=== PATIENT | male | born 1970 | race Caucasian/White ===

== ENCOUNTER 2020-08-22 17:44 | Inpatient (IN) | payer BC, SELFPAY ==
[2020-08-22 18:18] VITALS: BP 146/103; PULSE 107; RESP 20; TEMP 36.3; BMI 37.7
--- NOTE | 2020-08-22 18:31 | ECG_ITS ---
Test Reason : BEHAVIORAL CHANGE,DEPRESSION Blood Pressure : / mmHG Vent. Rate : 080 BPM Atrial Rate : 080 BPM P-R Int : 150 ms QRS Dur : 096 ms QT Int : 368 ms P-R-T Axes : 004 010 -06 degrees QTc Int : 424 ms Normal sinus rhythm RSR' or QR pattern in V1 suggests right ventricular conduction delay Inferior infarct (cited on or before 19-MAR-2017) Abnormal ECG When compared with ECG of 29-SEP-2018 22:23, Nonspecific T wave abnormality no longer evident in Lateral leads Referred By: Leslie Montez Electronically Signed By:MAGUE VARELA MD
--- NOTE | 2020-08-22 18:46 | ED_ITS ---
HPI - Psych General Chief Complaint: Psychiatric Symptoms Stated Complaint: Crisis Time Seen by Provider: 08/22/20 18:15 Source: patient Mode of arrival: ambulatory Limitations: no limitations History of Present Illness HPI Narrative: Patient comes to the emergency room complaining of worsening anxiety and depression. Patient states it started about 3 months for him, unclear what triggered this. Patient states that over the last few days, the anxiety and depression has worsened, patient has a loaded gun in his drawer at home, has had serious thoughts of using it. Patient went to see his primary care physician today, Dr. Ge is very concerned about the patient's presentation, this is the 1st time that patient has this severe episodes of anxiety depressions, and what seems to be manic episodes. Patient states he has been sleeping only 2 hours at the time, sometimes he gets up and has an urge to do things. Last few nights, patient has been up cleaning his basement. Related Data Home Medications Medication Instructions Recorded Confirmed amoxicillin 875 mg tablet 875 mg PO BID 08/22/20 citalopram 20 mg tablet 20 mg PO DAILY 08/22/20 gabapentin 300 mg capsule 300 mg PO TID 08/22/20 levothyroxine 75 mcg tablet 75 mcg PO DAILY 08/22/20 ropinirole 0.25 mg tablet 0.25 mg PO BEDTIME 08/22/20 vardenafil 20 mg tablet 20 mg PO 08/22/20 Allergies Allergy/AdvReac Type Severity Reaction Status Date / Time acetone [ACETONE] Allergy Unknown UNKNOWN Unverified 07/07/20 14:48 Sulfa (Sulfonamide Allergy Unknown UNKNOWN Unverified 07/07/20 14:48 Antibiotics) [SULFA (SULFONAMIDE ANTIBIOTICS)] sulfur Allergy Unknown Verified 11/19/16 00:00 aerosols, epoxy, glue Allergy Unknown Uncoded 04/05/20 00:00 Review of Systems Review of Systems: Constitutional : No Weight loss, No Fever, No Chills, No Night Sweats, No Fatigue, No Malaise ENT/Mouth : No Hearing loss, No Ear Pain, No Nasal Congestion, No Sinus Pain, No Hoarseness, No sore throat, No Rhinorrhea, No Swallowing Difficulty Eyes: No Eye Pain, No Swelling, No Redness, No Foreign Body, No Discharge, No Vision Changes Cardiovascular : No Chest Pain, No SOB, No Dyspnea on Exertion, No Orthopnea, No Edema, No Palpitations Respiratory : No Cough, No Sputum, No Wheezing, No Smoke Exposure, No Dyspnea Gastrointestinal : No Nausea, No Vomiting, No Diarrhea, No Constipation, No abdominal Pain, No Hematochezia, No Melena Genitourinary : no irregular bleeding, No Dysuria, No Urinary Frequency, No Hematuria, No Urinary Incontinence, No Urgency, No Flank Pain, No Urinary Flow Changes, No Hesitancy Musculoskeletal : No joint pain, No Myalgias, No Joint Swelling Skin : No Skin Lesions, No rash Neuro : No Weakness, No Numbness, No Paresthesias, No Loss of Consciousness, No Dizziness, No Headache Psych : Complaining of worsening anxiety, depression, has had serious suicidal thoughts Heme/Lymph: No Bruising, No Bleeding,No Lymphadenopathy Endocrine : No Polyuria, No Polydipsia, No Temperature Intolerance PMFSH Past Medical History Medical History Depression Social History Social History Smoking Status: Never smoker Use of substances other than those prescribed or required for medical reasons: No Advance Directives: No Advance Directives Information Provided: No Physical Exam Vital Signs: Vital Signs: Vital Signs Temp Pulse Resp BP Pulse Ox 08/22/20 21:39 97.9 F 88 20 118/83 98 08/22/20 18:18 97.4 F 107 H 20 146/103 H Body Mass Index 37.7 Appearance: Alert. Oriented X3. Teary, unable to keep arms still Eyes: Pupils equal, round and reactive to light. ENT: Pharynx normal. Neck: Normal inspection. Neck supple. No lymph nodes noted. No crepitus CVS: Normal heart rate and rhythm. Pulses normal. Normal S1 and S2 Respiratory: No respiratory distress. Breath sounds normal. No Wheezing. No rales Abdomen: Soft and nontender. No rigidity. No distention. good BS x4 Skin: Skin warm and dry. Normal skin color. Normal skin turgor. Extremities: No lower extremity edema. No lower extremity edema. No Laceration s. No Rash Neuro: Oriented X 3. No motor deficit. No sensory deficit. Moving all extermities. No slurred speech. Psych: Alert and oriented x3, calm, cooperative, normal thought process, does not seem manic, normal speech, a bit anxious Course Course Course Narrative: Patient states that he does have serious thoughts of using his loaded gun that is in his house. Patient is on a Section 12, patient will likely need inpatient treatment, Dr. Ge who is the patient's PCP is requesting inpatient admission. Dr. Ge requested to get a phone call if more information is needed by the psychiatry team or if there are any concerns . At this time, labs and CT scan will be obtained to rule out an organic reason for the patient's new onset of severe depression and possible manic episodes. Patient is medically cleared. I discussed the patient with the care team, patient will remain under Section 12 and bed search has started for inpatient treatment. Sign-out given to Dr. Griffin [facility] - Psych Restraints Face to Face Assessment: Face to Face Assessment: Current Situation: After assessment of the patient, a review of the pertinent medical record and a discussion with nursing staff, I feel the patient requires a restrain intervention. Reaction To: [] Medical Condition: [] Behavioral State: [] Continued Need: [] Lab Data Result diagrams: 08/22/20 19:02 08/22/20 19:02 Labs: Lab Results 08/22/20 08/22/20 08/22/20 Range/Units 19:02 19:02 19:02 WBC 9.2 (4.8-10.8) X10*3/uL RBC 4.86 (4.60-5.80) X10*6/uL Hgb 15.9 (14.0-18.0) g/dl Hct 45.9 (42-52) % MCV 94.4 (80-98) fL MCH 32.7 (27.0-33.0) pg MCHC 34.6 (31.0-36.0) g/dl RDW 11.9 (11.0-16.0) % Plt Count 261 (160-400) X10*3/uL MPV 9.3 L (9.4-12.4) fL Immature Gran % (Auto) 0.3 (0.0-0.4) % Neut % (Auto) 53.7 (45-73) % Lymph % (Auto) 36.7 (20-40) % [place] % (Auto) 8.2 (2-11) % Eos % (Auto) 0.7 (0-4) % Baso % (Auto) 0.4 (0-2) % Lymph # (Auto) 3.4 (1.2-4.9) X10*3/uL [place] # (Auto) 0.8 (0.1-1.2) X10*3/uL Eos # (Auto) 0.1 (0.0-0.4) X10*3/uL Baso # (Auto) 0.0 (0.0-0.2) X10*3/uL Abs Immat Gran (auto) 0.03 (0.00-0.03) X10*3/uL Absolute Neuts (auto) 4.9 (2.0-8.3) X10*3/uL Absolute Nucleated RBC 0.000 (0.0-0.012) X10*3/uL Nucleated RBC % (auto) 0.0 (0.0-0.2) /100WBC Sodium 142 (135-145) mmol/L Potassium 4.3 (3.3-5.1) mmol/l Chloride 106 (96-108) mmol/L Carbon Dioxide 26 (22-29) mmol/L Anion Gap 14 (12-20) BUN 15 (9-16) mg/dL Creatinine 1.00 (0.5-1.4) mg/dL Estim Creat Clear Calc 125.4 Estimated GFR > 60 Random Glucose 99 (60-115) mg/dL Calcium 8.4 (8.4-10.2) mg/dL Total Bilirubin 0.9 (0.0-1.0) mg/dL Direct Bilirubin 0.4 (0.0-0.5) mg/dL AST 20 (5-37) U/L ALT 23 (0-40) U/L Alkaline Phosphatase 68 (39-117) U/L Total Protein 7.5 (6.5-8.0) g/dL Albumin 4.4 (3.5-5.0) g/dL TSH 5.61 H (0.32-4.0) mIU/mL Free T4 0.98 (0.71-1.85) ng/dL Urine Color Urine Appearance Urine pH (5.0-8.0) Ur Specific [place] (1.005-1.025) Urine Protein (NEG-TRACE) MG/DL Urine Glucose (UA) (NEG) MG/DL Urine Ketones (NEG) MG/DL Urine Blood (NEG) Urine Nitrite (NEG) Ur Leukocyte Esterase (NEG) Urine Opiates Screen (Not Detect) Ur Barbiturates Screen (Not Detect) Ur Phencyclidine Scrn (Not Detect) Ur Amphetamines Screen (Not Detect) U Benzodiazepines Scrn (Not Detect) Urine Cocaine Screen (Not Detect) U Marijuana (THC) Screen (Not Detect) Ethyl Alcohol < 10 mg/dL 08/22/20 08/22/20 Range/Units 19:23 19:23 WBC (4.8-10.8) X10*3/uL RBC (4.60-5.80) X10*6/uL Hgb (14.0-18.0) g/dl Hct (42-52) % MCV (80-98) fL MCH (27.0-33.0) pg MCHC (31.0-36.0) g/dl RDW (11.0-16.0) % Plt Count (160-400) X10*3/uL MPV (9.4-12.4) fL Immature Gran % (Auto) (0.0-0.4) % Neut % (Auto) (45-73) % Lymph % (Auto) (20-40) % [place] % (Auto) (2-11) % Eos % (Auto) (0-4) % Baso % (Auto) (0-2) % Lymph # (Auto) (1.2-4.9) X10*3/uL [place] # (Auto) (0.1-1.2) X10*3/uL Eos # (Auto) (0.0-0.4) X10*3/uL Baso # (Auto) (0.0-0.2) X10*3/uL Abs Immat Gran (auto) (0.00-0.03) X10*3/uL Absolute Neuts (auto) (2.0-8.3) X10*3/uL Absolute Nucleated RBC (0.0-0.012) X10*3/uL Nucleated RBC % (auto) (0.0-0.2) /100WBC Sodium (135-145) mmol/L Potassium (3.3-5.1) mmol/l Chloride (96-108) mmol/L Carbon Dioxide (22-29) mmol/L Anion Gap (12-20) BUN (9-16) mg/dL Creatinine (0.5-1.4) mg/dL Estim Creat Clear Calc Estimated GFR Random Glucose (60-115) mg/dL Calcium (8.4-10.2) mg/dL Total Bilirubin (0.0-1.0) mg/dL Direct Bilirubin (0.0-0.5) mg/dL AST (5-37) U/L ALT (0-40) U/L Alkaline Phosphatase (39-117) U/L Total Protein (6.5-8.0) g/dL Albumin (3.5-5.0) g/dL TSH (0.32-4.0) mIU/mL Free T4 (0.71-1.85) ng/dL Urine Color YELLOW Urine Appearance CLEAR Urine pH 6.0 (5.0-8.0) Ur Specific [place] >= 1.030 H (1.005-1.025) Urine Protein NEG (NEG-TRACE) MG/DL Urine Glucose (UA) NEG (NEG) MG/DL Urine Ketones NEG (NEG) MG/DL Urine Blood NEG (NEG) Urine Nitrite NEG (NEG) Ur Leukocyte Esterase NEG (NEG) Urine Opiates Screen Not Detected (Not Detect) Ur Barbiturates Screen Not Detected (Not Detect) Ur Phencyclidine Scrn Not Detected (Not Detect) Ur Amphetamines Screen Not Detected (Not Detect) U Benzodiazepines Scrn Not Detected (Not Detect) Urine Cocaine Screen Not Detected (Not Detect) U Marijuana (THC) Screen Not Detected (Not Detect) Ethyl Alcohol mg/dL Imaging Data CT scan - head: Radiologist's impression: There are no pathologic extra-axial fluid c ollections. The lateral, third, fourth ventricles are nondilated and concordant with the appearance of the sulci. There is no evidence for acute intraparenchymal hemorrhage or infarct. There is neither mass nor mass effect. There is no shift of midline structures. The paranasal sinuses and mastoid air cells are clear. There are no osseous lesions. ECG Data Attestation: I personally reviewed and interpreted this ECG as follows: (Sinus r hythm, heart rate 80, no ST segment depressions or elevations, nonspecific T- wave inversions) Discharge Plan Discharge Clinical Impression: Suicidal ideation Depression Qualifiers: Depression Type: unspecified Qualified Code(s): F32.9 - Major depressive disorder, single episode, unspecified Prescriptions: No Action amoxicillin 875 mg tablet 875 mg PO BID RF: 0 vardenafil 20 mg tablet 20 mg PO RF: 0 gabapentin 300 mg capsule 300 mg PO TID RF: 0 citalopram 20 mg tablet 20 mg PO DAILY RF: 0 ropinirole 0.25 mg tablet 0.25 mg PO BEDTIME RF: 0 levothyroxine 75 mcg tablet 75 mcg PO DAILY RF: 0
--- NOTE | 2020-08-22 19:01 | PC.NURSE ---
Care team aware of pt. labs drawn.
[2020-08-22 19:08] LABS: MANUAL DIFF FLAG NO
[2020-08-22 19:13] LABS: White Blood Count 9.2 X10*3/uL (4.8-10.8)
[2020-08-22 19:14] LABS: Basophils Percent Auto 0.4 % (0-2); Eosinophils Absolute Auto 0.1 X10*3/uL (0.0-0.4); Eosinophils Percent Auto 0.7 % (0-4); Hematocrit 45.9 % (42-52); Hemoglobin 15.9 g/dl (14.0-18.0); Imm Gran Abs Auto 0.03 X10*3/uL (0.00-0.03); Imm Gran Pct Auto 0.3 % (0.0-0.4); Lymphocytes Absolute Auto 3.4 X10*3/uL (1.2-4.9); Lymphocytes Percent Auto 36.7 % (20-40); Mean Corpuscular HGB Conc 34.6 g/dl (31.0-36.0); Mean Corpuscular Hemoglobin 32.7 pg (27.0-33.0); Mean Corpuscular Volume 94.4 fL (80-98); Mean Platelet Volume 9.3 fL (9.4-12.4); Monocytes Absolute Auto 0.8 X10*3/uL (0.1-1.2); Monocytes Percent Auto 8.2 % (2-11); Neutrophils Absolute Auto 4.9 X10*3/uL (2.0-8.3); Neutrophils Percent Auto 53.7 % (45-73); Platelet Count 261 X10*3/uL (160-400); Red Blood Count 4.86 X10*6/uL (4.60-5.80); Red Cell Distribution Width 11.9 % (11.0-16.0)
[2020-08-22 19:29] LABS: Ethanol < 10 mg/dL
[2020-08-22 19:32] LABS: Alanine Aminotransferase 23 U/L (0-40); Albumin Level 4.4 g/dL (3.5-5.0); Alkaline Phosphatase 68 U/L (39-117); Anion Gap 14 (12-20); Aspartate Amino Transferase 20 U/L (5-37); Bilirubin Direct 0.4 mg/dL (0.0-0.5); Bilirubin Total 0.9 mg/dL (0.0-1.0); Blood Urea Nitrogen 15 mg/dL (9-16); Calcium 8.4 mg/dL (8.4-10.2); Carbon Dioxide 26 mmol/L (22-29); Chloride 106 mmol/L (96-108); Creatinine Clr Calc Pharmacy 125.4; Estimated Glomerular Filt Rate > 60; Glucose Random 99 mg/dL (60-115); Potassium 4.3 mmol/l (3.3-5.1); Sodium 142 mmol/L (135-145); Total Protein 7.5 g/dL (6.5-8.0)
[2020-08-22 19:39] LABS: Glucose Urine UA NEG (NEG); Leukocyte Esterase Urine NEG (NEG); Nitrite Urine NEG (NEG); Specific Gravity - Urine >= 1.030 (1.005-1.025); Urine Blood NEG (NEG); Urine Ketones NEG (NEG); Urine Protein NEG (NEG-TRACE)
[2020-08-22 19:43] LABS: Appearance Urine CLEAR; Color Urine YELLOW
[2020-08-22 19:52] LABS: TSH reflex Free T4 5.61 mIU/mL (0.32-4.0)
[2020-08-22 20:09] LABS: Amphetamine Screen Urine Not Detected (Not Detect); Barbiturates, Urine Not Detected (Not Detect); Benzodiazepines Screen Urine Not Detected (Not Detect); Cannabinoid Screen Urine Not Detected (Not Detect); Cocaine Screen Urine Not Detected (Not Detect); Opiate Screen Urine Not Detected (Not Detect); Phencyclidine Screen Urine Not Detected (Not Detect)
--- NOTE | 2020-08-22 20:27 | CT_ITS ---
EXAMINATION: CT HEAD WITHOUT CONTRAST CLINICAL INFORMATION: Minute episode. Psychiatric symptoms. COMPARISON: August 15, 2006. TECHNIQUE: Contiguous helical images of the brain were obtained without IV contrast. Multiplanar reconstructions were performed. DLP: 749 mGy-cm. FINDINGS: There are no pathologic extra-axial fluid collections. The lateral, third, fourth ventricles are nondilated and concordant with the appearance of the sulci. There is no evidence for acute intraparenchymal hemorrhage or infarct. There is neither mass nor mass effect. There is no shift of midline structures. The paranasal sinuses and mastoid air cells are clear. There are no osseous lesions. CT/CT head/brain wo con IMPRESSION: No evidence for acute intracranial injury. Automated exposure control (Care Dose) Adjustment of the mA and/or kv according to patient size (this includes techniques or standardized protocols for targeted exams where dose is matched to indication / reason for exam; i.e. extremities or head).
[2020-08-22 20:35] LABS: Free T4 (Free Thyroxine) 0.98 ng/dL (0.71-1.85)
[2020-08-22 21:39] VITALS: BP 118/83; PULSE 88; RESP 20; TEMP 36.6; O2SAT 98
[2020-08-23 00:33] LABS: SARS COV2 PCR INHOUSE NEGATIVE (Negative)
[2020-08-23 00:41] VITALS: BP 141/81; PULSE 84; RESP 17; TEMP 36.9; O2SAT 98
[2020-08-23] MEDS: LORazepam 1 MG TABLET 2 MG PO (01:28)
[2020-08-23] MEDS: rOPINIRole HCL 0.25 MG TABLET 0.75 MG PO ×2 (02:06→21:21)
--- NOTE | 2020-08-23 07:07 | PC.NURSE ---
Report received from ARAVIND Summers. Pt awake, alert, affect even. reports he had a small amount of sleep, stated he did not feel significant effects from Ativan.
[2020-08-23 07:33] VITALS: BP 143/87; PULSE 84; RESP 17; TEMP 36.9; O2SAT 98
[2020-08-23] MEDS: Escitalopram Oxalate 10 MG TABLET PO (09:39)
[2020-08-23] MEDS: Levothyroxine Sodium 75 MCG TABLET PO (09:39)
--- NOTE | 2020-08-23 15:28 | MHC.CARE ---
t/w presented pt w a CV and he willingly signed. Pt stated he was looking for the help. [facility] accepted pt. room/doc and time TBD.
[2020-08-23 16:25] VITALS: BP 163/85; PULSE 84; RESP 20; TEMP 36.3; O2SAT 97
--- NOTE | 2020-08-23 17:34 | PC.NURSE ---
report given to salas roberts
[2020-08-23] MEDS: traZODone HCL 50 MG TABLET PO (21:21)
--- NOTE | 2020-08-23 22:44 | PC.NURSE ---
Pt is a 50 year old male who came into [facility] with increased SI/Depression and disturbed sleep. CV signed. Placed on 15 minute checks. Pt told his Doctor that he had active thoughts of suicide with a plan and means via loaded handgun which pt has placed in as side table drawer. Stated that he has had guns for over 30 years and knows the in's and out's - but he was just being honest that he has been very overwhelmed with work- added stressors. It is to be determined if there will be a plan to remove access. Reports I have not slept well for over 2 weeks I maybe get 1 or 2 hours of sleep but my mind will not allow me to go to bed neither my body . Denies SI/HI/AH/VH. Seems to be relieved that he will not have his phone and that he can step back from his stressful job. Having a difficult time managing pain he reported that he was suppose to get 6-8 shots of steroids in his lower back right before COVID and becuase of it was unable to recieve. Pain radiates to his right lower leg and causes pain and discomfort. His restless leg syndrome has been exacerbated due to no sleep and racing thoughts. When I go to lay down it's like it just gets worse and that keeps me up as well . Explains that she has a type A personality and has to have things a certain way, shared that he once spent an hour leveling a picture frame and recently organized a collection of 2,000 baseball cards. Has no history of mental health or JUANJOSE treatment. Diagnosis at refferal: MDD single episode severe, EUGENIO, Rule out obsessive compulsive personality disorder.
--- NOTE | 2020-08-23 22:57 | PC.ADMIT ---
Pt is a 50 year old male who came into [facility] with increased SI/Depression and disturbed sleep. CV signed. Placed on 15 minute checks. Pt told his Doctor that he had active thoughts of suicide with a plan and means via loaded handgun which pt has placed in as side table drawer. Stated that he has had guns for over 30 years and knows the in's and out's - but he was just being honest that he has been very overwhelmed with work- added stressors. It is to be determined if there will be a plan to remove access. Reports I have not slept well for over 2 weeks I maybe get 1 or 2 hours of sleep but my mind will not allow me to go to bed neither my body . Denies SI/HI/AH/VH. Seems to be relieved that he will not have his phone and that he can step back from his stressful job. Having a difficult time managing pain he reported that he was suppose to get 6-8 shots of steroids in his lower back right before COVID and because of it was unable to receive. Pain radiates to his right lower leg and causes pain and discomfort. His restless leg syndrome has been exacerbated due to no sleep and racing thoughts. When I go to lay down it's like it just gets worse and that keeps me up as well . Explains that she has a type A personality and has to have things a certain way, shared that he once spent an hour leveling a picture frame and recently organized a collection of 2,000 baseball cards. Has no history of mental health or JUANJOSE treatment. Diagnosis at referral: MDD single episode severe, EUGENIO, Rule out obsessive compulsive personality disorder. Medications verified in the ED, pharmacy and with patient. Medications ordered by Dr. Haynes.
[2020-08-24 06:05] VITALS: BP 128/71; PULSE 72; RESP 18; TEMP 36.7
[2020-08-24 08:46] LABS: Estimated Average Glucose 100 mg/dL; Hemoglobin A1c % 5.1 %
[2020-08-24 08:55] LABS: Cholesterol 189 mg/dL; HDL Cholesterol 45 mg/dL; LDL Cholesterol Calculated 126 mg/dl; Triglycerides 94 mg/dL
[2020-08-24] MEDS: Escitalopram Oxalate 10 MG TABLET PO (10:13)
[2020-08-24] MEDS: Levothyroxine Sodium 75 MCG TABLET PO (10:14)
--- NOTE | 2020-08-24 10:16 | P.HPPS_ITS ---
HPI Chief Complaint: Major Depression, Severe Sources of Information: patient interviewed, chart reviewed and crisis/core team assessment reviewed HPI Narrative: Pt referred by PCP Dr Ge for significant SI. Pt reported SI of shooting himself. Has many guns at home. 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 Reports keeping one in drawer. States SI lingered for a day or two. Maybe I wouldnt do it....everyone would be better without me . Hx depression dating back to at least 2 years. Stressors: conflict w /estranged and guilty about lost relationship w both children/friend killed himself in Summer 2019. Marked anhedonia/helplessness/guilt/rumination/irritability/snapping at pe ople/agitation/mind racing/cannot sleep. No Hx psychosis or bipolarity. Marked EUGENIO but 2/2 MDD. Has [place] [employer]: exacting/demanding/neat but no OCD. No JUANJOSE. Social ETOH use. Past Psychiatric History: None formally. PCP started Celexa 2 yrs ago Medical Evaluation Reviewed: Yes [facility] Medical History Depression Narrative: States he some cardiac issue 2 years ago. Was seen [facility]. Unable to access records currently. Family History: None known for psychiatric. We dont talk about things Social History: x 2. Current x 10 years, some friction. Has 2 children in from first marriage, Could not/did not attend both weddings/or see grandD. 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 Exacting high standards. Christianity/ [employer] Substance History: Social use of ETOH Trauma History: None Diagnostics Vital Signs (24Hr): Vital Signs - 24 hr 08/23/20 16:25 08/24/20 06:05 Temperature 97.3 F 98.0 F Pulse Rate 84 72 Respiratory Rate 20 18 Blood Pressure 163/85 H 128/71 Pulse Oximetry 97 Body Mass Index 37.7 Labs Results: 08/22/20 19:02 08/22/20 19:02 Labs: Laboratory Results - last 48 hr 08/22/20 08/22/20 08/22/20 19:02 19:02 19:02 WBC 9.2 RBC 4.86 Hgb 15.9 Hct 45.9 MCV 94.4 MCH 32.7 MCHC 34.6 RDW 11.9 Plt Count 261 MPV 9.3 L Immature Gran % (Auto) 0.3 Neut % (Auto) 53.7 Lymph % (Auto) 36.7 [place] % (Auto) 8.2 Eos % (Auto) 0.7 Baso % (Auto) 0.4 Lymph # (Auto) 3.4 [place] # (Auto) 0.8 Eos # (Auto) 0.1 Baso # (Auto) 0.0 Abs Immat Gran (auto) 0.03 Absolute Neuts (auto) 4.9 Absolute Nucleated RBC 0.000 Nucleated RBC % (auto) 0.0 Sodium 142 Potassium 4.3 Chloride 106 Carbon Dioxide 26 Anion Gap 14 BUN 15 Creatinine 1.00 Estim Creat Clear Calc 125.4 Estimated GFR > 60 Random Glucose 99 Estimat Average Glucose Hemoglobin A1c % Calcium 8.4 Total Bilirubin 0.9 Direct Bilirubin 0.4 AST 20 ALT 23 Alkaline Phosphatase 68 Total Protein 7.5 Albumin 4.4 Triglycerides Cholesterol LDL Cholesterol, Calc HDL Cholesterol TSH 5.61 H Free T4 0.98 Urine Color Urine Appearance Urine pH Ur Specific [place] Urine Protein Urine Glucose (UA) Urine Ketones Urine Blood Urine Nitrite Ur Leukocyte Esterase Urine Opiates Screen Ur Barbiturates Screen Ur Phencyclidine Scrn Ur Amphetamines Screen U Benzodiazepines Scrn Urine Cocaine Screen U Marijuana (THC) Screen Ethyl Alcohol < 10 Coronavirus (PCR) 08/22/20 08/22/20 08/22/20 19:23 19:23 23:02 WBC RBC Hgb Hct MCV MCH MCHC RDW Plt Count MPV Immature Gran % (Auto) Neut % (Auto) Lymph % (Auto) [place] % (Auto) Eos % (Auto) Baso % (Auto) Lymph # (Auto) [place] # (Auto) Eos # (Auto) Baso # (Auto) Abs Immat Gran (auto) Absolute Neuts (auto) Absolute Nucleated RBC Nucleated RBC % (auto) Sodium Potassium Chloride Carbon Dioxide Anion Gap BUN Creatinine Estim Creat Clear Calc Estimated GFR Random Glucose Estimat Average Glucose Hemoglobin A1c % Calcium Total Bilirubin Direct Bilirubin AST ALT Alkaline Phosphatase Total Protein Albumin Triglycerides Cholesterol LDL Cholesterol, Calc HDL Cholesterol TSH Free T4 Urine Color YELLOW Urine Appearance CLEAR Urine pH 6.0 Ur Specific [place] >= 1.030 H Urine Protein NEG Urine Glucose (UA) NEG Urine Ketones NEG Urine Blood NEG Urine Nitrite NEG Ur Leukocyte Esterase NEG Urine Opiates Screen Not Detected Ur Barbiturates Screen Not Detected Ur Phencyclidine Scrn Not Detected Ur Amphetamines Screen Not Detected U Benzodiazepines Scrn Not Detected Urine Cocaine Screen Not Detected U Marijuana (THC) Screen Not Detected Ethyl Alcohol Coronavirus (PCR) NEGATIVE 08/24/20 08/24/20 08:12 08:12 WBC RBC Hgb Hct MCV MCH MCHC RDW Plt Count MPV Immature Gran % (Auto) Neut % (Auto) Lymph % (Auto) [place] % (Auto) Eos % (Auto) Baso % (Auto) Lymph # (Auto) [place] # (Auto) Eos # (Auto) Baso # (Auto) Abs Immat Gran (auto) Absolute Neuts (auto) Absolute Nucleated RBC Nucleated RBC % (auto) Sodium Potassium Chloride Carbon Dioxide Anion Gap BUN Creatinine Estim Creat Clear Calc Estimated GFR Random Glucose Estimat Average Glucose 100 Hemoglobin A1c % 5.1 Calcium Total Bilirubin Direct Bilirubin AST ALT Alkaline Phosphatase Total Protein Albumin Triglycerides 94 Cholesterol 189 LDL Cholesterol, Calc 126 HDL Cholesterol 45 TSH Free T4 Urine Color Urine Appearance Urine pH Ur Specific [place] Urine Protein Urine Glucose (UA) Urine Ketones Urine Blood Urine Nitrite Ur Leukocyte Esterase Urine Opiates Screen Ur Barbiturates Screen Ur Phencyclidine Scrn Ur Amphetamines Screen U Benzodiazepines Scrn Urine Cocaine Screen U Marijuana (THC) Screen Ethyl Alcohol Coronavirus (PCR) Imaging Radiology Impressions: ITS Impressions Head CT 08/22/20 20:27 IMPRESSION: No evidence for acute intracranial injury. Automated exposure control (Care Dose) Adjustment of the mA and/or kv according to patient size (this includes techniques or standardized protocols for targeted exams where dose is matched to indication / reason for exam; i.e. extremities or head). Meds/Allergies Meds Home Medications Medication Instructions Recorded Confirmed Type citalopram 20 mg tablet 20 mg PO DAILY 08/22/20 08/23/20 History levothyroxine 75 mcg tablet 75 mcg PO DAILY 08/22/20 08/23/20 History ropinirole 0.25 mg tablet 0.75 mg PO BEDTIME 08/22/20 08/23/20 History Allergies Allergies Allergy/AdvReac Type Severity Reaction Status Date / Time acetone [ACETONE] Allergy Unknown UNKNOWN Unverified 07/07/20 14:48 Sulfa (Sulfonamide Allergy Unknown UNKNOWN Unverified 07/07/20 14:48 Antibiotics) [SULFA (SULFONAMIDE ANTIBIOTICS)] sulfur Allergy Unknown Verified 11/19/16 00:00 aerosols, epoxy, glue Allergy Unknown Uncoded 04/05/20 00:00 Mental Status Exam Mental Status Exam Narrative: restless tearful easily Patient Appearance: Well Grooomed Patient Orientation: Person, Place, Time and Situation Level of Consciousness: Awake Patient Behavior: Cooperative, Anxious and Pacing Mood Description: Depressed and Anxious Affect Description: Depressed and Sad Patient Cognition Impaired: No Ability to Follow Directions: Excellent Speech Pattern: Clear and Perseverating Memory Description: Intact Hallucinations: None Delusions: Not Present Thought Process: Racing Thought Content: positive for Logical and positive for Suicidal Ideation Depressive Symptoms: Increased Anxiety, Insomnia, Diff. Making Decisions, Muscle Tension, Increased Irritability, Difficulty Sleeping, Changes in Appetite, Muscle Pain, Crying Spells, Significant Weight Loss, Feelings of Worthlessness, Significant Weight Gain, Hopelessness, Isolating-Friends/Family, Feelings of Guilt, Unhappiness, Thoughts of /Suicide, Low Self Esteem, Loss of Energy and Difficulty Concentrating Abnormal Motor Activity Signs and Symptoms: Agitation Judgement: Poor Assessment & Plan Assessment & Plan (1) Major depressive disorder, recurrent severe without psychotic features: Status: Acute Code(s): F33.2 - Major depressive disorder, recurrent severe without psychotic features (2) Suicidal ideation: Status: Acute Code(s): R45.851 - Suicidal ideations Assessment and Plan: q15 Collateral info Taper off Lexapro. Start Cymbalta/Lorazepam Groups Gun safety Patient educated on: diagnosis and therapeutic strategies Informed Consent: understands Reason for continued inpatient stay Substantial Risk for: harm to self and rapid decompensation
[2020-08-24] MEDS: LORazepam 1 MG TABLET PO ×2 (15:04→20:36)
[2020-08-24 18:00] VITALS: BP 103/66; PULSE 100; TEMP 36.6
[2020-08-24] MEDS: traZODone HCL 50 MG TABLET PO (20:35)
[2020-08-24] MEDS: rOPINIRole HCL 0.25 MG TABLET 0.75 MG PO (20:36)
[2020-08-25 05:10] VITALS: BP 126/78; PULSE 81; RESP 16; TEMP 36.3; O2SAT 97
[2020-08-25 07:00] VITALS: BMI 36.7
--- NOTE | 2020-08-25 07:29 | HO.PSYCHPN ---
Subjective Subjective Date of Service: 08/25/20 Reason For Visit: Major Depression, Severe Subjective Notes: Conditional Voluntary Interim History: Pleasant,remains depressed. Vented but i dont want to repeat things. Easily tearful. Med compliant. Poor sleep. Ct Lorazepam. Medication Compliance: Yes Side effects from medications: No Attending Groups: Yes Review of Systems Review of Systems Yes all other systems are reviewed and are negative Mental Status Exam Mental Status Exam Patient Appearance: Well Grooomed Patient Orientation: Person, Place, Time and Situation Level of Consciousness: Awake Patient Behavior: Appropriate Mood Description: Depressed and Anxious Affect Description: Depressed Patient Cognition Impaired: No Ability to Follow Directions: Excellent Speech Pattern: Clear Memory Description: Intact Hallucinations: None Delusions: Not Present Thought Process: Intact Depressive Symptoms: Increased Anxiety, Insomnia, Diff. Making Decisions, Increased Irritability, Unhappiness and Increased Fatigue Judgement: Poor Diagnostics Vital Signs (24Hr): Vital Signs - 24 hr 08/24/20 18:00 08/25/20 05:10 Temperature 97.8 F 97.3 F Pulse Rate 100 81 Respiratory Rate 16 Blood Pressure 103/66 126/78 Pulse Oximetry 97 Body Mass Index 37.7 Labs Results: 08/22/20 19:02 08/22/20 19:02 Labs: Laboratory Results - last 48 hr 08/24/20 08/24/20 08:12 08:12 Estimat Average Glucose 100 Hemoglobin A1c % 5.1 Triglycerides 94 Cholesterol 189 LDL Cholesterol, Calc 126 HDL Cholesterol 45 Imaging Radiology Impressions: ITS Impressions Head CT 08/22/20 20:27 IMPRESSION: No evidence for acute intracranial injury. Automated exposure control (Care Dose) Adjustment of the mA and/or kv according to patient size (this includes techniques or standardized protocols for targeted exams where dose is matched to indication / reason for exam; i.e. extremities or head). Medications Medications Current Medications Generic Name Dose Route Start Last Admin Trade Name Freq PRN Reason Stop Dose Admin Acetaminophen 650 mg 08/23/20 21:03 Acetaminophen 325 Mg Tablet PO Q6H PRN Headache/Pain Mild Scale (1-3) Al Hydroxide/Mg Hydroxide 30 ml 08/23/20 21:03 Magnesium Hydrox/Alum Hydrox 30 Ml Oral.Susp PO Q6H PRN Heartburn/Nausea Duloxetine HCl 20 mg 08/26/20 08:00 Duloxetine Hcl 20 Mg Capsule. PO DAILY YAMIL Escitalopram Oxalate 5 mg 08/25/20 09:00 Escitalopram Oxalate 10 Mg Tablet PO DAILY YAMIL Hydroxyzine HCl 25 mg 08/23/20 21:03 Hydroxyzine Hcl 25 Mg Tablet PO BEDTIME PRN Anxiety Levothyroxine Sodium 75 mcg 08/23/20 09:00 08/24/20 10:14 Levothyroxine Sodium 75 Mcg Tablet PO 75 mcg DAILY YAMIL Administration Lorazepam 1 mg 08/23/20 20:52 Lorazepam 1 Mg Tablet PO Q4H PRN Anxiety Lorazepam 1 mg 08/24/20 15:00 08/24/20 20:36 Lorazepam 1 Mg Tablet PO 1 mg TID YAMIL Administration Magnesium Hydroxide 30 ml 08/23/20 21:03 Milk Of Magnesia 30 Ml Oral.Susp PO DAILY PRN Constipation Ropinirole HCl 0.75 mg 08/23/20 21:00 08/24/20 20:36 Ropinirole Hcl 0.25 Mg Tablet PO 0.75 mg BEDTIME YAMIL Administration Trazodone HCl 50 mg 08/23/20 21:03 08/24/20 20:35 Trazodone Hcl 50 Mg Tablet PO 50 mg BEDTIME PRN Administration Insomnia Allergies Allergies Allergy/AdvReac Type Severity Reaction Status Date / Time acetone [ACETONE] Allergy Unknown UNKNOWN Unverified 07/07/20 14:48 Sulfa (Sulfonamide Allergy Unknown UNKNOWN Unverified 07/07/20 14:48 Antibiotics) [SULFA (SULFONAMIDE ANTIBIOTICS)] sulfur Allergy Unknown Verified 11/19/16 00:00 aerosols, epoxy, glue Allergy Unknown Uncoded 04/05/20 00:00 Assessment & Plan Greater than 50% of the session was spent on counseling and/or coordination of care
[2020-08-25] MEDS: Escitalopram Oxalate 10 MG TABLET 5 MG PO (08:54)
[2020-08-25] MEDS: Levothyroxine Sodium 75 MCG TABLET PO (08:54)
[2020-08-25] MEDS: LORazepam 1 MG TABLET PO ×3 (08:54→20:24)
[2020-08-25 18:00] VITALS: BP 132/71; PULSE 93; TEMP 36.8
[2020-08-25] MEDS: rOPINIRole HCL 0.25 MG TABLET 0.75 MG PO (20:24)
[2020-08-25] MEDS: traZODone HCL 50 MG TABLET PO ×2 (20:25→21:14)
[2020-08-26 06:00] VITALS: BP 122/71; PULSE 81; TEMP 37
[2020-08-26] MEDS: LORazepam 1 MG TABLET PO ×3 (08:38→20:54)
[2020-08-26] MEDS: Levothyroxine Sodium 75 MCG TABLET PO (08:38)
[2020-08-26] MEDS: DULoxetine HCl 20 MG CAPSULE.DR PO ×2 (08:38→08:51)
[2020-08-26] MEDS: Escitalopram Oxalate 10 MG TABLET 5 MG PO (08:39)
--- NOTE | 2020-08-26 08:48 | HO.PSYCHPN ---
Subjective Subjective Reason For Visit: Major Depression, Severe Interim History: Steady improvement in mood. Sleep is much improved. Finds milieu helpful. No SI. Much talk about an apology list...this long . Discussing PHP. Review of Systems Review of Systems Yes all other systems are reviewed and are negative Mental Status Exam Mental Status Exam Narrative: restless tearful easily Patient Appearance: Well Grooomed Patient Orientation: Person, Place, Time and Situation Level of Consciousness: Awake Patient Behavior: Appropriate Mood Description: Depressed and Anxious Affect Description: Depressed Patient Cognition Impaired: No Ability to Follow Directions: Excellent Speech Pattern: Clear Memory Description: Intact Thought Content: positive for Suicidal Ideation (denied) Depressive Symptoms: Increased Anxiety and Crying Spells Judgement: Fair Diagnostics Vital Signs (24Hr): Vital Signs - 24 hr 08/25/20 18:00 08/26/20 06:00 Temperature 98.3 F 98.6 F Pulse Rate 93 81 Blood Pressure 132/71 122/71 Body Mass Index 36.7 Labs Results: 08/22/20 19:02 08/22/20 19:02 Labs: Laboratory Results - last 48 hr 08/24/20 08:12 Triglycerides 94 Cholesterol 189 LDL Cholesterol, Calc 126 HDL Cholesterol 45 Imaging Radiology Impressions: ITS Impressions Head CT 08/22/20 20:27 IMPRESSION: No evidence for acute intracranial injury. Automated exposure control (Care Dose) Adjustment of the mA and/or kv according to patient size (this includes techniques or standardized protocols for targeted exams where dose is matched to indication / reason for exam; i.e. extremities or head). Medications Medications Current Medications Generic Name Dose Route Start Last Admin Trade Name Freq PRN Reason Stop Dose Admin Acetaminophen 650 mg 08/23/20 21:03 Acetaminophen 325 Mg Tablet PO Q6H PRN Headache/Pain Mild Scale (1-3) Al Hydroxide/Mg Hydroxide 30 ml 08/23/20 21:03 Magnesium Hydrox/Alum Hydrox 30 Ml Oral.Susp PO Q6H PRN Heartburn/Nausea Duloxetine HCl 20 mg 08/26/20 08:00 08/26/20 08:38 Duloxetine Hcl 20 Mg Capsule.Dr PO 20 mg DAILY YAMIL Administration Escitalopram Oxalate 5 mg 08/25/20 09:00 08/26/20 08:39 Escitalopram Oxalate 10 Mg Tablet PO 5 mg DAILY YAMIL Administration Hydroxyzine HCl 25 mg 08/23/20 21:03 Hydroxyzine Hcl 25 Mg Tablet PO BEDTIME PRN Anxiety Levothyroxine Sodium 75 mcg 08/23/20 09:00 08/26/20 08:38 Levothyroxine Sodium 75 Mcg Tablet PO 75 mcg DAILY YAMIL Administration Lorazepam 1 mg 08/23/20 20:52 Lorazepam 1 Mg Tablet PO Q4H PRN Anxiety Lorazepam 1 mg 08/24/20 15:00 08/26/20 08:38 Lorazepam 1 Mg Tablet PO 1 mg TID YAMIL Administration Magnesium Hydroxide 30 ml 08/23/20 21:03 Milk Of Magnesia 30 Ml Oral.Susp PO DAILY PRN Constipation Ropinirole HCl 0.75 mg 08/23/20 21:00 08/25/20 20:24 Ropinirole Hcl 0.25 Mg Tablet PO 0.75 mg BEDTIME YAMIL Administration Trazodone HCl 50 mg 08/25/20 21:00 08/25/20 21:14 Trazodone Hcl 50 Mg Tablet PO 50 mg BEDTIME MRX1 YAMIL Administration Allergies Allergies Allergy/AdvReac Type Severity Reaction Status Date / Time acetone [ACETONE] Allergy Unknown UNKNOWN Unverified 07/07/20 14:48 Sulfa (Sulfonamide Allergy Unknown UNKNOWN Unverified 07/07/20 14:48 Antibiotics) [SULFA (SULFONAMIDE ANTIBIOTICS)] sulfur Allergy Unknown Verified 11/19/16 00:00 aerosols, epoxy, glue Allergy Unknown Uncoded 04/05/20 00:00 Assessment & Plan Assessment & Plan (1) Major depressive disorder, recurrent severe without psychotic features: Status: Acute Code(s): F33.2 - Major depressive disorder, recurrent severe without psychotic features (2) Suicidal ideation: Status: Acute Code(s): R45.851 - Suicidal ideations Assessment and Plan: q15 Collateral info Taper off Lexapro. Start Cymbalta/Lorazepam Groups Gun safety discussed Refer to PHP Greater than 50% of the session was spent on counseling and/or coordination of care
[2020-08-26 18:00] VITALS: BP 123/75; PULSE 99; TEMP 36.8
[2020-08-26] MEDS: traZODone HCL 50 MG TABLET PO ×2 (20:55→21:45)
[2020-08-26] MEDS: rOPINIRole HCL 0.25 MG TABLET 0.75 MG PO (20:56)
[2020-08-27 06:00] VITALS: BP 135/66; PULSE 84; TEMP 36.7
[2020-08-27] MEDS: LORazepam 1 MG TABLET PO ×4 (09:11→20:04)
[2020-08-27] MEDS: Escitalopram Oxalate 10 MG TABLET 5 MG PO (09:11)
[2020-08-27] MEDS: DULoxetine HCl 20 MG CAPSULE.DR PO (09:11)
[2020-08-27] MEDS: Levothyroxine Sodium 75 MCG TABLET PO (09:13)
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
[2020-08-27 18:00] VITALS: BP 153/66; PULSE 101; TEMP 36.6
[2020-08-27] MEDS: rOPINIRole HCL 0.25 MG TABLET 0.75 MG PO (20:04)
[2020-08-27] MEDS: traZODone HCL 50 MG TABLET PO ×2 (20:05→21:42)
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
[2020-08-27] MEDS: Acetaminophen 325 MG TABLET 650 MG PO (21:41)
[2020-08-28 06:25] VITALS: BP 133/78; PULSE 85; RESP 16; TEMP 36.4; O2SAT 97
[2020-08-28] MEDS: LORazepam 1 MG TABLET PO ×4 (07:55→20:39)
[2020-08-28] MEDS: Escitalopram Oxalate 10 MG TABLET 5 MG PO (07:55)
[2020-08-28] MEDS: Levothyroxine Sodium 75 MCG TABLET PO (07:56)
[2020-08-28] MEDS: DULoxetine HCl 20 MG CAPSULE.DR PO (07:56)
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
--- NOTE | 2020-08-28 12:40 | HO.PSYCHPN ---
Subjective Subjective Date of Service: 08/28/20 Reason For Visit: Major Depression, Severe Subjective Notes: Conditional Voluntary Interim History: Steady improvement in mood. Sleep is much improved, but he is taking the second dose of trazodone. We agreed to consolidate the dose. Finds milieu helpful. No SI. He is interactive with his peers. Discussing PHP. Medication Compliance: Yes Side effects from medications: No Attending Groups: Yes Review of Systems Acute medical concerns: No Medical Review of Systems: unchanged Mental Status Exam Mental Status Exam Narrative: restless tearful easily Patient Appearance: Well Grooomed Patient Orientation: Person, Place, Time and Situation Level of Consciousness: Awake Patient Behavior: Appropriate Mood Description: Depressed and Anxious Affect Description: Depressed Patient Cognition Impaired: No Ability to Follow Directions: Excellent Speech Pattern: Clear Memory Description: Intact Hallucinations: None Delusions: Not Present Thought Process: Intact Thought Content: negative for Suicidal Ideation and negative for Homicidal Ideation Depressive Symptoms: Increased Anxiety Judgement: Fair Diagnostics Vital Signs (24Hr): Vital Signs - 24 hr 08/27/20 18:00 08/28/20 06:25 Temperature 98 F 97.5 F Pulse Rate 101 H 85 Respiratory Rate 16 Blood Pressure 153/66 H 133/78 Pulse Oximetry 97 Body Mass Index 36.7 Labs Results: 08/22/20 19:02 08/22/20 19:02 Imaging Radiology Impressions: ITS Impressions Head CT 08/22/20 20:27 IMPRESSION: No evidence for acute intracranial injury. Automated exposure control (Care Dose) Adjustment of the mA and/or kv according to patient size (this includes techniques or standardized protocols for targeted exams where dose is matched to indication / reason for exam; i.e. extremities or head). Medications Medications Current Medications Generic Name Dose Route Start Last Admin Trade Name Freq PRN Reason Stop Dose Admin Acetaminophen 650 mg 08/23/20 21:03 08/27/20 21:41 Acetaminophen 325 Mg Tablet PO 650 mg Q6H PRN Administration Headache/Pain Mild Scale (1-3) Al Hydroxide/Mg Hydroxide 30 ml 08/23/20 21:03 Magnesium Hydrox/Alum Hydrox 30 Ml Oral.Susp PO Q6H PRN Heartburn/Nausea Duloxetine HCl 30 mg 08/29/20 09:00 Duloxetine Hcl 30 Mg Capsule. PO DAILY YAMIL Hydroxyzine HCl 25 mg 08/23/20 21:03 Hydroxyzine Hcl 25 Mg Tablet PO BEDTIME PRN Anxiety Levothyroxine Sodium 75 mcg 08/23/20 09:00 08/28/20 07:56 Levothyroxine Sodium 75 Mcg Tablet PO 75 mcg DAILY YAMIL Administration Lorazepam 1 mg 08/23/20 20:52 08/27/20 12:08 Lorazepam 1 Mg Tablet PO 1 mg Q4H PRN Administration Anxiety Lorazepam 1 mg 08/24/20 15:00 08/28/20 07:55 Lorazepam 1 Mg Tablet PO 1 mg TID YAMIL Administration Magnesium Hydroxide 30 ml 08/23/20 21:03 Milk Of Magnesia 30 Ml Oral.Susp PO DAILY PRN Constipation Ropinirole HCl 0.75 mg 08/23/20 21:00 08/27/20 20:04 Ropinirole Hcl 0.25 Mg Tablet PO 0.75 mg BEDTIME YAMIL Administration Trazodone HCl 100 mg 08/28/20 21:00 Trazodone Hcl 50 Mg Tablet PO BEDTIME MRX1 YAMIL Allergies Allergies Allergy/AdvReac Type Severity Reaction Status Date / Time acetone [ACETONE] Allergy Unknown UNKNOWN Unverified 07/07/20 14:48 Sulfa (Sulfonamide Allergy Unknown UNKNOWN Unverified 07/07/20 14:48 Antibiotics) [SULFA (SULFONAMIDE ANTIBIOTICS)] sulfur Allergy Unknown Verified 11/19/16 00:00 aerosols, epoxy, glue Allergy Unknown Uncoded 04/05/20 00:00 Assessment & Plan Assessment & Plan (1) Major depressive disorder, recurrent severe without psychotic features: Status: Acute Code(s): F33.2 - Major depressive disorder, recurrent severe without psychotic features Assessment and Plan: CT current plan. Consolidate sleep meds Greater than 50% of the session was spent on counseling and/or coordination of care Patient educated on: diagnosis and medication risk/benefits Informed Consent: understands Reason for contiued inpatient stay Substantial Risk for: rapid decompensation
[2020-08-28 18:00] VITALS: BP 148/67; PULSE 100; TEMP 36.6
[2020-08-28] MEDS: rOPINIRole HCL 0.25 MG TABLET 0.75 MG PO (20:39)
[2020-08-28] MEDS: traZODone HCL 50 MG TABLET 100 MG PO ×2 (20:39→21:48)
[2020-08-29 06:00] VITALS: BP 124/87; PULSE 98; TEMP 37.1
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
[2020-08-29] MEDS: Levothyroxine Sodium 75 MCG TABLET PO (08:53)
[2020-08-29] MEDS: DULoxetine HCl 30 MG CAPSULE.DR PO (08:53)
[2020-08-29] MEDS: LORazepam 1 MG TABLET PO ×2 (08:54→22:23)
[2020-08-29] MEDS: Acetaminophen 325 MG TABLET 650 MG PO (10:57)
[2020-08-29 13:49] VITALS: BP 135/76; PULSE 81
--- NOTE | 2020-08-29 13:49 | PC.NURSE ---
pt requested to see a nurse. he felt as if his body was heavy and was not feeling right. may be anxiety related bp and p wnl. 135/76 pulse 81. duscussed realaxation techniques. 1:1. feeling better.
[2020-08-29 18:00] VITALS: BP 127/73; PULSE 88; TEMP 36.9
[2020-08-29] MEDS: rOPINIRole HCL 0.25 MG TABLET 0.75 MG PO (22:21)
[2020-08-29] MEDS: traZODone HCL 50 MG TABLET 100 MG PO (22:24)
[2020-08-30 05:25] VITALS: BP 134/83; PULSE 84; RESP 18; TEMP 36.2; O2SAT 98
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
[2020-08-30] MEDS: LORazepam 0.5 MG TABLET PO (08:36)
[2020-08-30] MEDS: DULoxetine HCl 30 MG CAPSULE.DR PO (08:36)
[2020-08-30] MEDS: Levothyroxine Sodium 75 MCG TABLET PO (08:36)
== END 2020-08-30 13:37 | disposition home or self-care (01) | DRG 751 ==
LOC: HO.ED 08-23 19:01 → HO.PM5 08-23 19:17
PROVIDERS: Admitting Provider Psychiatry & Neurology Psychiatry; Emergency Provider Emergency Medicine; PCP Internal Medicine; Visit Provider Psychiatry & Neurology Psychiatry
DX: F33.2 Major depressive disorder, recurrent severe without psychotic features (principal); R45.851 Suicidal ideations; E03.9 Hypothyroidism, unspecified; I25.2 Old myocardial infarction; Z20.828 Contact with and (suspected) exposure to other viral communicable diseases; Z79.890 Hormone replacement therapy; Z79.899 Other long term (current) drug therapy
CPT/HCPCS: 36415; 70450; 80048; 80061; 80076; 80307; 80320; 81003; 83036; 84439; 84443; 85025; 93005; 99223; 99232; 99239; 99285; U0003

== ENCOUNTER 2020-09-07 10:30 | Outpatient (RCR) | payer BC, SELFPAY ==
[2020-08-31 14:30] VITALS: BMI 37.8
--- NOTE | 2020-08-31 14:53 | PC.ADMIT ---
Patient is a 50 year old male who started the PHP program today. Pt was referred by [facility] where patient was hospitalized d/t increased symptoms of depression with SI and plan to shoot himself with a gun. Prior to this patient had an appointment with his PCP who referred him to crisis after he revealed his plan to shoot himself with a gun. Since then patients locked up the guns in the house and patient does not have access to the walker. Stressors include relationship issues with and adult children and losing a friend to suicide. Patient currently denied SI. I gave patient the crisis number and patient agrees to call if feeling unsafe. Patient also stated he would alert staff if he was feeling unsafe. In addition, he gave permission to email him a copy of his Safety plan as well. Patient is feeling better than he did prior to hospitalization. Stated he is looking forward to seeing his granddaughter. He does have significant sleep issues. Bree FLOYD increased his Trazodone to 200mg. Pt reports drinking ETOH on Fridays and Saturdays having a few beers on Saturday and 1 on Saturdays. Stated he had a shot yesterday in a glass of gingerale when he got home from the hospital. Education provided on mixing alcohol with medications and how alcohol can affect depression.
--- NOTE | 2020-09-01 13:22 | HO.PHPPROGNO ---
Subjective Subjective Date of Service: 09/01/20 Reason For Visit: depression Interim History: the patient seen in tele health appointment [facility] hospital. Patient trazodone was increased to 100 mg at bedtime has had racing thoughts agitation mood instability. He was recently hospitalized change from citalopram to Cymbalta 30 mg. has been on Ativan 1 mg trazodone 100 mg not sleeping up for days at times not feeling sedated. Difficulty with concentration and attention. His relates mood instability over the past year quite on current characteristic of him. He had intense suicidal thoughts over the past month which she is now denying. Questionable history of decreased need for sleep hyperactivity lasting for periods of time patient is somewhat disorganized historian. His has been thinking whether not he might be bipolar. Mental Status Exam Mental Status Exam Patient Orientation: Person, Place, Time and Situation Level of Consciousness: Appropriate Patient Behavior: Talkative, Cooperative, Restless, Anxious and Distractible Mood Description: Depressed, Labile and Apprehensive Affect Description: Depressed and Anxious Ability to Follow Directions: Excellent Speech Pattern: Clear and Perseverating Hallucinations: None Delusions: Not Present Thought Process: Rumination Thought Content: positive for Obsessional Thoughts, positive for Circumstantial and positive for Preoccupation Depressive Symptoms: Thoughts of /Suicide (denies plan intent) Judgement: Fair Judgement and Insight: patient with excessive guilt regarding behavior over the past year educated regarding diagnosis Diagnostics Vital Signs (24Hr): Body Mass Index 37.8 Assessment & Plan Assessment & Plan (1) Bipolar II disorder major depressive with atypical features: Status: Acute Code(s): F31.81 - Bipolar II disorder Assessment and Plan: stop trazadone duoloxitine start klonapin 1 hs hold ativan seroquel 25 hs given education regarding dx treatment consider lithium or other mood stabilizing agent Patient educated on: diagnosis and medication risk/benefits Reason for contiued partial hosp. stay Substantial Risk for: harm to self Certification I certify that partial hospital treatment is medically necessary due to the symptoms and problems resulting from the patient's mental illness and the failure to treat the patient at the partial hospital level of care would likely result in the patient requiring inpatient psychiatric care which could not be prevented at a less intensive level of care. Greater than 50% of the session was spent on counseling and/or coordination of care Discharge Plan Discharge Attending provider: Mehrdad Chin Medications: New quetiapine [Seroquel] 25 mg tablet 25 mg PO BEDTIME Qty: 30 RF: 0 clonazepam [Klonopin] 1 mg tablet 1 mg PO BEDTIME Qty: 30 RF: 0 lithium carbonate 450 mg tablet extended release 450 mg PO BEDTIME Qty: 7 RF: 0 Discontinued duloxetine 30 mg Capsule,Delayed Release(Dr/Ec) 30 mg PO DAILY 30 Days Qty: 30 RF: 0 lorazepam 1 mg tablet 1 mg PO BEDTIME RF: 0 lorazepam 0.5 mg Tablet 0.5 mg PO DAILY RF: 0 trazodone 100 mg tablet 200 mg PO BEDTIME RF: 0 No Action levothyroxine [Synthroid] 75 mcg tablet 75 mcg PO DAILY 30 Days Qty: 30 RF: 0 ropinirole 0.25 mg tablet 0.75 mg PO BEDTIME 30 Days Qty: 90 RF: 0
--- NOTE | 2020-09-01 20:46 | P.HPPSP_ITS ---
HPI Chief Complaint: depression HPI Narrative: Patient is 50 year old male who presents to [facility] following recent ad mission to [facility] psychiatric unit for suicidal ideation. Psychiatric admission and discharge notes reviewed.Medications started during admission. Please see notes for full history. Today, patient reporting he is in a better place in terms of depression, but is having significant difficulty sleeping, he reports sleeping anywhere from 2-4 hours per night--states this was the case while he was admitted as well. He reports that he has racing thoughts while he is awake in bed, so he gets up to do something Past Psychiatric History: Recent admission to [facility] Medical Evaluation Reviewed: Yes [facility] Medical History (Updated 09/01/20 @ 23:41 by Mehrdad Chin MD) Depression Diverticula of colon Herniated disc Hx of myocardial infarction Hypothyroidism Family History: None known for psychiatric. We dont talk about things Social History: x 2. Current x 10 years, some friction. Has 2 children in from first marriage, Could not/did not attend both weddings/or see grandD. 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 Exacting high standards. Druze/ [employer] Sabianism Trauma History: None Diagnostics Vital Signs (24Hr): Body Mass Index 37.8 Meds/Allergies Allergies Allergies Allergy/AdvReac Type Severity Reaction Status Date / Time acetone [ACETONE] Allergy Unknown UNKNOWN Unverified 07/07/20 14:48 Sulfa (Sulfonamide Allergy Unknown UNKNOWN Verified 09/02/20 12:52 Antibiotics) [SULFA (SULFONAMIDE ANTIBIOTICS)] sulfur Allergy Unknown unknown Verified 09/02/20 12:52 aerosols, epoxy, glue Allergy Unknown unknown Uncoded 09/02/20 12:52 Mental Status Exam Mental Status Exam Patient Appearance: Well Grooomed and Appropriate Patient Orientation: Person, Place, Time and Situation Level of Consciousness: Appropriate Patient Behavior: Cooperative and Anxious Mood Description: Calm Affect Description: Calm and Anxious Ability to Follow Directions: Excellent Speech Pattern: Clear Thought Process: Intact Thought Content: positive for Intact Depressive Symptoms: Insomnia and Feelings of Guilt Judgement: Good Assessment & Plan Assessment & Plan (1) Major depressive disorder, recurrent severe without psychotic features: Status: Acute Code(s): F33.2 - Major depressive disorder, recurrent severe without psychotic features Assessment and Plan: * Increase trazodone to 200mg QHS to address insomnia * Educated on not going to bed too early as this may impact ability to fall asleep Certification I certify that partial hospital treatment is medically necessary due to the symptoms and problems resulting from the patient's mental illness and the failure to treat the patient at the partial hospital level of care would likely result in the patient requiring inpatient psychiatric care which could not be prevented at a less intensive level of care.
--- NOTE | 2020-09-02 15:17 | P.PNPSP_ITS ---
Subjective Subjective Date of Service: 09/02/20 Reason For Visit: depression Interim History: Lul met with Dr. Chin via Telehealth on 09/01. They decided to make changes in regime. Cymbalta and Trazodone were stopped. Seroquel 25 mg HS, Klonopin 1 mg hs were added. Today, call to pt about beginning a mood stabilizer. 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 Discussed [place]. Medication Compliance: Yes Side effects from medications: No Attending Groups: Yes Review of Systems Musculoskeletal: Reports back pain Psychiatric: Reports abnormal sleep pattern, Reports mood swings and Reports other (hypomania) Mental Status Exam Mental Status Exam Patient Orientation: Person, Place, Time and Situation Level of Consciousness: Awake, Appropriate and Alert Patient Behavior: Appropriate, Talkative, Cooperative and Anxious Mood Description: Labile, Nervous, Apprehensive and Expansive Affect Description: Blunted Patient Cognition Impaired: No Ability to Follow Directions: Excellent Speech Pattern: Clear, Appropriate, Spontaneous Speech and Pressured (at times) Memory Description: Intact Hallucinations: None Delusions: Not Present Thought Process: Racing Thought Content: positive for Racing and positive for Goal Oriented Depressive Symptoms: Increased Anxiety Judgement: Fair Diagnostics Vital Signs (24Hr): Body Mass Index 37.8 Assessment & Plan Patient educated on: medication risk/benefits and therapeutic strategies Informed Consent: further education needed Reason for contiued partial hosp. stay Substantial Risk for: harm to self, inability to function and rapid decompensation Certification I certify that partial hospital treatment is medically necessary due to the symptoms and problems resulting from the patient's mental illness and the failure to treat the patient at the partial hospital level of care would likely result in the patient requiring inpatient psychiatric care which could not be prevented at a less intensive level of care. Greater than 50% of the session was spent on counseling and/or coordination of care Discharge Plan Discharge Attending provider: Mehrdad Chin Additional Instructions: 09/02/20: [place] ER 450 HS 09/05/20: Seroquel 100 mg hs in addition to 25 mg hs Medications: New quetiapine [Seroquel] 25 mg tablet 25 mg PO BEDTIME Qty: 30 RF: 0 clonazepam [Klonopin] 1 mg tablet 1 mg PO BEDTIME Qty: 30 RF: 0 lithium carbonate 450 mg tablet extended release 450 mg PO BEDTIME Qty: 7 RF: 0 quetiapine [Seroquel] 100 mg tablet 100 mg PO BEDTIME Qty: 7 RF: 0 Discontinued duloxetine 30 mg Capsule,Delayed Release(Dr/Ec) 30 mg PO DAILY 30 Days Qty: 30 RF: 0 lorazepam 1 mg tablet 1 mg PO BEDTIME RF: 0 lorazepam 0.5 mg Tablet 0.5 mg PO DAILY RF: 0 trazodone 100 mg tablet 200 mg PO BEDTIME RF: 0 No Action levothyroxine [Synthroid] 75 mcg tablet 75 mcg PO DAILY 30 Days Qty: 30 RF: 0 ropinirole 0.25 mg tablet 0.75 mg PO BEDTIME 30 Days Qty: 90 RF: 0
--- NOTE | 2020-09-05 11:46 | PC.NURSE ---
Called pt with Katey Beltran RN to discuss his report in group of attempting to take all of his sleeping pills on Saturday and that his had to clear them out of his mouth. He denied current suicidal ideation without a plan or intent. Encouraged him to obtain a crisis evaluation. He adamantly declined. He presented as confused to person (continued to refer to Katey as Maribel) and time (unsure of the day). Katey to call pt at 2:05 this afternoon to review medication as he was unclear as to what medication he had been taking. Obtained permission to speak with his regarding holding his medication. He agreed. Called pt's (emergency contact) with Katey Blunt RN. Discussed concerns regarding his confusion, lack of sleep, and medication. She reported his medication is hidden and that she distributes it to him already. She reported he had not take not attempted to take the whole bottle of his sleep medication; that he just snatched it from her hand. Encouraged her to take him to the emergency room if the pain persists and he is being unsafe.
--- NOTE | 2020-09-05 13:23 | PC.NURSE ---
Spoke to patient's Antoinette. Confirmed with her medications that patient is currently taking. Patient appears to be taking medications as prescribed. Antoinette stated that she is in charge of patients medications and that she has them hidden so patient does not have access to them. She describes patient as having mood lability. Educated her about bipolar d/o along with potential symptoms to look out for including paranoia, impulsiveness, AH, VH. Patients sleep continues to be poor. Experiencing some confusion at times, does not remember what he did on Saturday. Antoinette reports he did not sleep well on Saturday, Slept 4 hrs (which is the most he has slept in a while) on Saturday, and only 1 hour last night. In addition, patient has sleep apnea and has not been using his C-Pap machine. It is recommended that he start using his C-Pap machine as this could be contributing to his sleep issues. Patient and are aware that we are recommending patient not to drive or operate any machinery until symptoms improve and d/t starting of new medications. Zuhair Huynh APRN increased patients Seroquel to 125 mg at HS to help with sleep. Antoinette and patient are aware and pt will start tonight. Patient denied SI or thoughts to harm himself. Patient plans on attending PHP tomorrow and will keep staff updated regarding sleep.
--- NOTE | 2020-09-06 14:51 | HO.PHPPROGNO ---
Subjective Subjective Date of Service: 09/06/20 Reason For Visit: depression Interim History: Lul reports taking increased dose of Seroquel last evening at 2130. States he slept until 12 am and was awake for the rest of the night. Reports it is difficult for his brain to shut down. Last evening was the first time he used his CPAP in several months. He reports feeling sedate and tired today. We discussed re-admission evaluation, continuing the medication adjustment at home and re-evaluating daily symptoms. In our two discussions, pt is more open to admission, following suggestions to rest, not work and take time to allow self-care. Medication Compliance: Yes Side effects from medications: No Attending Groups: Yes Review of Systems Psychiatric: Reports abnormal sleep pattern, Reports anxiety, Reports depression, Reports difficulty concentrating, Reports mood swings and Reports other (hypomania, insomnia) Mental Status Exam Mental Status Exam Patient Orientation: Person, Place, Time and Situation Level of Consciousness: Awake, Appropriate and Sedated Patient Behavior: Appropriate Mood Description: Calm and Constricted Affect Description: Flat Patient Cognition Impaired: No Ability to Follow Directions: Good Speech Pattern: Clear, Spontaneous Speech and Coherent Memory Description: Intact Hallucinations: None Delusions: Not Present Thought Process: Intact and Racing (per pt report, especially at night when attempting to sleep) Thought Content: positive for Intact Depressive Symptoms: Insomnia, Increased Fatigue and Loss of Energy Abnormal Motor Activity Signs and Symptoms: Hyperactivity (reported, at times) Judgement: Fair Diagnostics Vital Signs (24Hr): Body Mass Index 37.8 Assessment & Plan Patient educated on: diagnosis, medication risk/benefits and therapeutic strategies Informed Consent: further education needed Reason for contiued partial hosp. stay Substantial Risk for: inability to function and rapid decompensation Certification I certify that partial hospital treatment is medically necessary due to the symptoms and problems resulting from the patient's mental illness and the failure to treat the patient at the partial hospital level of care would likely result in the patient requiring inpatient psychiatric care which could not be prevented at a less intensive level of care. Greater than 50% of the session was spent on counseling and/or coordination of care Discharge Plan Discharge Attending provider: Mehrdad Chin Additional Instructions: 09/02/20: [place] ER 450 HS 09/05/20: Seroquel 100 mg hs in addition to 25 mg hs 09/06/20: Continue current regime Medications: New quetiapine [Seroquel] 25 mg tablet 25 mg PO BEDTIME Qty: 30 RF: 0 clonazepam [Klonopin] 1 mg tablet 1 mg PO BEDTIME Qty: 30 RF: 0 lithium carbonate 450 mg tablet extended release 450 mg PO BEDTIME Qty: 7 RF: 0 quetiapine [Seroquel] 100 mg tablet 100 mg PO BEDTIME Qty: 7 RF: 0 Discontinued duloxetine 30 mg Capsule,Delayed Release(Dr/Ec) 30 mg PO DAILY 30 Days Qty: 30 RF: 0 lorazepam 1 mg tablet 1 mg PO BEDTIME RF: 0 lorazepam 0.5 mg Tablet 0.5 mg PO DAILY RF: 0 trazodone 100 mg tablet 200 mg PO BEDTIME RF: 0 No Action levothyroxine [Synthroid] 75 mcg tablet 75 mcg PO DAILY 30 Days Qty: 30 RF: 0 ropinirole 0.25 mg tablet 0.75 mg PO BEDTIME 30 Days Qty: 90 RF: 0
--- NOTE | 2020-09-07 09:45 | PC.NURSE ---
Patients Antoinette called with an update regarding Lul and medication changes. Antoinette reports that patient had a good night. He went to bed at 2200 and woke up at 0330 and took off his C-Pap machine then went back to bed. She stated she heard him snoring afterwards and he appeared to be asleep until 0710 when she woke him up. He was calmer and not anxious. She stated he normally would be up and down all night, highly anxious, crying at times, twitching, negative thinking and was not able to calm down. PHP team is aware.
--- NOTE | 2020-09-07 13:54 | PC.NURSE ---
Clinician Maribel reported to staff that she was concerned about Lul and that he appears suicidal. Patient talked in group about giving his things away so people won't have to take care of it. Patient is home alone as his is at work. Patient is having memory issue as well. It is recommended that patient go to the emergency room for a crisis evaluation. Spoke to patients and reviewed the following aforementioned information. Patient's stated she could not leave work until 1730 to bring patient to the emergency room however she could call patients father to bring him. Spoke to patient who denied SI plan or intent however pt did agree to go to the emergency room for evaluation d/t staffs concerns regarding statements about giving his things away. Stated that he was going to get dressed and wait for his father to pick him up. Patients called me back to confirm that patients father is on his way to pick Lul up. Demi Hammond notified the Care Team.
--- NOTE | 2020-09-19 08:51 | PC.NURSE ---
Patient asked for help making a f/u appointment with [facility] in [place] for pain management. Patient has an appointment on September 22, 2020 at 0930. While patient was at [facility] he was evaluated for SI in [facility] and was subsequently hospitalized on . Analilia Dennis on let patient know about the above appointment.
== END 2020-09-07 15:00 | disposition admitted as inpatient to this hospital (09) ==
LOC: HO.PHPA 10:30
PROVIDERS: Visit Provider Psychiatry & Neurology Psychiatry
DX: F33.2 Major depressive disorder, recurrent severe without psychotic features (principal); F31.81 Bipolar II disorder; F30.8 Other manic episodes; Z79.899 Other long term (current) drug therapy
CPT/HCPCS: 90853; 99213; 99214

== ENCOUNTER 2020-09-07 14:38 | Inpatient (IN) | payer BC, SELFPAY ==
--- NOTE | 2020-09-07 | ECG_ITS ---
Test Reason : PRE ADMISSION Blood Pressure : / mmHG Vent. Rate : 077 BPM Atrial Rate : 077 BPM P-R Int : 164 ms QRS Dur : 098 ms QT Int : 378 ms P-R-T Axes : 023 005 -11 degrees QTc Int : 427 ms Normal sinus rhythm Incomplete right bundle branch block Inferior infarct (cited on or before 19-MAR-2017) Abnormal ECG When compared with ECG of 22-AUG-2020 20:11, No significant change was found Referred By: Jake Perez Electronically Signed By:MAGUE VARELA MD
[2020-09-07 14:45] VITALS: BP 147/76; PULSE 89; RESP 16; TEMP 36.1; O2SAT 98; BMI 37.6
--- NOTE | 2020-09-07 15:35 | PC.NURSE ---
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 Reports increase in SI, reported this while he at [facility] today, was triggered over finding a mass card of a close friend. Had thoughts to shoot self. Does have access to guns at home. Was recently discharged from .
[2020-09-07 15:46] VITALS: BP 134/86; PULSE 84; RESP 18; TEMP 36.7; O2SAT 98
[2020-09-07 16:44] LABS: Amphetamine Screen Urine Not Detected (Not Detect); Barbiturates, Urine Not Detected (Not Detect); Benzodiazepines Screen Urine Not Detected (Not Detect); Cannabinoid Screen Urine Not Detected (Not Detect); Cocaine Screen Urine Not Detected (Not Detect); Opiate Screen Urine Not Detected (Not Detect); Phencyclidine Screen Urine Not Detected (Not Detect)
--- NOTE | 2020-09-07 16:57 | PC.NURSE ---
Tech at bedside drawing blood. Pt calm and cooperative.
--- NOTE | 2020-09-07 17:37 | ED_ITS ---
HPI - Psych General Chief Complaint: Psychiatric Symptoms Stated Complaint: crisis Source: patient Mode of arrival: ambulatory Limitations: no limitations History of Present Illness HPI Narrative: patient presents to the ED for worsening depression and suicidal ideation. Patient is suicidal because he recently lost his friend who in October. Patient states he started taking by him and feel depressed. Patient has access to guns. Patient states he is at partial hospitalization but still feels like it is getting worse. Patient states no homicidal ideation Related Data Home Medications Medication Instructions Recorded Confirmed Klonopin 0.5 mg PO BEDTIME 09/07/20 09/07/20 Previous Rx's Medication Instructions Recorded levothyroxine [Synthroid] 75 mcg PO DAILY 30 Days #30 tab 08/30/20 ropinirole 0.75 mg PO BEDTIME 30 Days #90 tab 08/30/20 clonazepam [Klonopin] 1 mg PO BEDTIME #30 tab 09/01/20 quetiapine [Seroquel] 25 mg PO BEDTIME #30 tab 09/01/20 lithium carbonate 450 mg PO BEDTIME #7 tab 09/02/20 quetiapine [Seroquel] 100 mg PO BEDTIME #7 tab 09/05/20 Allergies Allergy/AdvReac Type Severity Reaction Status Date / Time acetone [ACETONE] Allergy Unknown UNKNOWN Unverified 07/07/20 14:48 Sulfa (Sulfonamide Allergy Unknown UNKNOWN Verified 09/02/20 12:52 Antibiotics) [SULFA (SULFONAMIDE ANTIBIOTICS)] sulfur Allergy Unknown unknown Verified 09/02/20 12:52 aerosols, epoxy, glue Allergy Unknown unknown Uncoded 09/02/20 12:52 Review of Systems Review of Systems: Yes all other systems are reviewed and are negative Constitutional: Constitutional: Reports as per HPI and Reports no additional constitutional complaints Eyes: Eyes: Reports as per HPI and Reports no additional eye complaints ENT: Reports system reviewed and no additional complaints, except as documented and Reports as per HPI Cardiovascular: Cardiovascular: Reports as per HPI and Reports no additional cardiovascular complaints Respiratory: Respiratory: Reports as per HPI and Reports no additional respiratory complaints Gastrointestinal: Gastrointestinal: Reports as per HPI and Reports no additional gastrointestinal complaints Genitourinary: Genitourinary: Reports no additional male genitourinary complaints and Reports as per HPI Musculoskeletal: Musculoskeletal: Reports no additional musculoskeletal complaints and Reports as per HPI Neurologic: Reports system reviewed and no additional complaints, except as documented and Reports as per HPI Psychiatric: Psychiatric: Reports no additional psychiatric complaints, Reports as per HPI, Reports depression and Reports suicidal ideation Endocrine: Endocrine: Reports no additional endocrine complaints and Reports as per HPI [facility] Past Medical History Medical History (Updated 09/07/20 @ 17:43 by JOHN Gutierres) Diverticula of colon Herniated disc Hx of myocardial infarction Hypothyroidism Family History Family History (Updated 09/02/20 @ 13:02 by Ruby Colón, RMA, AUTOMOTIVE MACHINIST) Father Unknown family medical history Mother Unknown family medical history Sister No problems noted. Social History Social History Household Members: Spouse Housing: House Alcohol intake: former Smoking Status: Never smoker Smoked in Last 30 Days: No Second Hand Smoke Exposure: No Use of substances other than those prescribed or required for medical reasons: No Substance Use Type: Marijuana Advance Directives: No Advance Directives Information Provided: No service: No Sexual orientation: Straight/Heterosexual Physical Exam Vital Signs: Vital Signs: Last Vital Signs Temp 98.0 F 09/07/20 15:46 Pulse 84 09/07/20 15:46 Resp 18 09/07/20 15:46 BP 134/86 09/07/20 15:46 Pulse Ox 98 09/07/20 15:46 Body Mass Index 37.6 Const: General: cooperative, healthy appearing, comfortable, no acute distress, well developed and alert HENMT: Head: Yes normal to inspection and Yes No palpable skull fracture p resent Eyes: General: appearance normal, both eyes and all related structures Neck: Neck: Yes normal visual inspection and Yes full ROM Chest: Chest palpation & inspection: normal inspection of the chest, normal palpation of entire chest wall and no localized rib tenderness Resp: Effort & Inspection: normal respiratory effort and able to speak in complete sentences Auscultation: clear to auscultation bilaterally Cardio: Jugular venous distension: no JVD Heart sounds: S1 normal heart sound present and S2 normal heart sound present GI: Inspection: Yes normal to inspection and No abdominal wall ecchymosis Palpation (GI): Soft to palpation, not firm, nontender, no guarding and not rigid : General: No CVA tenderness Back/Spine/Pelvis: Back: No CVA tenderness and No back tenderness Skin: General skin exam: no rashes or lesions noted Neuro: General: patient oriented x3, gait normal and CN's II-XI intact bilaterally Cranial nerves: Yes CN's II-XII intact bilaterally Extrem: General: Yes normal to inspection and Yes full ROM Psych: Appearance: grossly normal, well kempt and not disheveled Thought content: Suicidality present Course Course Course Narrative: patient will have basic labs and And have BHN evaluation. Reevaluation(s) Reevaluation #1: Patient basic labs are pending. [place] in consult be placed. Case signed out to [employer] Jake Time: 17:40 MDM - Psych MDM Narrative Medical decision making narrative: depression Lab Data Labs: Lab Results 09/07/20 Range/Units 15:52 Urine Opiates Screen Not Detected (Not Detect) Ur Barbiturates Screen Not Detected (Not Detect) Ur Phencyclidine Scrn Not Detected (Not Detect) Ur Amphetamines Screen Not Detected (Not Detect) U Benzodiazepines Scrn Not Detected (Not Detect) Urine Cocaine Screen Not Detected (Not Detect) U Marijuana (THC) Screen Not Detected (Not Detect) Discharge Plan Discharge Clinical Impression: Depression Prescriptions: No Action levothyroxine [Synthroid] 75 mcg tablet 75 mcg PO DAILY 30 Days Qty: 30 RF: 0 ropinirole 0.25 mg tablet 0.75 mg PO BEDTIME 30 Days Qty: 90 RF: 0 quetiapine [Seroquel] 25 mg tablet 25 mg PO BEDTIME Qty: 30 RF: 0 clonazepam [Klonopin] 1 mg tablet 1 mg PO BEDTIME Qty: 30 RF: 0 lithium carbonate 450 mg tablet extended release 450 mg PO BEDTIME Qty: 7 RF: 0 quetiapine [Seroquel] 100 mg tablet 100 mg PO BEDTIME Qty: 7 RF: 0 Klonopin 0.5 MG 0.5 mg PO BEDTIME RF: 0
[2020-09-07 18:16] LABS: Basophils Percent Auto 0.4 % (0-2); Eosinophils Absolute Auto 0.1 X10*3/uL (0.0-0.4); Eosinophils Percent Auto 1.5 % (0-4); Hematocrit 44.5 % (42-52); Hemoglobin 15.1 g/dl (14.0-18.0); Imm Gran Abs Auto 0.03 X10*3/uL (0.00-0.03); Imm Gran Pct Auto 0.4 % (0.0-0.4); Lymphocytes Absolute Auto 2.4 X10*3/uL (1.2-4.9); Lymphocytes Percent Auto 35.7 % (20-40); MANUAL DIFF FLAG NO; Mean Corpuscular HGB Conc 33.9 g/dl (31.0-36.0); Mean Corpuscular Hemoglobin 32.4 pg (27.0-33.0); Mean Corpuscular Volume 95.5 fL (80-98); Mean Platelet Volume 9.5 fL (9.4-12.4); Monocytes Absolute Auto 0.5 X10*3/uL (0.1-1.2); Monocytes Percent Auto 7.6 % (2-11); Neutrophils Absolute Auto 3.7 X10*3/uL (2.0-8.3); Neutrophils Percent Auto 54.4 % (45-73); Platelet Count 216 X10*3/uL (160-400); Red Blood Count 4.66 X10*6/uL (4.60-5.80); Red Cell Distribution Width 11.9 % (11.0-16.0); White Blood Count 6.8 X10*3/uL (4.8-10.8)
--- NOTE | 2020-09-07 18:17 | PC.NURSE ---
Pt currently resting in bed at this time, no complaints. Waiting to be seen by CARE team.
--- NOTE | 2020-09-07 18:30 | MHC.CARE ---
The following is excerpted from CARE team assessment dated 09/07/2020. See CARE team assessment for full details. Patient is a 50 year old male seen by CARE team in [facility] pod 2 where he self-presented at the insistence of [facility] after safety became a concern at the end of their treatment day. Patient has been struggling with severe sleep deprivation. Has been up all night cleaning his basement and giving away his belongings. Is distraught at the lack of relief from his symptoms. Crying uncontrollably in group at [facility]. Feels unable to go on. Based on patient's level of suicidality and inability to maintain safety in a lower level of care, inpatient is recommended. Patient is agreeable to treatment but is unsafe to leave and is on a section 12. F31.2 Bipolar I Disorder, current or most recent episode manic with psychotic features
[2020-09-07 18:35] LABS: Ethanol < 10 mg/dL
[2020-09-07 18:36] LABS: Lithium 0.23 mmol/L (0.60-1.20)
[2020-09-07 18:49] LABS: Alanine Aminotransferase 26 U/L (0-40); Alkaline Phosphatase 56 U/L (39-117); Anion Gap 9 (12-20); Aspartate Amino Transferase 20 U/L (5-37); Bilirubin Direct 0.2 mg/dL (0.0-0.5); Bilirubin Total 0.6 mg/dL (0.0-1.0); Blood Urea Nitrogen 11 mg/dL (9-16); Calcium 8.5 mg/dL (8.4-10.2); Carbon Dioxide 28 mmol/L (22-29); Chloride 104 mmol/L (96-108); Creatinine Clr Calc Pharmacy 136.1; Estimated Glomerular Filt Rate > 60; Glucose Random 81 mg/dL (60-115); Potassium 4.3 mmol/l (3.3-5.1); Sodium 137 mmol/L (135-145); Total Protein 6.7 g/dL (6.5-8.0)
--- NOTE | 2020-09-07 19:03 | PC.NURSE ---
Report received. PT is resting quietly in his room. Recently seen by CARE team. Plan to admit to M5.
--- NOTE | 2020-09-07 20:29 | PC.NURSE ---
PT currently sitting in a chair across from his room rocking back and forth. When MHA first asked if anything was wrong the PT replied, No, I'm fine . When this behavior continued for another few minute the MHA asked again if he was alright. This time the PT replied, I don't know how to tell you this, but I saw a toothbrush in the bathroom and my initial thought was to break it and stab it into my neck . PT was then comforted and able to express his feelings and anxiety. PT being offered his night time meds and additional PRNs ordered by provider to help with anxiety. PT is cooperative at this time.
[2020-09-07 20:37] VITALS: BP 132/80; PULSE 81; RESP 20; TEMP 36.2; O2SAT 96
[2020-09-07] MEDS: QUEtiapine Fumarate 100 MG TABLET PO (21:08)
[2020-09-07] MEDS: clonazePAM 1 MG TABLET PO (21:08)
[2020-09-07] MEDS: hydrOXYzine HCL 50 MG TABLET PO (21:08)
[2020-09-07] MEDS: clonazePAM 0.5 MG TABLET PO (21:08)
[2020-09-07] MEDS: QUEtiapine Fumarate 25 MG TABLET PO (21:08)
[2020-09-07] MEDS: Lithium Carbonate ER 450 MG TABLET.ER PO (21:12)
[2020-09-07] MEDS: rOPINIRole HCL 0.25 MG TABLET 0.75 MG PO (21:29)
[2020-09-07 22:18] LABS: COVID-19 Test Negative (Negative)
[2020-09-07 22:45] VITALS: BP 125/84; PULSE 94; RESP 16; O2SAT 96
[2020-09-07 22:47] LABS: Glucose, Whole Blood 94 mg/dL (60-115)
--- NOTE | 2020-09-07 22:53 | PC.NURSE ---
PT OBSERVED ON CAMERA TO HAVE LOWERED SELF ONTO GROUND WITH BOTH HANDS ON FROM SITTING POSITION. PT DID NOT HIT HIS HEAD, DID NOT LOSE CONSCIOUSNESS, NEUROS INTACT, PUPILS PERRLA, VS STABLE, PT A/O X 3, POC 94, PT SPEAKING IN FULL SENTENCES, AND JOKING W/STAFF.PT ASSISTED BACK TO BED. RESTAURANT SHIFT LEADER CHRIS MADE AWARE STATES HE WILL COME IN TO ASSESS PT SHORTLY. CHARGE NURSE MADE AWARE
--- NOTE | 2020-09-08 03:08 | PC.ADMIT ---
Patient is a 50 yo white male who presented to [facility], as a section 12a, at the suggestion of [facility] staff due to safety concerns. During the last group of the day, pt tearfully reported SI, sleep deprivation, and visual hallucination, consisting of people walking around seen from his periphery, on 09/05/20. While in [facility], pt had thoughts of breaking off a toothbrush and stabbing himself in the neck. He was able to seek staff. Pt arrived on M5 at approximately 0025 and presented as sedated and with an unsteady gait due to medication. Pt was tearful during assessment when discussing the suicide of of a friend which occurred in October,. He cited chronic back pain (01/28) which radiates down legs bilaterally as a stressor. Pt denied current SI/HI/VH/AH but stated that he owned several firearms which he could access regardless of them locked and secured by his . Its not going to be a plan. I'm just going to do it. Pt cited his one yo grandson as a reason to live. I just can't continue like this. Pt is currently employed, prescribed medication through [facility], and appears to have a strong family support system. He reports PMH of [place], diverticulitis, and chronic pain. Pt reported last BM on 09/06/20 with globs of magnolia blood present. Pt did not eat again until while in [facility] on 09/07/20. Pt signed a CV with admitting dx of bipolar I with manic/psychotic features. On-call provider submitted orders with 15 min safety checks. Pt in bed by 0130 and slept restfully.
--- NOTE | 2020-09-08 03:38 | P.DS_ITS ---
DS: Providers Provider Date of admission: 08/30/20 Primary care physician: Kimberly Paula MD DS: Medications Discharge Medications Home Medications: Home Medications Medication Instructions Recorded Confirmed Klonopin 0.5 mg PO BEDTIME 09/07/20 09/07/20 Klonopin 0.5 mg PO BID PRN 09/07/20 09/07/20 Previous Rx's Medication Instructions Recorded levothyroxine [Synthroid] 75 mcg PO DAILY 30 Days #30 tab 08/30/20 ropinirole 0.75 mg PO BEDTIME 30 Days #90 tab 08/30/20 clonazepam [Klonopin] 1 mg PO BEDTIME #30 tab 09/01/20 quetiapine [Seroquel] 25 mg PO BEDTIME #30 tab 09/01/20 lithium carbonate 450 mg PO BEDTIME #7 tab 09/02/20 quetiapine [Seroquel] 100 mg PO BEDTIME #7 tab 09/05/20 Discharge Plan Discharge Referrals: Kimberly Paula MD [Primary Care Provider] - Discharge Medications: No Action levothyroxine [Synthroid] 75 mcg tablet 75 mcg PO DAILY 30 Days Qty: 30 RF: 0 ropinirole 0.25 mg tablet 0.75 mg PO BEDTIME 30 Days Qty: 90 RF: 0 quetiapine [Seroquel] 25 mg tablet 25 mg PO BEDTIME Qty: 30 RF: 0 clonazepam [Klonopin] 1 mg tablet 1 mg PO BEDTIME Qty: 30 RF: 0 lithium carbonate 450 mg tablet extended release 450 mg PO BEDTIME Qty: 7 RF: 0 quetiapine [Seroquel] 100 mg tablet 100 mg PO BEDTIME Qty: 7 RF: 0 Klonopin 0.5 MG 0.5 mg PO BEDTIME RF: 0 Klonopin 1 MG 0.5 mg PO BID PRN (Reason: Anxiety) RF: 0 Data Data Completed and Pending Completed studies during hospitalization [Text1]: 09/07/20 09/07/20 09/07/20 15:52 18:09 18:09 WBC 6.8 RBC 4.66 Hgb 15.1 Hct 44.5 MCV 95.5 MCH 32.4 MCHC 33.9 RDW 11.9 Plt Count 216 MPV 9.5 Immature Gran % (Auto) 0.4 Neut % (Auto) 54.4 Lymph % (Auto) 35.7 [place] % (Auto) 7.6 Eos % (Auto) 1.5 Baso % (Auto) 0.4 Lymph # (Auto) 2.4 [place] # (Auto) 0.5 Eos # (Auto) 0.1 Baso # (Auto) 0.0 Abs Immat Gran (auto) 0.03 Absolute Neuts (auto) 3.7 Absolute Nucleated RBC 0.000 Nucleated RBC % (auto) 0.0 Sodium 137 Potassium 4.3 Chloride 104 Carbon Dioxide 28 Anion Gap 9 L BUN 11 Creatinine 0.92 Estim Creat Clear Calc 136.1 Estimated GFR > 60 POC Glucose Random Glucose 81 Calcium 8.5 Total Bilirubin 0.6 Direct Bilirubin 0.2 AST 20 ALT 26 Alkaline Phosphatase 56 Total Protein 6.7 Albumin 4.0 Urine Opiates Screen Not Detected Ur Barbiturates Screen Not Detected Ur Phencyclidine Scrn Not Detected Ur Amphetamines Screen Not Detected U Benzodiazepines Scrn Not Detected [place] Urine Cocaine Screen Not Detected U Marijuana (THC) Screen Not Detected Ethyl Alcohol COVID-19 (DAYSI) COVID-19 Stuffle Com 09/07/20 09/07/20 09/07/20 18:09 18:09 21:57 WBC RBC Hgb Hct MCV MCH MCHC RDW Plt Count MPV Immature Gran % (Auto) Neut % (Auto) Lymph % (Auto) [place] % (Auto) Eos % (Auto) Baso % (Auto) Lymph # (Auto) [place] # (Auto) Eos # (Auto) Baso # (Auto) Abs Immat Gran (auto) Absolute Neuts (auto) Absolute Nucleated RBC Nucleated RBC % (auto) Sodium Potassium Chloride Carbon Dioxide Anion Gap BUN Creatinine Estim Creat Clear Calc Estimated GFR POC Glucose Random Glucose Calcium Total Bilirubin Direct Bilirubin AST ALT Alkaline Phosphatase Total Protein Albumin Urine Opiates Screen Ur Barbiturates Screen Ur Phencyclidine Scrn Ur Amphetamines Screen U Benzodiazepines Scrn [place] 0.23 L Urine Cocaine Screen U Marijuana (THC) Screen Ethyl Alcohol < 10 COVID-19 (DAYSI) Negative COVID-19 Stuffle Com See Note 09/07/20 22:43 WBC RBC Hgb Hct MCV MCH MCHC RDW Plt Count MPV Immature Gran % (Auto) Neut % (Auto) Lymph % (Auto) [place] % (Auto) Eos % (Auto) Baso % (Auto) Lymph # (Auto) [place] # (Auto) Eos # (Auto) Baso # (Auto) Abs Immat Gran (auto) Absolute Neuts (auto) Absolute Nucleated RBC Nucleated RBC % (auto) Sodium Potassium Chloride Carbon Dioxide Anion Gap BUN Creatinine Estim Creat Clear Calc Estimated GFR POC Glucose 94 Random Glucose Calcium Total Bilirubin Direct Bilirubin AST ALT Alkaline Phosphatase Total Protein Albumin Urine Opiates Screen Ur Barbiturates Screen Ur Phencyclidine Scrn Ur Amphetamines Screen U Benzodiazepines Scrn [place] Urine Cocaine Screen U Marijuana (THC) Screen Ethyl Alcohol COVID-19 (DAYSI) COVID-19 Clin Com DS: Summary Time Spent with Patient Time attestation: Total time spent providing and/or coordinating discharge services:
[2020-09-08 06:22] VITALS: BP 129/78; PULSE 96; RESP 16; TEMP 36.2; O2SAT 98
[2020-09-08] MEDS: Levothyroxine Sodium 75 MCG TABLET PO (08:33)
[2020-09-08 08:50] VITALS: BMI 36.9
[2020-09-08] MEDS: DULoxetine HCl 30 MG CAPSULE.DR PO (13:17)
--- NOTE | 2020-09-08 14:45 | HO.PSYADMNOT ---
HPI Chief Complaint: crisis Sources of Information: patient interviewed, chart reviewed and crisis/core team assessment reviewed HPI Narrative: Individual is a 50 yo white male who presented to [facility], as a section 12a, at the suggestion of [facility] staff due to safety concerns. He had been attending [facility] since his During the last group of the day, pt tearfully reported SI, sleep deprivation, and visual hallucination, consisting of people walking around seen from his periphery, on 09/05/20. He had been on from 08/23 to 08/30 for a similar presentation. A major issue has been his struggle to sleep. He was on Cymbalta and Trazodone at his last stay. He was switched to seroquel at [facility], and Li was added. He was doing well until he crashed. Precipitants include issues at work, missing his children who are in the service, COVID 19 and the of a friend by suicide in October 2019. While in [facility], pt had thoughts of breaking off a toothbrush and stabbing himself in the neck. He was able to seek staff. He was referred by CARE team for stabilization. On the day after admission he remained quite despondent and his main focus was on poor sleep and a sense of despair. Past Psychiatric History: Recent admission to [facility] He was transitioned to [facility] Medical Evaluation Reviewed: Yes Medically cleared for admission [facility] Medical History Diverticula of colon Herniated disc Hx of myocardial infarction Hypothyroidism Family History: None known for psychiatric. We dont talk about things Social History: x 2. Current x 10 years, some friction. Has 2 children in from first marriage, Could not/did not attend both weddings/or see grandD. Feels guilty. 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 Work has been very difficult with COVID 19 Type A self described. Exacting high standards. Amish/ Slovenian Jehovah'S Witness Substance History: Denies Trauma History: None Diagnostics Vital Signs (24Hr): Vital Signs - 24 hr 09/07/20 15:46 09/07/20 20:37 09/07/20 22:45 Temperature 98.0 F 97.2 F Pulse Rate 84 81 94 Respiratory Rate 18 20 16 Blood Pressure 134/86 132/80 125/84 Pulse Oximetry 98 96 96 09/08/20 06:22 Temperature 97.1 F Pulse Rate 96 Respiratory Rate 16 Blood Pressure 129/78 Pulse Oximetry 98 Body Mass Index 36.9 Labs Results: 09/07/20 18:09 09/07/20 18:09 Labs: Laboratory Results - last 48 hr 09/07/20 09/07/20 09/07/20 15:52 18:09 18:09 WBC 6.8 RBC 4.66 Hgb 15.1 Hct 44.5 MCV 95.5 MCH 32.4 MCHC 33.9 RDW 11.9 Plt Count 216 MPV 9.5 Immature Gran % (Auto) 0.4 Neut % (Auto) 54.4 Lymph % (Auto) 35.7 [place] % (Auto) 7.6 Eos % (Auto) 1.5 Baso % (Auto) 0.4 Lymph # (Auto) 2.4 [place] # (Auto) 0.5 Eos # (Auto) 0.1 Baso # (Auto) 0.0 Abs Immat Gran (auto) 0.03 Absolute Neuts (auto) 3.7 Absolute Nucleated RBC 0.000 Nucleated RBC % (auto) 0.0 Sodium 137 Potassium 4.3 Chloride 104 Carbon Dioxide 28 Anion Gap 9 L BUN 11 Creatinine 0.92 Estim Creat Clear Calc 136.1 Estimated GFR > 60 POC Glucose Random Glucose 81 Calcium 8.5 Total Bilirubin 0.6 Direct Bilirubin 0.2 AST 20 ALT 26 Alkaline Phosphatase 56 Total Protein 6.7 Albumin 4.0 Urine Opiates Screen Not Detected Ur Barbiturates Screen Not Detected Ur Phencyclidine Scrn Not Detected Ur Amphetamines Screen Not Detected U Benzodiazepines Scrn Not Detected [place] Urine Cocaine Screen Not Detected U Marijuana (THC) Screen Not Detected Ethyl Alcohol COVID-19 (DAYSI) COVID-19 Clin Com 09/07/20 09/07/20 09/07/20 18:09 18:09 21:57 WBC RBC Hgb Hct MCV MCH MCHC RDW Plt Count MPV Immature Gran % (Auto) Neut % (Auto) Lymph % (Auto) [place] % (Auto) Eos % (Auto) Baso % (Auto) Lymph # (Auto) [place] # (Auto) Eos # (Auto) Baso # (Auto) Abs Immat Gran (auto) Absolute Neuts (auto) Absolute Nucleated RBC Nucleated RBC % (auto) Sodium Potassium Chloride Carbon Dioxide Anion Gap BUN Creatinine Estim Creat Clear Calc Estimated GFR POC Glucose Random Glucose Calcium Total Bilirubin Direct Bilirubin AST ALT Alkaline Phosphatase Total Protein Albumin Urine Opiates Screen Ur Barbiturates Screen Ur Phencyclidine Scrn Ur Amphetamines Screen U Benzodiazepines Scrn [place] 0.23 L Urine Cocaine Screen U Marijuana (THC) Screen Ethyl Alcohol < 10 COVID-19 (DAYSI) Negative COVID-19 Clin Com See Note 09/07/20 22:43 WBC RBC Hgb Hct MCV MCH MCHC RDW Plt Count MPV Immature Gran % (Auto) Neut % (Auto) Lymph % (Auto) [place] % (Auto) Eos % (Auto) Baso % (Auto) Lymph # (Auto) [place] # (Auto) Eos # (Auto) Baso # (Auto) Abs Immat Gran (auto) Absolute Neuts (auto) Absolute Nucleated RBC Nucleated RBC % (auto) Sodium Potassium Chloride Carbon Dioxide Anion Gap BUN Creatinine Estim Creat Clear Calc Estimated GFR POC Glucose 94 Random Glucose Calcium Total Bilirubin Direct Bilirubin AST ALT Alkaline Phosphatase Total Protein Albumin Urine Opiates Screen Ur Barbiturates Screen Ur Phencyclidine Scrn Ur Amphetamines Screen U Benzodiazepines Scrn [place] Urine Cocaine Screen U Marijuana (THC) Screen Ethyl Alcohol COVID-19 (DAYSI) COVID-19 Clin Com Meds/Allergies Meds Home Medications Acetaminophen (Acetaminophen 325 Mg Tablet) 650 mg PO Q6H PRN PRN Reason: Headache/Pain Mild Scale (1-3) Al Hydroxide/Mg Hydroxide (Magnesium Hydrox/Alum Hydrox 30 Ml Oral.Susp) 30 ml PO Q6H PRN PRN Reason: Heartburn/Nausea Clonazepam (Clonazepam 1 Mg Tablet) 1 mg PO BEDTIME [facility] Last Admin: 09/07/20 21:08 Dose: 1 mg Documented by: Clonazepam (Clonazepam 0.5 Mg Tablet) 0.5 mg PO BID PRN PRN Reason: Anxiety Last Admin: 09/07/20 21:08 Dose: 0.5 mg Documented by: Duloxetine HCl (Duloxetine Hcl 30 Mg Capsule.Dr) 30 mg PO DAILY [facility] Last Admin: 09/08/20 13:17 Dose: 30 mg Documented by: Hydroxyzine HCl (Hydroxyzine Hcl 25 Mg Tablet) 25 mg PO DAILY PRN PRN Reason: Anxiety Levothyroxine Sodium (Levothyroxine Sodium 75 Mcg Tablet) 75 mcg PO DAILY [facility] Last Admin: 09/08/20 08:33 Dose: 75 mcg Documented by: [place] Carbonate ([place] Carbonate Er 450 Mg Tablet.Er) 450 mg PO BEDTIME [facility] Last Admin: 09/07/20 21:12 Dose: 450 mg Documented by: Magnesium Hydroxide (Milk Of Magnesia 30 Ml Oral.Susp) 30 ml PO DAILY PRN PRN Reason: Constipation Quetiapine Fumarate (Quetiapine Fumarate 200 Mg Tablet) 200 mg PO BEDTIME YAMIL Ropinirole HCl (Ropinirole Hcl 0.25 Mg Tablet) 0.75 mg PO BEDTIME [facility] Last Admin: 09/07/20 21:29 Dose: 0.75 mg Documented by: Trazodone HCl (Trazodone Hcl 50 Mg Tablet) 50 mg PO BEDTIME PRN PRN Reason: Insomnia Allergies Allergies Allergy/AdvReac Type Severity Reaction Status Date / Time acetone [ACETONE] Allergy Unknown UNKNOWN Unverified 07/07/20 14:48 Sulfa (Sulfonamide Allergy Unknown UNKNOWN Verified 09/02/20 12:52 Antibiotics) [SULFA (SULFONAMIDE ANTIBIOTICS)] sulfur Allergy Unknown unknown Verified 09/02/20 12:52 aerosols, epoxy, glue Allergy Unknown unknown Uncoded 09/02/20 12:52 Mental Status Exam Mental Status Exam Patient Appearance: Well Grooomed and Fatigued Patient Orientation: Person, Place and Time Level of Consciousness: Appropriate Patient Behavior: Appropriate Mood Description: Depressed, Anxious and Blunted Affect Description: Depressed, Sad and Apprehensive Ability to Follow Directions: Good Speech Pattern: Clear and Spontaneous Speech Memory Description: Intact Hallucinations: None Delusions: Not Present Thought Content: positive for Circumstantial, negative for Suicidal Ideation and negative for Homicidal Ideation Depressive Symptoms: Insomnia, Diff. Making Decisions, Changes in Appetite, Crying Spells, Feelings of Worthlessness, Hopelessness, Feelings of Guilt, Thoughts of /Suicide and Loss of Energy Judgement: Fair Assessment & Plan Assessment & Plan (1) Bipolar II disorder major depressive with atypical features: Status: Acute Code(s): F31.81 - Bipolar II disorder Assessment and Plan: CT [place] trial Increase seroquel Collect collateral history Patient educated on: diagnosis and medication risk/benefits Informed Consent: further education needed Reason for continued inpatient stay Substantial Risk for: harm to self, inability to function and rapid decompensation
[2020-09-08 18:00] VITALS: BP 141/81; PULSE 96; TEMP 36.6
[2020-09-08] MEDS: QUEtiapine Fumarate 200 MG TABLET PO (20:14)
[2020-09-08] MEDS: clonazePAM 1 MG TABLET PO (20:14)
[2020-09-08] MEDS: Lithium Carbonate ER 450 MG TABLET.ER PO (20:15)
[2020-09-08] MEDS: rOPINIRole HCL 0.25 MG TABLET 0.75 MG PO (20:15)
[2020-09-09] MEDS: DULoxetine HCl 30 MG CAPSULE.DR PO (08:48)
[2020-09-09] MEDS: Levothyroxine Sodium 75 MCG TABLET PO (08:49)
[2020-09-09] MEDS: Lithium Carbonate ER 450 MG TABLET.ER PO ×2 (08:49→20:23)
[2020-09-09 08:56] LABS: Cholesterol 185 mg/dL; HDL Cholesterol 42 mg/dL; LDL Cholesterol Calculated 124 mg/dl; Triglycerides 98 mg/dL
--- NOTE | 2020-09-09 09:07 | P.PNPSI_ITS ---
Subjective Subjective Date of Service: 09/09/20 Reason For Visit: crisis Subjective Notes: Conditional Voluntary Interim History: Lul slept well with an increase in Seroquel. He would like to take medication earlier in the evening. He is feeling more settled in himself and finding the support of the unit helpful. Medication Compliance: Yes Side effects from medications: No Attending Groups: Yes Review of Systems Acute medical concerns: No Medical Review of Systems: unchanged Review of Systems Reports system reviewed and no additional complaints, except as documented and Reports as per [facility] Mental Status Exam Mental Status Exam Patient Appearance: Well Grooomed and Fatigued Patient Orientation: Person, Place and Time Level of Consciousness: Appropriate Patient Behavior: Appropriate Mood Description: Depressed, Anxious and Blunted Affect Description: Depressed, Sad and Apprehensive Ability to Follow Directions: Good Speech Pattern: Clear and Spontaneous Speech Memory Description: Intact Hallucinations: None Delusions: Not Present Thought Process: Intact Thought Content: positive for Circumstantial, negative for Suicidal Ideation and negative for Homicidal Ideation Depressive Symptoms: Insomnia, Diff. Making Decisions, Changes in Appetite, Crying Spells, Feelings of Worthlessness, Hopelessness, Feelings of Guilt, Thoughts of /Suicide and Loss of Energy Judgement: Fair Diagnostics Vital Signs (24Hr): Vital Signs - 24 hr 09/08/20 18:00 Temperature 97.9 F Pulse Rate 96 Blood Pressure 141/81 H Body Mass Index 36.9 Labs Results: 09/07/20 18:09 09/07/20 18:09 Labs: Laboratory Results - last 48 hr 09/07/20 09/07/20 09/07/20 15:52 18:09 18:09 WBC 6.8 RBC 4.66 Hgb 15.1 Hct 44.5 MCV 95.5 MCH 32.4 MCHC 33.9 RDW 11.9 Plt Count 216 MPV 9.5 Immature Gran % (Auto) 0.4 Neut % (Auto) 54.4 Lymph % (Auto) 35.7 [place] % (Auto) 7.6 Eos % (Auto) 1.5 Baso % (Auto) 0.4 Lymph # (Auto) 2.4 [place] # (Auto) 0.5 Eos # (Auto) 0.1 Baso # (Auto) 0.0 Abs Immat Gran (auto) 0.03 Absolute Neuts (auto) 3.7 Absolute Nucleated RBC 0.000 Nucleated RBC % (auto) 0.0 Sodium 137 Potassium 4.3 Chloride 104 Carbon Dioxide 28 Anion Gap 9 L BUN 11 Creatinine 0.92 Estim Creat Clear Calc 136.1 Estimated GFR > 60 POC Glucose Random Glucose 81 Calcium 8.5 Total Bilirubin 0.6 Direct Bilirubin 0.2 AST 20 ALT 26 Alkaline Phosphatase 56 Total Protein 6.7 Albumin 4.0 Triglycerides Cholesterol LDL Cholesterol, Calc HDL Cholesterol Urine Opiates Screen Not Detected Ur Barbiturates Screen Not Detected Ur Phencyclidine Scrn Not Detected Ur Amphetamines Screen Not Detected U Benzodiazepines Scrn Not Detected [place] Urine Cocaine Screen Not Detected U Marijuana (THC) Screen Not Detected Ethyl Alcohol COVID-19 ([facility]) COVID-19 [employer] 09/07/20 09/07/20 09/07/20 18:09 18:09 21:57 WBC RBC Hgb Hct MCV MCH MCHC RDW Plt Count MPV Immature Gran % (Auto) Neut % (Auto) Lymph % (Auto) [place] % (Auto) Eos % (Auto) Baso % (Auto) Lymph # (Auto) [place] # (Auto) Eos # (Auto) Baso # (Auto) Abs Immat Gran (auto) Absolute Neuts (auto) Absolute Nucleated RBC Nucleated RBC % (auto) Sodium Potassium Chloride Carbon Dioxide Anion Gap BUN Creatinine Estim Creat Clear Calc Estimated GFR POC Glucose Random Glucose Calcium Total Bilirubin Direct Bilirubin AST ALT Alkaline Phosphatase Total Protein Albumin Triglycerides Cholesterol LDL Cholesterol, Calc HDL Cholesterol Urine Opiates Screen Ur Barbiturates Screen Ur Phencyclidine Scrn Ur Amphetamines Screen U Benzodiazepines Scrn [place] 0.23 L Urine Cocaine Screen U Marijuana (THC) Screen Ethyl Alcohol < 10 COVID-19 ([facility]) Negative COVID-19 [employer] See Note 09/07/20 09/09/20 22:43 08:10 WBC RBC Hgb Hct MCV MCH MCHC RDW Plt Count MPV Immature Gran % (Auto) Neut % (Auto) Lymph % (Auto) [place] % (Auto) Eos % (Auto) Baso % (Auto) Lymph # (Auto) [place] # (Auto) Eos # (Auto) Baso # (Auto) Abs Immat Gran (auto) Absolute Neuts (auto) Absolute Nucleated RBC Nucleated RBC % (auto) Sodium Potassium Chloride Carbon Dioxide Anion Gap BUN Creatinine Estim Creat Clear Calc Estimated GFR POC Glucose 94 Random Glucose Calcium Total Bilirubin Direct Bilirubin AST ALT Alkaline Phosphatase Total Protein Albumin Triglycerides 98 Cholesterol 185 LDL Cholesterol, Calc 124 HDL Cholesterol 42 Urine Opiates Screen Ur Barbiturates Screen Ur Phencyclidine Scrn Ur Amphetamines Screen U Benzodiazepines Scrn [place] Urine Cocaine Screen U Marijuana (THC) Screen Ethyl Alcohol COVID-19 ([facility]) COVID-19 Clin Com Medications Medications Current Medications Generic Name Dose Route Start Last Admin Trade Name Freq PRN Reason Stop Dose Admin Acetaminophen 650 mg 09/07/20 23:48 Acetaminophen 325 Mg Tablet PO Q6H PRN Headache/Pain Mild Scale (1-3) Al Hydroxide/Mg Hydroxide 30 ml 09/07/20 23:48 Magnesium Hydrox/Alum Hydrox 30 Ml Oral.Susp PO Q6H PRN Heartburn/Nausea Clonazepam 1 mg 09/07/20 21:00 09/08/20 20:14 Clonazepam 1 Mg Tablet PO 1 mg BEDTIME YAMIL Administration Clonazepam 0.5 mg 09/07/20 20:42 09/07/20 21:08 Clonazepam 0.5 Mg Tablet PO 0.5 mg BID PRN Administration Anxiety Duloxetine HCl 30 mg 09/08/20 12:25 09/09/20 08:48 Duloxetine Hcl 30 Mg Capsule.Dr PO 30 mg DAILY YAMIL Administration Hydroxyzine HCl 25 mg 09/07/20 23:48 Hydroxyzine Hcl 25 Mg Tablet PO DAILY PRN Anxiety Levothyroxine Sodium 75 mcg 09/08/20 09:00 09/09/20 08:49 Levothyroxine Sodium 75 Mcg Tablet PO 75 mcg DAILY YAMIL Administration [place] Carbonate 450 mg 09/08/20 21:00 09/09/20 08:49 [place] Carbonate Er 450 Mg Tablet.Er PO 450 mg BID YAMIL Administration Magnesium Hydroxide 30 ml 09/07/20 23:48 Milk Of Magnesia 30 Ml Oral.Susp PO DAILY PRN Constipation Quetiapine Fumarate 200 mg 09/08/20 21:00 09/08/20 20:14 Quetiapine Fumarate 200 Mg Tablet PO 200 mg BEDTIME YAMIL Administration Ropinirole HCl 0.75 mg 09/07/20 21:00 09/08/20 20:15 Ropinirole Hcl 0.25 Mg Tablet PO 0.75 mg BEDTIME YAMIL Administration Trazodone HCl 50 mg 09/07/20 23:48 Trazodone Hcl 50 Mg Tablet PO BEDTIME PRN Insomnia Allergies Allergies Allergy/AdvReac Type Severity Reaction Status Date / Time acetone [ACETONE] Allergy Unknown UNKNOWN Unverified 07/07/20 14:48 Sulfa (Sulfonamide Allergy Unknown UNKNOWN Verified 09/02/20 12:52 Antibiotics) [SULFA (SULFONAMIDE ANTIBIOTICS)] sulfur Allergy Unknown unknown Verified 09/02/20 12:52 aerosols, epoxy, glue Allergy Unknown unknown Uncoded 09/02/20 12:52 Assessment & Plan Assessment & Plan (1) Bipolar II disorder major depressive with atypical features: Status: Acute Code(s): F31.81 - Bipolar II disorder Assessment and Plan: CT current plan Check Li level 09/12/20 Assess response to seroquel for insomnia Greater than 50% of the session was spent on counseling and/or coordination of care Patient educated on: diagnosis and medication risk/benefits Informed Consent: further education needed Reason for contiued inpatient stay Substantial Risk for: inability to function and rapid decompensation
[2020-09-09 09:34] VITALS: BP 106/69; PULSE 85; RESP 16; TEMP 36.3; O2SAT 97
[2020-09-09 09:40] LABS: Estimated Average Glucose 100 mg/dL; Hemoglobin A1c % 5.1 %
[2020-09-09 18:00] VITALS: BP 128/61; PULSE 90; TEMP 36.7
[2020-09-09] MEDS: QUEtiapine Fumarate 200 MG TABLET PO (19:04)
[2020-09-09] MEDS: rOPINIRole HCL 0.25 MG TABLET 0.75 MG PO (19:04)
[2020-09-09] MEDS: clonazePAM 1 MG TABLET PO (20:24)
[2020-09-10 03:40] VITALS: BP 122/79; PULSE 88; TEMP 36.2
[2020-09-10 08:41] VITALS: O2SAT 97
[2020-09-10] MEDS: Lithium Carbonate ER 450 MG TABLET.ER PO ×2 (08:42→20:17)
[2020-09-10] MEDS: Levothyroxine Sodium 75 MCG TABLET PO (08:42)
[2020-09-10] MEDS: DULoxetine HCl 30 MG CAPSULE.DR PO (08:42)
[2020-09-10] MEDS: clonazePAM 0.5 MG TABLET PO (15:27)
[2020-09-10 18:00] VITALS: BP 117/65; PULSE 91; TEMP 36.9
[2020-09-10] MEDS: QUEtiapine Fumarate 200 MG TABLET PO (18:50)
[2020-09-10] MEDS: rOPINIRole HCL 0.25 MG TABLET 0.75 MG PO (18:50)
[2020-09-10] MEDS: clonazePAM 1 MG TABLET PO (20:17)
[2020-09-10] MEDS: hydrOXYzine HCL 25 MG TABLET PO (23:03)
[2020-09-10] MEDS: traZODone HCL 50 MG TABLET PO (23:03)
--- NOTE | 2020-09-11 | HO.PSYCHPN ---
Subjective Subjective Date of Service: 09/10/20 Reason For Visit: crisis Interim History: Vitals reviewed Labs reviewed Pt seen, chart reviewed and case discussed with nursing staff Pt is pleasant, calm and cooperative on approach. He says he's doing much better since admission but that he has a ways to go. Patient says he's still struggling with insomnia but agrees to try the prn trazodone already ordered. He denies other complaints. Staff reports pt is med adherent, social in milue, eating well and safe on the unit without behavioral incident Medication Compliance: Yes Side effects from medications: No Attending Groups: Yes Review of Systems Reports system reviewed and no additional complaints, except as documented and Reports as per [facility]PI Mental Status Exam Mental Status Exam Patient Appearance: Appropriate Patient Orientation: Person, Place, Time and Situation Level of Consciousness: Awake and Appropriate Patient Behavior: Appropriate and Good Eye Contact Mood Description: Calm, Appropriate and Depressed Affect Description: Calm and Appropriate Ability to Follow Directions: Good Speech Pattern: Appropriate Thought Process: Intact, Goal Oriented and Linear Thought Content: positive for Intact, positive for Goal Oriented and positive for Logical Judgement: Fair Judgement and Insight: intact Diagnostics Vital Signs (24Hr): Vital Signs - 24 hr 09/10/20 03:40 09/10/20 08:41 09/10/20 18:00 Temperature 97.2 F 98.4 F Pulse Rate 88 91 Blood Pressure 122/79 117/65 Pulse Oximetry 97 Body Mass Index 36.9 Labs Results: 09/07/20 18:09 09/07/20 18:09 Labs: Laboratory Results - last 48 hr 09/09/20 09/09/20 08:10 08:10 Estimat Average Glucose 100 Hemoglobin A1c % 5.1 Triglycerides 98 Cholesterol 185 LDL Cholesterol, Calc 124 HDL Cholesterol 42 Medications Medications Current Medications Generic Name Dose Route Start Last Admin Trade Name Freq PRN Reason Stop Dose Admin Acetaminophen 650 mg 09/07/20 23:48 Acetaminophen 325 Mg Tablet PO Q6H PRN Headache/Pain Mild Scale (1-3) Al Hydroxide/Mg Hydroxide 30 ml 09/07/20 23:48 Magnesium Hydrox/Alum Hydrox 30 Ml Oral.Susp PO Q6H PRN Heartburn/Nausea Clonazepam 1 mg 09/07/20 21:00 09/10/20 20:17 Clonazepam 1 Mg Tablet PO 1 mg BEDTIME YAMIL Administration Clonazepam 0.5 mg 09/07/20 20:42 09/10/20 15:27 Clonazepam 0.5 Mg Tablet PO 0.5 mg BID PRN Administration Anxiety Duloxetine HCl 30 mg 09/08/20 12:25 09/10/20 08:42 Duloxetine Hcl 30 Mg Capsule.Dr PO 30 mg DAILY YAMIL Administration Hydroxyzine HCl 25 mg 09/07/20 23:48 09/10/20 23:03 Hydroxyzine Hcl 25 Mg Tablet PO 25 mg DAILY PRN Administration Anxiety Levothyroxine Sodium 75 mcg 09/08/20 09:00 09/10/20 08:42 Levothyroxine Sodium 75 Mcg Tablet PO 75 mcg DAILY YAMIL Administration [place] Carbonate 450 mg 09/08/20 21:00 09/10/20 20:17 [place] Carbonate Er 450 Mg Tablet.Er PO 450 mg BID YAMIL Administration Magnesium Hydroxide 30 ml 09/07/20 23:48 Milk Of Magnesia 30 Ml Oral.Susp PO DAILY PRN Constipation Quetiapine Fumarate 200 mg 09/09/20 19:00 09/10/20 18:50 Quetiapine Fumarate 200 Mg Tablet PO 200 mg DAILY@1900 YAMIL Administration Ropinirole HCl 0.75 mg 09/09/20 19:00 09/10/20 18:50 Ropinirole Hcl 0.25 Mg Tablet PO 0.75 mg DAILY@1900 YAMIL Administration Trazodone HCl 50 mg 09/07/20 23:48 09/10/20 23:03 Trazodone Hcl 50 Mg Tablet PO 50 mg BEDTIME PRN Administration Insomnia Allergies Allergies Allergy/AdvReac Type Severity Reaction Status Date / Time acetone [ACETONE] Allergy Unknown UNKNOWN Unverified 07/07/20 14:48 Sulfa (Sulfonamide Allergy Unknown UNKNOWN Verified 09/02/20 12:52 Antibiotics) [SULFA (SULFONAMIDE ANTIBIOTICS)] sulfur Allergy Unknown unknown Verified 09/02/20 12:52 aerosols, epoxy, glue Allergy Unknown unknown Uncoded 09/02/20 12:52 Assessment & Plan pt is a 50 yo male with hx of bipolar disorder. Pt reports improved symptoms since admission. Pt is stabilizing and so will leave primary team treatment plan unchanged' Greater than 50% of the session was spent on counseling and/or coordination of care
[2020-09-11 06:00] VITALS: BP 119/61; PULSE 77; TEMP 36.4
[2020-09-11] MEDS: DULoxetine HCl 30 MG CAPSULE.DR PO (09:05)
[2020-09-11] MEDS: Lithium Carbonate ER 450 MG TABLET.ER PO ×2 (09:05→21:34)
[2020-09-11] MEDS: Levothyroxine Sodium 75 MCG TABLET PO (09:05)
--- NOTE | 2020-09-11 10:49 | HO.PSYCHPN ---
Subjective Subjective Date of Service: 09/11/20 Reason For Visit: crisis Interim History: Vitals reviewed Labs reviewed: WNL Pt seen, chart reviewed and case discussed with nursing staff PT upset overnigfht due to insomnia and superficially scratched his arm. Pt shared that he is not currently suicidal and that this was the first time he;s ever tried self harm; he said that it sufficed to distract his anxious thoughts but that he would not continue using this as a coping skill. Pt did however say that he could imagine getting suicidal if he does not end up getting sleep. Pt shared more of his past history and says until a month or so ago, he was functioning well in the community not on any meds and that this intense, debilitating depression, irritability and insomnia is new for him. 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 Pt agreed to try and increase in Trazodone and if still ineffective to try ambien (field underwriter reviewed risks/side-effects and pt understands). Pt denies hx of substance abuse. Of note, patient did not know date or month (thought it was /July), but knew other facts, person, place, situation Staff reports pt is adherent with meds and social in the milue, appropriate with staff and peers Medication Compliance: Yes Side effects from medications: No Attending Groups: Yes Review of Systems Reports system reviewed and no additional complaints, except as documented and Reports as per [facility] Mental Status Exam Mental Status Exam Patient Appearance: Appropriate Patient Orientation: Person, Place and Situation Level of Consciousness: Awake and Appropriate Patient Behavior: Appropriate, Cooperative, Anxious and Good Eye Contact Mood Description: Depressed and Anxious Affect Description: Appropriate Ability to Follow Directions: Excellent Speech Pattern: Clear and Appropriate Hallucinations: None Delusions: Not Present Thought Process: Intact Thought Content: positive for Intact Judgement: Good Judgement and Insight: appears intact Diagnostics Vital Signs (24Hr): Vital Signs - 24 hr 09/10/20 18:00 09/11/20 06:00 Temperature 98.4 F 97.6 F Pulse Rate 91 77 Blood Pressure 117/65 119/61 Body Mass Index 36.9 Labs Results: 09/07/20 18:09 09/07/20 18:09 Medications Medications Current Medications Generic Name Dose Route Start Last Admin Trade Name Freq PRN Reason Stop Dose Admin Acetaminophen 650 mg 09/07/20 23:48 Acetaminophen 325 Mg Tablet PO Q6H PRN Headache/Pain Mild Scale (1-3) Al Hydroxide/Mg Hydroxide 30 ml 09/07/20 23:48 Magnesium Hydrox/Alum Hydrox 30 Ml Oral.Susp PO Q6H PRN Heartburn/Nausea Clonazepam 1 mg 09/07/20 21:00 09/10/20 20:17 Clonazepam 1 Mg Tablet PO 1 mg BEDTIME YAMIL Administration Clonazepam 0.5 mg 09/07/20 20:42 09/10/20 15:27 Clonazepam 0.5 Mg Tablet PO 0.5 mg BID PRN Administration Anxiety Duloxetine HCl 30 mg 09/08/20 12:25 09/11/20 09:05 Duloxetine Hcl 30 Mg Capsule.Dr PO 30 mg DAILY YAMIL Administration Hydroxyzine HCl 25 mg 09/07/20 23:48 09/10/20 23:03 Hydroxyzine Hcl 25 Mg Tablet PO 25 mg DAILY PRN Administration Anxiety Levothyroxine Sodium 75 mcg 09/08/20 09:00 09/11/20 09:05 Levothyroxine Sodium 75 Mcg Tablet PO 75 mcg DAILY YAMIL Administration [place] Carbonate 450 mg 09/08/20 21:00 09/11/20 09:05 [place] Carbonate Er 450 Mg Tablet.Er PO 450 mg BID YAMIL Administration Magnesium Hydroxide 30 ml 09/07/20 23:48 Milk Of Magnesia 30 Ml Oral.Susp PO DAILY PRN Constipation Quetiapine Fumarate 200 mg 09/09/20 19:00 09/10/20 18:50 Quetiapine Fumarate 200 Mg Tablet PO 200 mg DAILY@1900 YAMIL Administration Ropinirole HCl 0.75 mg 09/09/20 19:00 09/10/20 18:50 Ropinirole Hcl 0.25 Mg Tablet PO 0.75 mg DAILY@1900 YAMIL Administration Trazodone HCl 50 mg 09/07/20 23:48 09/10/20 23:03 Trazodone Hcl 50 Mg Tablet PO 50 mg BEDTIME PRN Administration Insomnia Allergies Allergies Allergy/AdvReac Type Severity Reaction Status Date / Time acetone [ACETONE] Allergy Unknown UNKNOWN Unverified 07/07/20 14:48 Sulfa (Sulfonamide Allergy Unknown UNKNOWN Verified 09/02/20 12:52 Antibiotics) [SULFA (SULFONAMIDE ANTIBIOTICS)] sulfur Allergy Unknown unknown Verified 09/02/20 12:52 aerosols, epoxy, glue Allergy Unknown unknown Uncoded 09/02/20 12:52 Assessment & Plan Pt remains depressed and anxious and with insomnia. He superficially self-harmed but denies this was in any way related to SI and intents to not continue this behavior. Pt does not warrant 1:1/close obs at this time. Pt is increasingly anxious about not sleeping. He agrees to increased dose of trazodone and if ineffective will try ambien Plan: Trazodone 150mg ambien 5mg for continued insomnia or early waking otherwise continue with current tx plan Greater than 50% of the session was spent on counseling and/or coordination of care
[2020-09-11] MEDS: Bacitracin Oint 14 GM TUBE 1 APPL TOPICAL ×2 (14:30→21:35)
[2020-09-11 18:00] VITALS: BP 136/67; PULSE 95; TEMP 36.6
[2020-09-11] MEDS: clonazePAM 0.5 MG TABLET PO (19:09)
[2020-09-11] MEDS: traZODone HCL 50 MG TABLET 150 MG PO (21:33)
[2020-09-11] MEDS: rOPINIRole HCL 0.25 MG TABLET 0.75 MG PO (21:34)
[2020-09-11] MEDS: clonazePAM 1 MG TABLET PO (21:34)
[2020-09-11] MEDS: QUEtiapine Fumarate 200 MG TABLET PO (21:35)
[2020-09-12] MEDS: Zolpidem Tartrate 5 MG TABLET PO (00:36)
[2020-09-12] MEDS: hydrOXYzine HCL 25 MG TABLET PO (00:36)
[2020-09-12] MEDS: clonazePAM 0.5 MG TABLET PO ×2 (02:53→15:52)
[2020-09-12 06:50] VITALS: BP 127/60; PULSE 80; RESP 18; TEMP 36.1
[2020-09-12 08:34] LABS: Lithium 0.63 mmol/L (0.60-1.20)
[2020-09-12] MEDS: DULoxetine HCl 30 MG CAPSULE.DR PO (08:52)
[2020-09-12] MEDS: Lithium Carbonate ER 450 MG TABLET.ER PO (08:52)
[2020-09-12] MEDS: Levothyroxine Sodium 75 MCG TABLET PO (08:52)
[2020-09-12] MEDS: Bacitracin Oint 14 GM TUBE 1 APPL TOPICAL ×2 (08:53→14:07)
--- NOTE | 2020-09-12 09:18 | P.PNPSI_ITS ---
Subjective Subjective Date of Service: 09/12/20 Reason For Visit: crisis Subjective Notes: Conditional Voluntary and 3 Day Interim History: Individual reports that it was a very trying weekend with a lot of noise on the unit which made it difficult for him. He regrets having scratched himself out of frustration. He continues to struggle with insomnia. He is feeling some improvement in his mood but is still tearful. Li level was low therapeutic Medication Compliance: Yes Side effects from medications: No Attending Groups: Yes Review of Systems Acute medical concerns: No Medical Review of Systems: unchanged Review of Systems Reports system reviewed and no additional complaints, except as documented and Reports as per HPI Mental Status Exam Mental Status Exam Patient Appearance: Appropriate Patient Orientation: Person, Place and Situation Level of Consciousness: Awake and Appropriate Patient Behavior: Appropriate, Cooperative, Anxious and Good Eye Contact Mood Description: Depressed and Anxious Affect Description: Appropriate Ability to Follow Directions: Excellent Speech Pattern: Clear and Appropriate Hallucinations: None Delusions: Not Present Thought Process: Intact Thought Content: positive for Intact, negative for Suicidal Ideation and negative for Homicidal Ideation Depressive Symptoms: Increased Irritability, Crying Spells, Hopelessness, Unhappiness and Loss of Energy Judgement: Good Judgement and Insight: appears intact Diagnostics Vital Signs (24Hr): Vital Signs - 24 hr 09/11/20 18:00 09/12/20 06:50 Temperature 97.9 F 97.0 F Pulse Rate 95 80 Respiratory Rate 18 Blood Pressure 136/67 127/60 Body Mass Index 36.9 Labs Results: 09/07/20 18:09 09/07/20 18:09 Labs: Laboratory Results - last 48 hr 09/12/20 08:00 [place] 0.63 Medications Medications Current Medications Generic Name Dose Route Start Last Admin Trade Name Freq PRN Reason Stop Dose Admin Acetaminophen 650 mg 09/07/20 23:48 Acetaminophen 325 Mg Tablet PO Q6H PRN Headache/Pain Mild Scale (1-3) Al Hydroxide/Mg Hydroxide 30 ml 09/07/20 23:48 Magnesium Hydrox/Alum Hydrox 30 Ml Oral.Susp PO Q6H PRN Heartburn/Nausea Bacitracin 1 appl 09/11/20 11:00 09/12/20 08:53 Bacitracin Oint 14 Gm Tube TOPICAL 09/13/20 23:59 1 appl TID YAMIL Administration Protocol Clonazepam 1 mg 09/07/20 21:00 09/11/20 21:34 Clonazepam 1 Mg Tablet PO 1 mg BEDTIME YAMIL Administration Clonazepam 0.5 mg 09/07/20 20:42 09/12/20 02:53 Clonazepam 0.5 Mg Tablet PO 0.5 mg BID PRN Administration Anxiety Duloxetine HCl 30 mg 09/08/20 12:25 09/12/20 08:52 Duloxetine Hcl 30 Mg Capsule.Dr PO 30 mg DAILY YAMIL Administration Hydroxyzine HCl 25 mg 09/07/20 23:48 09/12/20 00:36 Hydroxyzine Hcl 25 Mg Tablet PO 25 mg DAILY PRN Administration Anxiety Levothyroxine Sodium 75 mcg 09/08/20 09:00 09/12/20 08:52 Levothyroxine Sodium 75 Mcg Tablet PO 75 mcg DAILY YAMIL Administration [place] Carbonate 450 mg 09/08/20 21:00 09/12/20 08:52 [place] Carbonate Er 450 Mg Tablet.Er PO 450 mg BID YAMIL Administration Magnesium Hydroxide 30 ml 09/07/20 23:48 Milk Of Magnesia 30 Ml Oral.Susp PO DAILY PRN Constipation Quetiapine Fumarate 200 mg 09/09/20 19:00 09/11/20 21:35 Quetiapine Fumarate 200 Mg Tablet PO 200 mg DAILY@1900 YAMIL Administration Ropinirole HCl 0.75 mg 09/09/20 19:00 09/11/20 21:34 Ropinirole Hcl 0.25 Mg Tablet PO 0.75 mg DAILY@1900 YAMIL Administration Trazodone HCl 150 mg 09/11/20 21:00 09/11/20 21:33 Trazodone Hcl 50 Mg Tablet PO 150 mg BEDTIME YAMIL Administration Zolpidem Tartrate 5 mg 09/11/20 21:00 09/12/20 00:36 Zolpidem Tartrate 5 Mg Tablet PO 5 mg BEDTIME PRN Administration Insomnia Allergies Allergies Allergy/AdvReac Type Severity Reaction Status Date / Time acetone [ACETONE] Allergy Unknown UNKNOWN Unverified 07/07/20 14:48 Sulfa (Sulfonamide Allergy Unknown UNKNOWN Verified 09/02/20 12:52 Antibiotics) [SULFA (SULFONAMIDE ANTIBIOTICS)] sulfur Allergy Unknown unknown Verified 09/02/20 12:52 aerosols, epoxy, glue Allergy Unknown unknown Uncoded 09/02/20 12:52 Assessment & Plan Assessment & Plan (1) Bipolar II disorder major depressive with atypical features: Status: Acute Code(s): F31.81 - Bipolar II disorder Assessment and Plan: Increase Li Increase seroquel and trazodone CT treatment plan Greater than 50% of the session was spent on counseling and/or coordination of care Patient educated on: diagnosis and medication risk/benefits Informed Consent: further education needed Reason for contiued inpatient stay Substantial Risk for: harm to self and rapid decompensation
[2020-09-12] MEDS: Flu Vacc QS2020-21(6mos up)/PF 0.5 ML SYRINGE IM (16:00)
[2020-09-12 16:36] VITALS: BP 140/69; PULSE 78; TEMP 36.4
[2020-09-12] MEDS: Lithium Carbonate ER 300 MG TABLET.ER 600 MG PO (20:09)
[2020-09-12] MEDS: QUEtiapine Fumarate 50 MG TABLET 300 MG PO (20:10)
[2020-09-12] MEDS: rOPINIRole HCL 0.25 MG TABLET 0.75 MG PO (20:10)
[2020-09-12] MEDS: traZODone HCL 50 MG TABLET 200 MG PO (20:10)
[2020-09-12] MEDS: clonazePAM 1 MG TABLET PO (20:11)
[2020-09-13] MEDS: hydrOXYzine HCL 25 MG TABLET PO (02:36)
[2020-09-13] MEDS: Lithium Carbonate ER 300 MG TABLET.ER 600 MG PO ×2 (08:22→21:18)
[2020-09-13] MEDS: Levothyroxine Sodium 75 MCG TABLET PO (08:23)
[2020-09-13] MEDS: Bacitracin Oint 14 GM TUBE 1 APPL TOPICAL (08:23)
[2020-09-13] MEDS: DULoxetine HCl 30 MG CAPSULE.DR PO (08:25)
[2020-09-13 08:58] VITALS: BP 120/69; PULSE 91; RESP 16; TEMP 37.2; O2SAT 95
--- NOTE | 2020-09-13 09:21 | HO.PSYCHPN ---
Subjective Subjective Date of Service: 09/13/20 Reason For Visit: crisis Subjective Notes: Conditional Voluntary and 3 Day Interim History: Individual reports that he was feeling better with less depression and he was more future oriented. He slept better last night. He is feeling safe and he wants to go home. He has no SI. His is in agreement with his going home. He does not want to use the PHP program but to use his usual schedule. Medication Compliance: Yes Side effects from medications: No Attending Groups: Yes Review of Systems Acute medical concerns: No Medical Review of Systems: unchanged Review of Systems Reports system reviewed and no additional complaints, except as documented and Reports as per [facility] Mental Status Exam Mental Status Exam Patient Appearance: Well Grooomed and Appropriate Patient Orientation: Person, Place and Situation Level of Consciousness: Awake and Appropriate Patient Behavior: Appropriate, Cooperative, Anxious and Good Eye Contact Mood Description: Depressed and Anxious Affect Description: Appropriate Ability to Follow Directions: Excellent Speech Pattern: Clear and Appropriate Hallucinations: None Delusions: Not Present Thought Process: Intact Thought Content: positive for Intact, negative for Suicidal Ideation and negative for Homicidal Ideation Judgement: Good Judgement and Insight: appears intact Diagnostics Vital Signs (24Hr): Vital Signs - 24 hr 09/12/20 16:36 Temperature 97.5 F Pulse Rate 78 Blood Pressure 140/69 H Body Mass Index 36.9 Labs Results: 09/07/20 18:09 09/07/20 18:09 Labs: Laboratory Results - last 48 hr 09/12/20 08:00 [place] 0.63 Medications Medications Current Medications Generic Name Dose Route Start Last Admin Trade Name Freq PRN Reason Stop Dose Admin Acetaminophen 650 mg 09/07/20 23:48 Acetaminophen 325 Mg Tablet PO Q6H PRN Headache/Pain Mild Scale (1-3) Al Hydroxide/Mg Hydroxide 30 ml 09/07/20 23:48 Magnesium Hydrox/Alum Hydrox 30 Ml Oral.Susp PO Q6H PRN Heartburn/Nausea Bacitracin 1 appl 09/12/20 21:00 09/13/20 08:23 Bacitracin Oint 14 Gm Tube TOPICAL 09/13/20 23:59 1 appl BID YAMIL Administration Protocol Clonazepam 1 mg 09/07/20 21:00 09/12/20 20:11 Clonazepam 1 Mg Tablet PO 1 mg BEDTIME YAMIL Administration Clonazepam 0.5 mg 09/07/20 20:42 09/12/20 15:52 Clonazepam 0.5 Mg Tablet PO 0.5 mg BID PRN Administration Anxiety Duloxetine HCl 30 mg 09/08/20 12:25 09/13/20 08:25 Duloxetine Hcl 30 Mg Capsule.Dr PO 30 mg DAILY YAMIL Administration Hydroxyzine HCl 25 mg 09/07/20 23:48 09/13/20 02:36 Hydroxyzine Hcl 25 Mg Tablet PO 25 mg DAILY PRN Administration Anxiety Levothyroxine Sodium 75 mcg 09/08/20 09:00 09/13/20 08:23 Levothyroxine Sodium 75 Mcg Tablet PO 75 mcg DAILY YAMIL Administration [place] Carbonate 600 mg 09/12/20 21:00 09/13/20 08:22 [place] Carbonate Er 300 Mg Tablet.Er PO 600 mg BID YAMIL Administration Magnesium Hydroxide 30 ml 09/07/20 23:48 Milk Of Magnesia 30 Ml Oral.Susp PO DAILY PRN Constipation Quetiapine Fumarate 300 mg 09/12/20 19:00 09/12/20 20:10 Quetiapine Fumarate 50 Mg Tablet PO 300 mg DAILY@1900 YAMIL Administration Ropinirole HCl 0.75 mg 09/09/20 19:00 09/12/20 20:10 Ropinirole Hcl 0.25 Mg Tablet PO 0.75 mg DAILY@1900 YAMIL Administration Trazodone HCl 200 mg 09/12/20 21:00 09/12/20 20:10 Trazodone Hcl 50 Mg Tablet PO 200 mg BEDTIME YAMIL Administration Zolpidem Tartrate 5 mg 09/11/20 21:00 09/12/20 00:36 Zolpidem Tartrate 5 Mg Tablet PO 5 mg BEDTIME PRN Administration Insomnia Allergies Allergies Allergy/AdvReac Type Severity Reaction Status Date / Time acetone [ACETONE] Allergy Unknown UNKNOWN Unverified 07/07/20 14:48 Sulfa (Sulfonamide Allergy Unknown UNKNOWN Verified 09/02/20 12:52 Antibiotics) [SULFA (SULFONAMIDE ANTIBIOTICS)] sulfur Allergy Unknown unknown Verified 09/02/20 12:52 aerosols, epoxy, glue Allergy Unknown unknown Uncoded 09/02/20 12:52 Assessment & Plan Assessment & Plan (1) Bipolar II disorder major depressive with atypical features: Status: Acute Code(s): F31.81 - Bipolar II disorder Assessment and Plan: CT current treatment DC in am Greater than 50% of the session was spent on counseling and/or coordination of care Patient educated on: diagnosis and medication risk/benefits Informed Consent: understands Reason for contiued inpatient stay Substantial Risk for: rapid decompensation
[2020-09-13 18:00] VITALS: BP 133/70; PULSE 88; TEMP 37.1
[2020-09-13] MEDS: clonazePAM 1 MG TABLET PO (21:18)
[2020-09-13] MEDS: traZODone HCL 50 MG TABLET 200 MG PO (21:18)
[2020-09-13] MEDS: QUEtiapine Fumarate 50 MG TABLET 300 MG PO (21:18)
[2020-09-13] MEDS: rOPINIRole HCL 0.25 MG TABLET 0.75 MG PO (21:19)
[2020-09-14] MEDS: Levothyroxine Sodium 75 MCG TABLET PO (08:28)
[2020-09-14] MEDS: DULoxetine HCl 30 MG CAPSULE.DR PO (08:28)
[2020-09-14] MEDS: Lithium Carbonate ER 300 MG TABLET.ER 600 MG PO (08:28)
--- NOTE | 2020-09-14 09:22 | P.DS_ITS ---
DS: Providers Provider Date of admission: 09/07/20 23:57 Date of discharge: 09/14/20 Primary care physician: Kimberly Paula MD Attending physician on admission: Isadora Haynes Attending physician on discharge: Isadora Haynes DS: Diagnosis Discharge Diagnosis (1) Bipolar II disorder major depressive with atypical features: Status: Acute DS: Medications Discharge Medications Home Medications: Home Medications Medication Instructions Recorded Confirmed Cymbalta 30 mg PO DAILY 09/08/20 09/08/20 trazodone 100 mg PO BEDTIME PRN 09/08/20 09/08/20 Previous Rx's Medication Instructions Recorded levothyroxine [Synthroid] 75 mcg PO DAILY 30 Days #30 tab 08/30/20 ropinirole 0.75 mg PO BEDTIME 30 Days #90 tab 08/30/20 clonazepam [Klonopin] 1 mg PO BEDTIME #30 tab 09/01/20 quetiapine [Seroquel] 25 mg PO BEDTIME #30 tab 09/01/20 lithium carbonate 450 mg PO BEDTIME #7 tab 09/02/20 quetiapine [Seroquel] 100 mg PO BEDTIME #7 tab 09/05/20 Discharge Plan Discharge Patient Disposition: Home, Self-Care Referrals: Zeeshan Villatoro NP [Other] - 09/22/20 8:00 am (Telehealth) Zeeshan NICKERSON [Other] - 10/24/20 9:20 am (Telehealth Follow up on Meds) Casimiro Vazquez [Other] - 09/19/20 1:30 pm (Telehealth) [facility] [Other] - 09/22/20 9:30 am (Dr Rubio) Kimberly Paula MD [Primary Care Provider] - 10/06/20 11:30 am (APPOINTMENT WILL BE WITH JIMENA SINGER) Discharge Medications: New clonazepam 0.5 mg Tablet 0.5 mg PO BID PRN (Reason: Anxiety) Qty: 60 RF: 0 clonazepam 1 mg Tablet 1 mg PO BEDTIME Qty: 30 RF: 0 lithium carbonate 300 mg Tablet Extended Release 600 mg PO BID Qty: 120 RF: 0 ropinirole 0.25 mg Tablet 0.75 mg PO DAILY@1900 Qty: 90 RF: 0 duloxetine 30 mg Capsule,Delayed Release(Dr/Ec) 30 mg PO DAILY Qty: 30 RF: 0 trazodone 100 mg tablet 200 mg PO BEDTIME Qty: 60 RF: 0 levothyroxine 75 mcg Tablet 75 mcg PO DAILY Qty: 30 RF: 0 zolpidem 5 mg Tablet 5 mg PO BEDTIME Qty: 60 RF: 0 quetiapine [Seroquel] 300 mg tablet 300 mg PO BEDTIME Qty: 30 RF: 0 Discontinued levothyroxine [Synthroid] 75 mcg tablet 75 mcg PO DAILY 30 Days Qty: 30 RF: 0 ropinirole 0.25 mg tablet 0.75 mg PO BEDTIME 30 Days Qty: 90 RF: 0 quetiapine [Seroquel] 25 mg tablet 25 mg PO BEDTIME Qty: 30 RF: 0 clonazepam [Klonopin] 1 mg tablet 1 mg PO BEDTIME Qty: 30 RF: 0 lithium carbonate 450 mg tablet extended release 450 mg PO BEDTIME Qty: 7 RF: 0 quetiapine [Seroquel] 100 mg tablet 100 mg PO BEDTIME Qty: 7 RF: 0 trazodone 100 mg Tablet 100 mg PO BEDTIME PRN (Reason: Insomnia) RF: 0 Cymbalta 30 mg 30 mg PO DAILY RF: 0 Discharge Orders: Discharge Order (Routine); Ordered 09/14/20 Ordered By: Isadora Haynes Diet: advance to usual diet Activity on Discharge: As tolerated Stand Alone Forms: Community Support Discharge Date/Time: 09/14/20 13:37 Visit Report Forms: Patient Portal Discharge page Care Plan Goals: Reduce depression Increase functioning Health Concerns: Depressed mood Plan of Treatment: Stay on your medication Follow up with your providers Mental Status Exam Mental Status Exam Patient Appearance: Well Grooomed and Appropriate Patient Orientation: Person, Place and Situation Level of Consciousness: Awake and Appropriate Patient Behavior: Appropriate, Cooperative, Anxious and Good Eye Contact Mood Description: Depressed and Anxious Affect Description: Appropriate Ability to Follow Directions: Excellent Speech Pattern: Clear and Appropriate Hallucinations: None Delusions: Not Present Thought Process: Intact Thought Content: positive for Intact, negative for Suicidal Ideation and negative for Homicidal Ideation Judgement: Good Judgement and Insight: appears intact Data Data Completed and Pending Completed studies during hospitalization [Text1]: 09/07/20 09/07/20 09/07/20 15:52 18:09 18:09 WBC 6.8 RBC 4.66 Hgb 15.1 Hct 44.5 MCV 95.5 MCH 32.4 MCHC 33.9 RDW 11.9 Plt Count 216 MPV 9.5 Immature Gran % (Auto) 0.4 Neut % (Auto) 54.4 Lymph % (Auto) 35.7 [place] % (Auto) 7.6 Eos % (Auto) 1.5 Baso % (Auto) 0.4 Lymph # (Auto) 2.4 [place] # (Auto) 0.5 Eos # (Auto) 0.1 Baso # (Auto) 0.0 Abs Immat Gran (auto) 0.03 Absolute Neuts (auto) 3.7 Absolute Nucleated RBC 0.000 Nucleated RBC % (auto) 0.0 Sodium 137 Potassium 4.3 Chloride 104 Carbon Dioxide 28 Anion Gap 9 L BUN 11 Creatinine 0.92 Estim Creat Clear Calc 136.1 Estimated GFR > 60 POC Glucose Random Glucose 81 Estimat Average Glucose Hemoglobin A1c % Calcium 8.5 Total Bilirubin 0.6 Direct Bilirubin 0.2 AST 20 ALT 26 Alkaline Phosphatase 56 Total Protein 6.7 Albumin 4.0 Triglycerides Cholesterol LDL Cholesterol, Calc HDL Cholesterol Urine Opiates Screen Not Detected Ur Barbiturates Screen Not Detected Ur Phencyclidine Scrn Not Detected Ur Amphetamines Screen Not Detected U Benzodiazepines Scrn Not Detected [place] Urine Cocaine Screen Not Detected U Marijuana (THC) Screen Not Detected Ethyl Alcohol COVID-19 (DAYSI) COVID-19 Clin Com 09/07/20 09/07/20 09/07/20 18:09 18:09 21:57 WBC RBC Hgb Hct MCV MCH MCHC RDW Plt Count MPV Immature Gran % (Auto) Neut % (Auto) Lymph % (Auto) [place] % (Auto) Eos % (Auto) Baso % (Auto) Lymph # (Auto) [place] # (Auto) Eos # (Auto) Baso # (Auto) Abs Immat Gran (auto) Absolute Neuts (auto) Absolute Nucleated RBC Nucleated RBC % (auto) Sodium Potassium Chloride Carbon Dioxide Anion Gap BUN Creatinine Estim Creat Clear Calc Estimated GFR POC Glucose Random Glucose Estimat Average Glucose Hemoglobin A1c % Calcium Total Bilirubin Direct Bilirubin AST ALT Alkaline Phosphatase Total Protein Albumin Triglycerides Cholesterol LDL Cholesterol, Calc HDL Cholesterol Urine Opiates Screen Ur Barbiturates Screen Ur Phencyclidine Scrn Ur Amphetamines Screen U Benzodiazepines Scrn [place] 0.23 L Urine Cocaine Screen U Marijuana (THC) Screen Ethyl Alcohol < 10 COVID-19 (DAYSI) Negative COVID-19 Clin Com See Note 09/07/20 09/09/20 09/09/20 22:43 08:10 08:10 WBC RBC Hgb Hct MCV MCH MCHC RDW Plt Count MPV Immature Gran % (Auto) Neut % (Auto) Lymph % (Auto) [place] % (Auto) Eos % (Auto) Baso % (Auto) Lymph # (Auto) [place] # (Auto) Eos # (Auto) Baso # (Auto) Abs Immat Gran (auto) Absolute Neuts (auto) Absolute Nucleated RBC Nucleated RBC % (auto) Sodium Potassium Chloride Carbon Dioxide Anion Gap BUN Creatinine Estim Creat Clear Calc Estimated GFR POC Glucose 94 Random Glucose Estimat Average Glucose 100 Hemoglobin A1c % 5.1 Calcium Total Bilirubin Direct Bilirubin AST ALT Alkaline Phosphatase Total Protein Albumin Triglycerides 98 Cholesterol 185 LDL Cholesterol, Calc 124 HDL Cholesterol 42 Urine Opiates Screen Ur Barbiturates Screen Ur Phencyclidine Scrn Ur Amphetamines Screen U Benzodiazepines Scrn [place] Urine Cocaine Screen U Marijuana (THC) Screen Ethyl Alcohol COVID-19 (DAYSI) COVID-19 [employer] Com 09/12/20 08:00 WBC RBC Hgb Hct MCV MCH MCHC RDW Plt Count MPV Immature Gran % (Auto) Neut % (Auto) Lymph % (Auto) [place] % (Auto) Eos % (Auto) Baso % (Auto) Lymph # (Auto) [place] # (Auto) Eos # (Auto) Baso # (Auto) Abs Immat Gran (auto) Absolute Neuts (auto) Absolute Nucleated RBC Nucleated RBC % (auto) Sodium Potassium Chloride Carbon Dioxide Anion Gap BUN Creatinine Estim Creat Clear Calc Estimated GFR POC Glucose Random Glucose Estimat Average Glucose Hemoglobin A1c % Calcium Total Bilirubin Direct Bilirubin AST ALT Alkaline Phosphatase Total Protein Albumin Triglycerides Cholesterol LDL Cholesterol, Calc HDL Cholesterol Urine Opiates Screen Ur Barbiturates Screen Ur Phencyclidine Scrn Ur Amphetamines Screen U Benzodiazepines Scrn [place] 0.63 Urine Cocaine Screen U Marijuana (THC) Screen Ethyl Alcohol COVID-19 (DAYSI) COVID-19 [employer] Com DS: Summary Hospital Course Hospital Course: Pt referred by PCP Dr Ge for significant SI. Pt reported SI of shooting himself. Has many guns at home. 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 Reports keeping one in drawer. States SI lingered for a day or two. Maybe I wouldnt do it....everyone would be better without me . Hx depression dating back to at least 2 years. Stressors: conflict w /estranged and guilty about lost relationship w both children/friend killed himself in Summer 2019. Marked anhedonia/helplessness/guilt/rumination/irritability/snapping at people/agitation/mind racing/cannot sleep. No Hx psychosis or bipolarity. Marked EUGENIO but 2/2 MDD. Has [place] [employer]: exacting/demanding/neat but no OCD. No JUANJOSE. Social ETOH use. Past Psychiatric History: None formally. PCP started Celexa 2 yrs ago [place] had been started at [facility] and was increased to a therapeutic level. The major issue was difficulty with sleep. Trazodone and seroquel were adjusted and he was able to achieve 5 to 6 hours of sleep. He was able to talk a great deal about his disappointments with his life situation and with his losses. He had considerable relief from this. He decided not to go back to [facility] but rather to return to a familial routine with work and home chores. His felt comfortable with him going home. He has no access to firearms. Status at Discharge Functional status at discharge: independent ambulation Overall status at discharge: patient is progressing back to baseline Time Spent with Patient Time attestation: Total time spent providing and/or coordinating discharge services:
[2020-09-14 12:28] VITALS: BP 111/53; PULSE 92; RESP 16; TEMP 36.8; O2SAT 97
== END 2020-09-14 13:37 | disposition home or self-care (01) | DRG 753 ==
LOC: HO.ED 23:57 → HO.PM5 09-08
PROVIDERS: Physician Assistant; Admitting Provider Psychiatry & Neurology Psychiatry; Emergency Provider Nurse Practitioner Primary Care; PCP Internal Medicine; Visit Provider Psychiatry & Neurology Psychiatry
DX: F31.81 Bipolar II disorder (principal); R45.851 Suicidal ideations; E03.9 Hypothyroidism, unspecified; G47.00 Insomnia, unspecified; I25.2 Old myocardial infarction; Z20.828 Contact with and (suspected) exposure to other viral communicable diseases; Z91.5 Personal history of self-harm; Z23 Encounter for immunization; Z88.2 Allergy status to sulfonamides; Z79.890 Hormone replacement therapy; Z79.899 Other long term (current) drug therapy
CPT/HCPCS: 36415; 80053; 80061; 80076; 80178; 80307; 80320; 82248; 82947; 83036; 85025; 87635; 90686; 93005; 99232; 99284

== ENCOUNTER 2020-10-06 08:42 | Outpatient (REF) | payer BC, SELFPAY ==
[2020-10-06 11:21] LABS: Hematocrit 43.7 % (42-52); Hemoglobin 14.7 g/dl (14.0-18.0); Mean Corpuscular HGB Conc 33.6 g/dl (31.0-36.0); Mean Corpuscular Hemoglobin 32.6 pg (27.0-33.0); Mean Corpuscular Volume 96.9 fL (80-98); Mean Platelet Volume 9.9 fL (9.4-12.4); Platelet Count 250 X10*3/uL (160-400); Red Blood Count 4.51 X10*6/uL (4.60-5.80); Red Cell Distribution Width 12.4 % (11.0-16.0)
[2020-10-06 11:46] LABS: Anion Gap 10 (12-20); Blood Urea Nitrogen 14 mg/dL (9-16); Calcium 8.6 mg/dL (8.4-10.2); Carbon Dioxide 28 mmol/L (22-29); Chloride 107 mmol/L (96-108); Cholesterol 161 mg/dL; Estimated Glomerular Filt Rate > 60; Glucose Fasting 103 mg/dL (60-99); HDL Cholesterol 47 mg/dL; LDL Cholesterol Calculated 103 mg/dl; Potassium 4.6 mmol/l (3.3-5.1); Sodium 140 mmol/L (135-145); Triglycerides 59 mg/dL
[2020-10-06 12:08] LABS: Free T4 (Free Thyroxine) 0.83 ng/dL (0.71-1.85); Thyroid Stimulating Hormone 5.44 uIU/mL (0.32-4.0)
== END 2020-10-06 08:43 | disposition home or self-care (01) ==
LOC: HO.HMGCLDS 08:42
PROVIDERS: PCP Internal Medicine; Visit Provider Clinical Nurse Specialist Psychiatric/Mental Health, Child & Adolescent
DX: Z51.81 Encounter for therapeutic drug level monitoring (principal)
CPT/HCPCS: 36415; 80048; 80061; 80178; 84439; 84443; 85027

== ENCOUNTER 2020-12-10 07:26 | Inpatient (IN) | payer BC, SELFPAY ==
[2020-12-10] VITALS (7 sets, daily range): BP systolic 100–137; BP diastolic 56–76; PULSE 85–110; RESP 16–18; TEMP 36.7–37.6; O2SAT 96–99; BMI 38.9
--- NOTE | ~2020-12-10 | CT_ITS ---
EXAMINATION: CT SOFT TISSUE NECK WITH CONTRAST CLINICAL INFORMATION: Large fluctuant area in left neck and infrahyoid area. COMPARISON: None TECHNIQUE: Following the intravenous administration of 60 mL of Omnipaque 350 intravenous contrast, helical imaging was performed in the axial plane with generation of coronal and sagittal reformatted images. This CT examination was performed using dose optimization techniques as appropriate, variously including the following: *Automated exposure control *Adjustment of mA and/or kV according to patient size (this includes techniques or standardized protocols for targeted exams where dose is matched to indication/reason for exam; i.e. extremities or head) *Use of iterative reconstruction technique DLP: 879 mGy-cm FINDINGS: Parotid glands, submandibular glands, and thyroid gland are normal. The nasopharynx, oral cavity, tongue base, and tonsillar pillars are unremarkable. No contour abnormality or pathologic enhancement within the oral cavity or pharyngeal mucosal space. The parapharyngeal fat planes are preserved. The hypopharynx, epiglottis, and preepiglottic space are normal. Laryngeal structures normal. No fluid collections within the deep soft tissues. However, there is edema of subcutaneous tissues of the left neck with thickening of the left platysma muscle. Within the swollen subcutaneous tissues of the left neck, there is a 1 x 1.6 x 1.6 cm somewhat ill-defined focus of intermediate attenuation (approximately 35 HU density), suggestive of phlegmon. No well-formed, rim-enhancing wall. There is edema deep to the left platysma muscle and overlying the left sternocleidomastoid. No intramuscular collection. No soft tissue gas. There are normal sized lymph nodes of the suprahyoid and infrahyoid neck without evidence of lymphadenopathy by size criteria. The visualized carotid and vertebral arteries opacify normally; venous structures are unremarkable; no thrombophlebitis. Skull base is intact and the mastoid air cells and middle ear cavities are clear. Mild mucosal thickening of ethmoid air cells, maxillary and sphenoid sinuses without air-fluid levels. The orbits are unremarkable. Prior discectomy-fusion at C4-C5 and C5-C6 with zero profile fusion devices in satisfactory position. No prevertebral soft tissue swelling. Within visualized upper lung zones, there are multiple peripheral patchy airspace opacities. No pneumothorax. CT/CT soft tissue neck w con IMPRESSION: * 1 x 1.6 x 1.6 cm focus of intermediate attenuation in superficial subcutaneous tissues tissues of the left neck likely represents phlegmon/early abscess. There is no well-formed, rim-enhancing collection. There is cellulitis of the left neck with thickening of the underlying left platysma muscle. No soft tissue gas. * Peripheral patchy airspace opacities in the visualized upper lung zones, consistent with multilobar pneumonia. Recommend correlation with Covid-19 test status.
--- NOTE | 2020-12-10 10:22 | ED_ITS ---
HPI - Skin/Abscess/Foreign Bdy General Chief complaint: Skin/Abscess/Foreign Body Stated complaint: NECK SWELLING DIFF BREATHING Time Seen by Provider: 12/10/20 07:41 Source: patient Mode of arrival: ambulatory Limitations: no limitations History of Present Illness HPI narrative: 50 yo male with bipolar not a diabetic notes on Saturday he got an ingrown hair then tried to squeeze it and since then has increased in size and spread along left neck as well as above sternal notch he notes his voice is raspy and it is painful to swallow MD complaint: rash and abscess/boil Onset (ago): day(s) (5 days go) Location: neck and chest Severity: severe Quality: stabbing Pain Consistency: constant Relieving factors: none Exacerbating factors: movement Context: other (started as ingrown hair) Associated symptoms: chills, malaise and other (painful to swallow, feels it is hard to breathe) Treatments prior to arrival: none Related Data Home Medications Medication Instructions Recorded Confirmed pregabalin 75 mg capsule 75 mg PO BID 10/06/20 10/06/20 Previous Rx's Medication Instructions Recorded clonazepam 0.5 mg PO BID PRN #60 tab 09/14/20 clonazepam 1 mg PO BEDTIME #30 tab 09/14/20 duloxetine 30 mg PO DAILY #30 cap 09/14/20 lithium carbonate 600 mg PO BID #120 tab 09/14/20 quetiapine [Seroquel] 300 mg PO BEDTIME #30 tab 09/14/20 ropinirole 0.75 mg PO DAILY@1900 #90 tab 09/14/20 trazodone 200 mg PO BEDTIME #60 tab 09/14/20 zolpidem 5 mg PO BEDTIME #60 tab 09/14/20 levothyroxine 75 mcg tablet 75 mcg PO DAILY #90 tab 12/01/20 Allergies Allergy/AdvReac Type Severity Reaction Status Date / Time acetone [ACETONE] Allergy Unknown UNKNOWN Verified 10/06/20 08:03 Sulfa (Sulfonamide Allergy Unknown UNKNOWN Verified 10/06/20 08:03 Antibiotics) [SULFA (SULFONAMIDE ANTIBIOTICS)] sulfur Allergy Unknown unknown Verified 10/06/20 08:03 aerosols, epoxy, glue Allergy Unknown unknown Uncoded 09/30/20 08:48 Review of Systems Review of Systems: Constitutional : No Fever, pos Chills ENT/Mouth : pos sore throat, No Rhinorrhea, pos neck pain Eyes: No Eye Pain, No Swelling, No Redness Cardiovascular : No Chest Pain, No SOB Respiratory : No Cough, No Sputum Gastrointestinal : No Nausea, No Vomiting, No Diarrhea, No abdominal Pain Genitourinary : No Dysuria, No Hematuria Musculoskeletal : No joint pain, No Myalgias, No Joint Swelling Skin : pos Skin Lesions, positive skin rash Neuro : No Weakness, No Numbness, No Headache Psych : No Anxiety, No Depression Heme/Lymph: No Bruising, No Bleeding,No Lymphadenopathy Endocrine : No Polyuria, No Polydipsia All other systems reviewed and are negative [facility] Past Medical History Medical History Anxiety Depression Diverticula of colon Herniated disc Hx of myocardial infarction Hypothyroidism Family History Family History Father Unknown family medical history Mother Unknown family medical history Sister No problems noted. Social History Social History Household Members: Spouse Housing: House Alcohol intake: former Smoking Status: Never smoker Second Hand Smoke Exposure: No Use of substances other than those prescribed or required for medical reasons: No Substance Use Type: Marijuana Advance Directives: No Advance Directives Information Provided: No service: No Sexual orientation: Straight/Heterosexual Physical Exam Vital Signs: Vital Signs: Last Vital Signs Temp 98.1 F 12/10/20 07:34 Pulse 85 12/10/20 14:00 Resp 16 12/10/20 14:00 BP 114/68 12/10/20 11:06 Pulse Ox 96 12/10/20 14:00 Body Mass Index 38.9 Appearance: Alert. Oriented X3. in pain mild acute distress, anxious. Eyes: Pupils equal, round and reactive to light. ENT: Pharynx no swelling noted intra oral, some mild trismus Neck: firm swelling with fluctuance L SCM down to infrahyoid region and sternal notch with erythema, warmth, ttp, there is a scabbed over boil not draining noted on left side CVS: Normal heart rate and rhythm. Pulses normal. Respiratory: No respiratory distress. Breath sounds normal. Abdomen: Soft and nontender. Skin: Skin warm and dry. Normal skin color. Normal skin turgor. Extremities: No lower extremity edema. No calf ttp Neuro: Oriented X 3. No motor deficit. No sensory deficit. Course Course Course Narrative: not an abscess, had Dr. Shea review images - superficial can manage at [facility], sending off PCR given lungs on CT chest MDM - Skin/Abscess/Foreign Bdy MDM Narrative Medical decision making narrative: 50 yo male with large abscess on left neck extending to sternal notch - will need labs, IV morphine, start empiric zosyn, vancomyin, CT scan of neck - the patient will likely need transfer to tertiary center for ENT coverage. Lab Data Result diagrams: 12/10/20 10:37 12/10/20 12:25 Labs: Lab Results 12/10/20 12/10/20 12/10/20 Range/Units 10:37 10:37 10:37 WBC 12.0 H (4.8-10.8) X10*3/uL RBC 4.72 (4.60-5.80) X10*6/uL Hgb 14.9 (14.0-18.0) g/dl Hct 44.7 (42-52) % MCV 94.7 (80-98) fL MCH 31.6 (27.0-33.0) pg MCHC 33.3 (31.0-36.0) g/dl RDW 11.9 (11.0-16.0) % Plt Count 267 (160-400) X10*3/uL MPV 9.3 L (9.4-12.4) fL Immature Gran % (Auto) 0.3 (0.0-0.4) % Neut % (Auto) 75.9 H (45-73) % Lymph % (Auto) 16.7 L (20-40) % [place] % (Auto) 6.7 (2-11) % Eos % (Auto) 0.2 (0-4) % Baso % (Auto) 0.2 (0-2) % Lymph # (Auto) 2.0 (1.2-4.9) X10*3/uL [place] # (Auto) 0.8 (0.1-1.2) X10*3/uL Eos # (Auto) 0.0 (0.0-0.4) X10*3/uL Baso # (Auto) 0.0 (0.0-0.2) X10*3/uL Abs Immat Gran (auto) 0.04 H (0.00-0.03) X10*3/uL Absolute Neuts (auto) 9.1 H (2.0-8.3) X10*3/uL Absolute Nucleated RBC 0.000 (0.0-0.012) X10*3/uL Nucleated RBC % (auto) 0.0 (0.0-0.2) /100WBC PT 15.7 H (10.8-13.0) SEC INR 1.3 H (0.9-1.1) APTT 39.4 H (24.1-38.0) SEC Sodium (135-145) mmol/L Potassium (3.3-5.1) mmol/L Chloride (96-108) mmol/L Carbon Dioxide (22-29) mmol/L Anion Gap (12-20) BUN (9-16) mg/dL Creatinine (0.5-1.4) mg/dL Estim Creat Clear Calc Estimated GFR Random Glucose (60-115) mg/dL Lactic Acid 1.2 (0.5-2.0) mmol/L Calcium (8.4-10.2) mg/dL Total Bilirubin (0.0-1.0) mg/dL Direct Bilirubin (0.0-0.5) mg/dL AST (5-37) U/L ALT (0-40) U/L Alkaline Phosphatase (39-117) U/L Lactate Dehydrogenase (118-273) U/L C-Reactive Protein (< or = 0.50) mg/dL Total Protein (6.5-8.0) g/dL Albumin (3.5-5.0) g/dL COVID-19 (DAYSI) (Negative) COVID-19 Clin Com 12/10/20 12/10/20 Range/Units 10:41 12:25 WBC (4.8-10.8) X10*3/uL RBC (4.60-5.80) X10*6/uL Hgb (14.0-18.0) g/dl Hct (42-52) % MCV (80-98) fL MCH (27.0-33.0) pg MCHC (31.0-36.0) g/dl RDW (11.0-16.0) % Plt Count (160-400) X10*3/uL MPV (9.4-12.4) fL Immature Gran % (Auto) (0.0-0.4) % Neut % (Auto) (45-73) % Lymph % (Auto) (20-40) % [place] % (Auto) (2-11) % Eos % (Auto) (0-4) % Baso % (Auto) (0-2) % Lymph # (Auto) (1.2-4.9) X10*3/uL [place] # (Auto) (0.1-1.2) X10*3/uL Eos # (Auto) (0.0-0.4) X10*3/uL Baso # (Auto) (0.0-0.2) X10*3/uL Abs Immat Gran (auto) (0.00-0.03) X10*3/uL Absolute Neuts (auto) (2.0-8.3) X10*3/uL Absolute Nucleated RBC (0.0-0.012) X10*3/uL Nucleated RBC % (auto) (0.0-0.2) /100WBC PT (10.8-13.0) SEC INR (0.9-1.1) APTT (24.1-38.0) SEC Sodium 138 (135-145) mmol/L Potassium 4.5 (3.3-5.1) mmol/L Chloride 107 (96-108) mmol/L Carbon Dioxide 21 L (22-29) mmol/L Anion Gap 15 (12-20) BUN 14 (9-16) mg/dL Creatinine 0.88 (0.5-1.4) mg/dL Estim Creat Clear Calc 136.9 Estimated GFR > 60 Random Glucose 92 (60-115) mg/dL Lactic Acid (0.5-2.0) mmol/L Calcium 7.4 L D (8.4-10.2) mg/dL Total Bilirubin 0.9 (0.0-1.0) mg/dL Direct Bilirubin 0.3 (0.0-0.5) mg/dL AST 20 (5-37) U/L ALT 13 (0-40) U/L Alkaline Phosphatase 48 (39-117) U/L Lactate Dehydrogenase 339 H (118-273) U/L C-Reactive Protein 11.27 H (< or = 0.50) mg/dL Total Protein 6.3 L (6.5-8.0) g/dL Albumin 3.3 L (3.5-5.0) g/dL COVID-19 (DAYSI) Negative (Negative) COVID-19 Clin Com See Note Discharge Plan Discharge Clinical Impression: Cellulitis Qualifiers: Site of cellulitis: neck Qualified Code(s): L03.221 - Cellulitis of neck Patient Disposition: Admitted As Inpatient
[2020-12-10 10:50] LABS: MANUAL DIFF FLAG NO
[2020-12-10 10:51] LABS: Basophils Percent Auto 0.2 % (0-2); Eosinophils Percent Auto 0.2 % (0-4); Hematocrit 44.7 % (42-52); Hemoglobin 14.9 g/dl (14.0-18.0); Imm Gran Abs Auto 0.04 X10*3/uL (0.00-0.03); Imm Gran Pct Auto 0.3 % (0.0-0.4); Lymphocytes Percent Auto 16.7 % (20-40); Mean Corpuscular HGB Conc 33.3 g/dl (31.0-36.0); Mean Corpuscular Hemoglobin 31.6 pg (27.0-33.0); Mean Corpuscular Volume 94.7 fL (80-98); Mean Platelet Volume 9.3 fL (9.4-12.4); Monocytes Absolute Auto 0.8 X10*3/uL (0.1-1.2); Monocytes Percent Auto 6.7 % (2-11); Neutrophils Absolute Auto 9.1 X10*3/uL (2.0-8.3); Neutrophils Percent Auto 75.9 % (45-73); Platelet Count 267 X10*3/uL (160-400); Red Blood Count 4.72 X10*6/uL (4.60-5.80); Red Cell Distribution Width 11.9 % (11.0-16.0)
[2020-12-10] MEDS: ondansetron HCL 4 MG/2 ML VIAL IVPUSH (10:54)
[2020-12-10] MEDS: Piperacillin Sodium/Tazobactam 3.375 GM in 0.9 % Sodium Chloride 50 ML IV (10:54)
[2020-12-10] MEDS: 0.9 % Sodium Chloride 1,000 ML 999 ML IVCONT (10:55)
[2020-12-10 10:59] LABS: INTERNATIONAL NORM RATIO 1.3 (0.9-1.1); Prothrombin Time 15.7 SEC (10.8-13.0)
[2020-12-10 11:02] LABS: Partial Thromboplastin Time 39.4 SEC (24.1-38.0)
[2020-12-10] MEDS: Morphine Sulfate 2 MG/ML CARTRIDGE IVPUSH (11:03)
[2020-12-10 11:15] LABS: Lactic Acid 1.2 mmol/L (0.5-2.0)
[2020-12-10 11:23] LABS: COVID-19 Test Negative (Negative); IDNOW Serial# 9DD0AD1C
--- NOTE | 2020-12-10 11:29 | PC.NURSE ---
CALL PLACED TO PHARM FOR JONATHON
[2020-12-10] MEDS: vancomycin HCL 1,000 MG, vancomycin HCL 750 MG in 0.9 % Sodium Chloride 500 ML 267.5 MG IV (12:08)
--- NOTE | 2020-12-10 12:09 | PC.NURSE ---
debra started at 1208 unable to scan med
[2020-12-10 13:17] LABS: Alanine Aminotransferase 13 U/L (0-40); Albumin Level 3.3 g/dL (3.5-5.0); Alkaline Phosphatase 48 U/L (39-117); Anion Gap 15 (12-20); Aspartate Amino Transferase 20 U/L (5-37); Bilirubin Direct 0.3 mg/dL (0.0-0.5); Bilirubin Total 0.9 mg/dL (0.0-1.0); Blood Urea Nitrogen 14 mg/dL (9-16); Calcium 7.4 mg/dL (8.4-10.2); Carbon Dioxide 21 mmol/L (22-29); Chloride 107 mmol/L (96-108); Creatinine Clr Calc Pharmacy 136.9; Estimated Glomerular Filt Rate > 60; Glucose Random 92 mg/dL (60-115); Potassium 4.5 mmol/L (3.3-5.1); Sodium 138 mmol/L (135-145); Total Protein 6.3 g/dL (6.5-8.0)
--- NOTE | 2020-12-10 13:53 | PC.NURSE ---
pt in ct
[2020-12-10] MEDS: iohexoL 350 MG/ML 100 ML INFUS..BTL 70 ML IV (14:09)
[2020-12-10] MEDS: LORazepam 1 MG TABLET PO (14:52)
[2020-12-10 15:57] LABS: C Reactive Protein 11.27 mg/dL (< or = 0.50); Lactate Dehydrogenase 339 U/L (118-273)
[2020-12-10 16:15] LABS: Influenza A PCR NEGATIVE (Negative); Influenza B PCR NEGATIVE (Negative); Resp Syncy Virus RNA Qual PCR NEGATIVE (Negative); SARS COV2 PCR INHOUSE POSITIVE (Negative)
[2020-12-10 16:20] LABS: Ferritin 645 ng/mL (20-250)
[2020-12-10 16:29] LABS: Procalcitonin 0.04 ng/mL
--- NOTE | 2020-12-10 17:37 | P.HPHOSP_ITS ---
History of Present Illness Date of Service: 12/10/20 Chief Complaint: Neck abscess 50 year male non diabetic with hypothyroidism, anxiety depression who presented to the ED today with an abscess in the left neck area, he notes that it started as an ingrown hair that he tried squeeze out several days ago and has p rogressively enlarging and more painful. It is documented that he has raspy voice and painfull swallowing in ED note but he minimizes this to me. CT of the neck shows 1 x 1.6 x 1.6 cm focus of intermediate attenuation in superficial subcutaneous tissues tissues of the left neck likely represents phlegmon/early abscess. There is no well-formed, rim-enhancing collection. He is given Vancomycin and cultures drawan. Screening covid test is positive and on further inquiry, he has been coughing but no fever, no body aches, no headaches, no loss of tast or smell. And CT does shows covid pattern infiltrate. Oxygen saturation is 96% on room AIR. Review of Systems Review of Systems: Gen: no fever HEENT: Pain in left Neck area Resp: no sob, no cough CV: no chest, no DINERO, no leg edema GI: No n/v, no abd pain Neuro: No confusion [facility] Medical History Anxiety Bipolar II disorder major depressive with atypical features Depression Diverticula of colon Herniated disc Hx of myocardial infarction Hypothyroidism Family History Father Unknown family medical history Mother Unknown family medical history Sister No problems noted. Surgical History H/O hand surgery H/O neck surgery Social History Household Members: Spouse Housing: House Alcohol intake: former Smoking Status: Never smoker Second Hand Smoke Exposure: No Substance Use Type: Marijuana service: No 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 status: employed Sexual orientation: Straight/Heterosexual Ebola Risk: Travel/Contact With Anyone From Affected Area/s: No Has Patient Experienced Ebola Symptoms: No Recent Travel in [facility] Within the Last 8 Weeks: No Meds Allergies Allergy/AdvReac Type Severity Reaction Status Date / Time acetone [ACETONE] Allergy Unknown UNKNOWN Verified 10/06/20 08:03 Sulfa (Sulfonamide Allergy Unknown UNKNOWN Verified 12/12/20 09:15 Antibiotics) [SULFA (SULFONAMIDE ANTIBIOTICS)] sulfur Allergy Unknown unknown Verified 10/06/20 08:03 aerosols, epoxy, glue Allergy Unknown unknown Uncoded 09/30/20 08:48 Active Medications: Current Medications Generic Name Dose Route Start Last Admin Trade Name Freq PRN Reason Stop Dose Admin Clonazepam 0.5 mg 12/10/20 17:26 Clonazepam 0.5 Mg Tablet PO BID PRN Anxiety Clonazepam 1 mg 12/10/20 21:00 Clonazepam 1 Mg Tablet PO BEDTIME YAMIL Enoxaparin Sodium 40 mg 12/10/20 17:35 Enoxaparin Sodium 40 Mg/0.4 Ml Syringe SUBCUT Q24H YAMIL Vancomycin HCl 1,000 mg/ 535 mls @ 267.5 mls/hr 12/10/20 16:00 12/10/20 15:49 Vancomycin HCl 750 mg/ Sodium IV 12/10/20 17:59 Infused Chloride ONCE ONE Infusion Vancomycin HCl 750 mg/ 275 mls @ 183.333 mls/hr 12/11/20 00:00 Vancomycin HCl 500 mg/ Sodium IV Chloride Q12H YAMIL Levothyroxine Sodium 75 mcg 12/11/20 09:00 Levothyroxine Sodium 75 Mcg Tablet PO DAILY YAMIL [place] Carbonate 300 mg 12/10/20 21:00 [place] Carbonate Er 300 Mg Tablet.Er PO BID YAMIL Morphine Sulfate 2 mg 12/10/20 17:35 Morphine Sulfate 4 Mg/Ml Cartridge IVPUSH Q4H PRN Pain, Severe (Pain Scale 7-10) Pharmacy Consult 1 each 12/10/20 10:30 Consult Rx Vancomycin Dosing MISCELLANE DAILY PRN Consult order Quetiapine Fumarate 100 mg 12/10/20 21:00 Quetiapine Fumarate 300 Mg Tablet PO BEDTIME YAMIL Ropinirole HCl 0.75 mg 12/10/20 19:00 Ropinirole Hcl 0.25 Mg Tablet PO DAILY@1900 YAMIL Sodium Chloride 3 ml 12/11/20 00:00 0.9 % Sodium Chloride Flush 3 Ml Syringe IVFLUSH QSHIFT YAMIL Topiramate 25 mg 12/10/20 21:00 Topiramate 25 Mg Tablet PO BEDTIME YAMIL Zolpidem Tartrate 10 mg 12/10/20 21:00 Zolpidem Tartrate 5 Mg Tablet PO BEDTIME YAMIL Zolpidem Tartrate 5 mg 12/10/20 17:35 Zolpidem Tartrate 5 Mg Tablet PO BEDTIME PRN Insomnia Home Medications Medication Instructions Recorded Confirmed Last Taken Type lithium carbonate 300 mg PO BID 12/10/20 12/10/20 1 Day Ago History ~12/09/20 quetiapine [Seroquel] 100 mg PO BEDTIME 12/10/20 12/10/20 1 Day Ago History ~12/09/20 topiramate 1 tab PO BEDTIME 12/10/20 12/10/20 12/09/20 History zolpidem 10 mg PO BEDTIME 12/10/20 12/10/20 12/09/20 History Physical Exam Vital Signs and Narrative: Vital Signs: Last Vital Signs Temp 99.7 F 12/10/20 17:10 Pulse 88 12/10/20 17:10 Resp 16 12/10/20 17:10 BP 115/62 12/10/20 17:10 Pulse Ox 96 12/10/20 17:10 Body Mass Index 38.9 Const: General: cooperative, healthy appearing, comfortable and no acute distress Orientation/consciousness: oriented to person, oriented to place and oriented to time Neck: Other: Resp: Effort & Inspection: normal respiratory effort and able to speak in complete sentences Cardio: Jugular venous distension: no JVD Rhythm: regular rhythm Heart sounds: S1 normal heart sound present and S2 normal heart sound present GI: Inspection: Yes normal to inspection, No Abdominal wall edema and Yes obesity Skin: Other: erythema around abscess as shown in picture Neuro: General: oriented to person, oriented to place and oriented to time Cognition (Neuro): normal cognition Motor exam (neuro): 5/5 motor strength present throughout Psych: Appearance: grossly normal Mental Status: mental status grossly normal Results Labs CBC and Chem 7: 12/11/20 09:19 12/13/20 07:37 Labs: Laboratory Results - last 24 hr 12/10/20 12/10/20 12/10/20 10:37 10:37 10:37 MCV 94.7 MCH 31.6 MCHC 33.3 RDW 11.9 Plt Count 267 MPV 9.3 L Immature Gran % (Auto) 0.3 Neut % (Auto) 75.9 H Lymph % (Auto) 16.7 L [place] % (Auto) 6.7 Eos % (Auto) 0.2 Baso % (Auto) 0.2 Lymph # (Auto) 2.0 [place] # (Auto) 0.8 Eos # (Auto) 0.0 Baso # (Auto) 0.0 Abs Immat Gran (auto) 0.04 H Absolute Neuts (auto) 9.1 H Absolute Nucleated RBC 0.000 Nucleated RBC % (auto) 0.0 PT 15.7 H INR 1.3 H APTT 39.4 H Anion Gap Estim Creat Clear Calc Estimated GFR Random Glucose Lactic Acid 1.2 Calcium Ferritin Total Bilirubin Direct Bilirubin AST ALT Alkaline Phosphatase Lactate Dehydrogenase C-Reactive Protein Total Protein Albumin Procalcitonin Coronavirus (PCR) COVID-19 ([facility]) COVID-19 Clin Com Influenza Type A (PCR) Influenza Type B (PCR) RSV RNA Qual (PCR) 12/10/20 12/10/20 12/10/20 10:41 12:25 12:25 MCV MCH MCHC RDW Plt Count MPV Immature Gran % (Auto) Neut % (Auto) Lymph % (Auto) [place] % (Auto) Eos % (Auto) Baso % (Auto) Lymph # (Auto) [place] # (Auto) Eos # (Auto) Baso # (Auto) Abs Immat Gran (auto) Absolute Neuts (auto) Absolute Nucleated RBC Nucleated RBC % (auto) PT INR APTT Anion Gap 15 Estim Creat Clear Calc 136.9 Estimated GFR > 60 Random Glucose 92 Lactic Acid Calcium 7.4 L D Ferritin 645 H Total Bilirubin 0.9 Direct Bilirubin 0.3 AST 20 ALT 13 Alkaline Phosphatase 48 Lactate Dehydrogenase 339 H C-Reactive Protein 11.27 H Total Protein 6.3 L Albumin 3.3 L Procalcitonin 0.04 Coronavirus (PCR) COVID-19 ([facility]) Negative COVID-19 Clin Com See Note Influenza Type A (PCR) Influenza Type B (PCR) RSV RNA Qual (PCR) 12/10/20 14:58 MCV MCH MCHC RDW Plt Count MPV Immature Gran % (Auto) Neut % (Auto) Lymph % (Auto) [place] % (Auto) Eos % (Auto) Baso % (Auto) Lymph # (Auto) [place] # (Auto) Eos # (Auto) Baso # (Auto) Abs Immat Gran (auto) Absolute Neuts (auto) Absolute Nucleated RBC Nucleated RBC % (auto) PT INR APTT Anion Gap Estim Creat Clear Calc Estimated GFR Random Glucose Lactic Acid Calcium Ferritin Total Bilirubin Direct Bilirubin AST ALT Alkaline Phosphatase Lactate Dehydrogenase C-Reactive Protein Total Protein Albumin Procalcitonin Coronavirus (PCR) POSITIVE A COVID-19 ([facility]) COVID-19 Clin Com Influenza Type A (PCR) NEGATIVE Influenza Type B (PCR) NEGATIVE RSV RNA Qual (PCR) NEGATIVE Imaging Radiologist's Impressions: Impressions Soft Tissue Neck CT 12/10/20 10:30 IMPRESSION: * 1 x 1.6 x 1.6 cm focus of intermediate attenuation in superficial subcutaneous tissues tissues of the left neck likely represents phlegmon/early abscess. There is no well-formed, rim-enhancing collection. There is cellulitis of the left neck with thickening of the underlying left platysma muscle. No soft tissue gas. * Peripheral patchy airspace opacities in the visualized upper lung zones, consistent with multilobar pneumonia. Recommend correlation with Covid-19 test status. Assessment and Plan (1) Bipolar II disorder major depressive with atypical features: (2) Neck abscess: Status: Resolved (3) Cellulitis and abscess of neck: Status: Acute (4) Hypothyroidism: 50 year old male with Neck abscess likely originating from foliculitis and Incidental covid positive but not symptoms, will be admitted for neck abscess that can potentially worsen and life threatening and need close monitoring. 1. Abscess/cellulitis of the neck--No signicant collection noted on CT -Will continue IV Vanco and Add Ceftriaxone. -ID consult for -Surgery consult in the event that I and D will be needed -Follow cultures, -IV Morphine for Pain -Closely monitor his respiratory status. -Check A1C to rule diabetes - 2. COVID-19 without symptoms and good oxygenation -Hold off all forms of intervention at this time and monitor, if becomes hypoxic or with fever will add Dexamethasone and consider Remdesevir 3. BiPolar, Anxiety, Depression--continue home meds 4. Class 2 Obesity with BMI 38.. Encourage weight loss as overal health and present condition can be worsen by obesity
[2020-12-10] MEDS: Morphine Sulfate 4 MG/ML CARTRIDGE 2 MG IVPUSH (18:28)
[2020-12-10] MEDS: Enoxaparin Sodium 40 MG/0.4 ML SYRINGE SUBCUT (18:29)
[2020-12-10] MEDS: rOPINIRole HCL 0.25 MG TABLET 0.75 MG PO (18:58)
[2020-12-10] MEDS: cefTRIAXone sodium 1 GM in 0.9 % Sodium Chloride 50 ML IV (18:58)
[2020-12-10] MEDS: Lithium Carbonate ER 300 MG TABLET.ER PO (21:38)
[2020-12-10] MEDS: clonazePAM 1 MG TABLET PO (21:38)
[2020-12-10] MEDS: Zolpidem Tartrate 5 MG TABLET 10 MG PO (21:38)
[2020-12-10] MEDS: Topiramate 25 MG TABLET PO (21:38)
[2020-12-10] MEDS: QUEtiapine Fumarate 300 MG TABLET 100 MG PO (21:38)
--- NOTE | 2020-12-10 21:48 | PC.NURSE ---
Patient medicated with nighttime medication per emar as noted. Patient resting
[2020-12-11] MEDS: 0.9 % Sodium Chloride Flush 3 ML SYRINGE IVFLUSH ×4 (00:02→21:14)
--- NOTE | 2020-12-11 03:16 | PC.NURSE ---
REPORT TAKEN FROM ABBE NAZARIO, PT RESTING IN BED SKIN PWD RESPIRATIONS EVEN UNLABORED. AWAITING BED ASSIGNMENT FOR ADMISSION. WILL CONTINUE TO MONITOR.
--- NOTE | 2020-12-11 06:03 | PC.NURSE ---
PT RESTING IN BED SKIN PWD RESPIRATIONS EVEN UNLABORED. AWAITING BED ASSIGNMENT FOR ADMISSION. NO COMPLAINTS AT THIS TIME.
[2020-12-11] MEDS: Levothyroxine Sodium 75 MCG TABLET PO (08:15)
[2020-12-11] MEDS: Lithium Carbonate ER 300 MG TABLET.ER PO (08:15)
[2020-12-11] MEDS: Morphine Sulfate 4 MG/ML CARTRIDGE 2 MG IVPUSH ×2 (08:15→17:09)
[2020-12-11 09:28] LABS: Basophils Percent Auto 0.4 % (0-2); Eosinophils Absolute Auto 0.1 X10*3/uL (0.0-0.4); Eosinophils Percent Auto 0.8 % (0-4); Hematocrit 38.6 % (42-52); Imm Gran Abs Auto 0.03 X10*3/uL (0.00-0.03); Imm Gran Pct Auto 0.4 % (0.0-0.4); Lymphocytes Absolute Auto 1.5 X10*3/uL (1.2-4.9); Lymphocytes Percent Auto 18.2 % (20-40); MANUAL DIFF FLAG NO; Mean Corpuscular HGB Conc 33.7 g/dl (31.0-36.0); Mean Corpuscular Hemoglobin 31.6 pg (27.0-33.0); Mean Corpuscular Volume 93.7 fL (80-98); Mean Platelet Volume 8.9 fL (9.4-12.4); Monocytes Absolute Auto 0.6 X10*3/uL (0.1-1.2); Monocytes Percent Auto 6.6 % (2-11); Neutrophils Absolute Auto 6.2 X10*3/uL (2.0-8.3); Neutrophils Percent Auto 73.6 % (45-73); Platelet Count 232 X10*3/uL (160-400); Red Blood Count 4.12 X10*6/uL (4.60-5.80); Red Cell Distribution Width 11.9 % (11.0-16.0); White Blood Count 8.4 X10*3/uL (4.8-10.8)
--- NOTE | 2020-12-11 09:54 | HO.PM.IMPN ---
Subjective Subjective Date of Service: 12/12/20 Interval History: Follow up neck abscess and asymptomatic covid 19. Physical Exam Vital Signs: Vital Signs: Last Vital Signs Temp 99.4 F 12/10/20 18:33 Pulse 88 12/10/20 18:33 Resp 16 12/10/20 18:33 BP 100/56 L 12/10/20 18:33 Pulse Ox 99 12/10/20 18:33 Body Mass Index 38.9 Appearing in no acute distress head is normocephalic atraumatic eyes pupils are PERRLA sclera is anicteric mouth throat mucous membranes are intact and moist neck with lymphedenopathy, erythema, edema, pinpoint area to left neck with some mild drainage lung sounds are clear to auscultation heart regular rate rhythm, clear S1, S2 positive bowel sounds, abdomen is soft, nontender neuro patient is alert x3, no focal deficits Neck: Other: Objective Data Current Medications Generic Name Dose Route Start Last Admin Trade Name Freq PRN Reason Stop Dose Admin Clonazepam 0.5 mg 12/10/20 17:26 Clonazepam 0.5 Mg Tablet PO BID PRN Anxiety Clonazepam 1 mg 12/10/20 21:00 12/10/20 21:38 Clonazepam 1 Mg Tablet PO 1 mg BEDTIME YAMIL Administration Enoxaparin Sodium 40 mg 12/10/20 17:35 12/10/20 18:29 Enoxaparin Sodium 40 Mg/0.4 Ml Syringe SUBCUT 40 mg Q24H YAMIL Administration Vancomycin HCl 750 mg/ 275 mls @ 183.333 mls/hr 12/11/20 00:00 12/11/20 01:32 Vancomycin HCl 500 mg/ Sodium IV Infused Chloride Q12H YAMIL Infusion Ceftriaxone Sodium 1 gm/ 50 mls @ 100 mls/hr 12/10/20 19:00 12/10/20 19:28 Sodium Chloride IV Infused Q24H YAMIL Infusion Levothyroxine Sodium 75 mcg 12/11/20 09:00 12/11/20 08:15 Levothyroxine Sodium 75 Mcg Tablet PO 75 mcg DAILY YAMIL Administration Rembrandt Carbonate 300 mg 12/10/20 21:00 12/11/20 08:15 Rembrandt Carbonate Er 300 Mg Tablet.Er PO 300 mg BID YAMIL Administration Morphine Sulfate 2 mg 12/10/20 17:35 12/11/20 08:15 Morphine Sulfate 4 Mg/Ml Cartridge IVPUSH 2 mg Q4H PRN Administration Pain, Severe (Pain Scale 7-10) Pharmacy Consult 1 each 12/10/20 10:30 Consult Rx Vancomycin Dosing MISCELLANE DAILY PRN Consult order Quetiapine Fumarate 100 mg 12/10/20 21:00 12/10/20 21:38 Quetiapine Fumarate 300 Mg Tablet PO 100 mg BEDTIME YAMIL Administration Ropinirole HCl 0.75 mg 12/10/20 19:00 12/10/20 18:58 Ropinirole Hcl 0.25 Mg Tablet PO 0.75 mg DAILY@1900 YAMIL Administration Sodium Chloride 3 ml 12/11/20 00:00 12/11/20 00:02 0.9 % Sodium Chloride Flush 3 Ml Syringe IVFLUSH 3 ml QSHIFT YAMIL Administration Topiramate 25 mg 12/10/20 21:00 12/10/20 21:38 Topiramate 25 Mg Tablet PO 25 mg BEDTIME YAMIL Administration Zolpidem Tartrate 10 mg 12/10/20 21:00 12/10/20 21:38 Zolpidem Tartrate 5 Mg Tablet PO 10 mg BEDTIME YAMIL Administration Zolpidem Tartrate 5 mg 12/10/20 17:35 Zolpidem Tartrate 5 Mg Tablet PO BEDTIME PRN Insomnia Labs CBC & Chem 7: 12/11/20 09:19 12/11/20 09:19 Assessment and Plan (1) Cellulitis and abscess of neck: Status: Acute Assessment and Plan: 50 year old male with Neck abscess likely originating from foliculitis and Incidental covid positive but not symptoms, will be admitted for neck abscess that can potentially worsen and life threatening and need close monitoring. Abscess/cellulitis of the neck--No signicant collection noted on CT -Will continue IV Vancomycin and Ceftriaxone. -ID consult -General surgery consult -Follow cultures -IV Morphine for Pain -Closely monitor his respiratory status. -Check A1C to rule diabetes -warm compress COVID-19 without symptoms and good oxygenation -Hold off all forms of intervention at this time and monitor, if becomes hypoxic or with fever will add Dexamethasone and consider Remdesevir BiPolar, Anxiety, Depression -continue home meds Class 2 Obesity with BMI 38. Encourage weight loss as overall health and present condition can be worsen by obesity
[2020-12-11 10:17] LABS: Estimated Average Glucose 94 mg/dL; Hemoglobin A1c % 4.9 %
[2020-12-11 10:18] LABS: Anion Gap 12 (12-20); Blood Urea Nitrogen 10 mg/dL (9-16); Calcium 7.7 mg/dL (8.4-10.2); Carbon Dioxide 24 mmol/L (22-29); Chloride 107 mmol/L (96-108); Creatinine Clr Calc Pharmacy 145.2; Estimated Glomerular Filt Rate > 60; Glucose Random 104 mg/dL (60-115); Potassium 3.9 mmol/L (3.3-5.1); Sodium 139 mmol/L (135-145)
--- NOTE | 2020-12-11 10:44 | PM.CNGS ---
History of Present Illness Consult details Consult date: 12/11/20 Requesting physician: Karla Martinez Narrative: 50-year-old male patient presenting to the emergency department with a left neck abscess. Patient reports the lesion started as a small pimple which he tried to squeeze but could not drain. Over the next several days this increased in size with surrounding redness. He subsequently presented to the emergency department. He reports pain throughout the left neck. He denies a previous history of infections in this location. A CT of the neck revealed an area of inflammation without a clear abscess identified. Surgical consultation is requested for possible incision and drainage. Review of Systems Constitutional: Constitutional: Reports chills, Reports fatigue and Reports fever(s) Eyes: Eyes: Reports no additional eye complaints ENT: Reports as per HPI, Denies dental pain, Reports hoarseness and Reports neck pain Cardiovascular: Cardiovascular: Reports no additional cardiovascular complaints Respiratory: Respiratory: Reports no additional respiratory complaints Gastrointestinal: Gastrointestinal: Reports no additional gastrointestinal complaints Musculoskeletal: Musculoskeletal: Reports no additional musculoskeletal complaints and Reports neck pain Neurologic: Reports system reviewed and no additional complaints, except as documented Endocrine: Endocrine: Reports fatigue Hematologic/Lymphatic: Hematologic/Lymphatic: Reports no additional hematologic/lymphatic complaints PMFSH Past Medical History Medical History Anxiety Bipolar II disorder major depressive with atypical features Depression Diverticula of colon Herniated disc Hx of myocardial infarction Hypothyroidism Family History Family History Father Unknown family medical history Mother Unknown family medical history Sister No problems noted. Surgical History Surgical History H/O hand surgery H/O neck surgery Social History Social History Household Members: Spouse Housing: House Alcohol intake: former Smoking Status: Never smoker Second Hand Smoke Exposure: No Use of substances other than those prescribed or required for medical reasons: No Substance Use Type: Marijuana Advance Directives: No Advance Directives Information Provided: No service: No Sexual orientation: Straight/Heterosexual Travel History Ebola Risk: Travel/Contact With Anyone From Affected Area/s: No Has Patient Experienced Ebola Symptoms: No Meds Allergies Allergy/AdvReac Type Severity Reaction Status Date / Time acetone [ACETONE] Allergy Unknown UNKNOWN Verified 10/06/20 08:03 Sulfa (Sulfonamide Allergy Unknown UNKNOWN Verified 10/06/20 08:03 Antibiotics) [SULFA (SULFONAMIDE ANTIBIOTICS)] sulfur Allergy Unknown unknown Verified 10/06/20 08:03 aerosols, epoxy, glue Allergy Unknown unknown Uncoded 09/30/20 08:48 Active Medications: Current Medications Generic Name Dose Route Start Last Admin Trade Name Freq PRN Reason Stop Dose Admin Clonazepam 0.5 mg 12/10/20 17:26 Clonazepam 0.5 Mg Tablet PO BID PRN Anxiety Clonazepam 1 mg 12/10/20 21:00 12/10/20 21:38 Clonazepam 1 Mg Tablet PO 1 mg BEDTIME YAMIL Administration Enoxaparin Sodium 40 mg 12/10/20 17:35 12/10/20 18:29 Enoxaparin Sodium 40 Mg/0.4 Ml Syringe SUBCUT 40 mg Q24H YAMIL Administration Vancomycin HCl 750 mg/ 275 mls @ 183.333 mls/hr 12/11/20 00:00 12/11/20 01:32 Vancomycin HCl 500 mg/ Sodium IV Infused Chloride Q12H YAMIL Infusion Ceftriaxone Sodium 1 gm/ 50 mls @ 100 mls/hr 12/10/20 19:00 12/10/20 19:28 Sodium Chloride IV Infused Q24H YAMIL Infusion Levothyroxine Sodium 75 mcg 12/11/20 09:00 12/11/20 08:15 Levothyroxine Sodium 75 Mcg Tablet PO 75 mcg DAILY YAMIL Administration [place] Carbonate 300 mg 12/10/20 21:00 12/11/20 08:15 [place] Carbonate Er 300 Mg Tablet.Er PO 300 mg BID YAMIL Administration Morphine Sulfate 2 mg 12/10/20 17:35 12/11/20 08:15 Morphine Sulfate 4 Mg/Ml Cartridge IVPUSH 2 mg Q4H PRN Administration Pain, Severe (Pain Scale 7-10) Pharmacy Consult 1 each 12/10/20 10:30 Consult Rx Vancomycin Dosing MISCELLANE DAILY PRN Consult order Quetiapine Fumarate 100 mg 12/10/20 21:00 12/10/20 21:38 Quetiapine Fumarate 300 Mg Tablet PO 100 mg BEDTIME YAMIL Administration Ropinirole HCl 0.75 mg 12/10/20 19:00 12/10/20 18:58 Ropinirole Hcl 0.25 Mg Tablet PO 0.75 mg DAILY@1900 YAMIL Administration Sodium Chloride 3 ml 12/11/20 00:00 12/11/20 00:02 0.9 % Sodium Chloride Flush 3 Ml Syringe IVFLUSH 3 ml QSHIFT YAMIL Administration Topiramate 25 mg 12/10/20 21:00 12/10/20 21:38 Topiramate 25 Mg Tablet PO 25 mg BEDTIME YAMIL Administration Zolpidem Tartrate 10 mg 12/10/20 21:00 12/10/20 21:38 Zolpidem Tartrate 5 Mg Tablet PO 10 mg BEDTIME YAMIL Administration Zolpidem Tartrate 5 mg 12/10/20 17:35 Zolpidem Tartrate 5 Mg Tablet PO BEDTIME PRN Insomnia Home Medications Medication Instructions Recorded Confirmed Last Taken Type lithium carbonate 300 mg PO BID 12/10/20 12/10/20 1 Day Ago History ~12/09/20 quetiapine [Seroquel] 100 mg PO BEDTIME 12/10/20 12/10/20 1 Day Ago History ~12/09/20 topiramate 1 tab PO BEDTIME 12/10/20 12/10/20 12/09/20 History zolpidem 10 mg PO BEDTIME 12/10/20 12/10/20 12/09/20 History Physical Exam Vital Signs: Vital Signs: Last Vital Signs Temp 99.4 F 12/10/20 18:33 Pulse 88 12/10/20 18:33 Resp 16 12/10/20 18:33 BP 100/56 L 12/10/20 18:33 Pulse Ox 99 12/10/20 18:33 Body Mass Index 38.9 Const: General: cooperative Nutritional Appearance: average body habitus and well nourished Orientation/consciousness: patient oriented x3 Limitations: no limitations Neck: Neck: Yes anterior neck swelling and Yes lymphadenopathy Thyroid: Thyroid normal Lymphatic: lymphadenopathy Neck images: 1. Skin ulceration in fluctuance left neck 2. Erythema in surrounding skin 3. Palpable lymphadenopathy left cervical regions Resp: Effort & Inspection: normal respiratory effort, able to speak in complete sentences, no stridor and not tachypneic GI: Inspection: Yes normal to inspection Skin: Other: Abscess as noted above Neuro: General: patient oriented x3 Extrem: General: Yes no clubbing, cyanosis or edema Results Labs Result diagrams: 12/11/20 09:19 12/11/20 09:19 Labs: Abnormal lab results 12/10/20 12/10/20 12/10/20 Range/Units 10:37 10:37 12:25 WBC 12.0 H (4.8-10.8) X10*3/uL RBC (4.60-5.80) X10*6/uL Hgb (14.0-18.0) g/dl Hct (42-52) % MPV 9.3 L (9.4-12.4) fL Neut % (Auto) 75.9 H (45-73) % Lymph % (Auto) 16.7 L (20-40) % Abs Immat Gran (auto) 0.04 H (0.00-0.03) X10*3/uL Absolute Neuts (auto) 9.1 H (2.0-8.3) X10*3/uL PT 15.7 H (10.8-13.0) SEC INR 1.3 H (0.9-1.1) APTT 39.4 H (24.1-38.0) SEC Carbon Dioxide 21 L (22-29) mmol/L Calcium 7.4 L D (8.4-10.2) mg/dL Ferritin 645 H (20-250) ng/mL Lactate Dehydrogenase 339 H (118-273) U/L C-Reactive Protein 11.27 H (< or = 0.50) mg/dL Total Protein 6.3 L (6.5-8.0) g/dL Albumin 3.3 L (3.5-5.0) g/dL Coronavirus (PCR) (Negative) 12/10/20 12/11/20 12/11/20 Range/Units 14:58 09:19 09:19 WBC (4.8-10.8) X10*3/uL RBC 4.12 L (4.60-5.80) X10*6/uL Hgb 13.0 L (14.0-18.0) g/dl Hct 38.6 L (42-52) % MPV 8.9 L (9.4-12.4) fL Neut % (Auto) 73.6 H (45-73) % Lymph % (Auto) 18.2 L (20-40) % Abs Immat Gran (auto) (0.00-0.03) X10*3/uL Absolute Neuts (auto) (2.0-8.3) X10*3/uL PT (10.8-13.0) SEC INR (0.9-1.1) APTT (24.1-38.0) SEC Carbon Dioxide (22-29) mmol/L Calcium 7.7 L (8.4-10.2) mg/dL Ferritin (20-250) ng/mL Lactate Dehydrogenase (118-273) U/L C-Reactive Protein (< or = 0.50) mg/dL Total Protein (6.5-8.0) g/dL Albumin (3.5-5.0) g/dL Coronavirus (PCR) POSITIVE A (Negative) Short CBC 12/10/20 12/11/20 Range/Units 10:37 09:19 WBC 12.0 H 8.4 (4.8-10.8) X10*3/uL Hgb 14.9 13.0 L (14.0-18.0) g/dl Hct 44.7 38.6 L (42-52) % Plt Count 267 232 (160-400) X10*3/uL BMP 12/10/20 12/11/20 12:25 09:19 Sodium 138 139 Potassium 4.5 3.9 Chloride 107 107 Carbon Dioxide 21 L 24 BUN 14 10 Creatinine 0.88 0.83 Calcium 7.4 L D 7.7 L Liver Function 12/10/20 Range/Units 12:25 Total Bilirubin 0.9 (0.0-1.0) mg/dL Direct Bilirubin 0.3 (0.0-0.5) mg/dL AST 20 (5-37) U/L ALT 13 (0-40) U/L Alkaline Phosphatase 48 (39-117) U/L Albumin 3.3 L (3.5-5.0) g/dL All other labs normal. Assessment and Plan (1) Cellulitis and abscess of neck: Status: Acute 50-year-old male patient presenting with an area of redness and swelling, tender to palpation with an area of fluctuance in the left mid neck suggestive of an abscess. By CT this appears to be superficial located above the platysmas with some surrounding inflammatory changes. Examination is consistent with an abscess of the left neck. I recommended incision and drainage at the bedside under local anesthesia. After discussion of the procedure, risks, and alternatives, he consents to the procedure. Procedures Abscess I/D Consent for Procedure: Elective - informed consent obtained Site: neck (Anterior) Side (if applicable): left Sedation/analgesia: none Anesthetic used: lidocaine 1% Technique: incised with #11 blade Amount of fluid (mL): 3 Irrigation: No Packing used?: iodoform Additional comments: Patient tolerated the procedure well, no immediate complications. Wounds dressed with dry sterile dressings.
[2020-12-11 17:03] VITALS: BP 140/72; PULSE 102; RESP 26; TEMP 38.1; O2SAT 99
[2020-12-11] MEDS: Enoxaparin Sodium 40 MG/0.4 ML SYRINGE SUBCUT (17:09)
[2020-12-11] MEDS: clonazePAM 0.5 MG TABLET PO (17:09)
[2020-12-11] MEDS: cefTRIAXone sodium 1 GM in 0.9 % Sodium Chloride 50 ML IV (18:17)
[2020-12-11] MEDS: QUEtiapine Fumarate 300 MG TABLET 100 MG PO (21:13)
[2020-12-11] MEDS: Zolpidem Tartrate 5 MG TABLET 10 MG PO (21:13)
[2020-12-11] MEDS: Topiramate 25 MG TABLET PO (21:14)
[2020-12-11 21:22] VITALS: BP 117/70; PULSE 79; RESP 14; TEMP 37.9; O2SAT 100
[2020-12-11] MEDS: rOPINIRole HCL 0.25 MG TABLET 0.75 MG PO (21:33)
[2020-12-11] MEDS: Acetaminophen 325 MG TABLET 650 MG PO (21:33)
[2020-12-11 23:31] LABS: Vancomycin Trough 7.6 mcg/mL (10.0-20.0)
[2020-12-12] VITALS: BP 100/69; PULSE 70; RESP 16; TEMP 37.8; O2SAT 95
[2020-12-12 03:47] VITALS: PULSE 72; RESP 16; O2SAT 96
--- NOTE | 2020-12-12 07:47 | P.PNIM_ITS ---
Subjective Subjective Date of Service: 12/12/20 Interval History: Follow up neck abscess and asymptomatic covid 19. Physical Exam Vital Signs: Vital Signs: Last Vital Signs Temp 100.1 F 12/12/20 00:00 Pulse 72 12/12/20 03:47 Resp 16 12/12/20 03:47 BP 100/69 12/12/20 00:00 Pulse Ox 96 12/12/20 03:47 Body Mass Index 38.9 Sleeping head is normocephalic atraumatic mouth throat mucous membranes are intact and moist neck lymphedenopathy lung sounds are clear to auscultation heart regular rate rhythm, clear S1, S2 positive bowel sounds, abdomen is soft, nontender neuro patient is alert x3, no focal deficits Neck: Other: Neck: Yes anterior neck swelling and Yes lymphadenopathy Thyroid: Thyroid normal Lymphatic: lymphadenopathy Objective Data Current Medications Generic Name Dose Route Start Last Admin Trade Name Freq PRN Reason Stop Dose Admin Acetaminophen 650 mg 12/11/20 21:26 12/11/20 21:33 Acetaminophen 325 Mg Tablet PO 650 mg Q6H PRN Administration Fever Clonazepam 0.5 mg 12/10/20 17:26 12/11/20 17:09 Clonazepam 0.5 Mg Tablet PO 0.5 mg BID PRN Administration Anxiety Clonazepam 1 mg 12/10/20 21:00 12/11/20 21:13 Clonazepam 1 Mg Tablet PO Not Given BEDTIME YAMIL Enoxaparin Sodium 40 mg 12/10/20 17:35 12/11/20 17:09 Enoxaparin Sodium 40 Mg/0.4 Ml Syringe SUBCUT 40 mg Q24H YAMIL Administration Vancomycin HCl 750 mg/ 275 mls @ 183.333 mls/hr 12/11/20 00:00 12/12/20 02:36 Vancomycin HCl 500 mg/ Sodium IV Infused Chloride Q12H YAMIL Infusion Ceftriaxone Sodium 1 gm/ 50 mls @ 100 mls/hr 12/10/20 19:00 12/11/20 19:11 Sodium Chloride IV Infused Q24H YAMIL Infusion Levothyroxine Sodium 75 mcg 12/11/20 09:00 12/11/20 08:15 Levothyroxine Sodium 75 Mcg Tablet PO 75 mcg DAILY YAMIL Administration [place] Carbonate 300 mg 12/10/20 21:00 12/11/20 21:15 [place] Carbonate Er 300 Mg Tablet.Er PO Not Given BID YAMIL Morphine Sulfate 2 mg 12/10/20 17:35 12/11/20 17:09 Morphine Sulfate 4 Mg/Ml Cartridge IVPUSH 2 mg Q4H PRN Administration Pain, Severe (Pain Scale 7-10) Pharmacy Consult 1 each 12/10/20 10:30 Consult Rx Vancomycin Dosing MISCELLANE DAILY PRN Consult order Quetiapine Fumarate 100 mg 12/10/20 21:00 12/11/20 21:13 Quetiapine Fumarate 300 Mg Tablet PO 100 mg BEDTIME YAMIL Administration Ropinirole HCl 0.75 mg 12/10/20 19:00 12/11/20 21:33 Ropinirole Hcl 0.25 Mg Tablet PO 0.75 mg DAILY@1900 YAMIL Administration Sodium Chloride 3 ml 12/11/20 00:00 12/11/20 21:14 0.9 % Sodium Chloride Flush 3 Ml Syringe IVFLUSH 3 ml QSHIFT YAMIL Administration Topiramate 25 mg 12/10/20 21:00 12/11/20 21:14 Topiramate 25 Mg Tablet PO 25 mg BEDTIME YAMIL Administration Zolpidem Tartrate 10 mg 12/10/20 21:00 12/11/20 21:13 Zolpidem Tartrate 5 Mg Tablet PO 10 mg BEDTIME YAMIL Administration Zolpidem Tartrate 5 mg 12/10/20 17:35 Zolpidem Tartrate 5 Mg Tablet PO BEDTIME PRN Insomnia Labs CBC & Chem 7: 12/11/20 09:19 12/11/20 09:19 Microbiology Microbiology Results: Microbiology 12/10/20 10:48 Blood - Venous Blood Culture - Preliminary No growth after 24 hours. 12/10/20 10:37 Blood - Venous Blood Culture - Preliminary No growth after 24 hours. 12/11/20 10:40 Abscess Soft Tissue Gram Stain - Final Assessment and Plan (1) Cellulitis and abscess of neck: Status: Acute Assessment and Plan: 50 year old male with Neck abscess likely originating from foliculitis and Incidental covid positive but not symptoms, will be admitted for neck abscess that can potentially worsen and life threatening and need close monitoring. Abscess/cellulitis of the neck--No significant collection noted on CT-Fever yesterday, none today -I&D yesterday. Wound packed. May need more drainage -Will continue IV Vancomycin and Ceftriaxone. General surgery to follow -ID consult -Follow cultures -IV Morphine for Pain -Closely monitor his respiratory status. -Check A1C to rule diabetes/4.9 -Warm compress COVID-19 without symptoms and good oxygenation -Hold off all forms of intervention at this time and monitor, if becomes hypoxic or with fever will add Dexamethasone and consider Remdesevir BiPolar, Anxiety, Depression -continue home meds Class 2 Obesity with BMI 38. Encourage weight loss as overall health and present condition can be worsen by obesity
[2020-12-12 08:00] VITALS: BP 106/72; PULSE 90; RESP 19; TEMP 37.2; O2SAT 95
[2020-12-12 09:08] LABS: Anion Gap 11 (12-20); Blood Urea Nitrogen 8 mg/dL (9-16); Calcium 7.8 mg/dL (8.4-10.2); Carbon Dioxide 23 mmol/L (22-29); Chloride 110 mmol/L (96-108); Creatinine Clr Calc Pharmacy 160.7; Estimated Glomerular Filt Rate > 60; Glucose Random 102 mg/dL (60-115); Potassium 4.1 mmol/L (3.3-5.1); Sodium 140 mmol/L (135-145)
[2020-12-12] MEDS: Levothyroxine Sodium 75 MCG TABLET PO (10:06)
[2020-12-12] MEDS: 0.9 % Sodium Chloride Flush 3 ML SYRINGE IVFLUSH ×3 (10:06→21:31)
[2020-12-12] MEDS: Lithium Carbonate ER 300 MG TABLET.ER PO ×2 (10:06→20:30)
[2020-12-12 11:12] VITALS: BMI 38.9
[2020-12-12 12:00] VITALS: BP 110/76; PULSE 89; RESP 13; TEMP 36.9; O2SAT 96
--- NOTE | 2020-12-12 13:24 | MHC.CM.PN ---
Male 50 DX COVID+, Cellulitis of neck. Pt lives w . He is independent, works and drives. Requested a copy of HCP. DP home no services family transport. CM will follow.
[2020-12-12 16:00] VITALS: BP 110/68; PULSE 82; RESP 18; TEMP 35.9; O2SAT 95
[2020-12-12] MEDS: Enoxaparin Sodium 40 MG/0.4 ML SYRINGE SUBCUT (16:43)
[2020-12-12] MEDS: Acetaminophen 325 MG TABLET 650 MG PO (16:48)
[2020-12-12] MEDS: rOPINIRole HCL 0.25 MG TABLET 0.75 MG PO (18:37)
[2020-12-12] MEDS: cefTRIAXone sodium 1 GM in 0.9 % Sodium Chloride 50 ML IV (18:37)
[2020-12-12 19:03] VITALS: BP 116/57; PULSE 80; RESP 20; TEMP 36.9; O2SAT 96
[2020-12-12] MEDS: clonazePAM 1 MG TABLET PO (20:30)
[2020-12-12] MEDS: Zolpidem Tartrate 5 MG TABLET 10 MG PO (20:31)
[2020-12-12] MEDS: QUEtiapine Fumarate 100 MG TABLET PO (20:31)
--- NOTE | 2020-12-12 20:53 | W.PM.IDCN ---
History of Present Illness Data of Consult Service Date: 12/12/20 Requesting physician: Candelario Corado Primary Care Provider: Kimberly Paula MD HPI Reason for consult: COVID,neck cellulitis He presents to hospital with neck cellulitis for last three days after pulling ingrown hair from neck He also has cough for three days but no hypoxia Review of Systems Review of Systems: Yes all other systems are reviewed and are negative PMFSH Past Medical History Medical History Anxiety Bipolar II disorder major depressive with atypical features Depression Diverticula of colon Herniated disc Hx of myocardial infarction Hypothyroidism Family History Family History Father Unknown family medical history Mother Unknown family medical history Sister No problems noted. Surgical History Surgical History H/O hand surgery H/O neck surgery Social History Social History Household Members: Spouse Housing: House Alcohol intake: former Smoking Status: Never smoker Second Hand Smoke Exposure: No Substance Use Type: Marijuana service: No 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 status: employed Sexual orientation: Straight/Heterosexual Travel History Ebola Risk: Travel/Contact With Anyone From Affected Area/s: No Has Patient Experienced Ebola Symptoms: No Meds Allergies Allergy/AdvReac Type Severity Reaction Status Date / Time acetone [ACETONE] Allergy Unknown UNKNOWN Verified 10/06/20 08:03 Sulfa (Sulfonamide Allergy Unknown UNKNOWN Verified 12/12/20 09:15 Antibiotics) [SULFA (SULFONAMIDE ANTIBIOTICS)] sulfur Allergy Unknown unknown Verified 10/06/20 08:03 aerosols, epoxy, glue Allergy Unknown unknown Uncoded 09/30/20 08:48 Active Medications: Current Medications Generic Name Dose Route Start Last Admin Trade Name Freq PRN Reason Stop Dose Admin Acetaminophen 650 mg 12/11/20 21:26 12/12/20 16:48 Acetaminophen 325 Mg Tablet PO 650 mg Q6H PRN Administration Fever Clonazepam 0.5 mg 12/10/20 17:26 12/11/20 17:09 Clonazepam 0.5 Mg Tablet PO 0.5 mg BID PRN Administration Anxiety Clonazepam 1 mg 12/10/20 21:00 12/12/20 20:30 Clonazepam 1 Mg Tablet PO 1 mg BEDTIME YAMIL Administration Enoxaparin Sodium 40 mg 12/10/20 17:35 12/12/20 16:43 Enoxaparin Sodium 40 Mg/0.4 Ml Syringe SUBCUT 40 mg Q24H YAMIL Administration Vancomycin HCl 750 mg/ 275 mls @ 183.333 mls/hr 12/11/20 00:00 12/12/20 15:06 Vancomycin HCl 500 mg/ Sodium IV Infused Chloride Q12H YAMIL Infusion Ceftriaxone Sodium 1 gm/ 50 mls @ 100 mls/hr 12/10/20 19:00 12/12/20 18:37 Sodium Chloride IV 100 mls/hr Q24H YAMIL Administration Levothyroxine Sodium 75 mcg 12/11/20 09:00 12/12/20 10:06 Levothyroxine Sodium 75 Mcg Tablet PO 75 mcg DAILY YAMIL Administration [place] Carbonate 300 mg 12/10/20 21:00 12/12/20 20:30 [place] Carbonate Er 300 Mg Tablet.Er PO 300 mg BID YAMIL Administration Morphine Sulfate 2 mg 12/10/20 17:35 12/11/20 17:09 Morphine Sulfate 4 Mg/Ml Cartridge IVPUSH 2 mg Q4H PRN Administration Pain, Severe (Pain Scale 7-10) Pharmacy Consult 1 each 12/10/20 10:30 Consult Rx Vancomycin Dosing MISCELLANE DAILY PRN Consult order Quetiapine Fumarate 100 mg 12/12/20 21:00 12/12/20 20:31 Quetiapine Fumarate 100 Mg Tablet PO 100 mg BEDTIME YAMIL Administration Ropinirole HCl 0.75 mg 12/10/20 19:00 12/12/20 18:37 Ropinirole Hcl 0.25 Mg Tablet PO 0.75 mg DAILY@1900 YAMIL Administration Sodium Chloride 3 ml 12/11/20 00:00 12/12/20 16:43 0.9 % Sodium Chloride Flush 3 Ml Syringe IVFLUSH 3 ml QSHIFT YAMIL Administration Topiramate 25 mg 12/10/20 21:00 12/11/20 21:14 Topiramate 25 Mg Tablet PO 25 mg BEDTIME YAMIL Administration Zolpidem Tartrate 10 mg 12/10/20 21:00 12/12/20 20:31 Zolpidem Tartrate 5 Mg Tablet PO 10 mg BEDTIME YAMIL Administration Zolpidem Tartrate 5 mg 12/10/20 17:35 Zolpidem Tartrate 5 Mg Tablet PO BEDTIME PRN Insomnia Home Medications Medication Instructions Recorded Confirmed Last Taken Type lithium carbonate 300 mg PO BID 12/10/20 12/10/20 1 Day Ago History ~12/09/20 quetiapine [Seroquel] 100 mg PO BEDTIME 12/10/20 12/10/20 1 Day Ago History ~12/09/20 topiramate 1 tab PO BEDTIME 12/10/20 12/10/20 12/09/20 History zolpidem 10 mg PO BEDTIME 12/10/20 12/10/20 12/09/20 History Physical Exam Vital Signs: Vital Signs: Last Vital Signs Temp 98.5 F 12/12/20 19:03 Pulse 80 12/12/20 19:03 Resp 20 12/12/20 19:03 BP 116/57 L 12/12/20 19:03 Pulse Ox 96 12/12/20 19:03 Body Mass Index 38.9 Const: General: cooperative HENMT: Head: Yes normal to inspection Eyes: General: appearance normal, both eyes and all related structures Resp: Effort & Inspection: normal respiratory effort Cardio: Rate: regular rate Rhythm: regular rhythm GI: Palpation (GI): Soft to palpation and nontender Skin: Other: swelling left neck area Results Labs CBC & Chem 7: 12/11/20 09:19 12/13/20 07:37 Labs: BMP 12/12/20 08:09 Sodium 140 Potassium 4.1 Chloride 110 H Carbon Dioxide 23 BUN 8 L Creatinine 0.75 Calcium 7.8 L Microbiology Microbiology Results: Microbiology 12/10/20 10:48 Blood - Venous Blood Culture - Preliminary No growth after 48 hours. 12/10/20 10:37 Blood - Venous Blood Culture - Preliminary No growth after 48 hours. 12/11/20 10:40 Abscess Soft Tissue Gram Stain - Final 12/11/20 10:40 Abscess Soft Tissue Routine Culture - Preliminary Staphylococcus aureus Assessment and Plan (1) Cellulitis and abscess of neck: Status: Acute Continue medication,awati cultures No need for Remdesivir,oxygen unremarkabl
[2020-12-12] MEDS: Topiramate 25 MG TABLET PO (21:31)
[2020-12-13] VITALS (7 sets, daily range): BP systolic 108–129; BP diastolic 53–76; PULSE 71–89; RESP 16–22; TEMP 36.4–37.3; O2SAT 95–97
[2020-12-13 08:16] LABS: Anion Gap 12 (12-20); Blood Urea Nitrogen 10 mg/dL (9-16); Calcium 8.1 mg/dL (8.4-10.2); Carbon Dioxide 21 mmol/L (22-29); Chloride 112 mmol/L (96-108); Creatinine Clr Calc Pharmacy 156.5; Estimated Glomerular Filt Rate > 60; Glucose Random 101 mg/dL (60-115); Potassium 4.3 mmol/L (3.3-5.1); Sodium 141 mmol/L (135-145)
--- NOTE | 2020-12-13 08:27 | PM.PNGS ---
Subjective Subjective Date of Service: 12/13/20 Interval history: Status post incision and drainage left neck abscess. Patient feels improved with decreased swelling in the left neck. Physical Exam Vital Signs: Vital Signs: Last Vital Signs Temp 97.5 F 12/13/20 08:00 Pulse 81 12/13/20 08:00 Resp 22 H 12/13/20 08:00 BP 118/66 12/13/20 08:00 Pulse Ox 95 12/13/20 08:00 Body Mass Index 38.9 Neck: Other: Dressings changed. Wick is removed. Light pressure on wound does produce some thick purulence. Surrounding erythema is much improved. Dry sterile dressings applied. Skin: General skin exam: no rashes or lesions noted Progress Note: A&P Assessment and plan (1) Cellulitis and abscess of neck: Status: Acute Assessment and Plan: Status post incision and drainage left neck abscess. Overall the wounds are much improved with decreased swelling. Culture results revealed Staph aureus. Patient may require excision of the residual cyst once the acute inflammation resolves. No further surgical intervention required at this time. Fall Risk Details Current Medications: Current Medications Generic Name Dose Route Start Last Admin Trade Name Freq PRN Reason Stop Dose Admin Acetaminophen 650 mg 12/11/20 21:26 12/12/20 16:48 Acetaminophen 325 Mg Tablet PO 650 mg Q6H PRN Administration Fever Clonazepam 0.5 mg 12/10/20 17:26 12/11/20 17:09 Clonazepam 0.5 Mg Tablet PO 0.5 mg BID PRN Administration Anxiety Clonazepam 1 mg 12/10/20 21:00 12/12/20 20:30 Clonazepam 1 Mg Tablet PO 1 mg BEDTIME YAMIL Administration Enoxaparin Sodium 40 mg 12/10/20 17:35 12/12/20 16:43 Enoxaparin Sodium 40 Mg/0.4 Ml Syringe SUBCUT 40 mg Q24H YAMIL Administration Doxycycline Hyclate 100 mg/ 250 mls @ 166.67 mls/hr 12/13/20 08:15 Sodium Chloride IV Q12H YAMIL Levothyroxine Sodium 75 mcg 12/11/20 09:00 12/12/20 10:06 Levothyroxine Sodium 75 Mcg Tablet PO 75 mcg DAILY YAMIL Administration [place] Carbonate 300 mg 12/10/20 21:00 12/12/20 20:30 [place] Carbonate Er 300 Mg Tablet.Er PO 300 mg BID YAMIL Administration Morphine Sulfate 2 mg 12/10/20 17:35 12/11/20 17:09 Morphine Sulfate 4 Mg/Ml Cartridge IVPUSH 2 mg Q4H PRN Administration Pain, Severe (Pain Scale 7-10) Pharmacy Consult 1 each 12/10/20 10:30 Consult Rx Vancomycin Dosing MISCELLANE DAILY PRN Consult order Quetiapine Fumarate 100 mg 12/12/20 21:00 12/12/20 20:31 Quetiapine Fumarate 100 Mg Tablet PO 100 mg BEDTIME YAMIL Administration Ropinirole HCl 0.75 mg 12/10/20 19:00 12/12/20 18:37 Ropinirole Hcl 0.25 Mg Tablet PO 0.75 mg DAILY@1900 YAMIL Administration Sodium Chloride 3 ml 12/11/20 00:00 12/12/20 21:31 0.9 % Sodium Chloride Flush 3 Ml Syringe IVFLUSH 3 ml QSHIFT YAMIL Administration Topiramate 25 mg 12/10/20 21:00 12/12/20 21:31 Topiramate 25 Mg Tablet PO 25 mg BEDTIME YAMIL Administration Zolpidem Tartrate 10 mg 12/10/20 21:00 12/12/20 20:31 Zolpidem Tartrate 5 Mg Tablet PO 10 mg BEDTIME YAMIL Administration Zolpidem Tartrate 5 mg 12/10/20 17:35 Zolpidem Tartrate 5 Mg Tablet PO BEDTIME PRN Insomnia Time Spent With Patient Time: Total time spent is greater than 50% in coordination of care (as documented) at patient's floor/unit and/or counseling patient: Time with patient: 15 - 24 minutes Procedures Date of Service Date of Service: 12/13/20
[2020-12-13] MEDS: Levothyroxine Sodium 75 MCG TABLET PO (09:44)
[2020-12-13] MEDS: Lithium Carbonate ER 300 MG TABLET.ER PO ×2 (09:44→21:42)
[2020-12-13] MEDS: Doxycycline Hyclate 100 MG in 0.9 % Sodium Chloride 250 ML 166.67 MG IV ×2 (09:44→21:41)
[2020-12-13] MEDS: 0.9 % Sodium Chloride Flush 3 ML SYRINGE IVFLUSH ×3 (09:44→21:42)
[2020-12-13 12:02] LABS: Vancomycin Trough 9.5 mcg/mL (10.0-20.0)
--- NOTE | 2020-12-13 14:46 | P.PNIM_ITS ---
Subjective Subjective Date of Service: 12/13/20 Interval History: seen and examined pain improved anxious about discharge as he does not want to come back ROS General - no fevers or chills Cardiovascular - no chest pain Respiratory - no shortness of breath or cough Abdominal- no abdominal pain, nausea, vomiting, diarrhea Physical Exam Vital Signs: Vital Signs: Last Vital Signs Temp 98.0 F 12/13/20 12:00 Pulse 89 12/13/20 12:00 Resp 20 12/13/20 12:00 BP 118/72 12/13/20 12:00 Pulse Ox 96 12/13/20 12:00 Body Mass Index 38.9 Const: Other: General - no acute distress, appears comfortable Cardiovascular - regular rate and rhythm, S1-S2 Lungs - normal respiratory effort, clear to auscultation bilaterally, no wheezing Abdomen - soft, nontender, no rebound or guarding Extremities - no edema bilaterally Neuro - awake and alert, no focal deficits Skin, Neck: open wound with purulent drainage, surrounding erythema improved Objective Data Current Medications Generic Name Dose Route Start Last Admin Trade Name Christopher PRN Reason Stop Dose Admin Acetaminophen 650 mg 12/11/20 21:26 12/12/20 16:48 Acetaminophen 325 Mg Tablet PO 650 mg Q6H PRN Administration Fever Clonazepam 0.5 mg 12/10/20 17:26 12/11/20 17:09 Clonazepam 0.5 Mg Tablet PO 0.5 mg BID PRN Administration Anxiety Clonazepam 1 mg 12/10/20 21:00 12/12/20 20:30 Clonazepam 1 Mg Tablet PO 1 mg BEDTIME YAMIL Administration Enoxaparin Sodium 40 mg 12/10/20 17:35 12/12/20 16:43 Enoxaparin Sodium 40 Mg/0.4 Ml Syringe SUBCUT 40 mg Q24H YAMIL Administration Doxycycline Hyclate 100 mg/ 250 mls @ 166.67 mls/hr 12/13/20 09:00 12/13/20 11:30 Sodium Chloride IV Infused Q12H YAMIL Infusion Levothyroxine Sodium 75 mcg 12/11/20 09:00 12/13/20 09:44 Levothyroxine Sodium 75 Mcg Tablet PO 75 mcg DAILY YAMIL Administration [place] Carbonate 300 mg 12/10/20 21:00 12/13/20 09:44 [place] Carbonate Er 300 Mg Tablet.Er PO 300 mg BID YAMIL Administration Morphine Sulfate 2 mg 12/10/20 17:35 12/11/20 17:09 Morphine Sulfate 4 Mg/Ml Cartridge IVPUSH 2 mg Q4H PRN Administration Pain, Severe (Pain Scale 7-10) Pharmacy Consult 1 each 12/10/20 10:30 Consult Rx Vancomycin Dosing MISCELLANE DAILY PRN Consult order Quetiapine Fumarate 100 mg 12/12/20 21:00 12/12/20 20:31 Quetiapine Fumarate 100 Mg Tablet PO 100 mg BEDTIME YAMIL Administration Ropinirole HCl 0.75 mg 12/10/20 19:00 12/12/20 18:37 Ropinirole Hcl 0.25 Mg Tablet PO 0.75 mg DAILY@1900 YAMIL Administration Sodium Chloride 3 ml 12/11/20 00:00 12/13/20 09:44 0.9 % Sodium Chloride Flush 3 Ml Syringe IVFLUSH 3 ml QSHIFT YAMIL Administration Topiramate 25 mg 12/10/20 21:00 12/12/20 21:31 Topiramate 25 Mg Tablet PO 25 mg BEDTIME YAMIL Administration Zolpidem Tartrate 10 mg 12/10/20 21:00 12/12/20 20:31 Zolpidem Tartrate 5 Mg Tablet PO 10 mg BEDTIME YAMIL Administration Zolpidem Tartrate 5 mg 12/10/20 17:35 Zolpidem Tartrate 5 Mg Tablet PO BEDTIME PRN Insomnia Labs CBC & Chem 7: 12/11/20 09:19 12/13/20 07:37 Microbiology Microbiology Results: Microbiology 12/11/20 10:40 Abscess Soft Tissue Gram Stain - Final 12/11/20 10:40 Abscess Soft Tissue Routine Culture - Final Staphylococcus aureus 12/10/20 10:48 Blood - Venous Blood Culture - Preliminary No growth after 48 hours. 12/10/20 10:37 Blood - Venous Blood Culture - Preliminary No growth after 48 hours. Assessment and Plan (1) Cellulitis and abscess of neck: Status: Acute Assessment and Plan: This is 50 yo M who is admitted for: 1. MSSA Cellulitis / abscess of the neck s/P I&D improving change antibiotics for doxy Surgical and ID inputs appreciated 2. Asymptomatic COVID 19 found incidentally upon admission no hypoxia or other resp symptoms no need for steroids / remdesivir at this time 3. Mood continue baseline meds 4. Obesity Full Code DVT pptx, Lovenox
[2020-12-13] MEDS: Enoxaparin Sodium 40 MG/0.4 ML SYRINGE SUBCUT (17:43)
[2020-12-13] MEDS: rOPINIRole HCL 0.25 MG TABLET 0.75 MG PO (17:44)
[2020-12-13] MEDS: Zolpidem Tartrate 5 MG TABLET 10 MG PO (21:41)
[2020-12-13] MEDS: Topiramate 25 MG TABLET PO (21:42)
[2020-12-13] MEDS: clonazePAM 1 MG TABLET PO (22:50)
[2020-12-13] MEDS: QUEtiapine Fumarate 100 MG TABLET PO (22:51)
[2020-12-14 08:00] VITALS: BP 122/76; PULSE 76; RESP 20; TEMP 36.5; O2SAT 96
[2020-12-14] MEDS: 0.9 % Sodium Chloride Flush 3 ML SYRINGE IVFLUSH (09:20)
[2020-12-14] MEDS: Doxycycline Hyclate 100 MG in 0.9 % Sodium Chloride 250 ML 166.67 MG IV (09:21)
[2020-12-14] MEDS: Levothyroxine Sodium 75 MCG TABLET PO (09:21)
[2020-12-14] MEDS: Lithium Carbonate ER 300 MG TABLET.ER PO (09:22)
--- NOTE | 2020-12-14 11:10 | PM.DS ---
DS: Providers Provider Date of Service: 12/14/20 Date of admission: 12/10/20 17:35 Primary care physician: Kimberly Paula MD Consults: 12/10/20 17:35 Consult to Infectious Diseases Routine Consulting Provider: Mariposa Roblero Reason for consultation: Cellulitis 12/11/20 09:43 Consult to General Surgery Routine Consulting Provider: Lul Shea Reason for consultation: neck abscess Has provider been notified: No DS: Diagnosis Discharge Diagnosis (1) Cellulitis and abscess of neck: Status: Acute (2) COVID-19: Status: Acute DS: Medications Discharge Medications Home Medications: Home Medications Medication Instructions Recorded Confirmed lithium carbonate 300 mg PO BID 12/10/20 12/10/20 quetiapine [Seroquel] 100 mg PO BEDTIME 12/10/20 12/10/20 topiramate 1 tab PO BEDTIME 12/10/20 12/10/20 zolpidem 10 mg PO BEDTIME 12/10/20 12/10/20 Previous Rx's Medication Instructions Recorded clonazepam 0.5 mg PO BID PRN #60 tab 09/14/20 clonazepam 1 mg PO BEDTIME #30 tab 09/14/20 ropinirole 0.75 mg PO DAILY@1900 #90 tab 09/14/20 levothyroxine 75 mcg tablet 75 mcg PO DAILY #90 tab 12/01/20 doxycycline monohydrate 100 mg PO BID #20 cap 12/14/20 DS: Summary Hospital Course Hospital Course: Patient was diagnosed with cellulitis and neck abscess. He was started on broad spectrum IV antibiotics. General surgery was consulted and patient underwent I&D. Cultures from the abscess revealed MSSA, sensitive to tetracycline. Once patient's blood cultures returned negative he was transitioned to doxycycline. He will be discharged home on a 10 day course. He is to follow up with General surgery in 2 weeks time. Incidentally, patient was found to be COVID-19 positive but had no respiratory symptoms. He remained on room air during the entirety of his stay. He has been advised to maintain isolation per CDC guidelines. Time Spent with Patient Time attestation: Total time spent providing and/or coordinating discharge services: Discharge coordination time: Greater than 30 minutes Physical Exam Vital Signs: Vital Signs: Last Vital Signs Temp 97.7 F 12/14/20 08:00 Pulse 76 12/14/20 08:00 Resp 20 12/14/20 08:00 BP 122/76 12/14/20 08:00 Pulse Ox 96 12/14/20 08:00 Body Mass Index 38.9 Const: Other: General - no acute distress, appears comfortable Cardiovascular - regular rate and rhythm, S1-S2 Lungs - normal respiratory effort, clear to auscultation bilaterally, no wheezing Abdomen - soft, nontender, no rebound or guarding Extremities - no edema bilaterally Neuro - awake and alert, no focal deficits Skin, Neck: erythema minimal; open wound -- min drainage; no significant fluctuance appreciated DS: Data Data Completed and Pending Labs on day of discharge: Laboratory Results - last 24 hr 12/13/20 11:11 Vancomycin Trough 9.5 L Preliminary micro results at discharge 12/10/20 10:48 Blood Culture - Preliminary Blood - Venous No growth after 48 hours. 12/10/20 10:37 Blood Culture - Preliminary Blood - Venous No growth after 48 hours. Discharge Plan Discharge Patient Disposition: Home, Self-Care Referrals: Kimberly Paula MD [Primary Care Provider] - Lul Shea MD [Physician] - (call office for f/u) Discharge Medications: New doxycycline monohydrate 100 mg capsule 100 mg PO BID Qty: 20 RF: 0 Continued levothyroxine 75 mcg tablet 75 mcg PO DAILY Qty: 90 RF: 3 clonazepam 0.5 mg Tablet 0.5 mg PO BID PRN (Reason: Anxiety) Qty: 60 RF: 0 clonazepam 1 mg Tablet 1 mg PO BEDTIME Qty: 30 RF: 0 ropinirole 0.25 mg Tablet 0.75 mg PO DAILY@1900 Qty: 90 RF: 0 topiramate 25 mg tablet 1 tab PO BEDTIME RF: 0 quetiapine [Seroquel] 300 mg tablet 100 mg PO BEDTIME RF: 0 lithium carbonate 300 mg tablet extended release 300 mg PO BID RF: 0 zolpidem 5 mg tablet 10 mg PO BEDTIME RF: 0 Discharge Orders: Discharge Order (Routine); Ordered 12/14/20 Ordered By: Candelario Corado Diet: advance to usual diet Activity on Discharge: As tolerated Stand Alone Forms: Patient Portal Discharge page Care Plan Goals: To stay healthy and out of the hospital. Health Concerns: Neck Celluiltis / Abscess Plan of Treatment: Take Doxycycline for 10 more days. Follow up with [facility] Surgery [facility] in 2 weeks
--- NOTE | 2020-12-14 11:23 | MHC.CM.PN ---
Patient has been medically cleared for dc to home today, no services.
== END 2020-12-14 14:30 | disposition home or self-care (01) | DRG 383 ==
LOC: HO.ED 15:07 → HO.EDOVER 18:25 → HO.ICU 12-11 18:46 → HO.IMC 12-12 13:25
PROVIDERS: Internal Medicine; Nurse Practitioner Acute Care; Admitting Provider Internal Medicine; Emergency Provider Emergency Medicine; PCP Internal Medicine; Visit Provider Family Medicine
DX: L02.11 Cutaneous abscess of neck (principal); U07.1 COVID-19; F41.9 Anxiety disorder, unspecified; B95.61 Methicillin susceptible Staphylococcus aureus infection as the cause of diseases classified elsewhere; Z68.38 Body mass index [BMI] 38.0-38.9, adult; F31.81 Bipolar II disorder; L03.221 Cellulitis of neck; E03.9 Hypothyroidism, unspecified; Z88.2 Allergy status to sulfonamides; Z79.890 Hormone replacement therapy; Z79.899 Other long term (current) drug therapy
CPT/HCPCS: 0241U; 36415; 70491; 80048; 80076; 80202; 82728; 83036; 83605; 83615; 84145; 85025; 85610; 85730; 86140; 87040; 87071; 87147; 87186; 87205; 87635; 96365; 96366; 96367; 96375; 99024; 99285; J0696; J1650; J2270; J2405; J2543; J3370; Q9967

== ENCOUNTER 2020-12-22 06:25 | Outpatient (REF) | payer BC, SELFPAY ==
[2020-12-22 11:20] LABS: Hematocrit 43.7 % (42-52); Hemoglobin 14.6 g/dl (14.0-18.0); Mean Corpuscular HGB Conc 33.4 g/dl (31.0-36.0); Mean Corpuscular Hemoglobin 31.3 pg (27.0-33.0); Mean Corpuscular Volume 93.8 fL (80-98); Mean Platelet Volume 9.5 fL (9.4-12.4); Platelet Count 324 X10*3/uL (160-400); Red Blood Count 4.66 X10*6/uL (4.60-5.80); Red Cell Distribution Width 12.7 % (11.0-16.0); White Blood Count 6.7 X10*3/uL (4.8-10.8)
[2020-12-22 11:37] LABS: Estimated Average Glucose 100 mg/dL; Hemoglobin A1c % 5.1 %
[2020-12-22 11:59] LABS: Anion Gap 12 (12-20); Blood Urea Nitrogen 15 mg/dL (9-16); Calcium 8.9 mg/dL (8.4-10.2); Carbon Dioxide 23 mmol/L (22-29); Chloride 110 mmol/L (96-108); Cholesterol 162 mg/dL; Estimated Glomerular Filt Rate > 60; Glucose Fasting 88 mg/dL (60-99); HDL Cholesterol 35 mg/dL; LDL Cholesterol Calculated 108 mg/dl; Sodium 141 mmol/L (135-145); Triglycerides 98 mg/dL
[2020-12-22 12:13] LABS: Lithium 0.31 mmol/L (0.60-1.20)
[2020-12-22 12:20] LABS: Free T4 (Free Thyroxine) 1.01 ng/dL (0.71-1.85); Thyroid Stimulating Hormone 4.72 uIU/mL (0.32-4.0)
== END 2020-12-22 06:26 | disposition home or self-care (01) ==
LOC: HO.HMGCLDS 06:25
PROVIDERS: PCP Internal Medicine; Visit Provider Clinical Nurse Specialist Psychiatric/Mental Health, Child & Adolescent
DX: E03.9 Hypothyroidism, unspecified (principal); Z51.81 Encounter for therapeutic drug level monitoring
CPT/HCPCS: 36415; 80048; 80061; 80178; 83036; 84439; 84443; 85027

== ENCOUNTER 2021-03-07 10:56 | Emergency (ER) | payer OTHER, SELFPAY ==
--- NOTE | ~2021-03-07 | CT_ITS ---
EXAMINATION: CT HEAD WITHOUT CONTRAST CLINICAL INFORMATION: Left temporal trauma. COMPARISON: CT brain 08/22/2020. TECHNIQUE: Contiguous axial imaging was performed from the skull base to vertex without intravenous administration of contrast. This CT examination was performed using dose optimization techniques as appropriate, variously including the following: *Automated exposure control *Adjustment of mA and/or kV according to patient size (this includes techniques or standardized protocols for targeted exams where dose is matched to indication/reason for exam; i.e. extremities or head) *Use of iterative reconstruction technique DLP: 775 mGy-cm FINDINGS: There is no evidence of acute intracranial hemorrhage or territorial infarction. No abnormal mass effect or midline shift is seen. Wick to white matter differentiation is well preserved. No extra-axial fluid collections are identified. The ventricles are normal in size. There is no abnormal attenuation within the brain parenchyma. The osseous structures and soft tissues are normal. There is a left frontal scalp laceration but no calvarial fracture. The mastoid air cells and visualized portions of the paranasal sinuses are well aerated. CT/CT head/brain wo con IMPRESSION: No acute intracranial process seen. Left frontal scalp laceration but no calvarial fracture.
[2021-03-07 11:05] VITALS: BP 140/83; PULSE 86; RESP 140; TEMP 36.6; O2SAT 98; BMI 34.9
--- NOTE | 2021-03-07 11:13 | ED.HEATRA ---
HPI - Head Injury General Chief complaint: Head Injury Stated complaint: HEAD INJURY Time Seen by Provider: 03/07/21 11:13 Source: patient Mode of arrival: EMS Limitations: no limitations History of Present Illness HPI Narrative: 45 minutes ago was hit in the head with metal pipe. Trying to break a coupling and was hit with great force. No LOC. No blood thinners no medical problems MD Complaint: head injury Onset (ago): minute(s) Mechanism of Injury: other (hit with pipe) Place: work Loss of Consciousness: no Location of injury: frontal Severity: moderate Other Injuries: none Related Data Home Medications Medication Instructions Recorded Confirmed lithium carbonate 300 mg PO BID 12/10/20 12/10/20 quetiapine [Seroquel] 100 mg PO BEDTIME 12/10/20 12/10/20 topiramate 1 tab PO BEDTIME 12/10/20 12/10/20 zolpidem 10 mg PO BEDTIME 12/10/20 12/10/20 Previous Rx's Medication Instructions Recorded clonazepam 0.5 mg PO BID PRN #60 tab 09/14/20 clonazepam 1 mg PO BEDTIME #30 tab 09/14/20 ropinirole 0.75 mg PO DAILY@1900 #90 tab 09/14/20 levothyroxine 75 mcg tablet 75 mcg PO DAILY #90 tab 12/01/20 doxycycline monohydrate 100 mg PO BID #20 cap 12/14/20 Allergies Allergy/AdvReac Type Severity Reaction Status Date / Time acetone [ACETONE] Allergy Unknown UNKNOWN Verified 10/06/20 08:03 Sulfa (Sulfonamide Allergy Unknown UNKNOWN Verified 12/12/20 09:15 Antibiotics) [SULFA (SULFONAMIDE ANTIBIOTICS)] sulfur Allergy Unknown unknown Verified 10/06/20 08:03 aerosols, epoxy, glue Allergy Unknown unknown Uncoded 09/30/20 08:48 Review of Systems Constitutional: Constitutional: Reports no additional constitutional complaints Eyes: Eyes: Reports no additional eye complaints ENT: Denies dizziness Cardiovascular: Cardiovascular: Reports no additional cardiovascular complaints Respiratory: Respiratory: Reports as per HPI Gastrointestinal: Gastrointestinal: Reports no additional gastrointestinal complaints Musculoskeletal: Musculoskeletal: Reports no additional musculoskeletal complaints Integumentary/Breasts: Skin/Breast: Denies rash Neurologic: Reports system reviewed and no additional complaints, except as documented, Denies dizziness and Denies Sensory deficit (Neuro) Psychiatric: Psychiatric: Denies anxiety PMFSH Past Medical History Medical History Anxiety Bipolar II disorder major depressive with atypical features Depression Diverticula of colon Herniated disc Hx of myocardial infarction Hypothyroidism Surgical History H/O hand surgery H/O neck surgery Family History Family History Father Unknown family medical history Mother Unknown family medical history Sister No problems noted. Social History Social History Household Members: Spouse Housing: House Alcohol intake: former Smoking Status: Never smoker Second Hand Smoke Exposure: No Substance Use Type: Marijuana Advance Directives: No Advance Directives Information Provided: No service: No 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 status: employed Sexual orientation: Straight/Heterosexual Physical Exam Vital Signs: Vital Signs: Last Vital Signs Temp 98 F 03/07/21 11:05 Pulse 86 03/07/21 11:05 Resp 140 H 03/07/21 11:05 BP 140/83 H 03/07/21 11:05 Pulse Ox 98 03/07/21 11:05 Body Mass Index 34.9 Const: General: healthy appearing Nutritional Appearance: average body habitus Orientation/consciousness: oriented to person and patient oriented x3 Limitations: no limitations HENMT: Head: Yes normal to inspection Ears: external ears normal General nose exam: Normal external nose present Mouth: Normal oral and palatal mucosa present and oropharynx normal Throat: Yes posterior oropharynx normal Eyes: General: appearance normal, both eyes and all related structures Neck: Other: supple Neck: Yes normal visual inspection Chest: Chest palpation & inspection: normal inspection of the chest Resp: Auscultation: clear to auscultation bilaterally Cardio: Jugular venous distension: no JVD Rate: regular rate Rhythm: regular rhythm Heart sounds: S1 normal heart sound present and S2 normal heart sound present GI: Inspection: Yes normal to inspection Palpation (GI): Soft to palpation, nontender and No hepatosplenomegaly present Auscultation: normal bowel sounds : General: Yes no CVA tenderness Back/Spine/Pelvis: Back: no CVA tenderness Skin: General skin exam: no rashes or lesions noted Neuro: General: oriented to person and patient oriented x3 Cranial nerves: Yes CN's II-XII intact bilaterally Motor exam (neuro): 5/5 motor strength present throughout Sensory Exam: No Sensory deficit (Neuro) Extrem: General: Yes normal to inspection Psych: Appearance: grossly normal Procedures Procedure Narrative Procedure Narrative: Patient prepped and draped in sterile fashion, 1% lidocaine with epi used for anesthesia, wound irrigated under pressure with saline, closed with 6-0 nylon x 15. Patient tolerated procedure well. MDM - Head Injury Imaging Data CT scan - head: Radiologist's impression: no acute injury Discharge Plan Discharge Clinical Impression: Closed head injury Qualifiers: Encounter type: initial encounter Qualified Code(s): S09.90XA - Unspecified injury of head, initial encounter Laceration of head Qualifiers: Encounter type: initial encounter Location of open wound of head: scalp Foreign body presence: without foreign body Qualified Code(s): S01.01XA - Laceration without foreign body of scalp, initial encounter Patient Disposition: Home, Self-Care Instructions: Care For Your Stitches (ED) Additional Instructions: suture removal 7days Prescriptions: No Action levothyroxine 75 mcg tablet 75 mcg PO DAILY Qty: 90 RF: 3 clonazepam 0.5 mg Tablet 0.5 mg PO BID PRN (Reason: Anxiety) Qty: 60 RF: 0 clonazepam 1 mg Tablet 1 mg PO BEDTIME Qty: 30 RF: 0 ropinirole 0.25 mg Tablet 0.75 mg PO DAILY@1900 Qty: 90 RF: 0 topiramate 25 mg tablet 1 tab PO BEDTIME RF: 0 quetiapine [Seroquel] 300 mg tablet 100 mg PO BEDTIME RF: 0 lithium carbonate 300 mg tablet extended release 300 mg PO BID RF: 0 zolpidem 5 mg tablet 10 mg PO BEDTIME RF: 0 doxycycline monohydrate 100 mg capsule 100 mg PO BID Qty: 20 RF: 0 Referrals: Kimberly Paula MD [Primary Care Provider] - 1 week Stand Alone Forms: Work/School Release
[2021-03-07] MEDS: Diphth,Pertus(ACell),Tet Adult 0.5 ML SYRINGE IM (11:36)
--- NOTE | 2021-03-07 11:41 | PC.NURSE ---
3 INCH LAC, WELL APPROXIMATED, BLEEDING CONTROLLED,
== END 2021-03-07 15:26 | disposition home or self-care (01) ==
PROVIDERS: Emergency Provider Emergency Medicine; PCP Internal Medicine
DX: S09.90XA Unspecified injury of head, initial encounter (principal); S01.01XA Laceration without foreign body of scalp, initial encounter; W22.8XXA Striking against or struck by other objects, initial encounter; Y93.H3 Activity, building and construction; Y92.009 Unspecified place in unspecified non-institutional (private) residence as the place of occurrence of the external cause; Y99.0 Civilian activity done for income or pay
CPT/HCPCS: 12004; 70450; 90471; 90715; 99283; 99284

== ENCOUNTER 2021-04-19 08:42 | Outpatient (REF) | payer BC, SELFPAY ==
[2021-04-19 11:15] LABS: MANUAL DIFF FLAG NO
[2021-04-19 11:42] LABS: Basophils Percent Auto 0.4 % (0-2); Eosinophils Absolute Auto 0.2 X10*3/uL (0.0-0.4); Eosinophils Percent Auto 2.7 % (0-4); Hematocrit 44.8 % (42-52); Hemoglobin 14.9 g/dl (14.0-18.0); Imm Gran Abs Auto 0.04 X10*3/uL (0.00-0.03); Imm Gran Pct Auto 0.5 % (0.0-0.4); Lymphocytes Absolute Auto 2.2 X10*3/uL (1.2-4.9); Lymphocytes Percent Auto 26.9 % (20-40); Mean Corpuscular HGB Conc 33.3 g/dl (31.0-36.0); Mean Corpuscular Hemoglobin 31.9 pg (27.0-33.0); Mean Corpuscular Volume 95.9 fL (80-98); Mean Platelet Volume 9.8 fL (9.4-12.4); Monocytes Absolute Auto 0.6 X10*3/uL (0.1-1.2); Monocytes Percent Auto 7.3 % (2-11); Neutrophils Percent Auto 62.2 % (45-73); Platelet Count 247 X10*3/uL (160-400); Red Blood Count 4.67 X10*6/uL (4.60-5.80); Red Cell Distribution Width 13.1 % (11.0-16.0); White Blood Count 8.1 X10*3/uL (4.8-10.8)
[2021-04-19 11:48] LABS: Anion Gap 10 (12-20); Blood Urea Nitrogen 16 mg/dL (9-16); Calcium 9.1 mg/dL (8.4-10.2); Carbon Dioxide 24 mmol/L (22-29); Chloride 112 mmol/L (96-108); Estimated Glomerular Filt Rate > 60; Glucose Random 99 mg/dL (60-115); Potassium 4.5 mmol/L (3.3-5.1); Sodium 141 mmol/L (135-145)
[2021-04-19 12:04] LABS: Lithium 0.43 mmol/L (0.60-1.20)
[2021-04-19 12:10] LABS: TSH reflex Free T4 3.38 uIU/mL (0.32-4.0)
[2021-04-19 12:17] LABS: Free T4 (Free Thyroxine) 0.91 ng/dL (0.71-1.85)
== END 2021-04-19 08:43 | disposition home or self-care (01) ==
LOC: HO.HMGCLDS 08:42
PROVIDERS: PCP Internal Medicine; Visit Provider Clinical Nurse Specialist Psychiatric/Mental Health, Child & Adolescent
DX: Z51.81 Encounter for therapeutic drug level monitoring (principal); E03.9 Hypothyroidism, unspecified; Z79.899 Other long term (current) drug therapy
CPT/HCPCS: 36415; 80048; 80178; 84439; 84443; 85025

== ENCOUNTER 2021-09-28 08:55 | Outpatient (REF) | payer BC, SELFPAY ==
[2021-09-28 11:25] LABS: Appearance Urine CLEAR; Color Urine YELLOW; Glucose Urine UA NEG (NEG); Leukocyte Esterase Urine NEG (NEG); Nitrite Urine NEG (NEG); Urine Blood TRACE (NEG); Urine Ketones 5 MG/DL (NEG); Urine Protein NEG (NEG-TRACE)
[2021-09-28 11:39] LABS: RBC Urine 0-2 /HPF (0); WBC Urine 0-2 /HPF (0-4)
[2021-09-28 12:01] LABS: Alanine Aminotransferase 15 U/L (0-40); Albumin Level 4.2 g/dL (3.5-5.0); Alkaline Phosphatase 56 U/L (39-117); Anion Gap 13 (12-20); Aspartate Amino Transferase 18 U/L (5-37); Bilirubin Total 0.8 mg/dL (0.0-1.0); Blood Urea Nitrogen 13 mg/dL (9-16); Calcium 9.1 mg/dL (8.4-10.2); Carbon Dioxide 23 mmol/L (22-29); Chloride 107 mmol/L (96-108); Estimated Glomerular Filt Rate > 60; Glucose Fasting 96 mg/dL (60-99); Iron 45 mcg/dL (45-160); Percent Iron Saturation 13 % (15-50); Potassium 4.2 mmol/L (3.3-5.1); Sodium 139 mmol/L (135-145); Total Iron Binding Capacity 355 mcg/dL (228-428); Unsaturated Iron Binding 310 ug/dL
[2021-09-28 12:06] LABS: Ferritin 271 ng/mL (20-250); TSH reflex Free T4 1.88 uIU/mL (0.32-4.0); Vitamin D 25-OH Total 22.8 ng/mL (>30)
[2021-09-28 12:33] LABS: Folate 8.1 ng/mL (> or = 4.0); Vitamin B12 197 pg/mL (200-900)
== END 2021-09-28 08:56 | disposition home or self-care (01) ==
LOC: HO.HMGCLDS 08:55
PROVIDERS: PCP Internal Medicine; Visit Provider Internal Medicine
DX: Z00.00 Encounter for general adult medical examination without abnormal findings (principal); N40.0 Benign prostatic hyperplasia without lower urinary tract symptoms
CPT/HCPCS: 36415; 80053; 81001; 82306; 82607; 82728; 82746; 83540; 84153; 84443

== ENCOUNTER 2021-10-31 09:09 | Outpatient (REF) | payer BC, SELFPAY ==
--- NOTE | ~2021-10-31 | US_ITS ---
EXAMINATION: US PELVIS LIMITED (BLADDER) CLINICAL INFORMATION: Benign prostatic hyperplasia without lower urinary tract symptoms. COMPARISON: CT abdomen and pelvis 09/29/2018. TECHNIQUE: Real-time imaging of the bladder. FINDINGS: BLADDER: Well distended and normal. Bilateral ureteral jets are demonstrated. Prevoid bladder volume is 310 mL. Postvoid bladder volume is 6.6 mL. Prostate volume 53.6 mL. US/US bladder IMPRESSION: Normal sonographic appearance of the urinary bladder with no significant residual post void volume. Enlarged prostate.
[2021-10-31 12:03] LABS: Appearance Urine CLEAR; Color Urine YELLOW; Glucose Urine UA NEG (NEG); Leukocyte Esterase Urine NEG (NEG); Nitrite Urine NEG (NEG); Urine Blood NEG (NEG); Urine Ketones NEG (NEG); Urine Protein NEG (NEG-TRACE)
[2021-10-31 12:26] LABS: Vitamin D 25-OH Total 24.6 ng/mL (>30)
[2021-10-31 12:40] LABS: RBC Urine 0-2 /HPF (0); Squamous Epithelial Cell Urine TRACE /LPF; WBC Urine 0-2 /HPF (0-4)
[2021-10-31 12:41] LABS: Folate 14.7 ng/mL (> or = 4.0); Vitamin B12 644 pg/mL (200-900)
== END 2021-10-31 09:10 | disposition home or self-care (01) ==
LOC: HO.US 09:09
PROVIDERS: PCP Internal Medicine; Visit Provider Internal Medicine
DX: N40.0 Benign prostatic hyperplasia without lower urinary tract symptoms (principal); E53.8 Deficiency of other specified B group vitamins; E55.9 Vitamin D deficiency, unspecified
CPT/HCPCS: 36415; 76857; 81001; 82306; 82607; 82746

== ENCOUNTER 2021-11-30 08:03 | Outpatient (REF) | payer BC, SELFPAY ==
[2021-11-30 11:16] LABS: MANUAL DIFF FLAG NO
[2021-11-30 11:20] LABS: Basophils Percent Auto 0.4 % (0-2); Eosinophils Absolute Auto 0.1 X10*3/uL (0.0-0.4); Eosinophils Percent Auto 0.6 % (0-4); Hematocrit 45.5 % (42.0-52.0); Imm Gran Abs Auto 0.03 X10*3/uL (0.00-0.03); Imm Gran Pct Auto 0.4 % (0.0-0.4); Lymphocytes Absolute Auto 1.9 X10*3/uL (1.2-4.9); Lymphocytes Percent Auto 23.8 % (20-40); Mean Corpuscular Hemoglobin 31.4 pg (27.0-33.0); Mean Corpuscular Volume 95.4 fL (80.0-98.0); Mean Platelet Volume 9.9 fL (9.4-12.4); Monocytes Absolute Auto 0.5 X10*3/uL (0.1-1.2); Monocytes Percent Auto 6.2 % (2-11); Neutrophils Absolute Auto 5.3 x10*3/uL (2.0-8.3); Neutrophils Percent Auto 68.6 % (45-73); Platelet Count 258 X10*3/uL (160-400); Red Blood Count 4.77 X10*6/uL (4.60-5.80); Red Cell Distribution Width 12.8 % (11.0-16.0); White Blood Count 7.8 X10*3/uL (4.8-10.8)
[2021-11-30 11:35] LABS: Lithium 0.74 mmol/L (0.60-1.20)
[2021-11-30 11:56] LABS: Free T4 (Free Thyroxine) 0.94 ng/dL (0.71-1.85)
[2021-11-30 11:58] LABS: Anion Gap 10 (12-20); Blood Urea Nitrogen 15 mg/dL (9-16); Calcium 9.4 mg/dL (8.4-10.2); Carbon Dioxide 27 mmol/L (22-29); Chloride 106 mmol/L (96-108); Estimated Glomerular Filt Rate > 60; Glucose Random 110 mg/dL (60-115); Potassium 4.6 mmol/L (3.3-5.1); Sodium 138 mmol/L (135-145)
== END 2021-11-30 08:04 | disposition home or self-care (01) ==
LOC: HO.HMGCLDS 08:03
PROVIDERS: Visit Provider Clinical Nurse Specialist Psychiatric/Mental Health, Child & Adolescent
DX: Z79.899 Other long term (current) drug therapy (principal)
CPT/HCPCS: 36415; 80048; 80178; 84439; 84443; 85025

== ENCOUNTER 2022-01-03 07:59 | Outpatient (REF) | payer BC, SELFPAY ==
--- NOTE | ~2022-01-03 | XR_ITS ---
EXAMINATION: XR AP PELVIS AND BILATERAL HIPS, LUMBAR SPINE AND BILATERAL KNEE CLINICAL INFORMATION: Pain in right knee. COMPARISON: None. TECHNIQUE: AP pelvis and bilateral hips 5 views. Lumbar spine 3 views. Bilateral knee 4 views. FINDINGS: AP Pelvis and Bilateral Hips: There is normal symmetry of both hip joints with a small enthesophytes along the lateral acetabulum. There are small enthesophytes along the anterior superior iliac spine. AP and frog-leg views bilateral reveal no fracture, dislocation, lytic or sclerotic process. The soft tissues are normal. There is mild spurring along the lateral acetabulum slightly greater on the right. Lumbar Spine: There is maintained lumbar lordosis. The vertebral heights and alignment is normal. There is loss of L1-L2, L2-L3 and L5/S1 disc heights. The rest of the disc heights are normal. No lytic, sclerotic process or fracture seen. Bilateral Knees: There is mild reduction in medial compartment joint space both knees the lateral and the patellofemoral compartment joint spaces are maintained normal. There is mild superior and inferior patellar enthesophytes. Mild left knee joint effusion is suspected. There are no loose bodies, fracture or dislocation. XR/XR knee standing BI IMPRESSION: Mild lateral spurring along the acetabulum slightly greater on the right. No visible fracture or dislocation in either hip joint. Small enthesophytes along the anterior superior iliac spines. Mild degenerative disc changes L1-L2, L2-L3 and L5-S1 disc levels with mild ventral spondylosis. No visible acute fracture, dislocation or subluxation seen. Mild degenerative changes medial compartment both knees with mild suprapatellar joint effusion left knee. No acute fracture, dislocation or lytic process seen.
--- NOTE | ~2022-01-03 | XR_ITS ---
EXAMINATION: XR AP PELVIS AND BILATERAL HIPS, LUMBAR SPINE AND BILATERAL KNEE CLINICAL INFORMATION: Pain in right knee. COMPARISON: None. TECHNIQUE: AP pelvis and bilateral hips 5 views. Lumbar spine 3 views. Bilateral knee 4 views. FINDINGS: AP Pelvis and Bilateral Hips: There is normal symmetry of both hip joints with a small enthesophytes along the lateral acetabulum. There are small enthesophytes along the anterior superior iliac spine. AP and frog-leg views bilateral reveal no fracture, dislocation, lytic or sclerotic process. The soft tissues are normal. There is mild spurring along the lateral acetabulum slightly greater on the right. Lumbar Spine: There is maintained lumbar lordosis. The vertebral heights and alignment is normal. There is loss of L1-L2, L2-L3 and L5/S1 disc heights. The rest of the disc heights are normal. No lytic, sclerotic process or fracture seen. Bilateral Knees: There is mild reduction in medial compartment joint space both knees the lateral and the patellofemoral compartment joint spaces are maintained normal. There is mild superior and inferior patellar enthesophytes. Mild left knee joint effusion is suspected. There are no loose bodies, fracture or dislocation. XR/XR hips ARINA min 3V IMPRESSION: Mild lateral spurring along the acetabulum slightly greater on the right. No visible fracture or dislocation in either hip joint. Small enthesophytes along the anterior superior iliac spines. Mild degenerative disc changes L1-L2, L2-L3 and L5-S1 disc levels with mild ventral spondylosis. No visible acute fracture, dislocation or subluxation seen. Mild degenerative changes medial compartment both knees with mild suprapatellar joint effusion left knee. No acute fracture, dislocation or lytic process seen.
--- NOTE | ~2022-01-03 | XR_ITS ---
EXAMINATION: XR AP PELVIS AND BILATERAL HIPS, LUMBAR SPINE AND BILATERAL KNEE CLINICAL INFORMATION: Pain in right knee. COMPARISON: None. TECHNIQUE: AP pelvis and bilateral hips 5 views. Lumbar spine 3 views. Bilateral knee 4 views. FINDINGS: AP Pelvis and Bilateral Hips: There is normal symmetry of both hip joints with a small enthesophytes along the lateral acetabulum. There are small enthesophytes along the anterior superior iliac spine. AP and frog-leg views bilateral reveal no fracture, dislocation, lytic or sclerotic process. The soft tissues are normal. There is mild spurring along the lateral acetabulum slightly greater on the right. Lumbar Spine: There is maintained lumbar lordosis. The vertebral heights and alignment is normal. There is loss of L1-L2, L2-L3 and L5/S1 disc heights. The rest of the disc heights are normal. No lytic, sclerotic process or fracture seen. Bilateral Knees: There is mild reduction in medial compartment joint space both knees the lateral and the patellofemoral compartment joint spaces are maintained normal. There is mild superior and inferior patellar enthesophytes. Mild left knee joint effusion is suspected. There are no loose bodies, fracture or dislocation. XR/XR lumbar spine 2-3V IMPRESSION: Mild lateral spurring along the acetabulum slightly greater on the right. No visible fracture or dislocation in either hip joint. Small enthesophytes along the anterior superior iliac spines. Mild degenerative disc changes L1-L2, L2-L3 and L5-S1 disc levels with mild ventral spondylosis. No visible acute fracture, dislocation or subluxation seen. Mild degenerative changes medial compartment both knees with mild suprapatellar joint effusion left knee. No acute fracture, dislocation or lytic process seen.
[2022-01-03 11:43] LABS: Hematocrit 49.9 % (42.0-52.0); Hemoglobin 16.5 g/dl (14.0-18.0); Mean Corpuscular HGB Conc 33.1 g/dl (31.0-36.0); Mean Corpuscular Hemoglobin 31.5 pg (27.0-33.0); Mean Corpuscular Volume 95.4 fL (80.0-98.0); Mean Platelet Volume 9.8 fL (9.4-12.4); Platelet Count 304 X10*3/uL (160-400); Red Blood Count 5.23 X10*6/uL (4.60-5.80); Red Cell Distribution Width 12.8 % (11.0-16.0); White Blood Count 8.8 X10*3/uL (4.8-10.8)
[2022-01-03 12:12] LABS: Alanine Aminotransferase 20 U/L (0-40); Albumin Level 4.4 g/dL (3.5-5.0); Alkaline Phosphatase 66 U/L (39-117); Anion Gap 10 (12-20); Aspartate Amino Transferase 18 U/L (5-37); Bilirubin Total 0.4 mg/dL (0.0-1.0); Blood Urea Nitrogen 17 mg/dL (9-16); Calcium 9.4 mg/dL (8.4-10.2); Carbon Dioxide 25 mmol/L (22-29); Chloride 109 mmol/L (96-108); Cholesterol 204 mg/dL; Estimated Glomerular Filt Rate > 60; Glucose Fasting 103 mg/dL (60-99); HDL Cholesterol 54 mg/dL; LDL Cholesterol Calculated 130 mg/dl; Sodium 139 mmol/L (135-145); Total Protein 7.7 g/dL (6.5-8.0); Triglycerides 104 mg/dL
[2022-01-03 12:20] LABS: Lithium 0.67 mmol/L (0.60-1.20); Prostate Specific Antigen Scr 0.75 ng/mL (<0.05-4.0); Vitamin D 25-OH Total 36.3 ng/mL (>30)
[2022-01-03 13:22] LABS: Folate 16.4 ng/mL (> or = 4.0); Vitamin B12 670 pg/mL (200-900)
== END 2022-01-03 08:00 | disposition home or self-care (01) ==
LOC: HO.HMGCX 07:59
PROVIDERS: PCP Internal Medicine; Visit Provider Internal Medicine
DX: Z00.00 Encounter for general adult medical examination without abnormal findings (principal); M25.561 Pain in right knee; M54.50 Low back pain, unspecified; E53.8 Deficiency of other specified B group vitamins; E55.9 Vitamin D deficiency, unspecified
CPT/HCPCS: 36415; 72100; 73522; 73565; 80053; 80061; 80178; 82306; 82607; 82746; 84153; 85027

== ENCOUNTER 2022-01-10 08:19 | Outpatient (REF) | payer BC, SELFPAY ==
--- NOTE | 2022-01-10 08:22 | EMG_ITS ---
This is a 51-year-old man with more than 6-month history of right lower extremity pain, especially on lying down from the buttock down to the lateral aspect of the leg. He is 3 years status post a cervical diskectomy and fusion. He also has lumbar disk disease. Neurological exam is normal. IMPRESSION: Lumbar radiculopathy. Nerve conduction EMG study: Normal electrodiagnostic study of the right lower extremity with no evidence of nerve entrapment or generalized peripheral neuropathy. EMG of the right L2-S1 innervated muscles is consistent with chronic right L4-5 radiculopathy. MD TOVA Sawyer/MARY / [id number]
== END 2022-01-10 08:20 | disposition home or self-care (01) ==
LOC: HO.NEURO 08:19
PROVIDERS: PCP Internal Medicine; Visit Provider Internal Medicine
DX: G62.9 Polyneuropathy, unspecified (principal); N40.0 Benign prostatic hyperplasia without lower urinary tract symptoms
CPT/HCPCS: 95885; 95909

== ENCOUNTER → 2022-03-14 10:54 | Outpatient (BNVA) | payer BC, SELFPAY | PROVIDERS: PCP Internal Medicine; Visit Provider Physician Assistant | DX: K62.5 Hemorrhage of anus and rectum (principal) ==

== ENCOUNTER → 2022-06-18 13:04 | Outpatient (BNVA) | payer BC, SELFPAY | PROVIDERS: PCP Internal Medicine; Referring Provider Physician Assistant; Visit Provider Internal Medicine Cardiovascular Disease | DX: Z01.810 Encounter for preprocedural cardiovascular examination (principal); R06.09 Other forms of dyspnea | CPT/HCPCS: 93005 ==

== ENCOUNTER → 2022-06-29 07:36 | Outpatient (REF) | payer BC, SELFPAY ==
--- NOTE | 2022-06-29 07:39 | CA_ITS ---
Acquisition Time: 2022-06-29 08:12:59 Total Exercise Time: 00:07:00 Test Indications: Dyspnea Medications: LEVOTHYROXINE LITHIUM CLONAZAPAM VARDENAFIL TRAMADOL TOPIRIMATE ROPINEROLE Protocol: HANNAH Max HR: 148 BPM 89% of Pred: 166 BPM Max BP: 182/070 mmHG Max Work Load: 8.4 METS Exercise stress test with exercise 7 min of Hannah protocol, achieving 90% MPHR, 8.4 METs with moderate sob, no chest discomfort, with a few isolated PVCs early in recovery, with normotensive response to exercise, without EKG changes meeting criteria for ischemia. Breathing normalized with rest. Test reviewed with Dr Diez. Referred By: Young Diez Overread By: RUBY REEDER
== END ==
LOC: HO.CARD 07:36
PROVIDERS: PCP Internal Medicine; Visit Provider Internal Medicine Cardiovascular Disease
DX: R06.09 Other forms of dyspnea (principal)
CPT/HCPCS: 93017

== ENCOUNTER 2022-07-17 08:28 | Day surgery (SDC) | payer BC, SELFPAY ==
[2022-07-12 14:01] VITALS: BMI 35.8
--- NOTE | 2022-07-16 13:11 | HO.ANESPROP2 ---
Documented by User: Neela Guadarrama NP 07/16/22 13:15 HPI - Anesthesia Eval Consult details Narrative: 52yo M for Colonoscopy Cardiac cleared [facility] Active Problems Active Problems: All Active Problems (Updated 07/16/22 @ 10:59 by Sera Monge RN) Behavioral change (Acute) Adverse reaction to drug (Acute) Cellulitis and abscess of neck (Acute) COVID-19 (Acute) Lower thoracic back pain (Acute) Rectal bleeding (Acute) Irregular heart beat (Acute) Palpitation (Acute) DINERO (dyspnea on exertion) (Acute) Preop cardiovascular exam (Acute) Hypothyroid (Acute) Bipolar II disorder major depressive with atypical features (Acute) Diverticula of colon (Acute) Sciatica (Acute) Annual physical exam (Acute) Lower back pain (Acute) Knee pain, right (Acute) Vitamin D deficiency (Acute) B12 deficiency (Acute) Neuropathy (Acute) Annual physical exam (Acute) BPH (benign prostatic hyperplasia) (Acute) Anxiety (Acute) Past Medical History Medical History Annual physical exam Anxiety B12 deficiency Bipolar II disorder major depressive with atypical features BPH (benign prostatic hyperplasia) Depression Diverticula of colon Herniated disc History of COVID-19 Hypothyroidism Knee pain, right Lower back pain Neuropathy Sciatica Vitamin D deficiency Family History Family History Father Unknown family medical history Mother Unknown family medical history Sister No problems noted. Surgical History Surgical History H/O colonoscopy H/O hand surgery H/O neck surgery Social History Social History Household Members: Spouse Housing: House Do you presently have visiting nurse or other home services: No Alcohol intake: current Alcohol intake frequency: holidays/special occasions only Alcohol type: beer Patient Tobacco Use Status: Never used Tobacco e-Cigarette/Vaping Use: Never Used Second Hand Smoke Exposure: No Use of substances other than those prescribed or required for medical reasons: No Substance Use Type: Marijuana Advance Directives: No Advance Directives Information Provided: Yes Recently lost weight without trying: No Nutrition Risks: No Nutritional Risk service: No 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 status: 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 Sexual orientation: Straight/Heterosexual Cognitive needs: No Hearing needs: No Vision needs: Yes Meds Allergies Allergy/AdvReac Type Severity Reaction Status Date / Time acetone [ACETONE] Allergy Severe Unconscious Verified 07/12/22 11:30 Sulfa (Sulfonamide Allergy Intermediate eyes Verified 07/12/22 11:30 Antibiotics) swelling [SULFA (SULFONAMIDE ANTIBIOTICS)] aerosols, epoxy, glue Allergy Intermediate swelling Uncoded 07/12/22 11:30 in his eyes Home Medications Medication Instructions Recorded Confirmed Last Taken Type lithium carbonate 300 mg 300 mg PO BID 09/27/21 07/12/22 Unknown History tablet,extended release quetiapine 100 mg tablet 100 mg PO BEDTIME 09/27/21 07/12/22 Unknown History clonazepam 0.5 mg tablet 0.5 mg PO DAILY Anxiety 06/18/22 07/12/22 Unknown History Exam Exam Date and Time: July 16, 2022 1311 Height,Weight and Vital Signs: Height 6 ft 2 in Weight 126.552 kg Narrative Narrative: EKG 05/2022 Sinus rhythm 82 beats per minute, incomplete right bundle-branch block, rightward axis, low voltage, QT interval 415 milliseconds Exercise Stress 06/2022 Protocol: MARK ? Max HR: 148 BPM? 89% of? Pred: 166 BPM Max BP: 182/070 mmHG Max Work Load: 8.4 METS ? Exercise stress test with exercise 7 min of Mark protocol, achieving 90% MPHR, ?8.4 METs with moderate sob, no chest discomfort, with a few isolated PVCs early ?in recovery, with normotensive response to exercise, without EKG changes ?meeting criteria for ischemia. Breathing normalized with rest. Test reviewed ?with Dr Diez. Assessment and Plan Assessment Anesthesia Assessment: Chart Reviewed Documented by User: Wilian Guaman MD 07/17/22 09:58 [facility] Past Medical History Medical History Annual physical exam Anxiety B12 deficiency Bipolar II disorder major depressive with atypical features BPH (benign prostatic hyperplasia) Depression Diverticula of colon Herniated disc History of COVID-19 Hypothyroidism Knee pain, right Lower back pain Neuropathy Sciatica Vitamin D deficiency Family History Family History Father Unknown family medical history Mother Unknown family medical history Sister No problems noted. Family history of problems with anesthesia: No Surgical History Surgical History H/O colonoscopy H/O hand surgery H/O neck surgery History of Problems with Anesthesia: No Social History Social History Household Members: Spouse Housing: House Do you presently have visiting nurse or other home services: No Alcohol intake: current Alcohol intake frequency: holidays/special occasions only Alcohol type: beer Patient Tobacco Use Status: Never used Tobacco e-Cigarette/Vaping Use: Never Used Second Hand Smoke Exposure: No Use of substances other than those prescribed or required for medical reasons: No Substance Use Type: Marijuana Advance Directives: No Advance Directives Information Provided: Yes Recently lost weight without trying: No Nutrition Risks: No Nutritional Risk service: No 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 status: 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 Sexual orientation: Straight/Heterosexual Cognitive needs: No Hearing needs: No Vision needs: Yes Meds Allergies Allergy/AdvReac Type Severity Reaction Status Date / Time acetone [ACETONE] Allergy Severe Unconscious Verified 07/12/22 11:30 Sulfa (Sulfonamide Allergy Intermediate eyes Verified 07/12/22 11:30 Antibiotics) swelling [SULFA (SULFONAMIDE ANTIBIOTICS)] aerosols, epoxy, glue Allergy Intermediate swelling Uncoded 07/12/22 11:30 in his eyes Home Medications Medication Instructions Recorded Confirmed Last Taken Type lithium carbonate 300 mg 300 mg PO BID 09/27/21 07/12/22 Unknown History tablet,extended release quetiapine 100 mg tablet 100 mg PO BEDTIME 09/27/21 07/12/22 Unknown History clonazepam 0.5 mg tablet 0.5 mg PO DAILY Anxiety 06/18/22 07/12/22 Unknown History Exam Airway Mallampati Class: II TM Dist: >3cm Loose/Missing/Broken Teeth: No (Rrr) Lungs: clear Assessment and Plan Assessment Anesthesia Assessment: Anesthesia Plan Discussed Final Anesthetic Review Family History of Problems with Anesthesia: No History of Problems with Anesthesia: No NPO: Yes ASA Class: II Final Preanesthetic Review: No Changes in Pt Med Stat, Meds/Allgs Chart Reviewed, Consent Obtained/Reviewed and Anes Risks/Benef Reviewed Patient Risk: Intermediate Procedure Risk: Low Anesthetic Plan Anesthetic Plan: MAC: Disposition: Standard PACU
[2022-07-17 08:50] VITALS: BP 128/74; PULSE 72; RESP 16; TEMP 36.3; O2SAT 96; BMI 36.4
[2022-07-17] MEDS: Lactated Ringers 1,000 ML 100 ML IVCONT (09:04)
--- NOTE | 2022-07-17 09:47 | MHC.SHP ---
Pre-Procedural Eval Section A Date of Service: 07/17/22 Section B Chief Complaint: Diverticulosis of large intestine,rectal bleeding Relevant Family History (Specify if Yes): No Relevant Social History: None Present Medications: see Short Stay Collaborative assessment Medical History: Significant History (Anxiety B12 deficiency Bipolar II disorder major depressive with atypical features BPH (benign prostatic hyperplasia) Depression Diverticula of colon Herniated disc History of COVID-19 Hypothyroidism Knee pain, right Lower back pain Neuropathy Sciatica Vitamin D deficiency) History of Previous Operations: Relevant previous surgery/procedure and date(s) (H/O colonoscopy H/O hand surgery H/O neck surgery) Allergies: Allergies Allergy/AdvReac Type Severity Reaction Status Date / Time acetone [ACETONE] Allergy Severe Unconscious Verified 07/12/22 11:30 Sulfa (Sulfonamide Allergy Intermediate eyes Verified 07/12/22 11:30 Antibiotics) swelling [SULFA (SULFONAMIDE ANTIBIOTICS)] aerosols, epoxy, glue Allergy Intermediate swelling Uncoded 07/12/22 11:30 in his eyes Review of Systems Sugical H&P ROS: Negative: Constitution, Cardiovascular, Respiratory, Neurological, Psychiatric, Hem-Onc, Allergic/Immunologic, Gastrointestinal, Genitourinary, Musculoskeletal, Integumentary, Endocrine and Eyes/Ears/Nose/Throat Exam Surgical H&P Exam: Normal: HEENT, Normal: Heart, Normal: Lungs, Normal: Extremities, Normal: Abdomen, Normal: Skin and Normal: Neurological Plan Diagnosis/Plan: Unchanged I have reviewed the history and physical and performed a pertinent physical examination on my patient. No changes have occurred unless specified.
--- NOTE | 2022-07-17 09:48 | P.OP_ITS ---
Operative Note Operative Note Date of Service: 07/17/22 Narrative: Operative Information Procedure Description: Colonoscopy Indication: rectal bleeding Anesthesia: MAC COLONOSCOPY Instrument: Olympus variable stiffness adult scope 190L Colonoscopy Monitoring: Vital signs and clinical assessment, continuous EKG monitoring, Pulse oximetry, Carbon Dioxide monitoring and blood pressure monitoring were done throughout the procedure. Colon withdrawal time was 10 minutes. Procedure: The patient was placed in the left lateral decubitis position and pre-procedure medications were administered. After a digital rectal examination of the ano-rectum, the video colonoscope was inserted into the rectum and advanced through the colon to the cecum/TI. The colonoscope was slowly withdrawn in a retrograde panoramic fashion and the colon mucosa was carefully examined including a retroflexed view of the rectum. Findings and interventions are described below. Procedure Difficulty: easy Findings: Terminal Ileum-normal right sided retroflexion- normal Cecum:normal Ascending Colon: few diverticula seen Transverse Colon -normal Descending Colon: 7-8 mm sessile polyp removed with cold forceps Sigmoid Colon: moderate severe diverticulosis Rectum: Retroflexion with medium sized internal hemorrhoids, grade I Anorectum - normal Colon preparation: [place] Bowel Preparation Scale Right colon; 2 Transverse colon: 3 Left colon; 3 (0 = Unprepared colon segment with mucosa not seen due to solid stool that cannot be cleared. 1 = Portion of mucosa of the colon segment seen, but other areas of the colon segment not well seen due to staining, residual stool and/or opaque liquid. 2 = Minor amount of residual staining, small fragments of stool and/or opaque liquid, but mucosa of colon segment seen well. 3 = Entire mucosa of colon segment seen well with no residual staining, small fragments of stool or opaque liquid) Impression and Post Procedure Diagnosis: polyp internal hemorrhoids diverticular disease Plan: High fiber diet leaflet Avoid straining at stool, epsom salts and sitz bath, anusol supps or cream Repeat Colonoscopy in 5 years if adenomatous polyp, 10 yrs if hyperplastic or earlier if clinically indicated Above findings were reviewed with the patient and relevant handouts were provided if indicated.
[2022-07-17 10:25] VITALS: BP 106/72; PULSE 78; RESP 16; TEMP 36.2; O2SAT 97
[2022-07-17 10:40] VITALS: BP 109/67; PULSE 71; RESP 18; TEMP 36.2; O2SAT 97
== END 2022-07-17 11:01 | disposition home or self-care (01) ==
PROVIDERS: PCP Internal Medicine; Visit Provider Internal Medicine Gastroenterology
PROC: 0DJD8ZZ Inspection of Lower Intestinal Tract, Via Natural or Artificial Opening Endoscopic (ICD-10-PCS; CPT 45378; principal; 2022-07-17 10:00)
DX: K62.5 Hemorrhage of anus and rectum (principal); D12.4 Benign neoplasm of descending colon; K57.30 Diverticulosis of large intestine without perforation or abscess without bleeding; K64.0 First degree hemorrhoids; I49.9 Cardiac arrhythmia, unspecified; R00.2 Palpitations; I25.2 Old myocardial infarction; G62.9 Polyneuropathy, unspecified; F31.81 Bipolar II disorder; F41.1 Generalized anxiety disorder; E03.9 Hypothyroidism, unspecified; E55.9 Vitamin D deficiency, unspecified; E53.8 Deficiency of other specified B group vitamins; N40.0 Benign prostatic hyperplasia without lower urinary tract symptoms; Z79.899 Other long term (current) drug therapy; Z88.2 Allergy status to sulfonamides; F12.90 Cannabis use, unspecified, uncomplicated; Z86.16 Personal history of COVID-19
CPT/HCPCS: 45380; 88305

== ENCOUNTER 2022-09-19 06:33 | Outpatient (REF) | payer BC, SELFPAY ==
[2022-09-19 11:02] LABS: MANUAL DIFF FLAG NO
[2022-09-19 11:10] LABS: Basophils Absolute Auto 0.1 X10*3/uL (0.0-0.2); Basophils Percent Auto 0.7 % (0-2); Eosinophils Absolute Auto 0.1 X10*3/uL (0.0-0.4); Eosinophils Percent Auto 1.4 % (0-4); Hematocrit 46.8 % (42.0-52.0); Hemoglobin 15.7 g/dl (14.0-18.0); Imm Gran Abs Auto 0.05 X10*3/uL (0.00-0.03); Imm Gran Pct Auto 0.7 % (0.0-0.4); Lymphocytes Absolute Auto 1.9 X10*3/uL (1.2-4.9); Lymphocytes Percent Auto 26.7 % (20-40); Mean Corpuscular HGB Conc 33.5 g/dl (31.0-36.0); Mean Corpuscular Volume 95.5 fL (80.0-98.0); Mean Platelet Volume 9.5 fL (9.4-12.4); Monocytes Absolute Auto 0.5 X10*3/uL (0.1-1.2); Monocytes Percent Auto 6.9 % (2-11); Neutrophils Absolute Auto 4.6 x10*3/uL (2.0-8.3); Neutrophils Percent Auto 63.6 % (45-73); Platelet Count 259 X10*3/uL (160-400); Red Cell Distribution Width 12.5 % (11.0-16.0); White Blood Count 7.2 X10*3/uL (4.8-10.8)
[2022-09-19 11:57] LABS: Lithium 0.44 mmol/L (0.60-1.20)
[2022-09-19 12:06] LABS: Thyroid Stimulating Hormone 10.96 uIU/mL (0.32-4.0)
[2022-09-19 12:14] LABS: Anion Gap 13 (12-20); Blood Urea Nitrogen 17 mg/dL (9-16); Carbon Dioxide 22 mmol/L (22-29); Chloride 110 mmol/L (96-108); Estimated Glomerular Filt Rate > 60; Glucose Random 110 mg/dL (60-115); Potassium 4.3 mmol/L (3.3-5.1); Sodium 141 mmol/L (135-145)
== END 2022-09-19 06:34 | disposition home or self-care (01) ==
LOC: HO.HMGCLDS 06:33
PROVIDERS: PCP Internal Medicine; Visit Provider Clinical Nurse Specialist Psychiatric/Mental Health, Child & Adolescent
DX: F32.1 Major depressive disorder, single episode, moderate (principal); Z51.81 Encounter for therapeutic drug level monitoring
CPT/HCPCS: 36415; 80048; 80178; 84439; 84443; 85025

== ENCOUNTER 2022-09-28 22:40 | Emergency (ER) | payer BC, SELFPAY ==
--- NOTE | ~2022-09-28 | XR_ITS ---
EXAMINATION: XR CHEST CLINICAL INFORMATION: Chest pain. COMPARISON: Chest radiograph 08/19/2018. TECHNIQUE: Frontal view of the chest was obtained. FINDINGS: Normal appearance of the cardiomediastinal structures. No effusions or pneumothoraces. No focal pulmonary consolidation. Normal pattern of pulmonary vasculature making allowances for mildly low lung volumes and underpenetrated technique. Partial visualization of mild osteophytosis of the acromioclavicular joints. XR/XR chest 1V IMPRESSION: No acute cardiopulmonary abnormalities.
--- NOTE | 2022-09-28 22:47 | ECG_ITS ---
Test Reason : CHEST PAIN Blood Pressure : / mmHG Vent. Rate : 074 BPM Atrial Rate : 074 BPM P-R Int : 164 ms QRS Dur : 098 ms QT Int : 374 ms P-R-T Axes : 023 -16 -12 degrees QTc Int : 415 ms Normal sinus rhythm Cannot rule out Inferior infarct (cited on or before 19-MAR-2017) Abnormal ECG When compared with ECG of 07-SEP-2020 22:18, Questionable change in initial forces of Inferior leads Referred By: Generic ED Physician Electronically Signed By:LOGAN BOO MD
[2022-09-28 22:48] VITALS: BP 115/73; PULSE 78; RESP 20; TEMP 36.4; O2SAT 97; BMI 38.0
[2022-09-28 23:08] VITALS: BP 139/81; PULSE 78; RESP 17; O2SAT 97
[2022-09-28 23:08] LABS: Basophils Absolute Auto 0.1 X10*3/uL (0.0-0.2); Basophils Percent Auto 0.6 % (0-2); Eosinophils Absolute Auto 0.1 X10*3/uL (0.0-0.4); Eosinophils Percent Auto 1.3 % (0-4); Hematocrit 44.2 % (42.0-52.0); Hemoglobin 15.2 g/dl (14.0-18.0); Imm Gran Abs Auto 0.04 X10*3/uL (0.00-0.03); Imm Gran Pct Auto 0.4 % (0.0-0.4); Lymphocytes Absolute Auto 2.9 X10*3/uL (1.2-4.9); Lymphocytes Percent Auto 31.9 % (20-40); MANUAL DIFF FLAG NO; Mean Corpuscular HGB Conc 34.4 g/dl (31.0-36.0); Mean Corpuscular Volume 93.1 fL (80.0-98.0); Monocytes Absolute Auto 0.7 X10*3/uL (0.1-1.2); Monocytes Percent Auto 7.3 % (2-11); Neutrophils Absolute Auto 5.3 x10*3/uL (2.0-8.3); Neutrophils Percent Auto 58.5 % (45-73); Platelet Count 245 X10*3/uL (160-400); Red Blood Count 4.75 X10*6/uL (4.60-5.80); Red Cell Distribution Width 12.3 % (11.0-16.0); White Blood Count 9.1 X10*3/uL (4.8-10.8)
--- OUTSIDE RECORDS SUMMARY | 2022-09-28 23:18 | XMS_ITS | Continuity of Care Document ---
:1970 Author Organization [facility] Address [address] [place] [id number] Care Team Providers Name Role Phone Kimberly Paula MD Primary Care Physician En[place] [facility] [place] Date(s): 03/04/20 - 04/10/[address] [address]- [facility] Attending Physician: Gopi Farr MD Allergies, Adverse Reactions, Alerts Substance Reaction Severity Status chlorhexidine topical rash Active sulfa drugs I pass out Active Acetone Medications gabapentin 300 mg oral capsule 300 mg, 1, capsule, By Mouth, 3 times a day, # 90 capsule, Refills 0, Maintenance, 04/06/20 13:21:00EDT Start Date: 04/06/20 Status: Orderedlevothyroxine 0.025 mg oral tablet 1 tablet = 25 mcg, By Mouth, Daily, # 30 tablet, 0 Refills, Maintenance, 04/06/20 13:20:00 EDT, Tablet Start Date: 04/06/20 Status: OrderedRopinirole By Mouth, Daily, PRN restless leg, 0 Refills, Maintenance, 03/12/17 8:12:10 Start Date: 03/12/17 Status: Ordered Problem List Condition Effective Dates Status Health Status Informant Cervical radiculopathy(Confirmed) Active Hypothyroid(Confirmed) Active Vital Signs Most recent to oldest [Reference Range]: 1 Height 187.96 cm (03/04/20 9:49 AM) Social History Social History Type Response Smoking Status Never smoker; Tobacco user i n household: No entered on: 04/10/17 Sex
[2022-09-28] MEDS: Aspirin 325 MG TABLET PO (23:19)
[2022-09-28 23:26] LABS: Anion Gap 11 (12-20); Blood Urea Nitrogen 18 mg/dL (9-16); Calcium 9.1 mg/dL (8.4-10.2); Carbon Dioxide 22 mmol/L (22-29); Chloride 109 mmol/L (96-108); Creatinine Clr Calc Pharmacy 129.5; Estimated Glomerular Filt Rate > 60; Glucose Random 96 mg/dL (60-115); Potassium 4.4 mmol/L (3.3-5.1); Sodium 138 mmol/L (135-145)
[2022-09-28 23:31] LABS: Troponin-I High Sensitivity < 3.5 ng/L (<3.5-35.0)
[2022-09-28 23:47] VITALS: BP 119/72; PULSE 69; RESP 20; TEMP 36.4; O2SAT 98
--- NOTE | 2022-09-29 01:42 | ED.CHESTPAIN ---
HPI - Chest Pain General Chief Complaint: Chest Pain Stated Complaint: Chest pain Time Seen by Provider: 09/28/22 23:05 Related Data Home Medications Medication Instructions Recorded Confirmed lithium carbonate 300 mg 300 mg PO BID 09/27/21 07/12/22 tablet,extended release quetiapine 100 mg tablet 100 mg PO BEDTIME 09/27/21 07/12/22 clonazepam 0.5 mg tablet 0.5 mg PO DAILY Anxiety 06/18/22 07/12/22 Previous Rx's Medication Instructions Recorded vardenafil 20 mg tablet 20 mg PO DAILY #12 tabs 09/27/21 cyanocobalamin (vitamin B-12) 1,000 mcg sublingual DAILY #30 tabs 09/29/21 1,000 mcg sublingual tablet cholecalciferol (vitamin D3) 75 75 mcg PO DAILY #90 tabs 11/01/21 mcg (3,000 unit) tablet ropinirole 0.25 mg tablet 0.75 mg PO DAILY@1900 #270 tabs 12/20/21 tamsulosin 0.4 mg capsule (Flomax) 0.4 mg PO BEDTIME #90 caps 12/20/21 levothyroxine 75 mcg tablet 75 mcg PO DAILY #90 tabs 12/24/21 bisacodyl 5 mg tablet,delayed 10 mg PO ONCE colonoscopy prep 1 03/14/22 release (Dulcolax (bisacodyl)) day #2 tabs polyethylene glycol 3350 17 238 g PO ONCE 1 day #238 grams 03/14/22 gram/dose oral powder (Miralax) topiramate 25 mg tablet 25 mg PO BEDTIME #90 tabs 07/24/22 Allergies Allergy/AdvReac Type Severity Reaction Status Date / Time acetone [ACETONE] Allergy Severe Unconscious Verified 07/12/22 11:30 Sulfa (Sulfonamide Allergy Intermediate eyes Verified 09/28/22 22:52 Antibiotics) swelling [SULFA (SULFONAMIDE ANTIBIOTICS)] aerosols, epoxy, glue Allergy Intermediate swelling Uncoded 07/12/22 11:30 in his eyes PMFSH Past Medical History Medical History (Updated 09/29/22 @ 01:48 by Leslie Montez MD) Annual physical exam Anxiety B12 deficiency Bipolar II disorder major depressive with atypical features BPH (benign prostatic hyperplasia) Depression Diverticula of colon Herniated disc History of COVID-19 Hypothyroidism Knee pain, right Lower back pain Neuropathy Sciatica Vitamin D deficiency Surgical History (Updated 07/17/22 @ 10:30 by Bree James) H/O colonoscopy H/O hand surgery H/O neck surgery Family History Family History Father Unknown family medical history Mother Unknown family medical history Sister No problems noted. 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 Within normal limits. Patient remains asymptomatic. Troponin 2. To be checked at 02:00. Given patient's physical exam, it is likely that patient had musculoskeletal pain, versus anxiety. Patient was given 1 dose of aspirin. Chest x-ray negative Troponin 2. To be drawn approximately 02:00. Patient remains asymptomatic, likely musculoskeletal versus anxiety. ACS less likely. sign out given to Dr. Baldwin, [place] f/u trop Medications Administered Discontinued Medications Generic Name Dose Route Start Last Admin Trade Name Freq PRN Reason Stop Dose Admin Aspirin 325 mg 09/28/22 23:11 09/28/22 23:19 Aspirin 325 Mg Tablet PO 09/28/22 23:12 325 mg ONCE ONE Administration Medical Decision Making Medical Decision Making Differential Diagnoses: Differential diagnosis (ACS, musculoskeletal pain, costochondritis, anxiety) Lab Attestation: I reviewed the patient's lab results. (Troponin 1 negative) Independent interpretation of EKG, rhythm strip, radiology study: Independent interp EKG,rhythm strip, radiology study I performed an independent interpretation of the: EKG (My interpretation is normal sinus rhythm, heart rate 74, ST segment depression or elevation, no T-wave inversion, QTC 415) and Plain X-Ray My interpretation is negative for acute findings including pneumothorax, infiltrates Scores Heart Score History: -0- slightly suspicious ECG: -0- normal Age: -1- >45 - <65 Risk factory: -1- 1 or 2 risk factors Troponin: -0- < or = normal limit Score: 2 Risk: 1.7% Discharge Plan Discharge Clinical Impression: Atypical chest pain Patient Disposition: Home, Self-Care Instructions: Chest Pain (ED) Additional Instructions: Please follow-up with your primary care physician tomorrow. If you have any worsening or new symptoms, please return to the emergency room or call 911 Prescriptions: No Action cyanocobalamin (vitamin B-12) 1,000 mcg tablet, sublingual 1,000 mcg sublingual DAILY Qty: 30 5RF tamsulosin [Flomax] 0.4 mg capsule 0.4 mg PO BEDTIME Qty: 90 3RF ropinirole 0.25 mg tablet 0.75 mg PO DAILY@1900 Qty: 270 3RF levothyroxine 75 mcg tablet 75 mcg PO DAILY Qty: 90 3RF topiramate 25 mg tablet 25 mg PO BEDTIME Qty: 90 3RF lithium carbonate 300 mg tablet extended release 300 mg PO BID Rx Instructions: 300 mg in am and 600 in PM quetiapine 100 mg tablet 100 mg PO BEDTIME Rx Instructions: 1/2 tab vardenafil 20 mg tablet 20 mg PO DAILY Qty: 12 6RF cholecalciferol (vitamin D3) 75 mcg (3,000 unit) tablet 75 mcg PO DAILY Qty: 90 1RF clonazepam 0.5 mg tablet 0.5 mg PO DAILY bisacodyl [Dulcolax (bisacodyl)] 5 mg tablet,delayed release (DR/EC) 10 mg PO ONCE 1 Days Qty: 2 0RF Rx Instructions: Take 2 tablets by mouth at 12:00pm the day before your procedure. polyethylene glycol 3350 [Miralax] 17 gram/dose powder 238 g PO ONCE 1 Days Qty: 238 0RF Rx Instructions: Take as directed by mouth the day before your procedure.
[2022-09-29 02:00] VITALS: BP 124/77; PULSE 65; RESP 16; TEMP 36.6; O2SAT 97
[2022-09-29 02:32] LABS: Troponin-I High Sensitivity < 3.5 ng/L (<3.5-35.0)
== END 2022-09-29 02:37 | disposition home or self-care (01) ==
PROVIDERS: Emergency Provider Emergency Medicine; PCP Internal Medicine
DX: R07.89 Other chest pain (principal); Z79.899 Other long term (current) drug therapy
CPT/HCPCS: 36415; 71045; 80048; 84484; 85025; 93005; 99283; 99285

== ENCOUNTER 2023-01-08 06:21 | Outpatient (REF) | payer BC, SELFPAY ==
[2023-01-08 11:31] LABS: MANUAL DIFF FLAG NO
[2023-01-08 11:53] LABS: Basophils Percent Auto 0.4 % (0-2); Eosinophils Absolute Auto 0.1 X10*3/uL (0.0-0.4); Eosinophils Percent Auto 1.5 % (0-4); Hematocrit 46.8 % (42.0-52.0); Hemoglobin 15.5 g/dl (14.0-18.0); Imm Gran Abs Auto 0.04 X10*3/uL (0.00-0.03); Imm Gran Pct Auto 0.6 % (0.0-0.4); Lymphocytes Absolute Auto 1.9 X10*3/uL (1.2-4.9); Lymphocytes Percent Auto 27.1 % (20-40); Mean Corpuscular HGB Conc 33.1 g/dl (31.0-36.0); Mean Corpuscular Hemoglobin 32.2 pg (27.0-33.0); Mean Corpuscular Volume 97.1 fL (80.0-98.0); Mean Platelet Volume 9.6 fL (9.4-12.4); Monocytes Absolute Auto 0.5 X10*3/uL (0.1-1.2); Monocytes Percent Auto 7.6 % (2-11); Neutrophils Absolute Auto 4.3 x10*3/uL (2.0-8.3); Neutrophils Percent Auto 62.8 % (45-73); Platelet Count 235 X10*3/uL (160-400); Red Blood Count 4.82 X10*6/uL (4.60-5.80); Red Cell Distribution Width 12.6 % (11.0-16.0); White Blood Count 6.9 X10*3/uL (4.8-10.8)
[2023-01-08 12:25] LABS: Alanine Aminotransferase 15 U/L (0-40); Alkaline Phosphatase 57 U/L (39-117); Anion Gap 10 (12-20); Aspartate Amino Transferase 15 U/L (5-37); Bilirubin Total 0.7 mg/dL (0.0-1.0); Blood Urea Nitrogen 13 mg/dL (9-16); Calcium 8.7 mg/dL (8.4-10.2); Carbon Dioxide 24 mmol/L (22-29); Chloride 110 mmol/L (96-108); Cholesterol 188 mg/dL; Estimated Glomerular Filt Rate > 60; Glucose Fasting 109 mg/dL (60-99); HDL Cholesterol 56 mg/dL; LDL Cholesterol Calculated 109 mg/dl; Potassium 4.4 mmol/L (3.3-5.1); Sodium 140 mmol/L (135-145); Total Protein 6.6 g/dL (6.5-8.0); Triglycerides 119 mg/dL
[2023-01-08 12:46] LABS: PSA,Total (Free>4and<10) 0.58 ng/mL (0.00-4.00)
[2023-01-08 13:41] LABS: Free T4 (Free Thyroxine) 0.75 ng/dL (0.71-1.85)
== END 2023-01-08 06:22 | disposition home or self-care (01) ==
LOC: HO.HMGCLDS 06:21
PROVIDERS: PCP Internal Medicine; Visit Provider Internal Medicine
DX: Z00.00 Encounter for general adult medical examination without abnormal findings (principal); F31.81 Bipolar II disorder; E03.9 Hypothyroidism, unspecified; Z12.5 Encounter for screening for malignant neoplasm of prostate
CPT/HCPCS: 36415; 80053; 80061; 84153; 84439; 84443; 85025

== ENCOUNTER 2023-01-23 06:47 | Outpatient (REF) | payer BC, SELFPAY ==
[2023-01-23 11:48] LABS: Baso%MD 0.7 %; Eos%MD 1.2 %; Hematocrit 46.6 % (42.0-52.0); Hemoglobin 15.6 g/dl (14.0-18.0); IG%MD 0.4 %; Lymph%MD 23.3 %; Mean Corpuscular HGB Conc 33.5 g/dl (31.0-36.0); Mean Corpuscular Hemoglobin 32.4 pg (27.0-33.0); Mean Corpuscular Volume 96.9 fL (80.0-98.0); Mean Platelet Volume 9.7 fL (9.4-12.4); Mono%MD 7.5 %; Neut%MD 66.9 %; Platelet Count 242 X10*3/uL (160-400); Red Blood Count 4.81 X10*6/uL (4.60-5.80); Red Cell Distribution Width 12.2 % (11.0-16.0); White Blood Count 7.3 X10*3/uL (4.8-10.8)
[2023-01-23 11:52] LABS: Anion Gap 10 (12-20); Blood Urea Nitrogen 14 mg/dL (9-16); Calcium 8.8 mg/dL (8.4-10.2); Carbon Dioxide 22 mmol/L (22-29); Chloride 111 mmol/L (96-108); Estimated Glomerular Filt Rate > 60; Glucose Random 107 mg/dL (60-115); Sodium 139 mmol/L (135-145)
[2023-01-23 12:15] LABS: Free T4 (Free Thyroxine) 0.78 ng/dL (0.71-1.85); Thyroid Stimulating Hormone 11.77 uIU/mL (0.32-4.0)
[2023-01-23 12:30] LABS: Lithium 0.58 mmol/L (0.60-1.20)
[2023-01-23 12:51] LABS: Band Neutrophils Percent 2 % (3-5); Basophils Abs Manual 0.1 X10*3/uL (0.0-0.2); Basophils Percent Manual 1 % (0-2); Lymphocytes Absolute Manual 1.9 X10*3/uL (1.2-4.9); Lymphocytes Percent Manual 26 % (20-40); Monocytes Absolute Manual 0.3 X10*3/uL (0.1-1.2); Monocytes Percent Manual 4 % (2-11); Neutrophils Percent Manual 67 % (45-73)
[2023-01-23 12:52] LABS: Platelet Estimate NORMAL (NORMAL); Platelet Morphology Comment NORMAL; RBC Morphology NORMAL
== END 2023-01-23 06:48 | disposition home or self-care (01) ==
LOC: HO.HMGCLDS 06:47
PROVIDERS: PCP Internal Medicine; Visit Provider Clinical Nurse Specialist Psychiatric/Mental Health, Child & Adolescent
DX: F32.1 Major depressive disorder, single episode, moderate (principal); Z79.899 Other long term (current) drug therapy
CPT/HCPCS: 36415; 80048; 80178; 84439; 84443; 85007; 85027

== ENCOUNTER 2023-04-01 07:35 | Outpatient (REF) | payer BC, SELFPAY ==
[2023-04-01 12:03] LABS: TSH reflex Free T4 5.32 uIU/mL (0.32-4.0)
[2023-04-01 12:42] LABS: Free T4 (Free Thyroxine) 0.85 ng/dL (0.71-1.85)
[2023-04-03 10:39] LABS: Triiodothyronine T3 Free 3.4 pg/mL (2.3-4.2)
== END 2023-04-01 07:36 | disposition home or self-care (01) ==
LOC: HO.HMGCLDS 07:35
PROVIDERS: PCP Internal Medicine; Visit Provider Internal Medicine
DX: Z00.00 Encounter for general adult medical examination without abnormal findings (principal); E03.9 Hypothyroidism, unspecified; F31.81 Bipolar II disorder
CPT/HCPCS: 36415; 84439; 84443; 84481

== ENCOUNTER 2023-05-09 06:03 | Outpatient (REF) | payer BC, SELFPAY ==
[2023-05-09 11:12] LABS: MANUAL DIFF FLAG NO
[2023-05-09 11:50] LABS: Basophils Percent Auto 0.4 % (0-2); Eosinophils Absolute Auto 0.1 X10*3/uL (0.0-0.4); Eosinophils Percent Auto 1.7 % (0-4); Hemoglobin 15.2 g/dl (14.0-18.0); Imm Gran Abs Auto 0.03 X10*3/uL (0.00-0.03); Imm Gran Pct Auto 0.4 % (0.0-0.4); Lymphocytes Absolute Auto 1.9 X10*3/uL (1.2-4.9); Lymphocytes Percent Auto 24.7 % (20-40); Mean Corpuscular Hemoglobin 32.3 pg (27.0-33.0); Mean Corpuscular Volume 97.9 fL (80.0-98.0); Mean Platelet Volume 9.8 fL (9.4-12.4); Monocytes Absolute Auto 0.5 X10*3/uL (0.1-1.2); Neutrophils Absolute Auto 5.1 x10*3/uL (2.0-8.3); Neutrophils Percent Auto 65.8 % (45-73); Platelet Count 241 X10*3/uL (160-400); Red Cell Distribution Width 12.7 % (11.0-16.0); White Blood Count 7.7 X10*3/uL (4.8-10.8)
[2023-05-09 13:38] LABS: Lithium 0.73 mmol/L (0.60-1.20)
[2023-05-09 15:05] LABS: Alanine Aminotransferase 23 U/L (0-40); Alkaline Phosphatase 60 U/L (39-117); Anion Gap 10 (12-20); Aspartate Amino Transferase 18 U/L (5-37); Bilirubin Total 0.5 mg/dL (0.0-1.0); Blood Urea Nitrogen 13 mg/dL (9-16); Calcium 9.1 mg/dL (8.4-10.2); Carbon Dioxide 23 mmol/L (22-29); Chloride 111 mmol/L (96-108); Cholesterol 167 mg/dL; Estimated Glomerular Filt Rate > 60; Glucose Fasting 113 mg/dL (60-99); HDL Cholesterol 51 mg/dL; LDL Cholesterol Calculated 103 mg/dl; Potassium 4.1 mmol/L (3.3-5.1); Sodium 140 mmol/L (135-145); Total Protein 6.9 g/dL (6.5-8.0); Triglycerides 68 mg/dL; Vitamin D 25-OH Total 31.3 ng/mL (>30)
[2023-05-09 15:35] LABS: Folate 8.7 ng/mL (> or = 4.0); Vitamin B12 337 pg/mL (200-900)
[2023-05-09 16:05] LABS: PSA,Total (Free>4and<10) 0.45 ng/mL (0.00-4.00)
[2023-05-11 08:18] LABS: Triiodothyronine T3 Free 3.6 pg/mL (2.3-4.2)
== END 2023-05-09 06:04 | disposition home or self-care (01) ==
LOC: HO.LAB 06:03
PROVIDERS: Visit Provider Internal Medicine
DX: Z00.00 Encounter for general adult medical examination without abnormal findings (principal); E03.9 Hypothyroidism, unspecified; E53.8 Deficiency of other specified B group vitamins; E55.9 Vitamin D deficiency, unspecified; F31.81 Bipolar II disorder; N40.0 Benign prostatic hyperplasia without lower urinary tract symptoms; R46.89 Other symptoms and signs involving appearance and behavior; Z12.5 Encounter for screening for malignant neoplasm of prostate
CPT/HCPCS: 36415; 80053; 80061; 80178; 82306; 82607; 82746; 84153; 84443; 84481; 85025

== ENCOUNTER 2023-05-29 18:32 | Outpatient (REF) | payer BC, SELFPAY | END 2023-05-29 18:33 | disposition home or self-care (01) | LOC: HO.MRI 18:32 | PROVIDERS: PCP Internal Medicine; Visit Provider Internal Medicine | DX: Z13.89 Encounter for screening for other disorder (principal) ==

== ENCOUNTER 2023-08-07 14:03 | Outpatient (AMB) | payer BC, SELFPAY ==
[2023-08-07 14:05] VITALS: BP 122/74; PULSE 85; O2SAT 95; BMI 38.0
--- NOTE | 2023-08-07 14:05 | A.OFFPC_ITS ---
Vital Signs 08/07/23 14:05 Height 6 ft 2 in Weight 296 lb BMI 38.0 BP 122/74 Blood Pressure Location Lt brachial Position Sitting Pulse 85 Pulse Source Pulse Oximeter Pulse Oximetry (%) 95 Oxygen Delivery Method Room Air Intake Visit Reasons: 6m htn Intake Note: Pt is here today for 6 months follow up visit. Allergies acetone [ACETONE] Allergy (Severe, Verified 08/07/23 14:06) Unconscious Sulfa (Sulfonamide Antibiotics) [SULFA (SULFONAMIDE ANTIBIOTICS)] Allergy (Intermediate, Verified 08/07/23 14:06) eyes swelling aerosols, epoxy, glue Allergy (Intermediate, Uncoded 08/07/23 14:06) swelling in his eyes Medication List - Last Reconciled 08/07/23 by Kimberly Paula MD clonazepam 1 mg PO DAILY levothyroxine 125 mcg PO DAILY lithium carbonate ER 600 mg PO BID tamsulosin (Flomax) 0.4 mg PO BEDTIME zolpidem 10 mg PO BEDTIME PRN Tobacco use date assessed: 04/26/23 HPI 6m htn HPI Details PATIENT PRESENTS FOR THE FOLLOW-UP OF HYPOTHYROIDISM. He follows up with psychiatrist for bipolar disorder controlled on current medications. [facility] Medical History History of COVID-19 Sciatica Annual physical exam Lower back pain Knee pain, right Vitamin D deficiency B12 deficiency Neuropathy BPH (benign prostatic hyperplasia) Anxiety Depression Bipolar II disorder major depressive with atypical features Herniated disc Diverticula of colon Hypothyroidism Surgical History H/O colonoscopy H/O hand surgery H/O neck surgery Family History Father Unknown family medical history Mother Unknown family medical history Sister No problems noted. 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 Jelani Javier, Nayla Acharya, Rajan Woods and colleagues, with an educational diana from [employer]. Review of Systems Const All systems reviewed & are unremarkable except as noted in HPI and below Reports no additional complaints Eyes Reports no additional complaints ENT Reports no additional complaints Card Reports no additional complaints GI Reports no additional complaints Reports no additional complaints Physical exam (Primary Care) Vital Signs: Last Vital Signs Pulse 85 08/07/23 14:05 BP 122/74 08/07/23 14:05 Pulse Ox 95 08/07/23 14:05 Oxygen Delivery Method Room Air 08/07/23 14:05 BMI result Body Mass Index 38.0 Tobacco/Smoking Status: Tobacco use Status Tobacco use date assessed 04/26/23 08/07/23 14:11 Patient Tobacco Use Status Never used Tobacco 08/07/23 14:11 e-Cigarette/Vaping Use Never Used 08/07/23 14:11 Thrive Assessment: Date of Thrive Assessment Date Thrive assessed 01/08/23 08/07/23 14:11 Const General: no acute distress Eyes General: appearance normal, both eyes and all related structures Resp Effort & Inspection: normal respiratory effort Auscultation: clear to auscultation bilaterally Cardio Rhythm: regular rhythm Heart sounds: S1 normal heart sound present and S2 normal heart sound present GI Palpation (GI): Soft to palpation Assessment and Plan Assessment & Plan (1) Hypothyroid: Code(s): E03.9 - Hypothyroidism, unspecified Plan: cont Levothyroxine PE in December (2) Bipolar II disorder major depressive with atypical features: Comment: Follow-up with psychiatrist Code(s): F31.81 - Bipolar II disorder Plan: cont meds Orders: Orders Comprehensive [place]. Panel Fast 5 Months E03.9 - Hypothyroidism, unspecified, F31.81 - Bipolar II disorder, N40.0 - Benign prostatic hyperplasia without lower urinary tract symptoms, Z00.00 - Encounter for general adult medical examination without abnormal findings UA w Microscopic 5 Months E03.9 - Hypothyroidism, unspecified, F31.81 - Bipolar II disorder, N40.0 - Benign prostatic hyperplasia without lower urinary tract symptoms, Z00.00 - Encounter for general adult medical examination without abnormal findings Complete Blood Count Auto Diff 5 Months E03.9 - Hypothyroidism, unspecified, F31.81 - Bipolar II disorder, N40.0 - Benign prostatic hyperplasia without lower urinary tract symptoms, Z00.00 - Encounter for general adult medical examination without abnormal findings Lipid Panel 5 Months E03.9 - Hypothyroidism, unspecified, F31.81 - Bipolar II disorder, N40.0 - Benign prostatic hyperplasia without lower urinary tract symptoms, Z00.00 - Encounter for general adult medical examination without abnormal findings PSA,Total (Free>4and<10) 5 Months E03.9 - Hypothyroidism, unspecified, F31.81 - Bipolar II disorder, N40.0 - Benign prostatic hyperplasia without lower urinary tract symptoms, Z00.00 - Encounter for general adult medical examination without abnormal findings TSH reflex Free T4 5 Months E03.9 - Hypothyroidism, unspecified, F31.81 - Bipolar II disorder, N40.0 - Benign prostatic hyperplasia without lower urinary tract symptoms, Z00.00 - Encounter for general adult medical examination without abnormal findings Hemoglobin A1c 5 Months R73.9 - Hyperglycemia, unspecified Coding Level of Care Code Est Pt Level 3 (27434) Diagnoses Hypothyroid E03.9 Bipolar II disorder major depressive with atypical features F31.81
== END 2023-08-07 15:00 | disposition home or self-care (01) ==
PROVIDERS: PCP Internal Medicine; Visit Provider Internal Medicine
DX: E03.9 Hypothyroidism, unspecified (principal); F31.81 Bipolar II disorder
CPT/HCPCS: 99213

== ENCOUNTER 2024-01-06 06:24 | Outpatient (REF) | payer BC, SELFPAY ==
[2024-01-06 11:06] LABS: Appearance Urine Clear; Color Urine Yellow; Glucose Urine UA Negative (Negative); Leukocyte Esterase Urine Negative (Negative); Nitrite Urine Negative (Negative); Specific Gravity - Urine 1.015 (1.005-1.025); Urine Blood Negative (Negative); Urine Ketones Negative (Negative); Urine Protein Negative (Neg-Trace)
[2024-01-06 11:08] LABS: MANUAL DIFF FLAG NO
[2024-01-06 11:13] LABS: Bacteria Urine None Seen (None Seen); Hyaline Casts Urine 0-2 /LPF (0-2); RBC Urine 0-2 /HPF (0-2); Squamous Epithelial Cell Urine 0-2 /HPF (0-2); WBC Urine 0-5 /HPF (0-5)
[2024-01-06 11:27] LABS: Basophils Percent Auto 0.5 % (0-2); Eosinophils Absolute Auto 0.1 X10*3/uL (0.0-0.4); Eosinophils Percent Auto 1.9 % (0-4); Hematocrit 45.1 % (42.0-52.0); Hemoglobin 15.1 g/dl (14.0-18.0); Imm Gran Abs Auto 0.06 X10*3/uL (0.00-0.03); Imm Gran Pct Auto 0.8 % (0.0-0.4); Lymphocytes Absolute Auto 2.1 X10*3/uL (1.2-4.9); Lymphocytes Percent Auto 28.9 % (20-40); Mean Corpuscular HGB Conc 33.5 g/dl (31.0-36.0); Mean Corpuscular Hemoglobin 32.1 pg (27.0-33.0); Mean Platelet Volume 9.6 fL (9.4-12.4); Monocytes Absolute Auto 0.6 X10*3/uL (0.1-1.2); Monocytes Percent Auto 7.7 % (2-11); Neutrophils Absolute Auto 4.5 x10*3/uL (2.0-8.3); Neutrophils Percent Auto 60.2 % (45-73); Platelet Count 238 X10*3/uL (160-400); Red Cell Distribution Width 13.2 % (11.0-16.0); White Blood Count 7.4 X10*3/uL (4.8-10.8)
[2024-01-06 11:47] LABS: Estimated Average Glucose 97 mg/dL
[2024-01-06 11:50] LABS: Alanine Aminotransferase 21 U/L (0-40); Alkaline Phosphatase 63 U/L (39-117); Anion Gap 12 (12-20); Aspartate Amino Transferase 19 U/L (5-37); Bilirubin Total 0.5 mg/dL (0.0-1.0); Blood Urea Nitrogen 16 mg/dL (9-16); Calcium 8.7 mg/dL (8.4-10.2); Carbon Dioxide 22 mmol/L (22-29); Chloride 109 mmol/L (96-108); Cholesterol 191 mg/dL (<200); Estimated Glomerular Filt Rate > 60; Glucose Fasting 106 mg/dL (60-99); HDL Cholesterol 53 mg/dL (>40); LDL Cholesterol Calculated 109 mg/dL (<100); Potassium 4.4 mmol/L (3.3-5.1); Sodium 139 mmol/L (135-145); Triglycerides 145 mg/dL (<150)
[2024-01-06 11:53] LABS: PSA,Total (Free>4and<10) 0.49 ng/mL (0.00-4.00)
[2024-01-06 11:58] LABS: TSH reflex Free T4 9.56 uIU/mL (0.32-4.0)
[2024-01-06 12:49] LABS: Free T4 (Free Thyroxine) 0.81 ng/dL (0.71-1.85)
== END 2024-01-06 06:25 | disposition home or self-care (01) ==
LOC: HO.HMGCLDS 06:24
PROVIDERS: PCP Internal Medicine; Visit Provider Internal Medicine
DX: Z00.00 Encounter for general adult medical examination without abnormal findings (principal); Z12.5 Encounter for screening for malignant neoplasm of prostate; N40.0 Benign prostatic hyperplasia without lower urinary tract symptoms; R73.9 Hyperglycemia, unspecified; E03.9 Hypothyroidism, unspecified; F31.81 Bipolar II disorder
CPT/HCPCS: 36415; 80053; 80061; 81001; 83036; 84153; 84439; 84443; 85025

== ENCOUNTER 2024-01-10 12:49 | Outpatient (AMB) | payer BC, SELFPAY ==
[2024-01-10 13:00] VITALS: BP 126/68; PULSE 81; O2SAT 97; BMI 39.3
--- NOTE | 2024-01-10 13:00 | A.OFFPC_ITS ---
Vital Signs 01/10/24 13:00 Height 6 ft 2 in Weight 306 lb BMI 39.3 BP 126/68 Blood Pressure Location Lt brachial Position Sitting Pulse 81 Pulse Source Pulse Oximeter Pulse Oximetry (%) 97 Oxygen Delivery Method Room Air Intake Visit Reasons: PE Intake Note: Pt is hetre today for PE. Allergies acetone [ACETONE] Allergy (Severe, Verified 01/10/24 13:11) Unconscious Sulfa (Sulfonamide Antibiotics) [SULFA (SULFONAMIDE ANTIBIOTICS)] Allergy (Intermediate, Verified 01/10/24 13:11) eyes swelling aerosols, epoxy, glue Allergy (Intermediate, Uncoded 01/10/24 13:11) swelling in his eyes Medication List - Last Reconciled 01/10/24 by Kimberly Paula MD clonazepam 1 mg PO DAILY levothyroxine 137 mcg PO DAILY lithium carbonate ER 600 mg PO BID tamsulosin (Flomax) 0.4 mg PO BEDTIME zolpidem 10 mg PO BEDTIME PRN Tobacco use date assessed: 01/10/24 Dental Screening Dental Screen Date: 01/10/24 Did you have a dental visit in the last 12 months?: Yes Did you have a dental problem in the last 6 months where you did not have access to dental care?: No Was dental information given to patient?: Patient has dentist HPI PE HPI Details Pt presents for PE. he complains of worsening nocturnal urination frequency up to 3 times a night and slower stream. Patient reports feeling generally tired and complains of chronic lower back pain getting worse with walking for more than 15 min. He was evaluated by 3 neurosurgeons and no surgery was recommended. Patient follows up with a psychiatrist for bipolar ,stable on current medications. [facility] Medical History History of COVID-19 Sciatica Annual physical exam Lower back pain Knee pain, right Vitamin D deficiency B12 deficiency Neuropathy BPH (benign prostatic hyperplasia) Anxiety Depression Bipolar II disorder major depressive with atypical features Herniated disc Diverticula of colon Hypothyroidism Surgical History H/O colonoscopy H/O hand surgery H/O neck surgery Family History Father Unknown family medical history Mother Unknown family medical history Sister No problems noted. 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 1. Little interest or pleasure in doing things: several days 2. Feeling down, depressed, or hopeless: not at all 3. Trouble falling or staying asleep, or sleeping too much: nearly every day 4. Feeling tired or having little energy: more than half the days 5. Poor appetite or overeating: more than half the days 6. Feeling bad about yourself - or that you are a failure or have let yourself or your family down: not at all 7. Trouble concentrating on things, such as reading the newspaper or watching television: not at all 8. Moving or speaking so slowly that other people could have noticed. Or the opposite - being so fidgety or restless that you have been moving around a lot more than usual: several days 9. Thoughts that you would be better off or of hurting yourself in some way: not at all Total score: 9 Source: Developed by Drs. Jelani Javier, Nayla Acharya, Rajan Woods and colleagues, with an educational diana from [employer]. Thrive Questionnaire Date Thrive assessed: 01/10/24 I am a: Patient What is your living situation today?: I have a steady place to live Within the past 12 months, did the food you bought not last and you didn't have the money to get more?: Never true Within the past 12 months, did you worry whether your food would run out before you got money to buy more?: Never true Do you have trouble paying for medicines?: No Do you have trouble getting transportation to medical appointments?: No Do you have trouble paying your heating and electricity bill?: No Do you have trouble taking care of your child, family member or friend?: No Do you have trouble with day-to-day activities such as bathing, preparing meals, shopping, managing finances, etc.?: No Are you currently unemployed and looking for a job?: No Are you interested in more education?: No Please select the resources that you would like help with: None THRIVE Score: 0 AUDIT C Alcohol Use Questionnaire (AUDIT-C) 1. How often do you have a drink containing alcohol?: 2-3 times a week 2. How many drinks containing alcohol do you have on a typical day when you are drinking?: 3 or 4 3. How often do you have six or more drinks on one occasion?: Less than monthly Total Score: 5 EUGENIO-7 AMB Questionnaire EUGENIO-7 Date EUGENIO - 7 assessed: 01/10/24 Feeling nervous, anxious, or on edge: 1 = Several days Not being able to stop or control worryin = Several days Worrying too much about different things: 1 = Several days Trouble relaxin = More than half the days Being so restless that it is hard to sit still: 2 = More than half the days Becoming easily annoyed or irritable: 2 = More than half the days Feeling afraid as if something awful might happen: 1 = Several days Total EUGENIO-7 score (0-4 normal; 5-9 mild; 10-14 moderate; 15-21 severe): 10 Source: Developed by Drs. Jelani Javier, Nayla Acharya, Rajan Woods and colleagues, with an educational diana from [employer]. Review of Systems Const All systems reviewed & are unremarkable except as noted in HPI and below Reports no additional complaints Eyes Reports no additional complaints ENT Reports no additional complaints Card Reports no additional complaints Resp Reports no additional complaints GI Reports no additional complaints Reports no additional complaints Physical exam (Primary Care) Vital Signs: Last Vital Signs Pulse 81 01/10/24 13:00 BP 126/68 01/10/24 13:00 Pulse Ox 97 01/10/24 13:00 Oxygen Delivery Method Room Air 01/10/24 13:00 BMI result Body Mass Index 39.3 Tobacco/Smoking Status: Tobacco use Status Tobacco use date assessed 01/10/24 01/10/24 13:13 Patient Tobacco Use Status Never used Tobacco 01/10/24 13:13 e-Cigarette/Vaping Use Never Used 01/10/24 13:01 Thrive Assessment: Date of Thrive Assessment Date Thrive assessed 01/08/23 01/10/24 13:01 Const General: no acute distress HENMT Head: Yes normal to inspection Ears: hearing grossly normal bilaterally General nose exam: Normal external nose present Face and sinus: Yes normal facial exam Eyes General: appearance normal, both eyes and all related structures Neck Neck: Yes no lymphadenopathy and Yes supple Resp Effort & Inspection: normal respiratory effort Auscultation: clear to auscultation bilaterally Cardio Rhythm: regular rhythm Heart sounds: S1 normal heart sound present and S2 normal heart sound present GI Inspection: Yes normal to inspection Palpation (GI): Soft to palpation Percussion: Yes normal to percussion Auscultation: normal bowel sounds Extrem General: Yes no clubbing, cyanosis or edema Assessment and Plan Assessment & Plan (1) Bipolar II disorder major depressive with atypical features: Comment: Follow-up with psychiatrist Code(s): F31.81 - Bipolar II disorder Plan: f/u psychiatry (2) Annual physical exam: Code(s): Z00.00 - Encounter for general adult medical examination without abnormal findings Plan: well balanced diet, increase exercise, weight loss discussed (3) Urinary retention: Code(s): R33.9 - Retention of urine, unspecified Plan: Obtain bladder and prostate scan to evaluate for urinary retention. Start finasteride and increase tamsulosin to 2 tablets q.h.s.. Follow-up in 2 month (4) Fatigue: Code(s): R53.83 - Other fatigue Plan: Increase levothyroxine to 137 mcg and check TSH and testosterone level in 2 months Orders: Orders TSH reflex Free T4 2 Months F31.81 - Bipolar II disorder, R53.83 - Other fatigue Testosterone, Free/Total 2 Months F31.81 - Bipolar II disorder, R53.83 - Other fatigue US bladder Today R33.9 - Retention of urine, unspecified US prostate volume Today R33.9 - Retention of urine, unspecified Medications: New levothyroxine 137 mcg PO DAILY 90 tabs 2RF finasteride 5 mg PO DAILY 90 tabs 3RF Refilled tamsulosin (Flomax) 0.4 mg PO BEDTIME 180 caps 1RF Discontinued levothyroxine Discontinued Reason: Doctor's Order 125 mcg PO DAILY 90 tabs 1RF Coding Level of Care Code Est Pt Prev Care 40-64y(60628) Diagnoses Bipolar II disorder major depressive with atypical features F31.81 Annual physical exam Z00.00 Urinary retention R33.9 Fatigue R53.83
== END 2024-01-10 13:51 | disposition home or self-care (01) ==
PROVIDERS: Visit Provider Internal Medicine
DX: F31.81 Bipolar II disorder (principal); Z00.00 Encounter for general adult medical examination without abnormal findings; R33.9 Retention of urine, unspecified; R53.83 Other fatigue
CPT/HCPCS: 99396

== ENCOUNTER 2024-01-20 15:20 | Outpatient (REF) | payer BC, SELFPAY ==
--- NOTE | ~2024-01-20 | US_ITS ---
EXAMINATION: US PELVIS LIMITED (BLADDER) CLINICAL INFORMATION: Retention of urine, unspecified. Prostate volume. COMPARISON: Ultrasound bladder 10/31/2021. CT abdomen and pelvis 09/29/2018. MRI abdomen 10/23/2017. Renal ultrasound 10/03/2017. TECHNIQUE: Real-time imaging of the bladder. FINDINGS: BLADDER: Partially distended, limiting evaluation. Bladder wall appears diffusely trabeculated and irregular with thickness of 4 mm, although evaluation limited due to suboptimal distention. Bilateral ureteral jets are demonstrated. Prevoid bladder volume is 111.0 mL. Postvoid bladder volume is 12.0 mL. ADDITIONAL FINDINGS: Prostate volume is 39 mL; however, measurements are of very limited accuracy as prostate is poorly visualized. US/US bladder IMPRESSION: Bladder wall appears diffusely trabeculated and irregular with thickness of 4 mm, although evaluation limited due to suboptimal distention. Prostate volume is 39 mL; however, measurements are of very limited accuracy as prostate is poorly visualized.
== END 2024-01-20 15:21 | disposition home or self-care (01) ==
LOC: HO.US 15:20
PROVIDERS: PCP Internal Medicine; Visit Provider Internal Medicine
DX: R33.9 Retention of urine, unspecified (principal)
CPT/HCPCS: 76857

== ENCOUNTER 2024-03-17 08:11 | Outpatient (REF) | payer BC, SELFPAY ==
[2024-03-17 11:03] LABS: TSH reflex Free T4 10.83 uIU/mL (0.32-4.0)
[2024-03-17 12:20] LABS: Free T4 (Free Thyroxine) 0.86 ng/dL (0.71-1.85)
[2024-03-21 15:08] LABS: Testosterone, Free 64.9 pg/mL (35.0-155.0); Testosterone, Total 349 ng/dL (250-1100)
== END 2024-03-17 08:12 | disposition home or self-care (01) ==
LOC: HO.HMGCLDS 08:11
PROVIDERS: PCP Internal Medicine; Visit Provider Internal Medicine
DX: F31.81 Bipolar II disorder (principal); R53.83 Other fatigue
CPT/HCPCS: 36415; 84402; 84403; 84439; 84443

== ENCOUNTER 2024-03-20 13:36 | Outpatient (AMB) | payer BC, SELFPAY ==
--- NOTE | 2024-03-20 14:13 | A.OFFPC_ITS ---
Vital Signs 03/20/24 14:15 Height 6 ft 2 in Weight 300 lb BMI 38.5 BP 118/66 Blood Pressure Location Rt brachial Position Sitting Pulse 94 Pulse Source Pulse Oximeter Pulse Oximetry (%) 97 Oxygen Delivery Method Room Air Intake Visit Reasons: 2 month follow up Hypothyroidism BPH Intake Note: Pt is here today for 2 months follow up visit on labs. Allergies acetone [ACETONE] Allergy (Severe, Verified 03/20/24 14:23) Unconscious Sulfa (Sulfonamide Antibiotics) [SULFA (SULFONAMIDE ANTIBIOTICS)] Allergy (Intermediate, Verified 03/20/24 14:23) eyes swelling aerosols, epoxy, glue Allergy (Intermediate, Uncoded 03/20/24 14:23) swelling in his eyes Medication List - Last Reconciled 03/20/24 by Kimberly Paula MD clonazepam 1 mg PO DAILY finasteride 5 mg PO DAILY levothyroxine 150 mcg PO DAILY lithium carbonate ER 600 mg PO BID tamsulosin (Flomax) 0.4 mg PO BEDTIME zolpidem 10 mg PO BEDTIME PRN Tobacco use date assessed: 01/10/24 Dental Screening Dental Screen Date: 01/10/24 HPI 2 month follow up Hypothyroidism BPH HPI Details Pt presents for f/u hypothyroid, BPH, stable on meds. Patient follows up with a psychiatrist and therapist for history of bipolar disorder acute psychotic episode 3 years ago. [facility] Medical History History of COVID-19 Sciatica Annual physical exam Lower back pain Knee pain, right Vitamin D deficiency B12 deficiency Neuropathy BPH (benign prostatic hyperplasia) Anxiety Depression Bipolar II disorder major depressive with atypical features Herniated disc Diverticula of colon Hypothyroidism Surgical History H/O colonoscopy H/O hand surgery H/O neck surgery Family History Father Unknown family medical history Mother Unknown family medical history Sister No problems noted. 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 Jelani Javier, Nayla Acharya, Rajan Woods and colleagues, with an educational diana from [employer]. Review of Systems Const All systems reviewed & are unremarkable except as noted in HPI and below Reports no additional complaints Eyes Reports no additional complaints ENT Reports no additional complaints Card Reports no additional complaints Resp Reports no additional complaints GI Reports no additional complaints Reports no additional complaints Musc Reports no additional complaints Physical exam (Primary Care) Vital Signs: Last Vital Signs Pulse 94 03/20/24 14:15 BP 118/66 03/20/24 14:15 Pulse Ox 97 03/20/24 14:15 Oxygen Delivery Method Room Air 03/20/24 14:15 BMI result Body Mass Index 38.5 Tobacco/Smoking Status: Tobacco use Status Tobacco use date assessed 01/10/24 03/20/24 14:14 Patient Tobacco Use Status Never used Tobacco 03/20/24 14:14 e-Cigarette/Vaping Use Never Used 03/20/24 14:14 Thrive Assessment: Date of Thrive Assessment Date Thrive assessed 01/10/24 03/20/24 14:14 Const General: no acute distress HENMT Face and sinus: Yes normal facial exam Eyes General: appearance normal, both eyes and all related structures Resp Effort & Inspection: normal respiratory effort Auscultation: clear to auscultation bilaterally Cardio Rhythm: regular rhythm Heart sounds: S1 normal heart sound present and S2 normal heart sound present GI Inspection: Yes normal to inspection Palpation (GI): Soft to palpation Percussion: Yes normal to percussion Auscultation: normal bowel sounds Assessment and Plan Assessment & Plan (1) Hypothyroid: Code(s): E03.9 - Hypothyroidism, unspecified Plan: Increase levothyroxine to 150 mcg check TSH in 2 months (2) Bipolar II disorder major depressive with atypical features: Comment: Follow-up with psychiatrist Code(s): F31.81 - Bipolar II disorder Plan: Patient follows up with a psychiatrist and therapist. He has in the process of changing psychiatrists and re-evaluating the need for his medications. (3) BPH (benign prostatic hyperplasia): Code(s): N40.0 - Benign prostatic hyperplasia without lower urinary tract symptoms Plan: Continue finasteride and tamsulosin and follow-up with the urologist. Patient will return for a physical with a fasting labs before (4) Hyperglycemia: Code(s): R73.9 - Hyperglycemia, unspecified Orders: Orders Complete Blood Count Auto Diff 9 Months E03.9 - Hypothyroidism, unspecified, E53.8 - Deficiency of other specified B group vitamins, R73.9 - Hyperglycemia, unspecified, Z00.00 - Encounter for general adult medical examination without abnormal findings TSH reflex Free T4 9 Months E03.9 - Hypothyroidism, unspecified, E53.8 - Deficiency of other specified B group vitamins, R73.9 - Hyperglycemia, unspecified, Z00.00 - Encounter for general adult medical examination without abnormal findings UA w Microscopic 9 Months E03.9 - Hypothyroidism, unspecified, E53.8 - Deficiency of other specified B group vitamins, R73.9 - Hyperglycemia, unspecified, Z00.00 - Encounter for general adult medical examination without abnormal findings Comprehensive [place]. Panel Fast 9 Months E03.9 - Hypothyroidism, unspecified, E53.8 - Deficiency of other specified B group vitamins, R73.9 - Hyperglycemia, unspecified, Z00.00 - Encounter for general adult medical examination without abnormal findings Lipid Panel 9 Months E03.9 - Hypothyroidism, unspecified, E53.8 - Deficiency of other specified B group vitamins, R73.9 - Hyperglycemia, unspecified, Z00.00 - Encounter for general adult medical examination without abnormal findings Coding Level of Care Code Est Pt Level 4 (90208) Diagnoses Hypothyroid E03.9 Bipolar II disorder major depressive with atypical features F31.81 BPH (benign prostatic hyperplasia) N40.0 Hyperglycemia R73.9
[2024-03-20 14:15] VITALS: BP 118/66; PULSE 94; O2SAT 97; BMI 38.5
== END 2024-03-20 15:03 | disposition home or self-care (01) ==
PROVIDERS: PCP Internal Medicine; Visit Provider Internal Medicine
DX: E03.9 Hypothyroidism, unspecified (principal); F31.81 Bipolar II disorder; N40.0 Benign prostatic hyperplasia without lower urinary tract symptoms; R73.9 Hyperglycemia, unspecified
CPT/HCPCS: 99214

== ENCOUNTER 2024-04-07 08:41 | Outpatient (AMB) | payer BC, SELFPAY ==
[2024-04-07 08:51] VITALS: BP 134/68; PULSE 80; O2SAT 96; BMI 38.2
--- NOTE | 2024-04-07 08:51 | AM.OFFWIN_ITS ---
Intake Vital Signs 3 04/07/24 08:51 Height 6 ft 2 in Weight 297 lb 6 oz BMI 38.2 BP 134/68 Blood Pressure Location Rt brachial Position Sitting Pulse 80 Pulse Source Pulse Oximeter Pulse Oximetry (%) 96 Oxygen Delivery Method Room Air Intake Visit Reasons: EP RT eye swellings/red Patient Tobacco Use Status: Never used Tobacco Allergies acetone [ACETONE] Allergy (Severe, Verified 04/07/24 08:51) Unconscious Sulfa (Sulfonamide Antibiotics) [SULFA (SULFONAMIDE ANTIBIOTICS)] Allergy (Intermediate, Verified 04/07/24 08:51) eyes swelling aerosols, epoxy, glue Allergy (Intermediate, Uncoded 03/20/24 14:23) swelling in his eyes Medication List - Last Reconciled 04/07/24 by Pat Bradley MD clonazepam 1 mg PO DAILY finasteride 5 mg PO DAILY levothyroxine 150 mcg PO DAILY lithium carbonate ER 600 mg PO BID tamsulosin (Flomax) 0.4 mg PO BEDTIME zolpidem 10 mg PO BEDTIME PRN Do you need a note to return to daycare/school/sports/work: No HPI EP RT eye swellings/red 2 HPI0 Details Patient is a 54-year-old male who is severely allergic to sulfa Went fishing a day before his right eye started swelling Swelling started yesterday and then this morning he woke up with severe swelling Patient says that it has happened numerous times before It is usually treated with steroids He did take Benadryl starting yesterday, patient says that the swelling has improved from before but he is now feeling swelling coming on over his left eye His vision is intact, there is no photophobia, there is no headache Review system reveals no nausea vomiting no swelling of lips or tongue or difficulty breathing there is no difficulty swallowing. [facility] Medical History History of COVID-19 Sciatica Annual physical exam Lower back pain Knee pain, right Vitamin D deficiency B12 deficiency Neuropathy BPH (benign prostatic hyperplasia) Anxiety Depression Bipolar II disorder major depressive with atypical features Herniated disc Diverticula of colon Hypothyroidism Surgical History H/O colonoscopy H/O hand surgery H/O neck surgery Family History Father Unknown family medical history Mother Unknown family medical history Sister No problems noted. 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 Swelling around the right eye, pupil reactive to light, EOMI, no discharge noted Resp Effort & Inspection: normal respiratory effort and able to speak in complete sentences Auscultation: clear to auscultation bilaterally Cardio Other: S1 S2 Neuro General: patient oriented x3 Psych Mental Status: mental status grossly normal Assessment & Plan Assessment & Plan (1) Allergic reaction: Code(s): T78.40XA - Allergy, unspecified, initial encounter Qualifiers: Encounter type: initial encounter Qualified Code(s): T78.40XA - Allergy, unspecified, initial encounter (2) Swelling of right eye: Code(s): H57.89 - Other specified disorders of eye and adnexa Plan Patient is a 54-year-old male who is severely allergic to sulfa Went fishing a day before his right eye started swelling Swelling started yesterday and then this morning he woke up with severe swelling Patient says that it has happened numerous times before It is usually treated with steroids He did take Benadryl starting yesterday, patient says that the swelling has improved from before but he is now feeling swelling coming on over his left eye His vision is intact, there is no photophobia, there is no headache Review system reveals no nausea vomiting no swelling of lips or tongue or difficulty breathing there is no difficulty swallowing. Medications: New 2 methylprednisolone (Medrol ([place])) PO PER PKG DIR 21 ea 0RF 6 days Coding Level of Care Code Est Pt Level 3 (53979) Diagnoses Allergic reaction, initial encounter T78.40XA Encounter type: initial encounter Swelling of right eye H57.89
== END 2024-04-07 09:16 | disposition home or self-care (01) ==
PROVIDERS: PCP Internal Medicine; Visit Provider Internal Medicine
DX: T78.40XA Allergy, unspecified, initial encounter (principal); H57.89 Other specified disorders of eye and adnexa
CPT/HCPCS: 99213

== ENCOUNTER 2024-04-24 09:29 | Outpatient (REF) | payer BC, SELFPAY ==
[2024-04-24 11:32] LABS: TSH reflex Free T4 6.05 uIU/mL (0.32-4.0)
[2024-04-24 12:32] LABS: Free T4 (Free Thyroxine) 0.85 ng/dL (0.71-1.85)
== END 2024-04-24 09:30 | disposition home or self-care (01) ==
LOC: HO.HMGCLDS 09:29
PROVIDERS: PCP Internal Medicine; Visit Provider Internal Medicine
DX: E03.9 Hypothyroidism, unspecified (principal)
CPT/HCPCS: 36415; 84439; 84443

== ENCOUNTER 2024-06-25 11:30 | Outpatient (AMB) | payer OTHER, SELFPAY ==
--- NOTE | 2024-06-25 12:07 | MHC.PC.OV ---
Vital Signs 06/25/24 12:08 Height 6 ft 2 in Weight 294 lb 4 oz BMI 37.8 BP 136/82 Blood Pressure Location Rt brachial Position Sitting Pulse 88 Pulse Source Pulse Oximeter Pulse Oximetry (%) 97 Oxygen Delivery Method Room Air Intake Visit Reasons: Regular visit Intake Note: Pt is here today for sore body, pt states he has been feeling sore for a bout a month ago, Pain is unbearable. Allergies acetone [ACETONE] Allergy (Severe, Verified 06/25/24 12:08) Unconscious Sulfa (Sulfonamide Antibiotics) [SULFA (SULFONAMIDE ANTIBIOTICS)] Allergy (Intermediate, Verified 06/25/24 12:08) eyes swelling aerosols, epoxy, glue Allergy (Intermediate, Uncoded 03/20/24 14:23) swelling in his eyes Medication List - Last Reconciled 06/25/24 by Kimberly Paula MD levothyroxine 150 mcg PO DAILY Tobacco use date assessed: 06/25/24 Dental Screening Dental Screen Date: 06/25/24 Did you have a dental visit in the last 12 months?: Yes Did you have a dental problem in the last 6 months where you did not have access to dental care?: No Was dental information given to patient?: Patient has dentist HPI Regular visit HPI Details Pt c/o general body aches and muscle stiffness and weakness, worse in AM for 2 months. He stopped taking lithium after discussion with his psychiatrist. Patient denies depression anxiety change in appetite or sleep pattern. Pt has been riding bike, doing yard work but feels whole-body soreness afterwards. Patient denies joint swelling erythema warmth or rashes. [facility] Medical History History of COVID-19 Sciatica Annual physical exam Lower back pain Knee pain, right Vitamin D deficiency B12 deficiency Neuropathy BPH (benign prostatic hyperplasia) Anxiety Depression Bipolar II disorder major depressive with atypical features Herniated disc Diverticula of colon Hypothyroidism Surgical History H/O colonoscopy H/O hand surgery H/O neck surgery Family History Father Unknown family medical history Mother Unknown family medical history Sister No problems noted. 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 1. Little interest or pleasure in doing things: not at all 2. Feeling down, depressed, or hopeless: not at all 3. Trouble falling or staying asleep, or sleeping too much: nearly every day 4. Feeling tired or having little energy: several days 5. Poor appetite or overeating: not at all 6. Feeling bad about yourself - or that you are a failure or have let yourself or your family down: not at all 7. Trouble concentrating on things, such as reading the newspaper or watching television: not at all 8. Moving or speaking so slowly that other people could have noticed. Or the opposite - being so fidgety or restless that you have been moving around a lot more than usual: several days 9. Thoughts that you would be better off or of hurting yourself in some way: not at all Total score: 5 Depression Screening Interpretation: Negative Depression Screening Done: Yes 86190 - PHQ-9 Billing: Yes Source: Developed by Drs. Jelani Javier, Nayla Acharya, Rajan Woods and colleagues, with an educational diana from [employer]. Thrive Questionnaire Date Thrive assessed: 06/25/24 I am a: Patient What is your living situation today?: I have a steady place to live Within the past 12 months, did the food you bought not last and you didn't have the money to get more?: Never true Within the past 12 months, did you worry whether your food would run out before you got money to buy more?: Never true Do you have trouble paying for medicines?: No Do you have trouble getting transportation to medical appointments?: No Do you have trouble paying your heating and electricity bill?: No Do you have trouble taking care of your child, family member or friend?: No Do you have trouble with day-to-day activities such as bathing, preparing meals, shopping, managing finances, etc.?: No Are you currently unemployed and looking for a job?: No Are you interested in more education?: No Please select the resources that you would like help with: None Currently or been in a relationship where the following occur: No concerns reported THRIVE Score: 0 AUDIT C Alcohol Use Questionnaire (AUDIT-C) 1. How often do you have a drink containing alcohol?: 2-3 times a week 2. How many drinks containing alcohol do you have on a typical day when you are drinking?: 1 or 2 3. How often do you have six or more drinks on one occasion?: Less than monthly Total Score: 4 Score Reviewed/Action Taken: Yes EUGENIO-7 AMB Questionnaire EUGENIO-7 Date EUGENIO - 7 assessed: 06/25/24 Feeling nervous, anxious, or on edge: 1 = Several days Not being able to stop or control worryin = Not at all Worrying too much about different things: 0 = Not at all Trouble relaxin = Several days Being so restless that it is hard to sit still: 1 = Several days Becoming easily annoyed or irritable: 0 = Not at all Feeling afraid as if something awful might happen: 0 = Not at all Total EUGENIO-7 score (0-4 normal; 5-9 mild; 10-14 moderate; 15-21 severe): 3 Source: Developed by Drs. Jelani Javier, Nayla Acharya, Rajan Woods and colleagues, with an educational diana from [employer]. EUGENIO-7 Assessment Billing EUGENIO-7 Assessment Tool: EUGENIO-7 Assessment 09171 Review of Systems Const All systems reviewed & are unremarkable except as noted in HPI and below Eyes Reports no additional complaints ENT Reports no additional complaints Card Reports no additional complaints Resp Reports no additional complaints GI Reports no additional complaints Reports no additional complaints Physical exam (Primary Care) Vital Signs: Last Vital Signs Pulse 88 06/25/24 12:08 BP 136/82 06/25/24 12:08 Pulse Ox 97 06/25/24 12:08 Oxygen Delivery Method Room Air 06/25/24 12:08 BMI result Body Mass Index 37.8 Tobacco/Smoking Status: Tobacco use Status Tobacco use date assessed 06/25/24 06/25/24 12:10 Patient Tobacco Use Status Never used Tobacco 06/25/24 12:10 e-Cigarette/Vaping Use Never Used 06/25/24 12:10 PHQ-9: PHQ-9 Score PHQ-9: Total score 5 06/25/24 12:16 Depression Screening Interpretation: Negative Thrive Assessment: Date of Thrive Assessment Date Thrive assessed 06/25/24 06/25/24 12:16 Currently or been in a relationship where the following occur: No concerns reported Const General: no acute distress HENMT Head: Yes normal to inspection Face and sinus: Yes normal facial exam Throat: Yes posterior oropharynx normal Neck Neck: Yes no lymphadenopathy and Yes supple Resp Effort & Inspection: normal respiratory effort Auscultation: clear to auscultation bilaterally Cardio Rhythm: regular rhythm Heart sounds: S1 normal heart sound present and S2 normal heart sound present GI Palpation (GI): Soft to palpation Percussion: Yes normal to percussion Auscultation: normal bowel sounds Skin General skin exam: no rashes or lesions noted Extrem Other: There is diffuse tenderness over both knees wrists elbows but no joint swelling erythema or warmth, no muscle tenderness General: Yes no clubbing, cyanosis or edema Assessment and Plan Assessment & Plan (1) Arthralgia: Code(s): M25.50 - Pain in unspecified joint Plan: Obtain blood work to rule out inflammatory arthritis, Orders: Orders Comprehensive [place]. Panel Fast Today M25.50 - Pain in unspecified joint Rheumatoid Factor Today M25.50 - Pain in unspecified joint Cyclic Citrullinated Peptide Today M25.50 - Pain in unspecified joint Vitamin B12 and Folate Today M25.50 - Pain in unspecified joint TSH reflex Free T4 Today M25.50 - Pain in unspecified joint Complete Blood Count Auto Diff Today M25.50 - Pain in unspecified joint Creatine Kinase Total Today M25.50 - Pain in unspecified joint Hepatitis B,C Profile Today M25.50 - Pain in unspecified joint Erythrocyte Sedimentation Rate Today M25.50 - Pain in unspecified joint GALE Reflex Titer and Pattern Today M25.50 - Pain in unspecified joint Lyme IgG/IgM w/reflex to WB Today M25.50 - Pain in unspecified joint Coding Level of Care Code Est Pt Level 3 (42976) Diagnoses Arthralgia M25.50 Additional Codes EUGENIO-7 Assessment Billing - EUGENIO-7 Assessment Tool: UEGENIO-7 Assessment 39888 ([id number])
[2024-06-25 12:08] VITALS: BP 136/82; PULSE 88; O2SAT 97; BMI 37.8
== END 2024-06-25 13:08 | disposition home or self-care (01) ==
PROVIDERS: PCP Internal Medicine; Visit Provider Internal Medicine
DX: M25.50 Pain in unspecified joint (principal)
CPT/HCPCS: 99213

== ENCOUNTER 2024-06-26 11:10 | Outpatient (REF) | payer OTHER, SELFPAY ==
[2024-06-26 13:18] LABS: MANUAL DIFF FLAG NO
[2024-06-26 13:28] LABS: Basophils Percent Auto 0.7 % (0-2); Eosinophils Absolute Auto 0.1 X10*3/uL (0.0-0.4); Eosinophils Percent Auto 1.5 % (0-4); Hematocrit 45.8 % (42.0-52.0); Imm Gran Abs Auto 0.03 X10*3/uL (0.00-0.03); Imm Gran Pct Auto 0.5 % (0.0-0.4); Lymphocytes Absolute Auto 2.5 X10*3/uL (1.2-4.9); Lymphocytes Percent Auto 41.6 % (20-40); Mean Corpuscular HGB Conc 34.9 g/dl (31.0-36.0); Mean Corpuscular Hemoglobin 32.1 pg (27.0-33.0); Mean Corpuscular Volume 91.8 fL (80.0-98.0); Mean Platelet Volume 9.7 fL (9.4-12.4); Monocytes Absolute Auto 0.5 X10*3/uL (0.1-1.2); Monocytes Percent Auto 7.5 % (2-11); Neutrophils Absolute Auto 2.9 x10*3/uL (2.0-8.3); Neutrophils Percent Auto 48.2 % (45-73); Platelet Count 232 X10*3/uL (160-400); Red Blood Count 4.99 X10*6/uL (4.60-5.80); Red Cell Distribution Width 12.1 % (11.0-16.0)
[2024-06-26 14:12] LABS: Erythrocyte Sedimentation Rate 5 MM/HR (0-15)
[2024-06-26 14:18] LABS: Alanine Aminotransferase 32 U/L (0-40); Albumin Level 4.1 g/dL (3.5-5.0); Alkaline Phosphatase 57 U/L (39-117); Anion Gap 13 (12-20); Aspartate Amino Transferase 18 U/L (5-37); Bilirubin Total 0.5 mg/dL (0.0-1.0); Blood Urea Nitrogen 17 mg/dL (9-16); Calcium 9.1 mg/dL (8.4-10.2); Carbon Dioxide 18 mmol/L (22-29); Chloride 112 mmol/L (96-108); Estimated Glomerular Filt Rate > 60; Glucose Fasting 97 mg/dL (60-99); Sodium 139 mmol/L (135-145); Total Protein 7.1 g/dL (6.5-8.0)
[2024-06-26 14:25] LABS: Rheumatoid Factor < 13.0 IU/mL (<15.0)
[2024-06-26 14:36] LABS: TSH reflex Free T4 3.66 uIU/mL (0.32-4.0)
[2024-06-26 14:38] LABS: Folate 13.1 ng/mL (> or = 4.0); Vitamin B12 289 pg/mL (200-900)
[2024-06-27 07:45] LABS: HBc Num1 0.08 S/CO (0.00-0.79); HBsAGNum1 0.46 S/CO (0.00-0.99); Hepatitis B Core Antibody Nonreactive (Nonreactive); Hepatitis B Surface Antigen Negative (Negative); ~HepC Num1 0.11 S/CO (0.00-0.79); ~Hepatitis B Surface Antibody NONREACTIVE (Nonreactive); ~Hepatitis C Antibody Nonreactive (Nonreactive)
[2024-06-29 18:04] LABS: Lyme Abs Screen <0.90 index
[2024-06-30 08:23] LABS: Anti Nuclear Antibody Screen NEGATIVE (NEGATIVE)
[2024-07-02 16:33] LABS: Cyclic Citrullinated Peptide <16 UNITS
== END 2024-06-26 11:11 | disposition home or self-care (01) ==
LOC: HO.HMGCLDS 11:10
PROVIDERS: PCP Internal Medicine; Visit Provider Internal Medicine
DX: M25.50 Pain in unspecified joint (principal)
CPT/HCPCS: 36415; 80053; 82550; 82607; 82746; 84443; 85025; 85652; 86038; 86200; 86431; 86617; 86618; 86704; 86706; 86803; 87340

== ENCOUNTER 2024-07-21 13:13 | Outpatient (AMB) | payer OTHER, SELFPAY ==
--- NOTE | 2024-07-21 13:18 | MHC.PC.OV ---
Vital Signs 07/21/24 13:19 Height 6 ft 2 in Weight 296 lb BMI 38.0 BP 136/70 Blood Pressure Location Lt brachial Position Sitting Pulse 95 Pulse Source Pulse Oximeter Pulse Oximetry (%) 96 Oxygen Delivery Method Room Air Intake Visit Reasons: 6 month f/u Intake Note: Pt is here today for 6 months follow up visit. Allergies acetone [ACETONE] Allergy (Severe, Verified 07/21/24 13:22) Unconscious Sulfa (Sulfonamide Antibiotics) [SULFA (SULFONAMIDE ANTIBIOTICS)] Allergy (Intermediate, Verified 07/21/24 13:22) eyes swelling aerosols, epoxy, glue Allergy (Intermediate, Uncoded 07/21/24 13:22) swelling in his eyes Medication List - Last Reconciled 07/21/24 by Kimberly Paula MD levothyroxine 150 mcg PO DAILY Tobacco use date assessed: 07/21/24 Dental Screening Dental Screen Date: 06/25/24 HPI 6 month f/u HPI Details Pt presents for f/u hypothyroid, stable on Levothyroxine. Pt c/o bilateral chronic persistent bilateral leg and arms numbness and achiness, worse when walking but also at night. he has a chronic lower back pain but was not found to be a surgical candidate for chronic disc herniations and spinal stenosis. Patient has been taking Aleve with some temporary relief. Patient had some relief from Gabapentin in the past. [facility] Medical History History of COVID-19 Sciatica Annual physical exam Lower back pain Knee pain, right Vitamin D deficiency B12 deficiency Neuropathy BPH (benign prostatic hyperplasia) Anxiety Depression Bipolar II disorder major depressive with atypical features Herniated disc Diverticula of colon Hypothyroidism Surgical History H/O colonoscopy H/O hand surgery H/O neck surgery Family History Father Unknown family medical history Mother Unknown family medical history Sister No problems noted. 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 Sexual orientation: Straight/Heterosexual Cognitive needs: No Hearing needs: No Vision needs: Yes Questionnaire Thrive Questionnaire Date Thrive assessed: 06/25/24 I am a: Patient What is your living situation today?: I have a steady place to live Within the past 12 months, did the food you bought not last and you didn't have the money to get more?: Never true Within the past 12 months, did you worry whether your food would run out before you got money to buy more?: Never true Do you have trouble paying for medicines?: No Do you have trouble getting transportation to medical appointments?: No Do you have trouble paying your heating and electricity bill?: No Do you have trouble taking care of your child, family member or friend?: No Do you have trouble with day-to-day activities such as bathing, preparing meals, shopping, managing finances, etc.?: No Are you currently unemployed and looking for a job?: No Are you interested in more education?: No Please select the resources that you would like help with: None Currently or been in a relationship where the following occur: No concerns reported THRIVE Score: 0 EUGENIO-7 AMB Questionnaire EUGENIO-7 Date EUGENIO - 7 assessed: 06/25/24 Source: Developed by Drs. Jelani Javier, Nayla Acharya, Rajan Woods and colleagues, with an educational diana from [employer]. Review of Systems Const All systems reviewed & are unremarkable except as noted in HPI and below Eyes Reports no additional complaints ENT Reports no additional complaints Card Reports no additional complaints Resp Reports no additional complaints GI Reports no additional complaints Physical exam (Primary Care) Vital Signs: Last Vital Signs Pulse 95 07/21/24 13:19 BP 136/70 07/21/24 13:19 Pulse Ox 96 07/21/24 13:19 Oxygen Delivery Method Room Air 07/21/24 13:19 BMI result Body Mass Index 38.0 Tobacco/Smoking Status: Tobacco use Status Tobacco use date assessed 07/21/24 07/21/24 13:23 Patient Tobacco Use Status Never used Tobacco 07/21/24 13:23 e-Cigarette/Vaping Use Never Used 07/21/24 13:23 Thrive Assessment: Date of Thrive Assessment Date Thrive assessed 06/25/24 07/21/24 13:23 Currently or been in a relationship where the following occur: No concerns reported Const General: no acute distress HENMT Mouth: Normal oral and palatal mucosa present Neck Neck: Yes supple Resp Effort & Inspection: normal respiratory effort Auscultation: clear to auscultation bilaterally Cardio Rhythm: regular rhythm Heart sounds: S1 normal heart sound present and S2 normal heart sound present GI Palpation (GI): Soft to palpation Percussion: Yes normal to percussion Auscultation: normal bowel sounds Extrem General: Yes full ROM (Large and small joints), Yes no joint enlargement and Yes no clubbing, cyanosis or edema Coding Level of Care Code Est Pt Level 3 (44608) Diagnoses Arthralgia M25.50 Lumbar stenosis M48.061 Hypothyroid E03.9 Annual physical exam Z00.00 Assessment & Plan Assessment & Plan (1) Arthralgia: Comment: Negative arthritis panel blood work Code(s): M25.50 - Pain in unspecified joint Category: Medical Plan: Supportive care discussed with the patient he will continue to take NSAIDs as needed. He is contemplating trying gabapentin again (2) Lumbar stenosis: Comment: no surgery indicated 08/12 Code(s): M48.061 - Spinal stenosis, lumbar region without neurogenic claudication Category: Medical Plan: Regular physical activity discussed with the patient (3) Hypothyroid: Code(s): E03.9 - Hypothyroidism, unspecified Category: Medical Plan: Continue levothyroxine (4) Annual physical exam: Code(s): Z00.00 - Encounter for general adult medical examination without abnormal findings Category: Medical Plan: Patient will return for physical in January Orders: Orders Complete Blood Count Auto Diff 7 Months E03.9 - Hypothyroidism, unspecified, Z00.00 - Encounter for general adult medical examination without abnormal findings Comprehensive [place]. Panel Fast 7 Months E03.9 - Hypothyroidism, unspecified, Z00.00 - Encounter for general adult medical examination without abnormal findings Lipid Panel 7 Months E03.9 - Hypothyroidism, unspecified, Z00.00 - Encounter for general adult medical examination without abnormal findings PSA,Total (Free>4and<10) 7 Months E03.9 - Hypothyroidism, unspecified, Z00.00 - Encounter for general adult medical examination without abnormal findings TSH reflex Free T4 7 Months E03.9 - Hypothyroidism, unspecified, Z00.00 - Encounter for general adult medical examination without abnormal findings UA w Microscopic 7 Months E03.9 - Hypothyroidism, unspecified, Z00.00 - Encounter for general adult medical examination without abnormal findings
[2024-07-21 13:19] VITALS: BP 136/70; PULSE 95; O2SAT 96; BMI 38.0
== END 2024-07-21 14:08 | disposition home or self-care (01) ==
PROVIDERS: PCP Internal Medicine; Visit Provider Internal Medicine
DX: M25.50 Pain in unspecified joint (principal); M48.061 Spinal stenosis, lumbar region without neurogenic claudication; E03.9 Hypothyroidism, unspecified; Z00.00 Encounter for general adult medical examination without abnormal findings

== ENCOUNTER → 2024-07-21 13:13 | Outpatient (BNVA) | payer OTHER, SELFPAY | PROVIDERS: PCP Internal Medicine; Visit Provider Internal Medicine | DX: M25.50 Pain in unspecified joint (principal); E03.9 Hypothyroidism, unspecified; M48.061 Spinal stenosis, lumbar region without neurogenic claudication | CPT/HCPCS: 99212 ==

== ENCOUNTER 2024-12-15 09:30 | Outpatient (AMB) | payer OTHER, SELFPAY ==
--- NOTE | 2024-12-15 09:53 | MHC.PC.OV ---
Vital Signs 12/15/24 09:55 Height 6 ft 2 in Weight 305 lb 6 oz BMI 39.2 BP 130/64 Blood Pressure Location Lt brachial Position Sitting Pulse 75 Pulse Source Pulse Oximeter Temp 97.1 F Temp Source Temporal Artery Scan Pulse Oximetry (%) 96 Oxygen Delivery Method Room Air Intake Visit Reasons: BRENDA Dr Paula/ riddhi strong Intake Note: Patient is here today for BRENDA from Dr Paula Liberal Arts Dean Required: No Glass Melt Operator: Not Required per policy Accompanied by: Self / Same As Patient Allergies acetone [ACETONE] Allergy (Severe, Verified 12/15/24 10:02) Unconscious Sulfa (Sulfonamide Antibiotics) [SULFA (SULFONAMIDE ANTIBIOTICS)] Allergy (Intermediate, Verified 12/15/24 10:02) eyes swelling aerosols, epoxy, glue Allergy (Intermediate, Uncoded 12/15/24 10:02) swelling in his eyes Medication List - Last Reconciled 12/15/24 by Ruben Hoff PA-C levothyroxine 150 mcg PO DAILY Tobacco use date assessed: 12/15/24 Dental Screening Dental Screen Date: 12/15/24 Did you have a dental visit in the last 12 months?: Yes Did you have a dental problem in the last 6 months where you did not have access to dental care?: No Was dental information given to patient?: Patient has dentist HPI BRENDA Dr Paula/ riddhi strong HPI Details Patient is a 54-year-old male here today for a transfer of care visit. Previous PCP was at a [facility] primary care office. Patient has a past medical history significant hypothyroidism, lumbar stenosis, obesity, bipolar 2 disorder. Concern--> Patient has been experiencing vertigo episodes mimic symptoms experienced by his father, who had Meniere?s Disease, with recent episodes causing severe dizziness and nausea, which last several days. .. Hypothyroidism: Continues on levothyroxine 150 mcg with good effect. Most recent TSH has been stable. Will continue to check TSH to assure normal. ... Lumbar stenosis: Continues to have lower back pain and was evaluated by surgeon though was not a surgical candidate. Reports he has used gabapentin in the past which has reduce some of his lower lumbar spine pain. He is open to restarting gabapentin on an as needed basis for lower back pain. persistent joint and back pain, alongside episodes of vertigo. The joint pain encompasses the knees, ankles, and lower back, significantly impacting his mobility and quality of life. The symptoms began approximately two and a half years ago and have progressively worsened. Despite undergoing various tests, including Lyme and rheumatological panels which returned negative, the patient reports significant stiffness and difficulty moving, especially in the mornings. He has undergone neck surgery previously and reports similar pain patterns throughout different body sites, leading to concerns about future immobility. The patient has previously managed pain with medications like ibuprofen and gabapentin and underwent spinal injections approximately four years ago, receiving temporary relief. [facility], LAT[facility] Medical History History of COVID-19 Sciatica Annual physical exam Lower back pain Knee pain, right Vitamin D deficiency B12 deficiency Neuropathy BPH (benign prostatic hyperplasia) Anxiety Depression Bipolar II disorder major depressive with atypical features Herniated disc Diverticula of colon Hypothyroidism Surgical History H/O colonoscopy H/O hand surgery H/O neck surgery Family History Father Unknown family medical history Mother Unknown family medical history Sister No problems noted. 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 1. Little interest or pleasure in doing things: not at all 2. Feeling down, depressed, or hopeless: not at all 3. Trouble falling or staying asleep, or sleeping too much: not at all 4. Feeling tired or having little energy: not at all 5. Poor appetite or overeating: not at all 6. Feeling bad about yourself - or that you are a failure or have let yourself or your family down: not at all 7. Trouble concentrating on things, such as reading the newspaper or watching television: not at all 8. Moving or speaking so slowly that other people could have noticed. Or the opposite - being so fidgety or restless that you have been moving around a lot more than usual: not at all 9. Thoughts that you would be better off or of hurting yourself in some way: not at all Total score: 0 Depression Screening Interpretation: Negative Depression Screening Done: Yes 46098 - PHQ-9 Billing: Yes Source: Developed by Drs. Jelani Javier, Nayla Acharya, Rajan oWods and colleagues, with an educational diana from [employer]. Thrive Questionnaire Date Thrive assessed: 12/15/24 AUDIT C Alcohol Use Questionnaire (AUDIT-C) 1. How often do you have a drink containing alcohol?: 2-3 times a week 2. How many drinks containing alcohol do you have on a typical day when you are drinking?: 1 or 2 Total Score: 3 EUGENIO-7 AMB Questionnaire EUGENIO-7 Date EUGENIO - 7 assessed: 12/15/24 Feeling nervous, anxious, or on edge: 0 = Not at all Not being able to stop or control worryin = Not at all Worrying too much about different things: 0 = Not at all Trouble relaxin = Not at all Being so restless that it is hard to sit still: 0 = Not at all Becoming easily annoyed or irritable: 0 = Not at all Feeling afraid as if something awful might happen: 0 = Not at all Total EUGENIO-7 score (0-4 normal; 5-9 mild; 10-14 moderate; 15-21 severe): 0 Source: Developed by Drs. Jelani Javier, Nayla Acharya, Rajan Woods and colleagues, with an educational diana from [employer]. EUGENIO-7 Assessment Billing EUGENIO-7 Assessment Tool: EUGENIO-7 Assessment 75864 Review of Systems Const Denies headache(s) Eyes Denies loss of vision ENT Denies vertigo, Denies dizziness, Denies headache(s) and Denies sore throat Card Denies chest pain, Denies leg edema and Denies lightheadedness Resp Denies cough, Denies hemoptysis and Denies wheezing GI Denies abdominal pain, Denies melena, Denies constipation, Denies diarrhea and Denies vomiting Denies dysuria, Denies urinary frequency and Denies urinary urgency Musc Reports back pain, Reports arthralgias, Reports joint swelling, Reports limited range of motion, Denies numbness and Denies tingling Neuro Denies Abnormal speech present, Denies behavioral changes, Denies vertigo, Denies dizziness, Denies headache(s), Denies loss of vision, Denies memory loss, Denies numbness and Denies tingling Psych Denies anxiety, Denies behavioral changes, Denies depression, Denies memory loss and Denies panic attacks Luis/Lymph Denies easy bleeding and Denies easy bruising Aller/Immun Denies wheezing Physical exam (Primary Care) Vital Signs: Last Vital Signs Temp 97.1 F 12/15/24 09:55 Pulse 75 12/15/24 09:55 BP 130/64 12/15/24 09:55 Pulse Ox 96 12/15/24 09:55 Oxygen Delivery Method Room Air 12/15/24 09:55 BMI result Body Mass Index 39.2 Tobacco/Smoking Status: Tobacco use Status Tobacco use date assessed 12/15/24 12/15/24 09:59 Patient Tobacco Use Status Never used Tobacco 12/15/24 09:59 e-Cigarette/Vaping Use Never Used 12/15/24 09:59 PHQ-9: PHQ-9 Score PHQ-9: Total score 0 12/15/24 10:04 Depression Screening Interpretation: Negative Thrive Assessment: Date of Thrive Assessment Date Thrive assessed 12/15/24 12/15/24 09:59 Const General: healthy appearing, no acute distress, alert and awake Nutritional Appearance: well nourished Orientation/consciousness: oriented to person, oriented to place and oriented to time HENMT Ears: TM's normal bilaterally General nose exam: Normal nasal mucous membranes and turbinates present Eyes Conjunctivae: conjunctivae normal Sclerae: sclerae normal Pupils: Equal, round and reactive pupils present Neck Neck: Yes no lymphadenopathy and Yes no JVD Thyroid: Thyroid normal Carotids: no bruits Resp Effort & Inspection: normal respiratory effort and not tachypneic Auscultation: no crackles, no rales, no rhonchi and no wheezes Cardio Rate: regular rate Rhythm: regular rhythm Heart sounds: no murmurs and normal S1 and S2 GI Palpation (GI): Soft to palpation, nontender, no hepatomegaly and no splenomegaly Auscultation: normal bowel sounds Skin General skin exam: no rashes or lesions noted and dry skin Neuro General: oriented to person, oriented to place and oriented to time Cranial nerves: Yes Equal, round and reactive pupils present Speech: No Abnormal speech present Gait exam (Neuro): Normal gait present Motor exam (neuro): no tremor noted Extrem Other: HANDS: APPEAR SOMEWHAT SWOLLEN AROUND JOINTS. Right upper extremity: full ROM Left upper extremity: full ROM Right lower extremity: full ROM; no edema Left lower extremity: full ROM; no edema Psych Mental Status: mental status grossly normal Speech and movement: Normal speech and movement present Affect: normal affect Attitude: cooperative Thought process: Normal thought process present Coding Level of Care Code Est Pt Level 4 (71689) Diagnoses Polyarthralgia M25.50 Spinal stenosis of lumbar region with neurogenic claudication M48.062 Neurogenic claudication status: with neurogenic claudication Benign paroxysmal positional vertigo due to bilateral vestibular disorder H81.13 Laterality: bilateral Screening for diabetes mellitus (DM) Z13.1 Hypothyroidism, unspecified type E03.9 Hypothyroidism type: unspecified Additional Codes PHQ-9 - 94630 - PHQ-9 Billing: Yes ([id number]) EUGENIO-7 Assessment Billing - EUGENIO-7 Assessment Tool: EUGENIO-7 Assessment 95230 ([id number]) Assessment & Plan Assessment & Plan (1) Polyarthralgia: Code(s): M25.50 - Pain in unspecified joint Category: Medical Plan: Unclear etiology to patient's polyarthralgia. Has been test with GALE, rheumatoid factor and Lyme testing all are negative. He continues to have pain in multiple joints including his hands wrists, knees and hips. He mostly has a lot of pain in his back as well. He reports a large disruption in his ability to do housework and be more physically active to lose weight. Will consider rheumatology evaluation . Will trial a prednisone taper to see if effective for his arthritic pain. (2) Lumbar stenosis: Comment: no surgery indicated 08/12 Code(s): M48.061 - Spinal stenosis, lumbar region without neurogenic claudication Category: Medical Qualifiers: Neurogenic claudication status: with neurogenic claudication Qualified Code(s): M48.062 - Spinal stenosis, lumbar region with neurogenic claudication Plan: Has a history of lower lumbar spine stenosis. Recently evaluated by surgeon though was not a surgical candidate. He continues to lower back pain on a daily basis that hinders his ability to be more physically active and do house chores. He is now retired. He has used gabapentin in the past that did relieve some of his lower back pain in his willing to try it on as needed basis again. We did discuss the possibility of trying aquatic therapy. He is also open to the idea of seeing pain management for possible pain reduction modality. (3) BPPV (benign paroxysmal positional vertigo): Code(s): H81.10 - Benign paroxysmal vertigo, unspecified ear Category: Medical Qualifiers: Laterality: bilateral Qualified Code(s): H81.13 - Benign paroxysmal vertigo, bilateral Plan: Patient has a family history of Meniere's disease. He does report having episode recently of acute dizziness when sitting up from bed. He does report his symptoms linger for few days then clear. He is interested in as needed medication for his dizziness. (4) Screening for diabetes mellitus (DM): Code(s): Z13.1 - Encounter for screening for diabetes mellitus Category: Medical Plan: As per HPI (5) Hypothyroid: Code(s): E03.9 - Hypothyroidism, unspecified Category: Medical Qualifiers: Hypothyroidism type: unspecified Qualified Code(s): E03.9 - Hypothyroidism, unspecified Plan: Continues on 150 mcg of levothyroxine. Has gained weight over last few months.. Will recheck TSH to ensure stable and make adjustments per results. Orders: Orders Prostate Specific Antigen Scr 12/15/24 N40.0 - Benign prostatic hyperplasia without lower urinary tract symptoms, Z12.5 - Encounter for screening for malignant neoplasm of prostate Vitamin D 25-OH Total 12/15/24 E55.9 - Vitamin D deficiency, unspecified Lipid Panel 12/15/24 E55.9 - Vitamin D deficiency, unspecified Comprehensive [place]. Panel Fast 12/15/24 Z13.1 - Encounter for screening for diabetes mellitus Complete Blood Count no Diff 12/15/24 Z13.1 - Encounter for screening for diabetes mellitus Erythrocyte Sedimentation Rate 12/15/24 M25.50 - Pain in unspecified joint CRP High Sensitivity 12/15/24 M25.50 - Pain in unspecified joint Hemoglobin A1c 12/15/24 R73.9 - Hyperglycemia, unspecified TSH reflex Free T4 12/15/24 E03.9 - Hypothyroidism, unspecified Referrals Pain Management Referral M48.062 - Spinal stenosis, lumbar region with neurogenic claudication Rheumatology Referral M25.50 - Pain in unspecified joint Medications: New prednisone see taper instructions 5 mg PO DIRECTED 18 tabs 0RF 9 days M48.062 - Spinal stenosis, lumbar region with neurogenic claudication meclizine 25 mg PO BID PRN 20 tabs 0RF dizziness 10 days H81.13 - Benign paroxysmal vertigo, bilateral gabapentin 300 mg PO BEDTIME PRN 30 caps 3RF pain (scale score 7-10) 30 days M48.062 - Spinal stenosis, lumbar region with neurogenic claudication Patient Instructions: Goal: Reduce joint pain and swelling, controlled hypothyroidism :Barriers: Adherence to physical activity and healthy eating habits
[2024-12-15 09:55] VITALS: BP 130/64; PULSE 75; TEMP 36.2; O2SAT 96; BMI 39.2
== END 2024-12-15 10:38 | disposition home or self-care (01) ==
PROVIDERS: PCP Internal Medicine; Visit Provider Physician Assistant
DX: M25.50 Pain in unspecified joint (principal); M48.062 Spinal stenosis, lumbar region with neurogenic claudication; H81.13 Benign paroxysmal vertigo, bilateral; Z13.1 Encounter for screening for diabetes mellitus; E03.9 Hypothyroidism, unspecified

== ENCOUNTER 2024-12-15 09:30 | Outpatient (REF) | payer OTHER, SELFPAY ==
[2024-12-15 13:34] LABS: Hematocrit 44.4 % (42.0-52.0); Hemoglobin 15.5 g/dl (14.0-18.0); Mean Corpuscular HGB Conc 34.9 g/dl (31.0-36.0); Mean Corpuscular Hemoglobin 32.2 pg (27.0-33.0); Mean Corpuscular Volume 92.3 fL (80.0-98.0); Mean Platelet Volume 9.8 fL (9.4-12.4); Platelet Count 242 X10*3/uL (160-400); Red Blood Count 4.81 X10*6/uL (4.60-5.80); Red Cell Distribution Width 12.5 % (11.0-16.0)
[2024-12-15 13:49] LABS: Estimated Average Glucose 100 mg/dL; Hemoglobin A1C 132.3307 umol/L; Hemoglobin A1c % 5.1 % (<6.0); Total Hemoglobin (HGBA1C) 4046.5591 umol/L
[2024-12-15 13:54] LABS: Alanine Aminotransferase 32 U/L (0-40); Albumin Level 4.2 g/dL (3.5-5.0); Alkaline Phosphatase 78 U/L (39-117); Anion Gap 10 (12-20); Aspartate Amino Transferase 26 U/L (5-37); Bilirubin Total 0.6 mg/dL (0.0-1.0); Blood Urea Nitrogen 17 mg/dL (9-16); Calcium 9.1 mg/dL (8.4-10.2); Carbon Dioxide 23 mmol/L (22-29); Chloride 111 mmol/L (96-108); Cholesterol 191 mg/dL (<200); Estimated Glomerular Filt Rate > 60; Glucose Fasting 94 mg/dL (60-99); HDL Cholesterol 51 mg/dL (>40); LDL Cholesterol Calculated 121 mg/dL (<100); Potassium 4.3 mmol/L (3.3-5.1); Sodium 140 mmol/L (135-145); TSH reflex Free T4 8.18 uIU/mL (0.32-4.0); Total Protein 7.5 g/dL (6.5-8.0); Triglycerides 96 mg/dL (<150); Vitamin D 25-OH Total 33.1 ng/mL (>30)
[2024-12-15 14:04] LABS: Erythrocyte Sedimentation Rate 6 MM/HR (0-15)
[2024-12-15 14:12] LABS: Prostate Specific Antigen Scr 0.37 ng/mL (<0.05-4.0)
[2024-12-15 16:27] LABS: Free T4 (Free Thyroxine) 0.94 ng/dL (0.71-1.85)
[2024-12-16 20:09] LABS: CRP High Sensitivity 3.9 mg/L
== END 2024-12-15 09:31 | disposition home or self-care (01) ==
LOC: HO.HMGCLDS 09:30
PROVIDERS: PCP Physician Assistant; Visit Provider Physician Assistant
DX: M25.50 Pain in unspecified joint (principal); M48.062 Spinal stenosis, lumbar region with neurogenic claudication; H81.13 Benign paroxysmal vertigo, bilateral; E03.9 Hypothyroidism, unspecified; Z79.899 Other long term (current) drug therapy; N40.0 Benign prostatic hyperplasia without lower urinary tract symptoms; E55.9 Vitamin D deficiency, unspecified; R73.9 Hyperglycemia, unspecified; Z13.1 Encounter for screening for diabetes mellitus; Z12.5 Encounter for screening for malignant neoplasm of prostate
CPT/HCPCS: 36415; 80053; 80061; 82306; 83036; 84153; 84439; 84443; 85027; 85652; 86141; 96127; 99212

== ENCOUNTER 2025-01-01 09:40 | Outpatient (AMB) | payer OTHER, SELFPAY ==
--- NOTE | 2025-01-01 09:43 | MHC.OFFVIS ---
Vital Signs 01/01/25 09:45 Height 6 ft 2 in Weight 303 lb BMI 38.9 BP 149/80 H Blood Pressure Location Lt brachial Position Sitting Respiration 16 Pulse 78 Pulse Source Pulse Oximeter Pulse Oximetry (%) 97 Oxygen Delivery Method Room Air Intake Visit Reasons: Spinal stenosis, lumbar reg Cytogenetic Technologist Required: No Allergies acetone [ACETONE] Allergy (Severe, Verified 01/01/25 09:46) Unconscious Sulfa (Sulfonamide Antibiotics) [SULFA (SULFONAMIDE ANTIBIOTICS)] Allergy (Intermediate, Verified 01/01/25 09:46) eyes swelling aerosols, epoxy, glue Allergy (Intermediate, Uncoded 01/01/25 09:46) swelling in his eyes Medication List - Last Reconciled 01/01/25 by Lauryn Etienne LPN gabapentin 300 mg PO BEDTIME PRN 30 days levothyroxine 175 mcg PO DAILY HPI HPI Spinal stenosis, lumbar reg: Details: History of Present Illness The patient is a 54-year-old male presenting with longstanding low back pain. This pain began over a decade ago and is described as both aching and stabbing, with an intensity ranging from 8/10 to 10/10. It primarily affects the axial lower back and worsens with physical activity, while it alleviates partially when lying flat. His medical history includes cervical disc degeneration and a previous cervical decompression with spacer placement. For low back, despite trying NSAIDs, gabapentin, and spinal injections, the patient has only experienced temporary relief. A 2022 MRI indicated Modic type 2 changes at L5-S1, although no surgical intervention was recommended due to the lack of nerve compression. His pain has significantly impacted his life, leading to substantial weight gain and impairing daily activities. The patient remains committed to addressing the pain to engage in physical activities that may stall the progression of his condition. Pain Description - Onset and Timing: Ongoing for over 10 years - Quality and Character: Aching and stabbing sensation - Primary Location: Axial lower back - Severity: 8 to 10/10 - Exacerbating Factors: Physical activity, rising from sitting to standing - Relieving Factors: Lying flat - Interference: Inability to sleep normally and perform daily activities Physical Exam - Musculoskeletal- Pain on axial loading with both lateral and forward flexion Results - MRI (2022): Significant Modic type 2 changes at L5-S1 inferior and superior endplates, respectively Pain Management - Affect: Frustration expressed by the patient due to limited physical activity and weight gain - Analgesia: Currently taking gabapentin PRN, pain rated 8 to 10/10, goal to reduce pain for increased activity - Adverse Effects: None stated - Activities of Daily Living: Interference with sleeping and daily functions; goal to return to cycling and core strengthening - Aberrant Drug-Related Behaviors: None noted [facility] Medical History History of COVID-19 Sciatica Annual physical exam Lower back pain Knee pain, right Vitamin D deficiency B12 deficiency Neuropathy BPH (benign prostatic hyperplasia) Anxiety Depression Bipolar II disorder major depressive with atypical features Herniated disc Diverticula of colon Hypothyroidism Surgical History H/O colonoscopy H/O hand surgery H/O neck surgery Family History Father Unknown family medical history Mother Unknown family medical history Sister No problems noted. 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 TECHNIQUE: Multiplanar, multisequence MRI of the lumbar spine was performed without intravenous contrast. COMPARISON: MRI lumbar spine 02/20/2022. FINDINGS: This study assumes 5 nonrib-bearing lumbar-type vertebral bodies. There is minimal retrolisthesis of L2 on L3. Alignment is otherwise preserved. Mild to moderate chronic compression deformity of L2 is unchanged from prior examination. Vertebral body heights are otherwise maintained. Marrow signal is heterogeneous. Modic 2 degenerative endplate changes are present at L5-S1. No suspicious marrow lesions are seen. Intervertebral disc spaces are desiccated at L1-2 and L2-3 with mild to moderate loss of disc space, and at L5-S1 with severe loss of disc space. The conus demonstrates normal signal and caliber, with a normal termination at L2. There is nonspecific edema in the subcutaneous fat of the lower back. Mild fatty atrophy of the posterior paraspinal musculature is noted. Findings by level: T12-L1: No significant disc herniation, central stenosis, or neural foraminal narrowing. L1-2: No significant disc herniation, central stenosis, or neural foraminal narrowing. L2-3: Mild broad-based disc osteophyte complex. No significant central stenosis. Minimal bilateral neural foraminal narrowing. L3-4: Mild broad-based disc bulge and mild facet hypertrophy and ligamentum flavum infolding, with mild prominence of dorsal epidural fat. No significant central stenosis. Mild bilateral neural foraminal narrowing. L4-5: Mild broad-based disc bulge, eccentric to the left, along with moderate bilateral facet hypertrophy, with mild facet effusions. There is also circumferential prominence of epidural fat. Mild central stenosis. Mild to moderate bilateral neural foraminal narrowing with contact of the exiting L4 nerve roots by facet spurs. L5-S1: Broad-based disc osteophyte complex and bilateral facet hypertrophy. No significant central stenosis. Mild to moderate bilateral neural foraminal narrowing. Findings are fairly similar to the prior examination. IMPRESSION: Degenerative changes of the lumbar spine as detailed above, fairly similar to prior. Assessment & Plan Assessment & Plan (1) Vertebrogenic low back pain: Code(s): M54.51 - Vertebrogenic low back pain Category: Medical Plan Plan Discussed BVN ablation at L4, L5, S1 as next step for primarily vertebrogenic LBP refractory to multiple conservative and interventional therapies to date. Following this procedure, any residual issues such as multifidus atrophy and spondylosis will be addressed. The patient consented to the plan, which aims to relieve his pain and facilitate the resumption of activities crucial for his condition's management.: Patient was informed and verbally consented to the use of an ambient scribe for clinic note documentation during this visit. Discussion Notes During the consultation, I explained to the patient that his chronic low back pain is primarily due to vertebral disc degeneration at the L5-S1 level with associated vertebrogenic features. The most effective approach is the intercept procedure to target the inflamed vertebral endplates. We discussed the procedure?s benefits, potential risks, and expected outcomes. I assured the patient that there is no current nerve compression warranting surgery and emphasized the importance of managing his weight and returning to physical activity as part of his recovery plan. The patient was informed about seeking insurance approval and agreed to proceed. He was advised on symptoms to monitor and report immediately. Patient Instructions - Prepare for the Basivertebral nerve ablation/intercept procedure; expect a call regarding scheduling - Maintain physical activity as tolerated and focus on back-friendly exercises - Monitor and report any significant changes in symptoms - Avoid activities that exacerbate pain until clearance is given - Continue taking gabapentin PRN for pain management Coding Level of Care Code New Pt Level 4 (52100) Diagnoses Vertebrogenic low back pain M54.51
[2025-01-01 09:45] VITALS: BP 149/80; PULSE 78; RESP 16; O2SAT 97; BMI 38.9
== END 2025-01-01 10:27 | disposition home or self-care (01) ==
LOC: HO.PMC 09:40
PROVIDERS: PCP Physician Assistant; Visit Provider Internal Medicine
DX: M54.51 Vertebrogenic low back pain (principal)
CPT/HCPCS: 99204

== ENCOUNTER → 2025-01-01 09:40 | Outpatient (BNVA) | payer OTHER, SELFPAY | PROVIDERS: PCP Physician Assistant; Visit Provider Internal Medicine | DX: M54.51 Vertebrogenic low back pain (principal) | CPT/HCPCS: 99202 ==

== ENCOUNTER 2025-01-19 08:47 | Outpatient (AMB) | payer OTHER, SELFPAY ==
--- NOTE | 2025-01-19 09:03 | A.OFFPC_ITS ---
Vital Signs 01/19/25 09:04 Height 6 ft 2 in Weight 303 lb BMI 38.9 BP 142/82 H Blood Pressure Location Lt brachial Position Sitting Pulse 92 Pulse Source Pulse Oximeter Temp 97.1 F Temp Source Temporal Artery Scan Pulse Oximetry (%) 98 Oxygen Delivery Method Room Air Intake Visit Reasons: annual exam Program Aide Group Work Required: No Accompanied by: Self / Same As Patient Allergies acetone [ACETONE] Allergy (Severe, Verified 01/19/25 09:20) Unconscious Sulfa (Sulfonamide Antibiotics) [SULFA (SULFONAMIDE ANTIBIOTICS)] Allergy (Intermediate, Verified 01/19/25 09:20) eyes swelling aerosols, epoxy, glue Allergy (Intermediate, Uncoded 01/19/25 09:20) swelling in his eyes Medication List - Last Reconciled 01/19/25 by Ruben Hoff PA-C gabapentin 300 mg PO BEDTIME PRN 30 days levothyroxine 175 mcg PO DAILY Tobacco use date assessed: 12/15/24 Dental Screening Dental Screen Date: 12/15/24 HPI annual exam HPI Details Patient is a 54-year-old male here today for annual physical. Patient has a past medical history significant hypothyroidism, lumbar stenosis, obesity, bipolar 2 disorder. Concern--> Patient complains of ongoing insomnia and related difficulties in maintaining a sleep routine. A past prescription for Zolpidem (Ambien) aided in sleep but usage has been sparse due to concerns about dependency. He does report getting a sleep study in the past and was told he had obstructive sleep apnea though use the CPAP machine though did not help him with his sleeping issues. .. Class 2 obesity: Unfortunately was not able to lose much weight since last off ice visit. He was noted to have elevated TSH to which we have increased his levothyroxine dose. Will repeat his TSH to ensure better functioning thyroid. He is concerned about testosterone and will like his testosterone checked. Most recent testosterone was checked in 2023 which was normal at 350 .. Hypothyroidism: Most recent labs showing elevated TSH. We increased his levothyroxine dose. ... Lumbar stenosis: Continues to have lower back pain and was evaluated by surgeon though was not a surgical candidate. He does report gabapentin has been somewhat helpful for his joint pains and lower back pain. He has followed up with [facility] and reports he is a candidate for surgical nerve procedure. PLAN: Will increase his gabapentin to 300 b.i.d. for better pain control. --> also has an upcoming appointment [facility] in March of 2025 for his polyarthralgia and elevated inflammatory markers. Vaccines: Up-to-date with COVID and tetanus, considering Shingrex Colorectal cancer screening: Colonoscopy done in 2021 need repeat in 5 years Laboratory Tests 06/26/24 12/15/24 11:15 11:13 RBC 4.81 Creatinine 0.77 Hemoglobin A1c % 5.1 C-React Prot High Sens 3.9 H Cholesterol 191 LDL Cholesterol, C alc 121 H TSH 3.66 8.18 H PFSH Medical History History of COVID-19 Sciatica Annual physical exam Lower back pain Knee pain, right Vitamin D deficiency B12 deficiency Neuropathy BPH (benign prostatic hyperplasia) Anxiety Depression Bipolar II disorder major depressive with atypical features Herniated disc Diverticula of colon Hypothyroidism Surgical History H/O colonoscopy H/O hand surgery H/O neck surgery Family History (Updated 01/19/25 @ 09:26 by Ruben Hoff PA-C) Father Unknown family medical history Afib CHF (congestive heart failure) ILD (interstitial lung disease) Mother Unknown family medical history Sister No problems noted. 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 1. Little interest or pleasure in doing things: several days 2. Feeling down, depressed, or hopeless: several days 3. Trouble falling or staying asleep, or sleeping too much: more than half the days 4. Feeling tired or having little energy: not at all 5. Poor appetite or overeating: not at all 6. Feeling bad about yourself - or that you are a failure or have let yourself or your family down: not at all 7. Trouble concentrating on things, such as reading the newspaper or watching television: not at all 8. Moving or speaking so slowly that other people could have noticed. Or the opposite - being so fidgety or restless that you have been moving around a lot more than usual: several days 9. Thoughts that you would be better off or of hurting yourself in some way: not at all Total score: 5 Depression Screening Interpretation: Positive Depression Screening Follow-up: Existing condition Depression Screening Done: Yes 24288 - PHQ-9 Billing: Yes Source: Developed by Drs. Jelani Javier, Nayla Acharya, Rajan Woods and colleagues, with an educational diana from [employer]. Thrive Questionnaire Date Thrive assessed: 01/19/25 I am a: Patient What is your living situation today?: I have a steady place to live Within the past 12 months, did the food you bought not last and you didn't have the money to get more?: Never true Within the past 12 months, did you worry whether your food would run out before you got money to buy more?: Never true Do you have trouble paying for medicines?: No Do you have trouble getting transportation to medical appointments?: No Do you have trouble paying your heating and electricity bill?: No Do you have trouble taking care of your child, family member or friend?: No Do you have trouble with day-to-day activities such as bathing, preparing meals, shopping, managing finances, etc.?: No Are you currently unemployed and looking for a job?: No Are you interested in more education?: I choose not to answer this question Please select the resources that you would like help with: None Currently or been in a relationship where the following occur: No concerns reported THRIVE Score: 0 AUDIT C Alcohol Use Questionnaire (AUDIT-C) 1. How often do you have a drink containing alcohol?: 2-3 times a week 2. How many drinks containing alcohol do you have on a typical day when you are drinking?: 1 or 2 3. How often do you have six or more drinks on one occasion?: Less than monthly Total Score: 4 EUGENIO-7 AMB Questionnaire EUGENIO-7 Date EUGENIO - 7 assessed: 01/19/25 Feeling nervous, anxious, or on edge: 2 = More than half the days Not being able to stop or control worryin = Several days Worrying too much about different things: 1 = Several days Trouble relaxin = Several days Being so restless that it is hard to sit still: 0 = Not at all Becoming easily annoyed or irritable: 1 = Several days Feeling afraid as if something awful might happen: 0 = Not at all Total EUGENIO-7 score (0-4 normal; 5-9 mild; 10-14 moderate; 15-21 severe): 6 Source: Developed by Drs. Jelani Javier, Nayla Acharya, Rajan Woods and colleagues, with an educational diana from [employer]. EUGENIO-7 Assessment Billing EUGENIO-7 Assessment Tool: EUGENIO-7 Assessment 32021 Review of Systems Const Denies body aches, Denies chills, Denies excessive sweating, Denies fatigue, Denies fever(s) and Denies headache(s) Eyes Denies blurry vision ENT Denies dysphagia, Denies vertigo, Denies dizziness, Denies headache(s), Denies hearing loss and Denies tinnitus Card Denies chest pain, Denies chest pain with activity, Denies syncope, Denies irregular heart rhythm and Denies dyspnea Resp Denies chest congestion, Denies cough, Denies hemoptysis, Denies dyspnea and Denies wheezing GI Denies abdominal pain, Denies melena, Denies hematochezia, Denies coffee ground emesis, Denies dysphagia, Denies diarrhea, Denies nausea and Denies vomiting Denies difficulty urinating, Denies dysuria, Denies urinary frequency, Denies urinary hesitancy and Denies urinary urgency Musc Reports back pain, Reports arthralgias, Reports limited range of motion, Reports muscle cramps and Reports muscle weakness Skin/Breast Denies rash and Denies skin ulcer Neuro Denies Abnormal speech present, Denies confusion, Denies vertigo, Denies dizziness, Denies syncope, Denies headache(s), Denies memory loss and Denies seizure-like activity Psych Denies anxiety, Denies confusion, Denies depression, Denies memory loss, Denies panic attacks and Denies paranoia Endo Denies excessive sweating, Denies fatigue, Denies flushing, Denies polydipsia and Denies polyuria Aller/Immun Denies wheezing Physical exam (Primary Care) Vital Signs: Last Vital Signs Temp 97.1 F 01/19/25 09:04 Pulse 92 01/19/25 09:04 BP 142/82 H 01/19/25 09:04 Pulse Ox 98 01/19/25 09:04 Oxygen Delivery Method Room Air 01/19/25 09:04 BMI result Body Mass Index 38.9 BMI Assessment/Plan discussion: High BMI High, discussed plan: lifestyle, weight reduction, dietary and physical activity Tobacco/Smoking Status: Tobacco use Status Tobacco use date assessed 12/15/24 01/19/25 09:05 Patient Tobacco Use Status Never used Tobacco 01/19/25 09:27 e-Cigarette/Vaping Use Never Used 01/19/25 09:27 PHQ-9: PHQ-9 Score PHQ-9: Total score 5 01/19/25 10:22 Depression Screening Interpretation: Positive Depression Screening Follow-up: Existing condition Thrive Assessment: Date of Thrive Assessment Date Thrive assessed 01/19/25 01/19/25 09:05 Currently or been in a relationship where the following occur: No concerns reported Const Other: Obese General: cooperative, comfortable, no acute distress, alert and awake; No confusion Orientation/consciousness: oriented to person, oriented to place, patient oriented x3 and No confusion HENMT Head: Yes normocephalic Ears: external ears normal and TM's normal bilaterally Face and sinus: No sinus tenderness Mouth: Normal oral and palatal mucosa present and tongue normal Teeth and gingiva: dentition normal and gingiva normal Throat: Yes posterior oropharynx normal, Yes tonsils normal and Yes uvula midline Eyes Conjunctivae: conjunctivae normal Sclerae: sclerae normal Pupils: Equal, round and reactive pupils present EOM: EOMs intact bilaterally Direct Ophthalmoscopy: No no photophobia Neck Neck: Yes no lymphadenopathy, No tender and Yes no JVD Thyroid: Thyroid normal Carotids: no bruits Chest Chest palpation & inspection: no tenderness Resp Effort & Inspection: normal respiratory effort, no audible wheezes, not labored and no stridor Auscultation: no crackles, no rales, no rhonchi and no wheezes Cardio Jugular venous distension: no JVD Rate: regular rate, not bradycardic and not tachycardic Rhythm: regular rhythm Bruits: no carotid bruits Peripheral pulses: Peripheral pulses 2+ throughout GI Inspection: Yes normal to inspection, No abdominal wall ecchymosis and No visible herniation Palpation (GI): Soft to palpation, nontender, no guarding, not rigid and No hepatosplenomegaly present Auscultation: normoactive bowel sounds General: Yes no CVA tenderness Back/Spine/Pelvis Back: no CVA tenderness and No back tenderness Cervical Spine: cervical ROM normal Thoracic/Lumbar Spine: thoracic and lumbar spine normal to inspection, straight leg raise negative bilaterally, No thoraco-lumbar ROM limited and No lumbar spinal tenderness Skin Lesions: no lesions Rashes: no rashes Wounds: no wounds Neuro General: oriented to person, oriented to place, patient oriented x3, CN's II-XI intact bilaterally and No confusion Cranial nerves: Yes Equal, round and reactive pupils present and Yes Normal accommodation reflex present Cognition (Neuro): normal cognition Speech: No Abnormal speech present Gait exam (Neuro): Normal gait present Motor exam (neuro): 5/5 motor strength present throughout Extrem Right upper extremity: full ROM; no cyanosis Left upper extremity: full ROM; no cyanosis Right lower extremity: no edema Left lower extremity: no edema Psych Appearance: grossly normal Mental Status: mental status grossly normal Affect: normal affect Attitude: cooperative Thought process: Normal thought process present Immunizations pneumoc 20-jasmeet conj-dip cr(PF) 0.5 mL IM syringe Performing Provider: Ruben Hoff PA-C [facility] Administered by: CHASIDY Lott on 01/19/25 10:22 Dose Route Admin Location Dispensed Lot Number Expiration Date [facility] [employer] 0.5 mL IM Left Deltoid 0.5 mL [id number] 11/21/25 [employer] VIS Given Date VIS Provided VIS Publication Date 01/19/25 Single Vaccine 21 Eligibility Eligibility Date Funding Source Not [facility] Eligible 01/19/25 Private Coding Level of Care Code Est Pt Prev Care 40-64y(97103) Diagnoses Annual physical exam Z00.00 Primary insomnia F51.01 Insomnia type: primary JENNA (obstructive sleep apnea) G47.33 Class 2 obesity E66.812 Bipolar II disorder major depressive with atypical features F31.81 Elevated blood pressure reading R03.0 Vertebrogenic low back pain M54.51 Hypothyroidism, unspecified type E03.9 Hypothyroidism type: unspecified Additional Codes EUGENIO-7 Assessment Billing - EUGENIO-7 Assessment Tool: EUGENIO-7 Assessment 14232 ([id number]) PHQ-9 - 79041 - PHQ-9 Billing: Yes ([id number]) Assessment & Plan Assessment & Plan (1) Annual physical exam: Code(s): Z00.00 - Encounter for general adult medical examination without abnormal findings Category: Medical Plan: As per HPI (2) Insomnia: Code(s): G47.00 - Insomnia, unspecified Category: Medical Qualifiers: Insomnia type: primary Qualified Code(s): F51.01 - Primary insomnia Plan: Issues with insomnia are ongoing. We will monitor prescriptions of Zolpidem (Ambien) for effective sleep management while minimizing dependency. (3) JENNA (obstructive sleep apnea): Code(s): G47.33 - Obstructive sleep apnea (adult) (pediatric) Category: Medical Plan: Sleep hygiene continuation and consider further evaluations as necessary. Has tried CPAP machine in the past though did not help him with his sleeping issue as per patient Will trial Zepbound to also help him sleep apnea and help lose weight. (4) Class 2 obesity: Code(s): E66.812 - Obesity, class 2 Category: Medical Plan: Patient does understand his BMI is over 35 and has had difficulty being more physically active due to his polyarthralgia. He does understand he needs to continue to try to be more physically active and adapt to better eating habits to try to reduce weight. He is willing to try a GLP 1 to help him with weight reduction as well thus will start Zepbound weekly as he also does have a comorbidity of obstructive sleep apnea. Will follow up in 6 weeks to evaluate the effectiveness of the medication. (5) Bipolar II disorder major depressive with atypical features: Comment: Follow-up with psychiatrist Code(s): F31.81 - Bipolar II disorder Category: Medical Plan: Was previously seeing a psychiatrist, has stopped using all psychiatric medication at this time. He is not interested in returning back to using to using mental health meds. (6) Elevated blood pressure reading: Code(s): R03.0 - Elevated blood-pressure reading, without diagnosis of hypertension Category: Medical Plan: Blood pressure monitoring is advised at home. Adjustments in lifestyle are encouraged, including diet and exercise, to manage elevated readings. (7) Vertebrogenic low back pain: Code(s): M54.51 - Vertebrogenic low back pain Category: Medical Plan: Consider surgical options post-rheumatology consultation. (8) Hypothyroid: Code(s): E03.9 - Hypothyroidism, unspecified Category: Medical Qualifiers: Hypothyroidism type: unspecified Qualified Code(s): E03.9 - Hypothyroidism, unspecified Plan: Most recent TSH elevated at 8. We increased his levothyroxine dose. Will recheck TSH to assure stabilization. Orders: Orders Testosterone, Free/Total Today F51.01 - Primary insomnia TSH reflex Free T4 Today E03.9 - Hypothyroidism, unspecified Pneumococcal 20 Immunization Today E03.9 - Hypothyroidism, unspecified, Z23 - Encounter for immunization Medications: New zolpidem 10 mg PO BEDTIME PRN 15 tabs 0RF sleep 15 days F51.01 - Primary insomnia tirzepatide (weight loss) (Zepbound) for 4 weeks 2.5 mg (0.5 mL) subcut QWEEK 2 mL 0RF 4 weeks E66.812 - Obesity, class 2, G47.33 - Obstructive sleep apnea (adult) (pediatric) Changed From gabapentin 300 mg PO BEDTIME 30 days PRN 30 caps 3RF pain (scale score 7- 10) M48.062 - Spinal stenosis, lumbar region with neurogenic claudication To gabapentin 300 mg PO BID 60 caps 3RF pain (scale score 7-10) 30 days M48.062 - Spinal stenosis, lumbar region with neurogenic claudication
[2025-01-19 09:04] VITALS: BP 142/82; PULSE 92; TEMP 36.2; O2SAT 98; BMI 38.9
== END 2025-01-19 10:06 | disposition home or self-care (01) ==
LOC: HO.HMCH 08:48
PROVIDERS: PCP Internal Medicine; Visit Provider Physician Assistant
DX: Z00.00 Encounter for general adult medical examination without abnormal findings (principal); F51.01 Primary insomnia; G47.33 Obstructive sleep apnea (adult) (pediatric); E66.812 Obesity, class 2; F31.81 Bipolar II disorder; R03.0 Elevated blood-pressure reading, without diagnosis of hypertension; M54.51 Vertebrogenic low back pain; E03.9 Hypothyroidism, unspecified; Z23 Encounter for immunization

== ENCOUNTER → 2025-01-19 08:47 | Outpatient (BNVA) | payer OTHER, SELFPAY | PROVIDERS: PCP Internal Medicine; Visit Provider Physician Assistant | DX: Z00.00 Encounter for general adult medical examination without abnormal findings (principal); Z23 Encounter for immunization; F51.01 Primary insomnia; G47.33 Obstructive sleep apnea (adult) (pediatric); E66.812 Obesity, class 2; F31.81 Bipolar II disorder; R03.0 Elevated blood-pressure reading, without diagnosis of hypertension; M54.51 Vertebrogenic low back pain; E03.9 Hypothyroidism, unspecified | CPT/HCPCS: 90471; 90677; 96127; 99396 ==

== ENCOUNTER 2025-02-10 09:55 | Outpatient (REF) | payer OTHER, SELFPAY ==
[2025-02-17 12:32] LABS: Testosterone, Free 54.8 pg/mL (35.0-155.0); Testosterone, Total 392 ng/dL (250-1100)
== END 2025-02-10 09:56 | disposition home or self-care (01) ==
LOC: HO.HMGCLDS 09:55
PROVIDERS: PCP Physician Assistant; Visit Provider Physician Assistant
DX: F51.01 Primary insomnia (principal); E03.9 Hypothyroidism, unspecified
CPT/HCPCS: 36415; 84402; 84403; 84443

== ENCOUNTER 2025-03-02 09:12 | Outpatient (AMB) | payer OTHER, SELFPAY ==
--- NOTE | 2025-03-02 09:14 | A.OFFPC_ITS ---
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 Accompanied by: Self / Same As Patient Allergies acetone [ACETONE] Allergy (Severe, Verified 03/02/25 09:35) Unconscious Sulfa (Sulfonamide Antibiotics) [SULFA (SULFONAMIDE ANTIBIOTICS)] Allergy (Intermediate, Verified 03/02/25 09:35) eyes swelling aerosols, epoxy, glue Allergy (Intermediate, Uncoded 03/02/25 09:35) swelling in his eyes Medication List - Last Reconciled 03/02/25 by Ruben Hoff PA-C gabapentin 300 mg PO BID 30 days levothyroxine 175 mcg PO DAILY tirzepatide (weight loss) (Zepbound) 2.5 mg (0.5 mL) subcut QWEEK 4 weeks zolpidem 10 mg PO BEDTIME PRN 15 days Tobacco use date assessed: 12/15/24 Dental Screening Dental Screen Date: 12/15/24 HPI f/u weight check HPI Details Patient is a 54-year-old male here today for a follow-up visit Patient has a past medical history significant hypothyroidism, lumbar stenosis, obesity, bipolar 2 disorder. Cervical spine disease: He is status post cervical spine surgery 9 years ago. He has noted notable deterioration in neck function and substantial pain. While post-surgical results were initially favorable, the patient now experiences significant recrudescence of symptoms, including a disturbing grinding noise upon head movement, limiting physical capabilities, such as effective vehicle operation. Physical therapy aggravation has precluded its continued use, and the patient expresses skepticism regarding non-surgical interventions due to previous experiences. .. Elevated blood pressure readings: The patient has noted elevated blood pressure, captured both medically and through personal home devices, with averages indicating hypertensive ranges. We discussed starting low-dose blood pressure medication though will like to hold off of the next month and a half and if elevated will commence low-dose blood pressure medication .. Class 2 obesity: Has not been able to start GLP 1 due to pharmacy availability of the medication. He does report reducing his portions, stopped drinking alcohol and eating more salads., Does have the medication at pharmacy now and will start medication. PLAN: Will follow up in 6 weeks to evaluate weight. .. Hypothyroidism: Most recent TSH stable, will continue his current dose of levothyroxine. ... Lumbar stenosis: Continues to have lower back pain and was evaluated by surgeon though was not a surgical candidate. He does report gabapentin has been somewhat helpful for his joint pains and lower back pain. He has followed up with [place] pain management and reports he is a candidate for surgical nerve procedure. PLAN: Will increase his gabapentin to 300 b.i.d. for better pain control. --> also has an upcoming appointment [facility] Rheumatology in March of 2025 for his polyarthralgia and elevated inflammatory markers. [facility] Medical History History of COVID-19 Sciatica Annual physical exam Lower back pain Knee pain, right Vitamin D deficiency B12 deficiency Neuropathy BPH (benign prostatic hyperplasia) Anxiety Depression Bipolar II disorder major depressive with atypical features Herniated disc Diverticula of colon Hypothyroidism Surgical History H/O colonoscopy H/O hand surgery H/O neck surgery Family History Father Unknown family medical history Afib CHF (congestive heart failure) ILD (interstitial lung disease) Mother Unknown family medical history Sister No problems noted. 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 Sexual orientation: Straight/Heterosexual Cognitive needs: No Hearing needs: No Vision needs: Yes (Glasses) Questionnaire Thrive Questionnaire Date Thrive assessed: 01/12/25 I am a: Patient What is your living situation today?: I have a steady place to live Within the past 12 months, did the food you bought not last and you didn't have the money to get more?: Never true Within the past 12 months, did you worry whether your food would run out before you got money to buy more?: Never true Do you have trouble paying for medicines?: No Do you have trouble getting transportation to medical appointments?: No Do you have trouble paying your heating and electricity bill?: No Do you have trouble taking care of your child, family member or friend?: No Do you have trouble with day-to-day activities such as bathing, preparing meals, shopping, managing finances, etc.?: No Are you currently unemployed and looking for a job?: No Are you interested in more education?: I choose not to answer this question Please select the resources that you would like help with: None Currently or been in a relationship where the following occur: No concerns reported THRIVE Score: 0 EUGENIO-7 AMB Questionnaire EUGENIO-7 Date EUGENIO - 7 assessed: 01/19/25 Source: Developed by Drs. Jelani Javier, Nayla Acharya, Rajan Woods and colleagues, with an educational diana from [employer]. Review of Systems Const Denies headache(s) Eyes Denies loss of vision ENT Denies vertigo, Denies dizziness, Denies headache(s) and Denies sore throat Card Denies chest pain, Denies leg edema and Denies lightheadedness Resp Denies cough, Denies hemoptysis and Denies wheezing GI Denies abdominal pain, Denies melena, Denies constipation, Denies diarrhea and Denies vomiting Denies dysuria, Denies urinary frequency and Denies urinary urgency Musc Denies arthralgias, Denies joint swelling, Denies numbness and Denies tingling Neuro Denies Abnormal speech present, Denies behavioral changes, Denies vertigo, Denies dizziness, Denies headache(s), Denies loss of vision, Denies memory loss, Denies numbness and Denies tingling Psych Denies anxiety, Denies behavioral changes, Denies depression, Denies memory loss and Denies panic attacks Luis/Lymph Denies easy bleeding and Denies easy bruising Aller/Immun Denies wheezing Physical exam (Primary Care) Vital Signs: Last Vital Signs Temp 97.1 F 03/02/25 09:27 Pulse 80 03/02/25 09:27 BP 152/90 H 03/02/25 09:27 Pulse Ox 95 03/02/25 09:27 Oxygen Delivery Method Room Air 03/02/25 09:27 BMI result Body Mass Index 39.5 Tobacco/Smoking Status: Tobacco use Status Tobacco use date assessed 12/15/24 03/02/25 09:14 Patient Tobacco Use Status Never used Tobacco 03/02/25 09:14 e-Cigarette/Vaping Use Never Used 03/02/25 09:14 Thrive Assessment: Date of Thrive Assessment Date Thrive assessed 01/12/25 03/02/25 09:14 Currently or been in a relationship where the following occur: No concerns reported Const General: healthy appearing, no acute distress, alert and awake Nutritional Appearance: well nourished Orientation/consciousness: oriented to person, oriented to place and oriented to time HENMT Other: CERVICAL SPINE: VERY LIMITED ROTATIONAL RANGE OF MOTION, VERY LIMITED FLEXION AND EXTENSION OF THE CERVICAL SPINE NOTED. Ears: TM's normal bilaterally General nose exam: Normal nasal mucous membranes and turbinates present Eyes Conjunctivae: conjunctivae normal Sclerae: sclerae normal Pupils: Equal, round and reactive pupils present Neck Neck: Yes no lymphadenopathy and Yes no JVD Thyroid: Thyroid normal Carotids: no bruits Resp Effort & Inspection: normal respiratory effort and not tachypneic Auscultation: no crackles, no rales, no rhonchi and no wheezes Cardio Rate: regular rate Rhythm: regular rhythm Heart sounds: no murmurs and normal S1 and S2 GI Palpation (GI): Soft to palpation, nontender, no hepatomegaly and no splenomegaly Auscultation: normal bowel sounds Skin General skin exam: no rashes or lesions noted and dry skin Neuro General: oriented to person, oriented to place and oriented to time Cranial nerves: Yes Equal, round and reactive pupils present Speech: No Abnormal speech present Gait exam (Neuro): Normal gait present Motor exam (neuro): no tremor noted Extrem Right upper extremity: full ROM Left upper extremity: full ROM Right lower extremity: full ROM; no edema Left lower extremity: full ROM; no edema Psych Mental Status: mental status grossly normal Speech and movement: Normal speech and movement present Affect: normal affect Attitude: cooperative Thought process: Normal thought process present Coding Level of Care Code Est Pt Level 4 (40091) Diagnoses Spondylosis of cervical spine with radiculopathy M47.22 Primary insomnia F51.01 Insomnia type: primary Class 2 obesity E66.812 Hypothyroidism, unspecified type E03.9 Hypothyroidism type: unspecified Assessment & Plan Assessment & Plan (1) Spondylosis of cervical spine with radiculopathy: Code(s): M47.22 - Other spondylosis with radiculopathy, cervical region Category: Medical Plan: With recurrent neck pain, I deem it necessary to pursue imaging studies to evaluate structural changes. The patient will undergo X-ray and MRI, and if needed, we will consult a neurosurgeon for further management options, notably if imaging results are inconclusive or indicative of significant deterioration. (2) Insomnia: Code(s): G47.00 - Insomnia, unspecified Category: Medical Qualifiers: Insomnia type: primary Qualified Code(s): F51.01 - Primary insomnia Plan: Issues with insomnia are ongoing. We will monitor prescriptions of Zolpidem (Ambien) for effective sleep management while minimizing dependency. (3) Class 2 obesity: Code(s): E66.812 - Obesity, class 2 Category: Medical Plan: Patient does understand his BMI is over 35 and has had difficulty being more physically active due to his polyarthralgia. He does understand he needs to continue to try to be more physically active and adapt to better eating habits to try to reduce weight. He is willing to try a GLP 1 to help him with weight reduction as well thus will start Zepbound weekly as he also does have a comorbidity of obstructive sleep apnea. Will follow up in 6 weeks to evaluate the effectiveness of the medication. (4) Hypothyroid: Code(s): E03.9 - Hypothyroidism, unspecified Category: Medical Qualifiers: Hypothyroidism type: unspecified Qualified Code(s): E03.9 - Hypothyroidism, unspecified Plan: Most recent TSH much improved with the addition of a higher dose of levothyroxine. Will recheck TSH to assure stabilization. Orders: Orders XR cervical spine 4V Today M47.22 - Other spondylosis with radiculopathy, cervical region MR cervical spine wo con Today M47.22 - Other spondylosis with radiculopathy, cervical region Referrals Neurosurgery Referral M47.22 - Other spondylosis with radiculopathy, cervical region Medications: New zolpidem 10 mg PO BEDTIME 15 tabs 2RF sleep 15 days F51.01 - Primary insomnia Discontinued zolpidem Discontinued Reason: Doctor's Order 10 mg PO BEDTIME 15 days PRN 15 tabs 1RF sleep F51.01 - Primary insomnia
[2025-03-02 09:27] VITALS: BP 152/90; PULSE 80; TEMP 36.2; O2SAT 95; BMI 39.5
== END 2025-03-02 09:57 | disposition home or self-care (01) ==
LOC: HO.HMCH 09:13
PROVIDERS: PCP Physician Assistant; Visit Provider Physician Assistant
DX: M47.22 Other spondylosis with radiculopathy, cervical region (principal); E66.812 Obesity, class 2; Z68.39 Body mass index [BMI] 39.0-39.9, adult; F51.01 Primary insomnia; E03.9 Hypothyroidism, unspecified

== ENCOUNTER → 2025-03-02 09:12 | Outpatient (BNVA) | payer OTHER, SELFPAY | PROVIDERS: PCP Physician Assistant; Visit Provider Physician Assistant | DX: M47.22 Other spondylosis with radiculopathy, cervical region (principal); F51.01 Primary insomnia; E66.812 Obesity, class 2; Z68.39 Body mass index [BMI] 39.0-39.9, adult; E03.9 Hypothyroidism, unspecified; M48.061 Spinal stenosis, lumbar region without neurogenic claudication; Z79.899 Other long term (current) drug therapy | CPT/HCPCS: 99212 ==

== ENCOUNTER 2025-04-13 13:41 | Outpatient (AMB) | payer OTHER, SELFPAY ==
[2025-04-13 14:02] VITALS: BP 130/86; PULSE 96; TEMP 36.2; O2SAT 97; BMI 37.5
--- NOTE | 2025-04-13 14:02 | A.OFFPC_ITS ---
Vital Signs 04/13/25 14:02 Height 6 ft 2 in Weight 292 lb 6 oz BMI 37.5 BP 130/86 Blood Pressure Location Lt brachial Position Sitting Pulse 96 Pulse Source Pulse Oximeter Temp 97.1 F Temp Source Temporal Artery Scan Pulse Oximetry (%) 97 Oxygen Delivery Method Room Air Intake Visit Reasons: 6 week In[employer] Required: No Accompanied by: Self / Same As Patient Allergies acetone (ACETONE) Allergy (Severe, Verified 04/13/25 14:35) Unconscious Sulfa (Sulfonamide Antibiotics) (SULFA (SULFONAMIDE ANTIBIOTICS)) Allergy (Intermediate, Verified 04/13/25 14:35) eyes swelling aerosols, epoxy, glue Allergy (Intermediate, Uncoded 04/13/25 14:35) swelling in his eyes Medication List - Last Reconciled 04/13/25 by Ruben Hoff PA-C gabapentin 300 mg PO BID 30 days levothyroxine 175 mcg PO DAILY tirzepatide (weight loss) (Zepbound) 5 mg (0.5 mL) subcut QWEEK 4 weeks zolpidem 10 mg PO BEDTIME 15 days Tobacco use date assessed: 12/15/24 Dental Screening Dental Screen Date: 12/15/24 HPI 6 week HPI Details Patient is a 55-year-old male here today for a follow-up visit Patient has a past medical history significant hypothyroidism, lumbar stenosis, obesity, bipolar 2 disorder. Concern--> reports a few weeks ago walking in his yd and felt a snap in his calf which traveled up to his posterior hamstring. He feels like his knee and hamstring are swollen and has been having a lot of pain in his right leg. He does report having ecchymosis over his medial ankle and medial posterior thigh region. .. Obstructive sleep apnea/ Class 2 obesity: Patient continues on Zepbound 5 mg and has been able lose 10 lb since last office visit. He is willing to up titrate his dose for more weight loss. Will increase his Zepbound to 7 mg weekly. .. Hypothyroidism: Most recent TSH stable, will continue his current dose of levothyroxine. ... Lumbar stenosis: Continues to have lower back pain and was evaluated by surgeon though was not a surgical candidate. He does report gabapentin has been somewhat helpful for his joint pains and lower back pain. He has followed up with [place] pain management and reports he is a candidate for surgical nerve procedure. PLAN: Will increase his gabapentin to 300 b.i.d. for better pain control. --> [facility] for his polyarthralgia and elevated inflammatory markers [facility] Medical History History of COVID-19 Sciatica Annual physical exam Lower back pain Knee pain, right Vitamin D deficiency B12 deficiency Neuropathy BPH (benign prostatic hyperplasia) Anxiety Depression Bipolar II disorder major depressive with atypical features Herniated disc Diverticula of colon Hypothyroidism Surgical History H/O colonoscopy H/O hand surgery H/O neck surgery Family History Father Unknown family medical history Afib CHF (congestive heart failure) ILD (interstitial lung disease) Mother Unknown family medical history Sister No problems noted. 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 Sexual orientation: Straight/Heterosexual Cognitive needs: No Hearing needs: No Vision needs: Yes (Glasses) Questionnaire Thrive Questionnaire Date Thrive assessed: 01/12/25 I am a: Patient What is your living situation today?: I have a steady place to live Within the past 12 months, did the food you bought not last and you didn't have the money to get more?: Never true Within the past 12 months, did you worry whether your food would run out before you got money to buy more?: Never true Do you have trouble paying for medicines?: No Do you have trouble getting transportation to medical appointments?: No Do you have trouble paying your heating and electricity bill?: No Do you have trouble taking care of your child, family member or friend?: No Do you have trouble with day-to-day activities such as bathing, preparing meals, shopping, managing finances, etc.?: No Are you currently unemployed and looking for a job?: No Are you interested in more education?: I choose not to answer this question Please select the resources that you would like help with: None Currently or been in a relationship where the following occur: No concerns reported THRIVE Score: 0 EUGENIO-7 AMB Questionnaire EUGENIO-7 Date EUGENIO - 7 assessed: 01/19/25 Source: Developed by Drs. Jelani Javier, Nayla Acharya, Rajan Woods and colleagues, with an educational diana from [employer]. Review of Systems Const Denies headache(s) Eyes Denies loss of vision ENT Denies vertigo, Denies dizziness, Denies headache(s) and Denies sore throat Card Denies chest pain, Denies leg edema and Denies lightheadedness Resp Denies cough, Denies hemoptysis and Denies wheezing GI Denies abdominal pain, Denies melena, Denies constipation, Denies diarrhea and Denies vomiting Denies dysuria, Denies urinary frequency and Denies urinary urgency Musc Denies arthralgias, Denies joint swelling, Denies numbness and Denies tingling Neuro Denies Abnormal speech present, Denies behavioral changes, Denies vertigo, Denies dizziness, Denies headache(s), Denies loss of vision, Denies memory loss, Denies numbness and Denies tingling Psych Denies anxiety, Denies behavioral changes, Denies depression, Denies memory loss and Denies panic attacks Luis/Lymph Denies easy bleeding and Denies easy bruising Aller/Immun Denies wheezing Physical exam (Primary Care) Vital Signs: Last Vital Signs Temp 97.1 F 04/13/25 14:02 Pulse 96 04/13/25 14:02 BP 130/86 04/13/25 14:02 Pulse Ox 97 04/13/25 14:02 Oxygen Delivery Method Room Air 04/13/25 14:02 BMI result Body Mass Index 37.5 Tobacco/Smoking Status: Tobacco use Status Tobacco use date assessed 12/15/24 04/13/25 14:05 Patient Tobacco Use Status Never used Tobacco 04/13/25 14:05 e-Cigarette/Vaping Use Never Used 04/13/25 14:05 Thrive Assessment: Date of Thrive Assessment Date Thrive assessed 01/12/25 04/13/25 14:05 Currently or been in a relationship where the following occur: No concerns reported Const General: healthy appearing, no acute distress, alert and awake Nutritional Appearance: well nourished Orientation/consciousness: oriented to person, oriented to place and oriented to time HENMT Ears: TM's normal bilaterally General nose exam: Normal nasal mucous membranes and turbinates present Eyes Conjunctivae: conjunctivae normal Sclerae: sclerae normal Pupils: Equal, round and reactive pupils present Neck Neck: Yes no lymphadenopathy and Yes no JVD Thyroid: Thyroid normal Carotids: no bruits Resp Effort & Inspection: normal respiratory effort and not tachypneic Auscultation: no crackles, no rales, no rhonchi and no wheezes Cardio Rate: regular rate Rhythm: regular rhythm Heart sounds: no murmurs and normal S1 and S2 GI Palpation (GI): Soft to palpation, nontender, no hepatomegaly and no splenomegaly Auscultation: normal bowel sounds Skin General skin exam: no rashes or lesions noted and dry skin Neuro General: oriented to person, oriented to place and oriented to time Cranial nerves: Yes Equal, round and reactive pupils present Speech: No Abnormal speech present Gait exam (Neuro): Normal gait present Motor exam (neuro): no tremor noted Extrem Right upper extremity: full ROM Left upper extremity: full ROM Right lower extremity: full ROM; no edema Left lower extremity: full ROM; no edema Psych Mental Status: mental status grossly normal Speech and movement: Normal speech and movement present Affect: normal affect Attitude: cooperative Thought process: Normal thought process present Coding Level of Care Code Est Pt Level 4 (09637) Diagnoses Class 2 obesity E66.812 Primary insomnia F51.01 Insomnia type: primary Hypothyroidism, unspecified type E03.9 Hypothyroidism type: unspecified Rupture of anterior cruciate ligament of right knee, initial encounter S83.511A Encounter type: initial encounter Tear of right hamstring S76.311A Assessment & Plan Assessment & Plan (1) Class 2 obesity: Code(s): E66.812 - Obesity, class 2 Category: Medical Plan: Has been on Zepbound and has been able to lose 10 lb, he would like to increase his dose to 7 mg weekly and up titrate per response. His goal weight is to be around 250 lb. (2) Insomnia: Code(s): G47.00 - Insomnia, unspecified Category: Medical Qualifiers: Insomnia type: primary Qualified Code(s): F51.01 - Primary insomnia Plan: Issues with insomnia are ongoing. Has been using amlodipine 10 mg on a as needed basis though feels is not as effective. He is interested in increasing his dose to 12.5 extended release formulation to see if it help him sleep better. (3) Hypothyroid: Code(s): E03.9 - Hypothyroidism, unspecified Category: Medical Qualifiers: Hypothyroidism type: unspecified Qualified Code(s): E03.9 - Hypothyroidism, unspecified Plan: Most recent TSH much improved with the addition of a higher dose of levothyroxine. Will recheck TSH to assure stabilization. (4) Right ACL tear: Code(s): S83.511A - Sprain of anterior cruciate ligament of right knee, initial encounter Category: Medical Qualifiers: Encounter type: initial encounter Qualified Code(s): S83.511A - Sprain of anterior cruciate ligament of right knee, initial encounter Plan: Patient having difficulty with Luico extending his right knee, will try for MRI of the knee to evaluate for an ACL tear (5) Tear of right hamstring: Code(s): S76.311A - Strain of muscle, fascia and tendon of the posterior muscle group at thigh level, right thigh, initial encounter Category: Medical Plan: Patient reports feeling a tearing sensation in his calf and right hamstring and did have a ecchymosis over his ankle and in her posterior thigh. Orders: Orders MR knee RT wo con 04/13/25 S83.511A - Sprain of anterior cruciate ligament of right knee, initial encounter Medications: New zolpidem ER 12.5 mg PO BEDTIME 15 tabs 1RF sleep 15 days F51.01 - Primary insomnia tirzepatide (weight loss) (Zepbound) 7.5 mg (0.5 mL) subcut QWEEK 2 mL 0RF 4 weeks E66.812 - Obesity, class 2, F51.01 - Primary insomnia, G47.33 - Obstructive sleep apnea (adult) (pediatric) On Hold tirzepatide (weight loss) (Zepbound) Hold Comment: Doctor's Order 5 mg (0.5 mL) subcut QWEEK 4 weeks 2 mL 0RF E66.812 - Obesity, class 2, G47.33 - Obstructive sleep apnea (adult) (pediatric) zolpidem Hold Comment: Doctor's Order 10 mg PO BEDTIME 15 days 15 tabs 2RF sleep F51.01 - Primary insomnia
--- OUTSIDE RECORDS SUMMARY | 2025-04-13 15:58 | XMS_ITS | Patient Health Record ---
Author Organization [facility] Address [address] [place] [address] Care Team Providers Care Parts Designer Name Role Phone Luma(inactive) Jake GAO Primary Care Provider U Jelani Monahan [phone] Allergies Allergen (clinical drug ingredient) Drug/Non Drug Allergy documented on EMR Reaction Allergy Type Onset Date Status Sulfa Unknown Drug Allergy Active acidtone (uncoded) Unknown Allergy A ctive Reason For Referral No Information Medications Medication SIG (Take, Route, Frequency, Duration) Notes Start Date End Date Status rOPINIRole HCl as needed Activ e Levothyroxine Sodium Active Colyte w Flavor Packs 240 GM as directed Orally as directed for 1 day(s) 11/20/2015 Active Problems Problem Type SNOMED Code ICD Code Onset Dates Problem Status W/U Status Risk Notes Problem 6537814 Diverticulitis o f large intestine without perforation or abscess without bleeding (K57.32) Active confirmed Problem 623503650 Irritable bowel syndrome with diarrhea (K58.0) Active confirmed Problem 903724683 Blood in stool (K92.1) Active confirmed Plan Of Treatment Pending Test Test Name Order Date CELIAC PANEL #10 11/18/2015 Future Test Test Name Order Date COLONOSCOPY 11/18/2015 Insurance Providers Payer Name Payer Address Payer Phone Subscriber Number Group Number Insured Name Patient Relationship to Insured Coverage Start Date Coverage End Date [facility] [employer] CLAIMS [address] [place] [address] [id number] Self - patient is the insured Medical (General) History Medical History History ICD Code Hypothyroidism Denies IL,DM,CVA,Lung disease,renal dise ase Diverticulitis-sigmoid--10/26/15--treated with 10 days of Cipro/Flagyl Restless leg syndrome Surgical History Surgery Date(Month/Year) right hand broken -
== END 2025-04-13 14:53 | disposition home or self-care (01) ==
LOC: HO.HMCH 13:42
PROVIDERS: PCP Physician Assistant; Visit Provider Physician Assistant
DX: S83.511A Sprain of anterior cruciate ligament of right knee, initial encounter (principal); F51.01 Primary insomnia; E66.812 Obesity, class 2; Z68.37 Body mass index [BMI] 37.0-37.9, adult; E03.9 Hypothyroidism, unspecified; S76.311A Strain of muscle, fascia and tendon of the posterior muscle group at thigh level, right thigh, initial encounter

== ENCOUNTER → 2025-04-13 13:41 | Outpatient (BNVA) | payer OTHER, SELFPAY | PROVIDERS: PCP Physician Assistant; Visit Provider Physician Assistant | DX: M48.061 Spinal stenosis, lumbar region without neurogenic claudication (principal); E03.9 Hypothyroidism, unspecified; F31.81 Bipolar II disorder; E66.812 Obesity, class 2; F51.01 Primary insomnia; S83.511A Sprain of anterior cruciate ligament of right knee, initial encounter; S76.311A Strain of muscle, fascia and tendon of the posterior muscle group at thigh level, right thigh, initial encounter; X58.XXXA Exposure to other specified factors, initial encounter; Y93.9 Activity, unspecified; Y92.9 Unspecified place or not applicable; Y99.9 Unspecified external cause status; Z68.37 Body mass index [BMI] 37.0-37.9, adult | CPT/HCPCS: 99212 ==

== ENCOUNTER 2025-04-18 08:13 | Emergency (ER) | payer OTHER, SELFPAY ==
--- NOTE | ~2025-04-18 | XR_ITS ---
CLINICAL HISTORY: pain 4 view right knee Comparison: None provided Findings: No fractures or dislocations. Mild osteoarthritis of the patellofemoral joint compartment. No joint effusion. No radiopaque foreign body. IMPRESSION: 1. No acute findings. This document has been electronically signed by: Mohan Lind MD on 04/18/2025 11:26:17
--- NOTE | ~2025-04-18 | XR_ITS ---
CLINICAL HISTORY: pain 3 view right ankle Comparison: None provided Findings: No acute fractures or dislocations. Moderate degenerative changes of the ankle and hindfoot. Large bone spur at the insertion of the plantar fascia on the calcaneus. Small enthesophyte at the insertion of the achilles tendon. No ankle effusion. No radiopaque foreign body. IMPRESSION: 1. No acute findings. This document has been electronically signed by: Mohan Lind MD on 04/18/2025 11:20:31
--- NOTE | ~2025-04-18 | US_ITS ---
CLINICAL HISTORY: pain Venous duplex ultrasound right lower extremity Comparison: None provided Findings: The visualized deep veins are fully compressible with normal Doppler color flow and spectral tracings. There is a 3.3 x 0.9 x 1.7 cm popliteal fossa cyst. IMPRESSION: 1. Negative for right lower extremity deep vein thrombosis. 2. Right popliteal cyst. This document has been electronically signed by: Mohan Lind MD on 04/18/2025 11:28:38
[2025-04-18 08:17] VITALS: BP 138/78; PULSE 83; RESP 18; TEMP 36.8; O2SAT 97; BMI 37.5
--- NOTE | 2025-04-18 09:16 | PC.NURSE ---
pt is alert and oriented, skin pwd, respirations even and unlabored, pt ambulated to the stretcher with assist of a cane, pt reports that for the last week having right leg pain/swelling/and warm to the touch, pain ecstatically behind the knee, pain increased with ambulation, denies injury/fall
[2025-04-18 09:19] LABS: MANUAL DIFF FLAG NO
[2025-04-18 09:21] LABS: Basophils Absolute Auto 0.1 X10*3/uL (0.0-0.2); Basophils Percent Auto 0.9 % (0-2); Eosinophils Absolute Auto 0.1 X10*3/uL (0.0-0.4); Eosinophils Percent Auto 1.1 % (0-4); Hematocrit 43.8 % (42.0-52.0); Hemoglobin 15.4 g/dl (14.0-18.0); Imm Gran Abs Auto 0.03 X10*3/uL (0.00-0.03); Imm Gran Pct Auto 0.6 % (0.0-0.4); Lymphocytes Absolute Auto 1.8 X10*3/uL (1.2-4.9); Lymphocytes Percent Auto 33.9 % (20-40); Mean Corpuscular HGB Conc 35.2 g/dl (31.0-36.0); Mean Corpuscular Volume 90.9 fL (80.0-98.0); Mean Platelet Volume 9.4 fL (9.4-12.4); Monocytes Absolute Auto 0.4 X10*3/uL (0.1-1.2); Monocytes Percent Auto 7.3 % (2-11); Neutrophils Percent Auto 56.2 % (45-73); Platelet Count 218 X10*3/uL (160-400); Red Blood Count 4.82 X10*6/uL (4.60-5.80); Red Cell Distribution Width 12.2 % (11.0-16.0); White Blood Count 5.3 X10*3/uL (4.8-10.8)
[2025-04-18 09:28] LABS: D Dimer High Sensitivity 155 NG/ML
[2025-04-18 09:40] LABS: Anion Gap 11 (12-20); Blood Urea Nitrogen 15 mg/dL (9-16); C Reactive Protein 0.74 mg/dL (< or = 0.50); Calcium 8.6 mg/dL (8.4-10.2); Carbon Dioxide 19 mmol/L (22-29); Chloride 112 mmol/L (96-108); Creatinine Clr Calc Pharmacy 140.4; Estimated Glomerular Filt Rate > 60; Glucose Random 103 mg/dL (60-115); Potassium 4.3 mmol/L (3.3-5.1); Sodium 138 mmol/L (135-145)
--- NOTE | 2025-04-18 09:41 | ED_ITS ---
HPI - Extremity Problem General Chief complaint: Extremity Problem Stated complaint: knee pain Time Seen by Provider: 04/18/25 08:29 Source: patient and family Mode of arrival: ambulatory Limitations: no limitations History of Present Illness ED Provider: DR. Johns HPI Narrative: 55-year-old male came in for evaluation of right leg pain started about week ago after was working in his yard, patient declined any injury to the left leg, no fall, no twisting, no recent travel, no history of DVT, no chest pain, no shortness of breath, no fever, no chills. Patient started zepbound for the last 2 month. Related Data Previous Rx's ?Medication ?Instructions ?Recorded levothyroxine 175 mcg tablet 175 mcg PO DAILY #90 tabs 12/16/24 gabapentin 300 mg capsule 300 mg PO BID pain (scale sc ore 01/19/25 7-10) 30 days #60 caps zolpidem 10 mg tablet 10 mg PO BEDTIME sleep 15 da ys #15 03/02/25 Held on 04/13/25. tabs Instructions: Doctor's Order tirzepatide (weight loss) 5 mg/0.5 5 mg (0.5 mL) subcu t QWEEK 4 weeks 03/23/25 mL subcutaneous pen injector #2 mL (Zepbound) Held on 04/13/25. Instructions: Doctor's Order tirzepatide (weight loss) 7.5 7.5 mg (0.5 mL) subcut Q WEEK 4 04/13/25 mg/0.5 mL subcutaneous pen weeks #2 mL injector (Zepbound) zolpidem 12.5 mg tablet,extended 12.5 mg PO BEDTIME sl eep 15 days 04/13/25 release,multiphase #15 tabs Allergies Allergy/AdvReac Type Severity Reaction Status Date / Time acetone (ACETONE) Allergy Severe Unconscious Verified 04/18/25 08:24 Sulfa (Sulfonamide Allergy Intermediate eyes Verified 04/18/25 08:24 Antibiotics) (SULFA swelling (SULFONAMIDE ANTIBIOTICS)) aerosols, epoxy, glue Allergy Intermediate swelling Uncoded 04/18/25 08:24 in his eyes Review of Systems 2 Review of Systems: All other systems are reviewed and are negative Constitutional: Reports as per HPI and Reports no additional constitutional complaints Eyes: Reports as per HPI and Reports no additional eye complaints Reports system reviewed and no additional complaints, except as documented Cardiovascular: Reports as per HPI and Reports no additional cardiovascular complaints Respiratory: Reports as per HPI and Reports no additional respiratory complaints Gastrointestinal: Reports as per HPI and Reports no additional gastrointestinal complaints Genitourinary: Reports no additional female genitourinary complaints Musculoskeletal: Reports no additional musculoskeletal complaints Skin/Breast: Reports system reviewed and no additional complaints, except as docu Psychiatric: Reports no additional psychiatric complaints Endocrine: Reports no additional endocrine complaints Hematologic/Lymphatic: Reports no additional hematologic/lymphatic complaints Allergic/Immunologic: Reports no additional allergic/immunologic complaints Reports system reviewed and no additional complaints, except as documented and Reports Abnormal speech present [facility] Past Medical History Medical History History of COVID-19 Sciatica Annual physical exam Lower back pain Knee pain, right Vitamin D deficiency B12 deficiency Neuropathy BPH (benign prostatic hyperplasia) Anxiety Depression Bipolar II disorder major depressive with atypical features Herniated disc Diverticula of colon Hypothyroidism Surgical History H/O colonoscopy H/O hand surgery H/O neck surgery Family History Family History Father Unknown family medical history Afib CHF (congestive heart failure) ILD (interstitial lung disease) Mother Unknown family medical history Sister No problems noted. Social History Social History Household Members: Spouse Housing: House Do you presently have visiting nurse or other home services: No Alcohol intake: current Alcohol intake frequency: a few times a week Alcohol type: beer Comment: PT is relaxing, getting ready for sleep Patient Tobacco Use Status: Never used Tobacco Smoked in Last 30 Days: No e-Cigarette/Vaping Use: Never Used Second Hand Smoke Exposure: No Use of substances other than those prescribed or required for medical reasons: Yes Substance Use Type: Marijuana Substance Use Type Other:: marijuana gummies Advance Directives: No Advance Directives Information Provided: Yes service: No 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 Blood pressure elevated. Heart rate normal. Respiratory rate normal. Temperature normal. Oxygen saturation normal. Appearance: Alert. Oriented X3. No acute distress. Head: Normal external exam. Normocephalic. Atraumatic. No Castro signs noted. No raccoon eyes noted Eyes: PERRLA. EOMI. Conjunctiva and sclera normal. Eyelids normal. ENT: TM's Normal. Pharynx normal. Uvula midline. Moist mucous membranes. No trismus noted. No drooling noted. No muffled voice noted. Neck: Normal inspection. Neck supple. FROM. No adenopathy. Thyroid Normal. No meningeal signs. No neck mass noted. CVS: Normal heart rate and rhythm. Heart sound normal. No murmurs noted. Pulses normal throughout. Respiratory: No respiratory distress. Painless inspiration. Breath sounds normal. No wheezes/rales/rhonchi noted. Chest nontender. No accessory muscle usage noted or decreased air movement noted. Abdomen: Soft and nontender. Bowel sounds normal in all 4 quadrants. No distention noted. No organomegaly noted. No visible injury noted. Back: No CVA tenderness. Full range of motion noted. Skin: Skin warm and dry. Normal skin color. Normal skin turgor. No rashes/lesions/lacerations noted. Extremities: Left lower extremities: swelling to ankle and calf, localized tender to left ankle and knee without deformity or step-off, neurovascularly intact with cap refill reason 3 seconds and strong right femoral/popliteal pulse. Neuro: Oriented X 3. Cranial nerve exam: II-XII are grossly intact No motor deficit. No sensory deficit. Reflexes normal. Course Reevaluation(s) Reevaluation #1: VSS, right lower leg swelling, negative D-dimer, negative ultrasound for DVT With right Lam cyst, negative x-ray of right knee and ankle. Lower extremity elevation, heating pad, ibuprofen OTC if needed for pain, instruction for return if fever or chills. Time: 12:14 Medical Decision Making Differential Diagnosis Differential Diagnoses: The differential diagnosis associated with the presentation includes ( DVT, knee fracture, ankle fracture, cellulitis, rhabdomyolysis.) Admission/Observation Consideration of admission/observation: Escalation of care including admission/observation considered Lab Data MDM Lab Attestation statement: I reviewed the patient's lab results. 04/18/25 09:13 04/18/25 09:13 Labs: Lab Results 04/18/25 Range/Units 09:13 WBC 5.3 (4.8-10.8) X10*3/uL RBC 4.82 (4.60-5.80) X10*6/uL Hgb 15.4 (14.0-18.0) g/dl Hct 43.8 (42.0-52.0) % MCV 90.9 (80.0-98.0) fL MCH 32.0 (27.0-33.0) pg MCHC 35.2 (31.0-36.0) g/dl RDW 12.2 (11.0-16.0) % Plt Count 218 (160-400) X10*3/uL MPV 9.4 (9.4-12.4) fL Immature Gran % (Auto) 0.6 H (0.0-0.4) % Neut % (Auto) 56.2 (45-73) % Lymph % (Auto) 33.9 (20-40) % Liberty % (Auto) 7.3 (2-11) % Eos % (Auto) 1.1 (0-4) % Baso % (Auto) 0.9 (0-2) % Lymph # (Auto) 1.8 (1.2-4.9) X10*3/uL Liberty # (Auto) 0.4 (0.1-1.2) X10*3/uL Eos # (Auto) 0.1 (0.0-0.4) X10*3/uL Baso # (Auto) 0.1 (0.0-0.2) X10*3/uL Abs Immat Gran (auto) 0.03 (0.00-0.03) X10*3/uL Absolute Neuts (auto) 3.0 (2.0-8.3) x10*3/uL Absolute Nucleated RBC 0.000 (0.0-0.012) X10*3/uL Nucleated RBC % (auto) 0.0 (0.0-0.2) /100WBC ESR 5 (0-15) MM/HR D-Dimer High Sensitivty 155 NG/ML Sodium 138 (135-145) mmol/L Potassium 4.3 (3.3-5.1) mmol/L Chloride 112 H (96-108) mmol/L Carbon Dioxide 19 L (22-29) mmol/L Anion Gap 11 L (12-20) BUN 15 (9-16) mg/dL Creatinine 0.84 (0.5-1.4) mg/dL Estim Creat Clear Calc 140.4 Estimated GFR > 60 Random Glucose 103 (60-115) mg/dL Calcium 8.6 (8.4-10.2) mg/dL Total Creatine Kinase 173 (38-174) U/L C-Reactive Protein 0.74 H (< or = 0.50) mg/dL Independent Interpretation I performed an independent interpretation of an: Plain X-Ray ( ankle/knee: No acute pathology.) and Ultrasound ( Right leg venous: No DVT, Lam cyst.) Radiology Impression Discussion of test interpretation with radiology: I have reviewed the radiologist's reading. Discharge Plan Discharge Clinical Impression: Lam's cyst of knee, Muscle strain of right lower extremity Patient Disposition: Home, Self-Care Instructions: Lam Cyst (ED), Leg Sprain (ED) Additional Instructions: take fsbw-knd-cmitvvl ibuprofen 200 mg every 6 hours if needed for pain. Apply heating pad to the back of your knee. Rest for a week with lower extremity elevation. Seek medical attention if any fever, chills, redness, hotness of your leg. Prescriptions: No Action levothyroxine 175 mcg tablet 175 mcg PO DAILY Qty: 90 1RF Zepbound 5 mg/0.5 mL pen injector 5 mg subcut QWEEK 28 Days Qty: 2 0RF zolpidem 10 mg tablet 10 mg PO BEDTIME 15 Days Qty: 15 2RF gabapentin 300 mg capsule 300 mg PO BID 30 Days Qty: 60 3RF zolpidem 12.5 mg tablet,ext release multiphase 12.5 mg PO BEDTIME 15 Days Qty: 15 1RF Zepbound 7.5 mg/0.5 mL pen injector 7.5 mg subcut QWEEK 28 Days Qty: 2 0RF Referrals: Ruben Hoff PA-C [Primary Care Provider, Internal Medicine] Interventions: ED Discharge Assessment Last Done: 04/18/25 12:27 Discharge Date/Time: 04/18/25 12:27 Print Language: Upper Sorbian
[2025-04-18 09:57] LABS: Erythrocyte Sedimentation Rate 5 MM/HR (0-15)
[2025-04-18 10:00] VITALS: BP 138/78; PULSE 70; RESP 15; TEMP 36.9; O2SAT 100
[2025-04-18 12:00] VITALS: BP 132/72; PULSE 75; RESP 14; TEMP 36.9; O2SAT 100
[2025-04-18 12:27] VITALS: BP 132/72; PULSE 75; RESP 14; TEMP 36.9; O2SAT 100
== END 2025-04-18 12:27 | disposition home or self-care (01) ==
PROVIDERS: Emergency Provider Emergency Medicine; PCP Physician Assistant
DX: S86.911A Strain of unspecified muscle(s) and tendon(s) at lower leg level, right leg, initial encounter (principal); M71.21 Synovial cyst of popliteal space [Baker], right knee; R60.0 Localized edema; X50.1XXA Overexertion from prolonged static or awkward postures, initial encounter; Y93.9 Activity, unspecified; Y92.9 Unspecified place or not applicable; Y99.8 Other external cause status; Z79.899 Other long term (current) drug therapy
CPT/HCPCS: 36415; 73564; 73610; 80048; 82550; 85025; 85379; 85652; 86140; 93971; 99284

== ENCOUNTER → 2025-04-18 09:02 | Outpatient (BNV) | payer OTHER, SELFPAY | PROVIDERS: Emergency Provider Emergency Medicine; PCP Physician Assistant; Visit Provider Radiology Diagnostic Radiology | DX: M71.21 Synovial cyst of popliteal space [Baker], right knee (principal); M22.2X1 Patellofemoral disorders, right knee; M77.31 Calcaneal spur, right foot | CPT/HCPCS: 73564; 73610; 93971 ==

== ENCOUNTER 2025-04-30 10:28 | Outpatient (REF) | payer OTHER, SELFPAY ==
[2025-04-30 13:53] LABS: MANUAL DIFF FLAG NO
[2025-04-30 14:10] LABS: Hematocrit 44.1 % (42.0-52.0); Hemoglobin 15.8 g/dl (14.0-18.0); Imm Gran Abs Auto 0.02 X10*3/uL (0.00-0.03); Imm Gran Pct Auto 0.3 % (0.0-0.4); Lymphocytes Absolute Auto 2.2 X10*3/uL (1.2-4.9); Mean Corpuscular HGB Conc 35.8 g/dl (31.0-36.0); Mean Corpuscular Hemoglobin 31.8 pg (27.0-33.0); Mean Corpuscular Volume 88.7 fL (80.0-98.0); NRBC Abs Auto 0.000 X10*3/uL (0.0-0.012); NRBC Pct Auto 0.0 /100WBC (0.0-0.2); Platelet Count 248 X10*3/uL (160-400); Red Blood Count 4.97 X10*6/uL (4.60-5.80); White Blood Count 6.3 X10*3/uL (4.8-10.8)
[2025-04-30 14:24] LABS: Alanine Aminotransferase 37 U/L (0-40); Aspartate Amino Transferase 28 U/L (5-37); Estimated Glomerular Filt Rate > 60
[2025-05-01 09:04] LABS: HBS Num1 4.35 mIU/mL (0-7.99); HBc Num1 0.07 S/CO (0.00-0.79); HBsAGNum1 0.33 S/CO (0.00-0.99); Hepatitis B Surface Antigen Negative (Negative); ~HepC Num1 0.11 S/CO (0.00-0.79); ~Hepatitis B Surface Antibody NONREACTIVE (Nonreactive); ~Hepatitis C Antibody Nonreactive (Nonreactive)
== END 2025-04-30 10:29 | disposition home or self-care (01) ==
LOC: HO.HKASLDS 10:28
PROVIDERS: PCP Physician Assistant; Visit Provider Internal Medicine Rheumatology
DX: M19.90 Unspecified osteoarthritis, unspecified site (principal); Z79.899 Other long term (current) drug therapy
CPT/HCPCS: 36415; 82565; 84450; 84460; 85025; 85652; 86140; 86200; 86431; 86704; 86706; 86803; 87340; 99202

== ENCOUNTER 2025-04-30 10:28 | Outpatient (AMB) | payer OTHER, SELFPAY ==
[2025-04-30 10:32] VITALS: BP 142/80; PULSE 75; O2SAT 97; BMI 37.9
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
--- OUTSIDE RECORDS SUMMARY | 2025-04-30 10:59 | XMS_ITS | Patient Health Record ---
Author Organization [facility] Address [address] [place] [address] Care Team Providers Care Rf Design Engineer Name Role Phone Luma(inactive) Jake GAO Primary Care Provider U Jelani Monahan [phone] Allergies Allergen (clinical drug ingredient) Drug/Non Drug [...] Problem Status W/U Status Risk Notes Problem [id number] Diverticulitis o f large intestine without perforation or abscess without bleeding (K57.32) Active confirmed Problem 357725507 Irritable bowel syndrome with diarrhea (K58.0) Active confirmed Problem 776003351 Blood in stool (K92.1) Active confirmed Plan Of Treatment Pending Test Test Name Order Date CELIAC PANEL #10 11/18/2015 Future Test Test Name Order Date COLONOSCOPY 11/18/2015 Insurance Providers Payer Name Payer Address Payer Phone Subscriber Number Group Number Insured Name Patient Relationship to Insured Coverage Start Date Coverage End Date [facility] [place] [employer] [place] [address] [place] [address] [id number] GAUTAM Self - patient is the insured Medical (General) History Medical History History ICD Code Hypothyroidism Denies AK,DM,CVA,Lung disease,renal dise ase Diverticulitis-sigmoid--10/26/15--treated with 10 days of Cipro/Flagyl Restless leg syndrome Surgical History Surgery Date(Month/Year) right hand broken -
== END 2025-04-30 12:39 | disposition home or self-care (01) ==
LOC: HO.RHES 10:29
PROVIDERS: PCP Physician Assistant; Visit Provider Internal Medicine Rheumatology
DX: M19.90 Unspecified osteoarthritis, unspecified site (principal); G56.03 Carpal tunnel syndrome, bilateral upper limbs
CPT/HCPCS: 99204

== ENCOUNTER 2025-05-03 08:52 | Outpatient (REF) | payer OTHER, SELFPAY ==
--- NOTE | ~2025-05-03 | XR_ITS ---
EXAMINATION: XR KNEE, LEFT CLINICAL INFORMATION: M17.0 - Bilateral primary osteoarthritis of knee COMPARISON: January 03, 2022 TECHNIQUE: AP and lateral views of the left knee. FINDINGS: There is an osteophyte versus enthesophyte involving the anterior aspect of the proximal tibiofibular joint. No other osteophytes are evident and increased since the prior. There is a joint effusion. There is mild narrowing of the medial joint space. XR/XR knee LT 2V IMPRESSION: Moderate osteoarthritis or enthesophyte of the proximal tibiofibular joint. Joint effusion. Mild nonspecific narrowing of the medial joint space. Electronically signed by: Tk Manuel MD 05/03/2025 11:19 AM EDT
--- NOTE | ~2025-05-03 | XR_ITS ---
Exam: Three-view bilateral hand x-rays TECHNIQUE: PA, oblique, lateral x-rays upper extremity INDICATION: Osteoarthritis Prior: Right hand from April 11, 2018 FINDINGS: RIGHT HAND: There is mild to moderate narrowing of the DIP joints, slightly increased since the prior. There are adjacent small marginal osteophytes that are stable to minimally increased. PIP joints are preserved. MCP joint spaces are preserved. There are marginal osteophytes involving the IP joint of thumb. The joint space is minimally narrowed. Ulnar head neck junction of the first metacarpal demonstrates a chronic erosion with corticated overhanging margins margins appeared more active/acute on the prior examination. There is chronic stable deformity of the fifth metacarpal consistent with a healed fracture of the middle diaphysis and neck. LEFT HAND: There is mild to moderate narrowing of the DIP joints with very small marginal osteophytes. PIP joint spaces are preserved. MCP joint spaces are preserved. Subtle marginal osteophytes are noted involving the IP joint of thumb. There is questionable chronic erosions involving the ulnar side of the first metacarpal head neck junction with overhanging sclerotic margins. There is coarse amorphous irregular calcific density proximal to triquetrum-pisiform. There is also amorphous calcific density involving the soft tissues projecting into the distal radioulnar joint. XR/XR Hand Bilat min 3v Impression: There is evidence of mild osteoarthritis involving the DIP joints of both hands. There are suspected chronic erosions involving the ulnar head neck junctions of the first metacarpals likely representing inflammatory arthropathy in remission, including gout. Nonspecific soft tissue calcification is present proximal to triquetrum/pisiform and in the distal aspect of the distal radioulnar joint. Calcification is more dense than typically seen with calcium pyrophosphate deposition. Electronically signed by: Tk Manuel MD 05/03/2025 12:51 PM EDT
--- NOTE | ~2025-05-03 | XR_ITS ---
Exam: Three-view bilateral feet x-rays TECHNIQUE: AP, oblique, INDICATION: Osteoarthritis. Prior: None FINDINGS: Right foot: There is probable mild narrowing of DIP and PIP joints of the toes. On lateral, there are spurs involving the dorsal aspect of the junction of the forefoot and midfoot. There are small moderate calcaneal spurs at the plantar fascial and Achilles tendon attachments. Left foot: There is mild nonspecific narrowing of interphalangeal joints without osteophytes. There is an accessory ossification center lateral to the base of the fifth metatarsal. Mild spurring is noted dorsal to the junction of the forefoot and midfoot. There are also small calcaneal spurs the plantar fascial and Achilles attachments. XR/XR Foot Luis 3V Impression: Nonspecific mild degenerative changes. Electronically signed by: Tk Manuel MD 05/03/2025 12:55 PM EDT
--- OUTSIDE RECORDS SUMMARY | 2025-05-03 09:01 | XMS_ITS | Patient Health Record ---
Author Organization [facility] Address [address] [place] [address] Care Team Providers Care Instrument Mechanic Weapons System Name Role Phone Luma(inactive) Jake GAO Primary Care Provider U Jelani Monahan [phone] Allergies Allergen (clinical drug ingredient) Drug/Non Drug [...] Problem Status W/U Status Risk Notes Problem 6210495 Diverticulitis o f large intestine without perforation or abscess without bleeding (K57.32) Active confirmed Problem 778563774 Irritable bowel syndrome with diarrhea (K58.0) Active confirmed Problem 073428152 Blood in stool (K92.1) Active confirmed Plan Of Treatment Pending Test Test Name Order Date CELIAC PANEL #10 11/18/2015 Future Test Test Name Order Date COLONOSCOPY 11/18/2015 Insurance Providers Payer Name Payer Address Payer Phone Subscriber Number Group Number Insured Name Patient Relationship to Insured Coverage Start Date Coverage End Date [facility] [place] PROF[employer]AL CLAIMS [address] [place] [address] [id number] [id number] GAUTAM Self - patient is the insured Medical (General) History Medical History History ICD Code Hypothyroidism Denies HI,DM,CVA,Lung disease,renal dise ase Diverticulitis-sigmoid--10/26/15--treated with 10 days of Cipro/Flagyl Restless leg syndrome Surgical History Surgery Date(Month/Year) right hand broken -
== END 2025-05-03 08:53 | disposition home or self-care (01) ==
LOC: HO.HMGCX 08:52
PROVIDERS: PCP Physician Assistant; Visit Provider Internal Medicine Rheumatology
DX: M17.0 Bilateral primary osteoarthritis of knee (principal); M19.042 Primary osteoarthritis, left hand; M19.041 Primary osteoarthritis, right hand; M19.072 Primary osteoarthritis, left ankle and foot; M19.071 Primary osteoarthritis, right ankle and foot
CPT/HCPCS: 73130; 73560; 73630

== ENCOUNTER → 2025-05-03 09:01 | Outpatient (BNV) | payer OTHER, SELFPAY | PROVIDERS: PCP Physician Assistant; Visit Provider Radiology Diagnostic Radiology | DX: M17.0 Bilateral primary osteoarthritis of knee (principal); M79.641 Pain in right hand; M79.642 Pain in left hand; M19.071 Primary osteoarthritis, right ankle and foot; M19.072 Primary osteoarthritis, left ankle and foot | CPT/HCPCS: 73130; 73560; 73630 ==

== ENCOUNTER 2025-05-26 09:01 | Outpatient (REF) | payer OTHER, SELFPAY ==
[2025-05-29 08:14] LABS: TS Negative Control Passed; TS Panel A 0; TS Panel B 0; TS Positive Control Passed; TSpotTB Negative (Negative)
[2025-06-03 01:33] LABS: HLA B27 Negative (Negative)
== END 2025-05-26 09:02 | disposition home or self-care (01) ==
LOC: HO.HKASLDS 09:01
PROVIDERS: PCP Physician Assistant; Visit Provider Internal Medicine Rheumatology
DX: M19.271 Secondary osteoarthritis, right ankle and foot (principal); G56.03 Carpal tunnel syndrome, bilateral upper limbs; M17.11 Unilateral primary osteoarthritis, right knee; Z11.1 Encounter for screening for respiratory tuberculosis
CPT/HCPCS: 36415; 86481; 86812; 99212

== ENCOUNTER 2025-05-26 09:01 | Outpatient (AMB) | payer OTHER, SELFPAY ==
--- NOTE | 2025-05-26 09:12 | A.OFFVIS_ITS ---
Vital Signs 05/26/25 09:13 Height 6 ft 2 in Weight 283 lb BMI 36.3 BP 120/72 Blood Pressure Location Lt brachial Position Sitting Pulse 78 Pulse Source Pulse Oximeter Pulse Oximetry (%) 98 Oxygen Delivery Method Room Air Intake Visit Reasons: follow up Intake Note: Patient presents today for joint pain Accompanied by: Self / Same As Patient Allergies acetone (ACETONE) Allergy (Severe, Verified 05/26/25 09:14) Unconscious Sulfa (Sulfonamide Antibiotics) (SULFA (SULFONAMIDE ANTIBIOTICS)) Allergy (Intermediate, Verified 05/26/25 09:14) eyes swelling aerosols, epoxy, glue Allergy (Intermediate, Uncoded 04/30/25 10:39) swelling in his eyes HPI HPI follow up: Details: Stifness in the morning when not moving. He is able to get up and go in function during the day. He is active during the day and does not have much stiffnes. Increase stiffness (more) at night when not moving. Prednsione improved stiffness. No side effects with prednisone. [facility] Medical History History of COVID-19 Sciatica Annual physical exam Lower back pain Knee pain, right Vitamin D deficiency B12 deficiency Neuropathy BPH (benign prostatic hyperplasia) Anxiety Depression Bipolar II disorder major depressive with atypical features Herniated disc Diverticula of colon Hypothyroidism Surgical History H/O colonoscopy H/O hand surgery H/O neck surgery Family History Father Unknown family medical history Afib CHF (congestive heart failure) ILD (interstitial lung disease) Mother Unknown family medical history Sister No problems noted. 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 Good respiratory effort Skin: No lesions seen MSK: No tender joints in upper extremities. No synovitis of joints in upper extremities. He is able to make a fist. Shoulder abduction 160 degrees. He has normal internal and external rotation of bilateral shoulders. Tender right knee with synovitis. Normal knee flexion. Walks with cane. Results Reviewed Results Reviewed: Ordering Physician: Manpreet Iraheta MD Date of Service: 05/03/25 Procedure(s): XR Hand Bilat min 3v Accession Number(s): [id number] cc: Ruben Hoff PA-C; Manpreet Iraheta MD~ Exam: Three-view bilateral hand x-rays TECHNIQUE: PA, oblique, lateral x-rays upper extremity INDICATION: Osteoarthritis Prior: Right hand from April 11, 2018 FINDINGS: RIGHT HAND: There is mild to moderate narrowing of the DIP joints, slightly increased since the prior. There are adjacent small marginal osteophytes that are stable to minimally increased. PIP joints are preserved. MCP joint spaces are preserved. There are marginal osteophytes involving the IP joint of thumb. The joint space is minimally narrowed. Ulnar head neck junction of the first metacarpal demonstrates a chronic erosion with corticated overhanging margins margins appeared more active/acute on the prior examination. There is chronic stable deformity of the fifth metacarpal consistent with a healed fracture of the middle diaphysis and neck. LEFT HAND: There is mild to moderate narrowing of the DIP joints with very small marginal osteophytes. PIP joint spaces are preserved. MCP joint spaces are preserved. Subtle marginal osteophytes are noted involving the IP joint of thumb. There is questionable chronic erosions involving the ulnar side of the first metacarpal head neck junction with overhanging sclerotic margins. There is coarse amorphous irregular calcific density proximal to triquetrum-pisiform. There is also amorphous calcific density involving the soft tissues projecting into the distal radioulnar joint. XR/XR Hand Bilat min 3v Impression: There is evidence of mild osteoarthritis involving the DIP joints of both hands. There are suspected chronic erosions involving the ulnar head neck junctions of the first metacarpals likely representing inflammatory arthropathy in remission, including gout. Nonspecific soft tissue calcification is present proximal to triquetrum/pisiform and in the distal aspect of the distal radioulnar joint. Calcification is more dense than typically seen with calcium pyrophosphate deposition. Ordering Physician: Manpreet Iraheta MD Date of Service: 05/03/25 Procedure(s): XR Foot Luis 3V Accession Number(s): [id number] Exam: Three-view bilateral feet x-rays TECHNIQUE: AP, oblique, INDICATION: Osteoarthritis. Prior: None FINDINGS: Right foot: There is probable mild narrowing of DIP and PIP joints of the toes. On lateral, there are spurs involving the dorsal aspect of the junction of the forefoot and midfoot. There are small moderate calcaneal spurs at the plantar fascial and Achilles tendon attachments. Left foot: There is mild nonspecific narrowing of interphalangeal joints without osteophytes. There is an accessory ossification center lateral to the base of the fifth metatarsal. Mild spurring is noted dorsal to the junction of the forefoot and midfoot. There are also small calcaneal spurs the plantar fascial and Achilles attachments. XR/XR Foot Luis 3V Impression: Nonspecific mild degenerative changes. Assessment & Plan Assessment & Plan (1) Inflammatory arthritis: Comment: Erosive, seronegative (CCP, RF) and asymmetric inflammatory arthritis. 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 He has secondary osteoarthritis of his right ankle and mild osteoarthritis of his right knee. Synovitis has improved with a course of prednisone. We discussed next steps in treatment with another course of prednisone with longer course to further reduce active inflammatory arthritis. Discussed side effects of long-term prednisone use. Goal is to use prednisone short term. I will avoid intra-articular cortisone injection as patient has had rare side effect steroid flare on 2 separate occasions when treated for lateral epicondylitis in the past. We discussed importance of DMARD therapy in treating inflammatory arthritis, maintaining benefit from prednisone, and preventing progression of disease as he currently has erosive changes seen on imaging involving his hands. Code(s): M19.90 - Unspecified osteoarthritis, unspecified site Category: Medical Plan: T spot ordered HLA B27 was ordered last visit but not drawn. Reordered test. After T spot results are back, we will send prescription for methotrexate 12.5 mg once weekly and folic acid 1 mg daily. He will need labs 1 month after starting methotrexate with CBC, creatinine, AST and ALT. Prednisone course prescribed Information on DMARD therapy given to patient Return to clinic in 3 months (2) Carpal tunnel syndrome, bilateral: Comment: Right is worse than last. Clinical diagnosis. Synovitis of right wrist is contributing to secondary carpal tunnel syndrome. Symptoms did not improve with a course of prednisone. Code(s): G56.03 - Carpal tunnel syndrome, bilateral upper limbs Category: Medical Plan: Bilateral cock-up wrist braces prescribed to wear at night Return to clinic in 3 months Orders: Orders T Spot TB Today M19.90 - Unspecified osteoarthritis, unspecified site Medications: New arm brace (Wrist Brace) Wear wrist braces at night only Bilateral cock-up wrist braces Diagnosis: Carpal tunnel syndrome 2 ea 0RF arm brace (Wrist Brace) Wear wrist braces at night only Bilateral cock-up wrist braces Diagnosis: Carpal tunnel syndrome 2 ea 0RF Changed From prednisone Take 4 tablets daily 7 days, 3 tablets daily 7 days, 2 tablets daily 7 days, 1 tablet daily 7 days then stop. Take with food. 5 mg PO DIRECTED 70 tabs 0RF To prednisone Take 4 tablets daily 14 days, 3 tablets daily 14 days, 2 tablets daily 14 days, 1 tablet daily 14 days then stop. Take with food. 5 mg PO DIRECTED 140 tabs 0RF Coding Level of Care Code Est Pt Level 4 (04666) Complex EM visit Add On G2211 Diagnoses Inflammatory arthritis M19.90 Carpal tunnel syndrome, bilateral G56.03
[2025-05-26 09:13] VITALS: BP 120/72; PULSE 78; O2SAT 98; BMI 36.3
--- OUTSIDE RECORDS SUMMARY | 2025-05-26 09:15 | XMS_ITS | Patient Health Record ---
Author Organization [facility] Address [address] [place] [address] Care Team Providers Care Conveyor Feeder Name Role Phone Luma(inactive) Jake GAO Primary Care Provider U Jelani Monahan [phone] Allergies Allergen (clinical drug ingredient) Drug/Non Drug [...] Problem Status W/U Status Risk Notes Problem 2671796 Diverticulitis o f large intestine without perforation or abscess without bleeding (K57.32) Active confirmed Problem 375810866 Irritable bowel syndrome with diarrhea (K58.0) Active confirmed Problem 903258658 Blood in stool (K92.1) Active confirmed Plan Of Treatment Pending Test Test Name Order Date CELIAC PANEL #10 11/18/2015 Future Test Test Name Order Date COLONOSCOPY 11/18/2015 Insurance Providers Payer Name Payer Address Payer Phone Subscriber Number Group Number Insured Name Patient Relationship to Insured Coverage Start Date Coverage End Date [facility] BLUE BCBS PROFESSIONAL CLAIMS [address] [place] [address] [phone] [id number] 200 AMY GAUTAM Self - patient is the insured Medical (General) History Medical History History ICD Code Hypothyroidism Denies MD,DM,CVA,Lung disease,renal dise ase Diverticulitis-sigmoid--10/26/15--treated with 10 days of Cipro/Flagyl Restless leg syndrome Surgical History Surgery Date(Month/Year) right hand broken -
== END 2025-05-26 09:58 | disposition home or self-care (01) ==
LOC: HO.RHES 09:01
PROVIDERS: PCP Physician Assistant; Visit Provider Internal Medicine Rheumatology
DX: M19.90 Unspecified osteoarthritis, unspecified site (principal); G56.03 Carpal tunnel syndrome, bilateral upper limbs
CPT/HCPCS: 99214

== ENCOUNTER 2025-07-08 12:05 | Outpatient (AMB) | payer OTHER, SELFPAY ==
--- NOTE | 2025-07-08 12:32 | MHC.PC.OV ---
Vital Signs 07/08/25 12:33 Height 6 ft 2 in Weight 270 lb 4 oz BMI 34.7 BP 130/80 Blood Pressure Location Lt brachial Position Sitting Pulse 78 Pulse Source Pulse Oximeter Pulse Oximetry (%) 97 Oxygen Delivery Method Room Air Intake Visit Reasons: lump inside his testicles [employer] Required: No Accompanied by: Self / Same As Patient Allergies acetone (ACETONE) Allergy (Severe, Verified 07/08/25 12:44) Unconscious Sulfa (Sulfonamide Antibiotics) (SULFA (SULFONAMIDE ANTIBIOTICS)) Allergy (Intermediate, Verified 07/08/25 12:44) eyes swelling aerosols, epoxy, glue Allergy (Intermediate, Uncoded 07/08/25 12:44) swelling in his eyes Medication List - Last Reconciled 07/08/25 by Mukund Plunkett MD arm brace (Wrist Brace) Wear wrist braces at night only Bilateral cock-up wrist braces Diagnosis: Carpal tunnel syndrome folic acid 1 mg PO DAILY gabapentin 300 mg PO BID 30 days levothyroxine 175 mcg PO DAILY methotrexate sodium 12.5 mg (5 x 2.5 mg) PO QWEEK 4 weeks prednisone 5 mg PO DIRECTED tirzepatide (weight loss) (Zepbound) 5 mg (0.5 mL) subcut QWEEK 4 weeks Held on 04/13/25. Instructions: Doctor's Order tirzepatide (weight loss) (Zepbound) 7.5 mg (0.5 mL) subcut QWEEK 4 weeks Held on 06/15/25. Instructions: Doctor's Order tirzepatide (weight loss) (Zepbound) 10 mg (0.5 mL) subcut QWEEK 4 weeks zolpidem 10 mg PO BEDTIME 15 days Held on 04/13/25. Instructions: Doctor's Order zolpidem ER 12.5 mg PO BEDTIME 15 days Tobacco use date assessed: 07/08/25 Dental Screening Dental Screen Date: 07/08/25 Did you have a dental visit in the last 12 months?: Yes Did you have a dental problem in the last 6 months where you did not have access to dental care?: No Was dental information given to patient?: Patient has dentist HPI lump inside his testicles HPI Details Patient comes in today for evaluation of a lump around his left testicular area that he first noticed last night States that his was actually the one who discovered it and wanted him to get this checked out BAMBI Patient states that the lump does not hurt and he currently denies any acute urinary symptoms He denies any abdominal pain or nausea and vomiting and has no other acute issues or symptoms at present [facility] Medical History History of COVID-19 Sciatica Annual physical exam Lower back pain Knee pain, right Vitamin D deficiency B12 deficiency Neuropathy BPH (benign prostatic hyperplasia) Anxiety Depression Bipolar II disorder major depressive with atypical features Herniated disc Diverticula of colon Hypothyroidism Surgical History H/O colonoscopy H/O hand surgery H/O neck surgery Family History Father Unknown family medical history Afib CHF (congestive heart failure) ILD (interstitial lung disease) Mother Unknown family medical history Sister No problems noted. 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 Sexual orientation: Straight/Heterosexual Cognitive needs: No Hearing needs: No Vision needs: Yes (Glasses) Questionnaire Thrive Questionnaire Date Thrive assessed: 01/12/25 I am a: Patient What is your living situation today?: I have a steady place to live Within the past 12 months, did the food you bought not last and you didn't have the money to get more?: Never true Within the past 12 months, did you worry whether your food would run out before you got money to buy more?: Never true Do you have trouble paying for medicines?: No Do you have trouble getting transportation to medical appointments?: No Do you have trouble paying your heating and electricity bill?: No Do you have trouble taking care of your child, family member or friend?: No Do you have trouble with day-to-day activities such as bathing, preparing meals, shopping, managing finances, etc.?: No Are you currently unemployed and looking for a job?: No Are you interested in more education?: I choose not to answer this question Please select the resources that you would like help with: None Currently or been in a relationship where the following occur: No concerns reported THRIVE Score: 0 AUDIT C Alcohol Use Questionnaire (AUDIT-C) 1. How often do you have a drink containing alcohol?: 2-3 times a week 2. How many drinks containing alcohol do you have on a typical day when you are drinking?: 1 or 2 3. How often do you have six or more drinks on one occasion?: Less than monthly Total Score: 4 Score Reviewed/Action Taken: Yes EUGENIO-7 AMB Questionnaire EUGENIO-7 Date EUGENIO - 7 assessed: 01/19/25 Source: Developed by Drs. Jelani Javier, Nayla Acharya, Rajan Woods and colleagues, with an educational diana from [employer]. Review of Systems Const Denies chills, Denies fatigue, Denies fever(s) and Denies headache(s) ENT Denies dysphagia, Denies dizziness, Denies otalgia, Denies headache(s), Denies neck pain, Denies odynophagia and Denies sore throat Card Denies chest pain, Denies palpitations and Denies dyspnea Resp Denies chest congestion, Denies cough and Denies dyspnea GI Denies abdominal pain, Denies constipation, Denies dysphagia, Denies heartburn, Denies diarrhea, Denies nausea, Denies odynophagia and Denies vomiting Details: (+) palpable, non-tender mass noted over the left suprapubic area Denies difficulty urinating, Denies dysuria, Denies nocturia and Denies urinary frequency Musc Denies back pain and Denies neck pain Skin/Breast Denies rash Neuro Denies dizziness and Denies headache(s) Endo Denies fatigue and Denies palpitations Physical exam (Primary Care) Vital Signs: Last Vital Signs Pulse 78 07/08/25 12:33 BP 130/80 07/08/25 12:33 Pulse Ox 97 07/08/25 12:33 Oxygen Delivery Method Room Air 07/08/25 12:33 BMI result Body Mass Index 34.7 Tobacco/Smoking Status: Tobacco use Status Tobacco use date assessed 07/08/25 07/08/25 12:40 Patient Tobacco Use Status Never used Tobacco 07/08/25 12:32 e-Cigarette/Vaping Use Never Used 07/08/25 12:32 Thrive Assessment: Date of Thrive Assessment Date Thrive assessed 01/12/25 07/08/25 12:32 Currently or been in a relationship where the following occur: No concerns reported Const General: no acute distress and alert Neck Neck: Yes supple and No lymphadenopathy Thyroid: Thyroid normal Resp Auscultation: clear to auscultation bilaterally, no rales and no wheezes Cardio Rate: regular rate Rhythm: regular rhythm Heart sounds: no murmurs GI Palpation (GI): Soft to palpation, nontender and Hernia present umbilical (small) Auscultation: normal bowel sounds Other: (+) palpable, non-tender mass noted over the left suprapubic area; no testicular masses were noted Extrem General: Yes no clubbing, cyanosis or edema Coding Level of Care Code Est Pt Level 3 (32897) Diagnoses Abdominal wall mass of suprapubic region R19.09 Assessment & Plan Assessment & Plan (1) Abdominal wall mass of suprapubic region: Code(s): R19.09 - Other intra-abdominal and pelvic swelling, mass and lump Category: Medical Plan: Have advised patient that his mass is over the suprapubic area and is not actually a testicular mass as he initially believed - this is likely a hernia Will send patient for pelvic US BAMBI for further evaluation and if US confirms a hernia, we will then need to refer him to surgery for further management Plan Follow up with PCP as scheduled in a couple of weeks (end of June 2025) Orders: Orders US pelvic limited 07/08/25 R19.09 - Other intra-abdominal and pelvic swelling, mass and lump
[2025-07-08 12:33] VITALS: BP 130/80; PULSE 78; O2SAT 97; BMI 34.7
== END 2025-07-08 12:55 | disposition home or self-care (01) ==
PROVIDERS: PCP Physician Assistant; Visit Provider Internal Medicine
DX: R19.09 Other intra-abdominal and pelvic swelling, mass and lump (principal)

== ENCOUNTER → 2025-07-08 12:05 | Outpatient (BNVA) | payer OTHER, SELFPAY | PROVIDERS: PCP Physician Assistant; Visit Provider Internal Medicine | DX: R19.09 Other intra-abdominal and pelvic swelling, mass and lump (principal) | CPT/HCPCS: 99212 ==

== ENCOUNTER 2025-07-16 13:31 | Outpatient (REF) | payer OTHER, SELFPAY ==
--- NOTE | ~2025-07-16 | US_ITS ---
EXAMINATION: US PELVIS, LIMITED/FOLLOW UP CLINICAL INFORMATION: R19.09 - Other intra-abdominal and pelvic swelling, mass and lump - UMBILIC COMPARISON: Abdomen and pelvis CT 09/30/2018 TECHNIQUE: Grayscale and color Doppler imaging was performed in the periumbilical region FINDINGS: In the area of a palpable lump near the umbilicus, there is a 6 x 21 mm anechoic collection with increased through transmission. It has scalloped concave margins . Is located just deep to the dermis. It is just lateral to an umbilical hernia containing adipose tissue. The neck of the herniation is 12 mm wide, previously 8 mm wide There is a fat measures 14 x 14 mm, previously 21 x 22 mm. US/US pelvic limited IMPRESSION: Small umbilical hernia with periumbilical fluid similar to the prior. Fluid collection has concave margins which favors a bland fluid collection rather than abscess. Electronically signed by: Tk Manuel MD 07/16/2025 02:34 PM EDT
--- NOTE | ~2025-07-16 | US_ITS ---
EXAMINATION: US SCROTUM CLINICAL INFORMATION: Left Scrotal mass. COMPARISON: None available. TECHNIQUE: A sonogram of the scrotum was performed assessing walker-scale appearance and color Doppler flow. Spectral Doppler analysis of the arterial and venous flow were performed in the testes bilaterally. FINDINGS: RIGHT: Right testicle measures 3.9 cm, volume 18 mL. No focal testicular parenchymal lesions are visualized. Spectral Doppler analysis of the arterial and venous flow is present in the right testis. Right epididymal head is normal in size. There is a complex cyst measuring 6 x 3 x 6 mm. Small hydrocele is noted. Right epididymal Doppler flow is present LEFT: Left testicle measures 4.7 cm, volume 28 mL. No focal testicular parenchymal lesions are visualized. Spectral Doppler analysis of the arterial and venous flow is present in the left testis. Left epididymal head is normal in size. Small hydrocele is noted. There is an epididymal head mass measuring 24 x 14 x 30 mm. It contains thin internal septations with hypoechogenic debris and demonstrates increased through transmission without internal blood flow. Left epididymal Doppler flow is present US/US scrotum IMPRESSION: Left epididymal head cyst or spermatocele measuring 24 x 14 x 30 mm. Small right epididymal head cyst measuring 6 mm long axis. Electronically signed by: Tk Manuel MD 07/16/2025 02:38 PM EDT
--- OUTSIDE RECORDS SUMMARY | 2025-07-16 14:49 | XMS_ITS | Patient Health Record ---
Author Organization [facility] Address [address] [place] [address] Care Team Providers Care Reception Specialist Name Role Phone Luma(inactive) Jake GAO Primary Care Provider U Jelani Monahan [phone] Allergies Allergen (clinical drug ingredient) Drug/Non Drug [...] Problem Status W/U Status Risk Notes Problem 5230607 Diverticulitis o f large intestine without perforation or abscess without bleeding (K57.32) Active confirmed Problem 178623951 Irritable bowel syndrome with diarrhea (K58.0) Active confirmed Problem 579504349 Blood in stool (K92.1) Active confirmed Plan Of Treatment Pending Test Test Name Order Date CELIAC PANEL #10 11/18/2015 Future Test Test Name Order Date COLONOSCOPY 11/18/2015 Insurance Providers Payer Name Payer Address Payer Phone Subscriber Number Group Number Insured Name Patient Relationship to Insured Coverage Start Date Coverage End Date [facility] BLUE BCBS PROFESSIONAL CLAIMS [address] [place] [address] [id number] AMY GAUTAM Self - patient is the insured Medical (General) History Medical History History ICD Code Hypothyroidism Denies [place],DM,CVA,Lung disease,renal dise ase Diverticulitis-sigmoid--10/26/15--treated with 10 days of Cipro/Flagyl Restless leg syndrome Surgical History Surgery Date(Month/Year) right hand broken -
== END 2025-07-16 13:32 | disposition home or self-care (01) ==
LOC: HO.HMGCX 13:31
PROVIDERS: PCP Physician Assistant; Visit Provider Internal Medicine
DX: N50.89 Other specified disorders of the male genital organs (principal); R19.09 Other intra-abdominal and pelvic swelling, mass and lump
CPT/HCPCS: 76857; 76870

== ENCOUNTER → 2025-07-16 13:36 | Outpatient (BNV) | payer OTHER, SELFPAY | PROVIDERS: PCP Physician Assistant; Visit Provider Radiology Diagnostic Radiology | DX: N50.3 Cyst of epididymis (principal); K42.9 Umbilical hernia without obstruction or gangrene | CPT/HCPCS: 76857; 76870 ==

== ENCOUNTER 2025-07-19 08:22 | Outpatient (AMB) | payer OTHER, SELFPAY ==
--- NOTE | 2025-07-19 08:33 | A.OFFPC_ITS ---
Vital Signs 07/19/25 08:34 Height 6 ft 2 in Weight 271 lb 6 oz BMI 34.8 BP 110/62 Blood Pressure Location Lt brachial Position Sitting Pulse 73 Pulse Source Pulse Oximeter Temp 97.1 F Temp Source Temporal Artery Scan Pulse Oximetry (%) 98 Oxygen Delivery Method Room Air Intake Visit Reasons: f/u weight check Intake Note: Patient is here to follow up on Weight check and US results. Propagation Manager Required: No Yeast Tender: Not Required per policy Accompanied by: Self / Same As Patient Allergies acetone (ACETONE) Allergy (Severe, Verified 07/19/25 08:56) Unconscious Sulfa (Sulfonamide Antibiotics) (SULFA (SULFONAMIDE ANTIBIOTICS)) Allergy (Intermediate, Verified 07/19/25 08:56) eyes swelling aerosols, epoxy, glue Allergy (Intermediate, Uncoded 07/19/25 08:56) swelling in his eyes Medication List - Last Reconciled 07/19/25 by Ruben Hoff PA-C arm brace (Wrist Brace) Wear wrist braces at night only Bilateral cock-up wrist braces Diagnosis: Carpal tunnel syndrome folic acid 1 mg PO DAILY gabapentin 300 mg PO BID 30 days levothyroxine 175 mcg PO DAILY methotrexate sodium 12.5 mg (5 x 2.5 mg) PO QWEEK 4 weeks prednisone 5 mg PO DIRECTED tirzepatide (weight loss) (Zepbound) 10 mg (0.5 mL) subcut QWEEK 4 weeks zolpidem 10 mg PO BEDTIME 15 days Held on 04/13/25. Instructions: Doctor's Order zolpidem ER 12.5 mg PO BEDTIME 15 days Tobacco use date assessed: 07/19/25 Dental Screening Dental Screen Date: 07/08/25 HPI f/u weight check HPI Details Patient is a 55-year-old male here today for a follow-up visit Patient has a past medical history significant hypothyroidism, lumbar stenosis, obesity, bipolar 2 disorder. Concern--> Umbilical hernia---> -The patient reports having two hernias, specifically an umbilical hernia and a periumbilical fluid collection, which were identified during an ultrasound conducted recently. The patient describes discomfort associated with the hernia, noting that it becomes painful, especially when sitting. He has been advised to consult with a general surgeon for potential surgical intervention Epididymal cyst: Additionally, the patient has been diagnosed with an epididymal head cyst and a spermatocele, which were initially suspected to be hernias in the scrotum. These conditions have not been deemed to require surgical intervention at this time, and conservative management with supportive underwear and anti-inflammatory medications has been recommended. .. Obstructive sleep apnea/ Class 2 obesity: Patient continues on Zepbound and has lost significant amount of weight. Has lost more than 5% of his total body mass. He is feeling better and has a much better relationship with food and alcohol. He has been more physically active as well. Will increase his lip down to 12.5 mg weekly .. Insomnia: Unfortunately has not been able to sleep throughout the night even with use of zolpidem 12.5 mg extended release. He would like to try an alterna tive sleeping medication .. Hypothyroidism: Most recent TSH stable, will continue his current dose of levothyroxine. ... Lumbar stenosis: Continues to have lower back pain and was evaluated by surgeon though was not a surgical candidate. He does report gabapentin has been somewhat helpful for his joint pains and lower back pain. He has followed up with [facility] and reports he is a candidate for surgical nerve procedure. PLAN: Will increase his gabapentin to 300 b.i.d. for better pain control. --> also has an upcoming appointment [facility] in March of 2025 for his polyarthralgia and elevated inflammatory markers [facility] Medical History (Reviewed 05/26/25 @ 09:14 by Rosa Elena Tang [facility] [address]) History of COVID-19 Sciatica Annual physical exam Lower back pain Knee pain, right Vitamin D deficiency B12 deficiency Neuropathy BPH (benign prostatic hyperplasia) Anxiety Depression Bipolar II disorder major depressive with atypical features Herniated disc Diverticula of colon Hypothyroidism Surgical History H/O colonoscopy H/O hand surgery H/O neck surgery Family History Father Unknown family medical history Afib CHF (congestive heart failure) ILD (interstitial lung disease) Mother Unknown family medical history Sister No problems noted. 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 Sexual orientation: Straight/Heterosexual Cognitive needs: No Hearing needs: No Vision needs: Yes (Glasses) Questionnaire Thrive Questionnaire Date Thrive assessed: 01/12/25 I am a: Patient What is your living situation today?: I have a steady place to live Within the past 12 months, did the food you bought not last and you didn't have the money to get more?: Never true Within the past 12 months, did you worry whether your food would run out before you got money to buy more?: Never true Do you have trouble paying for medicines?: No Do you have trouble getting transportation to medical appointments?: No Do you have trouble paying your heating and electricity bill?: No Do you have trouble taking care of your child, family member or friend?: No Do you have trouble with day-to-day activities such as bathing, preparing meals, shopping, managing finances, etc.?: No Are you currently unemployed and looking for a job?: No Are you interested in more education?: I choose not to answer this question Please select the resources that you would like help with: None Currently or been in a relationship where the following occur: No concerns reported THRIVE Score: 0 EUGENIO-7 AMB Questionnaire EUGENIO-7 Date EUGENIO - 7 assessed: 01/19/25 Source: Developed by Drs. Jelani Javier, Nayla Acharya, Rajan Woods and colleagues, with an educational diana from [employer]. Physical exam (Primary Care) Vital Signs: Last Vital Signs Temp 97.1 F 07/19/25 08:34 Pulse 73 07/19/25 08:34 BP 110/62 07/19/25 08:34 Pulse Ox 98 07/19/25 08:34 Oxygen Delivery Method Room Air 07/19/25 08:34 BMI result Body Mass Index 34.8 BMI Assessment/Plan discussion: High BMI High, discussed plan: lifestyle, weight reduction, dietary and physical activity Tobacco/Smoking Status: Tobacco use Status Tobacco use date assessed 07/19/25 07/19/25 08:36 Patient Tobacco Use Status Never used Tobacco 07/19/25 08:36 e-Cigarette/Vaping Use Never Used 07/19/25 08:36 Thrive Assessment: Date of Thrive Assessment Date Thrive assessed 01/12/25 07/19/25 08:36 Currently or been in a relationship where the following occur: No concerns reported Coding Level of Care Code Est Pt Level 4 (10374) Diagnoses Umbilical hernia without obstruction and without gangrene K42.9 Obstruction and gangrene presence: without obstruction or gangrene Class 2 obesity E66.812 Primary insomnia F51.01 Insomnia type: primary Hypothyroidism, unspecified type E03.9 Hypothyroidism type: unspecified JENNA (obstructive sleep apnea) G47.33 Inflammatory arthritis M19.90 Assessment & Plan Assessment & Plan (1) Umbilical hernia: Code(s): K42.9 - Umbilical hernia without obstruction or gangrene Category: Medical Qualifiers: Obstruction and gangrene presence: without obstruction or gangrene Qualified Code(s): K42.9 - Umbilical hernia without obstruction or gangrene Plan: umbilical hernia and the need for surgical evaluation by a general surgeon. I explained the conservative management approach for the epididymal head cyst and spermatocele, emphasizing the use of supportive underwear and anti-inflammatory medications. (2) Class 2 obesity: Code(s): E66.812 - Obesity, class 2 Category: Medical Plan: Has been on Zepbound and has been able to lose more than 5% of his total body mass, he does have comorbid obesity related conditions such as obstructive sleep apnea and osteo arthritis. he would like to continue up titrating his dose of Zepbound. He has a much better relationship with food and has been much more physically active.. His goal weight is to be around 250 lb. (3) Insomnia: Code(s): G47.00 - Insomnia, unspecified Category: Medical Qualifiers: Insomnia type: primary Qualified Code(s): F51.01 - Primary insomnia Plan: Issues with insomnia are ongoing. He has been using zolpidem 12.5 mg though has not found it too effective. We recommending a trial of Trazodone, starting at 50 mg, with the possibility of increasing to 100 mg if needed (4) Hypothyroid: Code(s): E03.9 - Hypothyroidism, unspecified Category: Medical Qualifiers: Hypothyroidism type: unspecified Qualified Code(s): E03.9 - Hypothyroidism, unspecified Plan: Most recent TSH stable, will continue his current dose of levothyroxine and continue following TSH to ensure normal (5) JENNA (obstructive sleep apnea): Code(s): G47.33 - Obstructive sleep apnea (adult) (pediatric) Category: Medical Plan: Patient has a history of obstructive sleep apnea though has not been able tolerate the CPAP machine. Has been on Zepbound and has been able to lose significant amount of weight and feels much better. He will like to continue up titrating Zepbound to reduce his weight even more. He has a better relationship with food and he has been more physically active due to GLP 1 therapy. He informs me that his insurance may not cover Zepbound come 10/21/2025 (6) Inflammatory arthritis: Comment: Erosive, seronegative (CCP, RF) and asymmetric inflammatory arthritis. 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 He has secondary osteoarthritis of his right ankle and mild osteoarthritis of his right knee. Synovitis has improved with a course of prednisone. We discussed next steps in treatment with another course of prednisone with longer course to further reduce active inflammatory arthritis. Discussed side effects of long-term prednisone use. Goal is to use prednisone short term. I will avoid intra-articular cortisone injection as patient has had rare side effect steroid flare on 2 separate occasions when treated for lateral epicondylitis in the past. We discussed importance of DMARD therapy in treating inflammatory arthritis, maintaining benefit from prednisone, and preventing progression of disease as he currently has erosive changes seen on imaging involving his hands. Code(s): M19.90 - Unspecified osteoarthritis, unspecified site Category: Medical Plan: Patient continues to follow rheumatology. He has been started on methotrexate and folic acid. Also on prednisone which has helped his joint pain though has side effects to the prednisone and will discuss this with his office administration Orders: Orders TSH reflex Free T4 Today K42.9 - Umbilical hernia without obstruction or gangrene Comprehensive Raymond. Panel Fast Today Z13.1 - Encounter for screening for diabetes mellitus Vitamin D 25-OH Total Today E55.9 - Vitamin D deficiency, unspecified Hemoglobin A1c Today R73.9 - Hyperglycemia, unspecified Complete Blood Count no Diff Today Z13.1 - Encounter for screening for diabetes mellitus Referrals General Surgery Referral K42.9 - Umbilical hernia without obstruction or gangrene Medications: New trazodone 50 mg PO BEDTIME 14 tabs 0RF 14 days F51.01 - Primary insomnia tirzepatide (weight loss) (Zepbound) 12.5 mg (0.5 mL) subcut QWEEK 2 mL 1RF 4 weeks G47.33 - Obstructive sleep apnea (adult) (pediatric) Discontinued zolpidem Discontinued Reason: Doctor's Order 10 mg PO BEDTIME 15 days 15 tabs 2RF sleep F51.01 - Primary insomnia zolpidem ER Discontinued Reason: Doctor's Order 12.5 mg PO BEDTIME 15 days 15 tabs 2RF sleep F51.01 - Primary insomnia On Hold tirzepatide (weight loss) (Zepbound) Hold Comment: Doctor's Order 10 mg (0.5 mL) subcut QWEEK 2 mL 1RF 4 weeks E66.812 - Obesity, class 2, G47.33 - Obstructive sleep apnea (adult) (pediatric)
[2025-07-19 08:34] VITALS: BP 110/62; PULSE 73; TEMP 36.2; O2SAT 98; BMI 34.8
--- OUTSIDE RECORDS SUMMARY | 2025-07-19 08:41 | XMS_ITS | Patient Health Record ---
Author Organization [facility] Address [address] [place] [address] Care Team Providers Care Sous Chef Name Role Phone Luma(inactive) Jake GAO Primary Care Provider U Jelani Monahan [phone] Allergies Allergen (clinical drug ingredient) Drug/Non Drug [...] Problem Status W/U Status Risk Notes Problem 0221131 Diverticulitis o f large intestine without perforation or abscess without bleeding (K57.32) Active confirmed Problem 859412478 Irritable bowel syndrome with diarrhea (K58.0) Active confirmed Problem 148303208 Blood in stool (K92.1) Active confirmed Plan Of Treatment Pending Test Test Name Order Date CELIAC PANEL #10 11/18/2015 Future Test Test Name Order Date COLONOSCOPY 11/18/2015 Insurance Providers Payer Name Payer Address Payer Phone Subscriber Number Group Number Insured Name Patient Relationship to Insured Coverage Start Date Coverage End Date [facility] [employer] PROFESSIONAL CLAIMS [address] [place] [address] [id number] 200 [id number] [id number] Self - patient is the insured Medical (General) History Medical History History ICD Code Hypothyroidism Denies IA,DM,CVA,Lung disease,renal dise ase Diverticulitis-sigmoid--10/26/15--treated with 10 days of Cipro/Flagyl Restless leg syndrome Surgical History Surgery Date(Month/Year) right hand broken -
== END 2025-07-19 09:14 | disposition home or self-care (01) ==
LOC: HO.HMCH 08:22
PROVIDERS: PCP Physician Assistant; Visit Provider Physician Assistant
DX: K42.9 Umbilical hernia without obstruction or gangrene (principal); E66.812 Obesity, class 2; Z68.34 Body mass index [BMI] 34.0-34.9, adult; F51.01 Primary insomnia; E03.9 Hypothyroidism, unspecified; G47.33 Obstructive sleep apnea (adult) (pediatric)

== ENCOUNTER → 2025-07-19 08:22 | Outpatient (BNVA) | payer OTHER, SELFPAY | PROVIDERS: PCP Physician Assistant; Visit Provider Physician Assistant | DX: E66.812 Obesity, class 2 (principal); K42.9 Umbilical hernia without obstruction or gangrene; F51.01 Primary insomnia; E03.9 Hypothyroidism, unspecified; G47.33 Obstructive sleep apnea (adult) (pediatric); M19.90 Unspecified osteoarthritis, unspecified site; E55.9 Vitamin D deficiency, unspecified; R73.9 Hyperglycemia, unspecified; Z68.34 Body mass index [BMI] 34.0-34.9, adult | CPT/HCPCS: 99212 ==

== ENCOUNTER 2025-08-05 09:03 | Outpatient (REF) | payer OTHER, SELFPAY ==
--- OUTSIDE RECORDS SUMMARY | 2025-08-05 10:05 | XMS_ITS | Patient Health Record ---
Author Organization [facility] Address [address] [place] [address] Care Team Providers Care Paper Coater Name Role Phone Luma(inactive) Jake GAO Primary Care Provider U Jelani Monahan [phone] Allergies Allergen (clinical drug ingredient) Drug/Non Drug [...] Packs 240 GM as directed Orally as directed; Duration: 1 day(s) 11/20/2015 Active Problems Problem Type SNOMED Code ICD Code Onset Dates Problem Status W/U Status Risk Notes Problem Diverticulitis of colon (023068340) Diverticulitis of large intestine without perforation or abscess without bleeding (K57.32) Active confirmed Problem Irritable bowel syndrome with diarrhea (442121498) Irritable bowel syndrome with diarrhea (K58.0) Active confirmed Problem Blood in stool (810032051) Blood in stool (K92.1) Active confirmed Plan Of Treatment Pending Test Test Name Order Date CELIAC PANEL #10 11/18/2015 Future Test Test Name Order Date COLONOSCOPY 11/18/2015 Insurance Providers Payer Name Payer Address Payer Phone Subscriber Number Group Number Insured Name Patient Relationship to Insured Coverage Start Date Coverage End Date [facility] [address] [place] [address] [phone] [id number] [id number] Self - patient is the insured Medical (General) History Medical History History ICD Code Hypothyroidism Denies [place],DM,CVA,Lung disease,renal dise ase Diverticulitis-sigmoid--10/26/15--treated with 10 days of Cipro/Flagyl Restless leg syndrome Surgical History Surgery Date(Month/Year) right hand broken -
[2025-08-05 13:28] LABS: MANUAL DIFF FLAG NO
[2025-08-05 13:38] LABS: Hematocrit 45.2 % (42.0-52.0); Hemoglobin 15.3 g/dl (14.0-18.0); Imm Gran Abs Auto 0.03 X10*3/uL (0.00-0.03); Imm Gran Pct Auto 0.4 % (0.0-0.4); Lymphocytes Absolute Auto 2.2 X10*3/uL (1.2-4.9); Mean Corpuscular HGB Conc 33.8 g/dl (31.0-36.0); Mean Corpuscular Hemoglobin 31.8 pg (27.0-33.0); Mean Corpuscular Volume 94.0 fL (80.0-98.0); NRBC Abs Auto 0.000 X10*3/uL (0.0-0.012); NRBC Pct Auto 0.0 /100WBC (0.0-0.2); Platelet Count 252 X10*3/uL (160-400); Red Blood Count 4.81 X10*6/uL (4.60-5.80); White Blood Count 7.6 X10*3/uL (4.8-10.8)
[2025-08-05 14:11] LABS: Alanine Aminotransferase 23 U/L (0-40); Aspartate Amino Transferase 26 U/L (5-37); Estimated Glomerular Filt Rate > 60
== END 2025-08-05 09:04 | disposition home or self-care (01) ==
LOC: HO.HKASLDS 09:03
PROVIDERS: PCP Physician Assistant; Visit Provider Internal Medicine Rheumatology
DX: Z79.899 Other long term (current) drug therapy (principal)
CPT/HCPCS: 36415; 82565; 84450; 84460; 85025; 85652; 86140

== ENCOUNTER 2025-08-20 08:51 | Outpatient (AMB) | payer OTHER, SELFPAY ==
--- NOTE | 2025-08-20 08:59 | MHC.OFFVIS ---
Vital Signs 08/20/25 09:08 Height 6 ft 2 in Weight 269 lb BMI 34.5 BP 151/80 H Blood Pressure Location Lt brachial Position Sitting Pulse 99 Intake Visit Reasons: umbilical hernia Intake Note: Patient is seen in office for evaluation of an umbilical hernia. Pt c/o:feels a lump on the umbilical area, onset couple yrs, increase in size, discomfort, denies n/v/d/c us:07/16/25 Manager Business Planning Required: No Accompanied by: Self / Same As Patient Allergies acetone (ACETONE) Allergy (Severe, Verified 08/20/25 09:06) Unconscious Sulfa (Sulfonamide Antibiotics) (SULFA (SULFONAMIDE ANTIBIOTICS)) Allergy (Intermediate, Verified 08/20/25 09:06) eyes swelling aerosols, epoxy, glue Allergy (Intermediate, Uncoded 08/20/25 09:06) swelling in his eyes Medication List - Last Reconciled 08/20/25 by Lul Shea MD arm brace (Wrist Brace) Wear wrist braces at night only Bilateral cock-up wrist braces Diagnosis: Carpal tunnel syndrome folic acid 1 mg PO DAILY gabapentin 300 mg PO BID 30 days levothyroxine 175 mcg PO DAILY methotrexate sodium 12.5 mg (5 x 2.5 mg) PO QWEEK 12 weeks tirzepatide (weight loss) (Zepbound) 12.5 mg (0.5 mL) subcut QWEEK 4 weeks Held on 08/19/25. Instructions: Doctor's Order tirzepatide (weight loss) (Zepbound) 10 mg (0.5 mL) subcut QWEEK 4 weeks Held on 07/19/25. Instructions: Doctor's Order tirzepatide (weight loss) (Zepbound) 15 mg (0.5 mL) subcut QWEEK 4 weeks trazodone 50 mg PO BEDTIME 14 days HPI Comments Details: 45-year-old male patient presenting for evaluation of an umbilical hernia which has been present for several years and occasionally causing discomfort when pressure is applied to his abdomen. He notes the lump to increase in size with lifting and straining but does reduce when in the supine position. He denies any previous surgery at this area. He reports significant pain from his arthritis which is now being managed with a new medication. He was recently on a course of prednisone which seemed to help however his symptoms returned after stopping the arthritis. He reports being retired and does not do significant amount of lifting on a daily basis but does need to help move his son after Thanksgiving. He reports some nausea related to his new arthritis medication but denies any vomiting. He does have musculoskeletal pain related to his arthritis. He was noted to have a lump in the left testicle and subsequently underwent an ultrasound of the scrotum on 07/16/2025. This revealed a left epididymal head cyst or spermatocele measuring 24 x 14 x 30 mm. A small right epidermal head cyst was also noted measuring 6 mm long. Ultrasound of the pelvis revealed a small umbilical hernia with periumbilical fluid similar to prior images. Neck of the hernia was 12 mm wide which increased from 8 mm wide. Sac measures 14 x 14 mm. He presents to discuss possible repair of this umbilical hernia. [facility] Medical History History of COVID-19 Sciatica Annual physical exam Lower back pain Knee pain, right Vitamin D deficiency B12 deficiency Neuropathy BPH (benign prostatic hyperplasia) Anxiety Depression Bipolar II disorder major depressive with atypical features Herniated disc Diverticula of colon Hypothyroidism Surgical History H/O colonoscopy H/O hand surgery H/O neck surgery Family History Father Unknown family medical history Afib CHF (congestive heart failure) ILD (interstitial lung disease) Mother Unknown family medical history Sister No problems noted. 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 Sexual orientation: Straight/Heterosexual Cognitive needs: No Hearing needs: No Vision needs: Yes (Glasses) Review of Systems Const All systems reviewed & are unremarkable except as noted in HPI and below Physical Exam Vital Signs: Last Vital Signs Pulse 99 10/31/25 09:08 BP 151/80 H 08/20/25 09:08 BMI result Body Mass Index 34.5 Const General: cooperative and no acute distress Nutritional Appearance: well nourished Orientation/consciousness: patient oriented x3 Limitations: no limitations HEENT Head: Yes normocephalic and Yes atraumatic Ears: hearing grossly normal bilaterally Resp Effort & Inspection: normal respiratory effort, no audible wheezes, no cough and no respiratory distress Cardio Jugular venous distension: no JVD GI Inspection: Yes normal to inspection Palpation (GI): Soft to palpation, nontender, no guarding and not rigid Percussion: Yes normal to percussion Auscultation: normal bowel sounds Rectal Exam - Male: Yes deferred Abdomen image:  1. 3 cm defect noted in the umbilicus which increases with Valsalva maneuvers but does reduce with light pressure. Minimal tenderness is elicited with palpation. Patient is also noted to have diastasis recti in the upper midline with no palpable hernia. Skin Other: Warm, dry, no rash Neuro General: patient oriented x3 Extrem General: Yes no clubbing, cyanosis or edema Assessment & Plan Assessment & Plan (1) Umbilical hernia: Code(s): K42.9 - Umbilical hernia without obstruction or gangrene Category: Medical Qualifiers: Obstruction and gangrene presence: without obstruction or gangrene Qualified Code(s): K42.9 - Umbilical hernia without obstruction or gangrene Plan 55-year-old male patient presenting with a reducible umbilical hernia measuring approximately 3 cm in diameter. The hernia increases in size with Valsalva but easily reduces with light pressure. The hernia was confirmed on ultrasound of the pelvis. The patient has requested repair of this umbilical hernia and after discussion of the procedure, risks, and alternatives, consents to a repair of the umbilical hernia with mesh. This will be scheduled as a short-stay surgery. Coding Level of Care Code New Pt Level 4 (87786) Diagnoses Umbilical hernia without obstruction and without gangrene K42.9 Obstruction and gangrene presence: without obstruction or gangrene
[2025-08-20 09:08] VITALS: BP 151/80; PULSE 99; BMI 34.5
== END 2025-08-20 09:46 | disposition home or self-care (01) ==
LOC: HO.HGS 08:52
PROVIDERS: PCP Physician Assistant; Visit Provider Surgery
DX: K42.9 Umbilical hernia without obstruction or gangrene (principal)
CPT/HCPCS: 99204

== ENCOUNTER → 2025-08-20 08:51 | Outpatient (BNVA) | payer OTHER, SELFPAY | PROVIDERS: PCP Physician Assistant; Visit Provider Surgery | DX: Z01.818 Encounter for other preprocedural examination (principal); K42.9 Umbilical hernia without obstruction or gangrene | CPT/HCPCS: 99202 ==

== ENCOUNTER 2025-08-26 08:20 | Outpatient (AMB) | payer OTHER, SELFPAY ==
--- NOTE | 2025-08-26 08:22 | A.OFFVIS_ITS ---
Vital Signs 08/26/25 08:25 Height 6 ft 2 in Weight 269 lb 10.005 oz BMI 34.6 BP 120/80 Blood Pressure Location Rt brachial Position Sitting Pulse 78 Pulse Source Pulse Oximeter Pulse Oximetry (%) 98 Oxygen Delivery Method Room Air Intake Visit Reasons: 3 Months Intake Note: Patient presents today for joint pain Accompanied by: Self / Same As Patient Allergies acetone (ACETONE) Allergy (Severe, Verified 08/20/25 09:06) Unconscious Sulfa (Sulfonamide Antibiotics) (SULFA (SULFONAMIDE ANTIBIOTICS)) Allergy (In termediate, Verified 08/20/25 09:06) eyes swelling aerosols, epoxy, glue Allergy (Intermediate, Uncoded 08/20/25 09:06) swelling in his eyes HPI HPI 3 Months: Details: On prednisone he was not sore and was working on his car. He was more functional. After stopping prednisone his joint swelling and pain returned. On prednisone hand numbness resolve. It has now returned. Any position change when he is sitting contributes to neuropathy in his hands. He has only been on MTX for 2 weeks. Pharmacy did not give him initial prescription that was sent in May. He picked up most recent prescription. [facility] Medical History (Updated 08/26/25 @ 09:00 by Manpreet Iraheta MD) History of COVID-19 Sciatica Annual physical exam Lower back pain Knee pain, right Vitamin D deficiency B12 deficiency Neuropathy BPH (benign prostatic hyperplasia) Anxiety Depression Bipolar II disorder major depressive with atypical features Herniated disc Diverticula of colon Hypothyroidism Surgical History (Updated 08/26/25 @ 08:26 by Rosa Elena Tang CMA) H/O hernia repair H/O colonoscopy H/O hand surgery H/O neck surgery Family History Father Unknown family medical history Afib CHF (congestive heart failure) ILD (interstitial lung disease) Mother Unknown family medical history Sister No problems noted. 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 Good respiratory effort Skin: No lesions seen MSK: No tender joints in upper extremities. He has synovitis of bilateral MCPs and PIPs. Synovitis of right wrist, and bilateral ankles. Shoulder abduction 160 degrees. He has normal internal and external rotation of bilateral shoulders. Normal knee flexion. Assessment & Plan Assessment & Plan (1) Rheumatoid arthritis, seronegative, multiple sites: Comment: Inflammatory arthritis has worsened off of prednisone. He had great benefit on last prednisone course with resolution of synovitis allowing for return of function as he had 20 years ago. Unfortunately did not receive the 1st methotrexate prescription that was sent to his pharmacy in May. He recently started methotrexate without any side effects. He is having hernia surgery today. After he is cleared with follow up from his surgeon from infection, he will restart prednisone course, which will be bridged to methotrexate. Need more time for full effect of methotrexate. Rheumatology history: Erosive, seronegative (CCP, RF, HLA B27) initially presenting with asymmetric inflammatory arthritis, which evolved to symmetric b ilateral polyarticular disease. Methotrexate 07/2025- Code(s): M06.09 - Rheumatoid arthritis without rheumatoid factor, multiple sites Category: Medical Plan: Continue methotrexate 12.5 mg once weekly Continue folic acid 1 mg daily Labs for drug monitoring on high risk medication due in 2 weeks Prednisone course prescribed to start after hernia surgery when he is cleared from infection with follow up I will consider increasing methotrexate dose after lab results are reviewed in 2 weeks Information on seronegative rheumatoid arthritis given to patient Return to clinic in 3 months (2) Carpal tunnel syndrome, bilateral: Comment: Right is worse than last. Clinical diagnosis. Synovitis of right wrist is contributing to secondary carpal tunnel syndrome proven with response with predn isone alleviating symptom when his synovitis resolved. Recurrent symptoms due to recurrence of inflammatory arthritis. Code(s): G56.03 - Carpal tunnel syndrome, bilateral upper limbs Category: Medical Plan: He will start prednisone after hernia surgery Treatment for RA as above He was prescribed wrist braces last visit to wear at night Return to clinic in 3 months Orders: Orders Complete Blood Count Auto Diff 2 Weeks Z79.899 - Other snf (current) drug therapy Aspartate Amino Transferase 2 Weeks Z79.899 - Other computer terminal operator (current) drug therapy Creatinine 2 Weeks Z79.899 - Other computer terminal operator (current) drug therapy C Reactive Protein 2 Weeks Z79.899 - Other computer terminal operator (current) drug therapy Erythrocyte Sedimentation Rate 2 Weeks Z79.899 - Other snf (current) drug therapy Alanine Aminotransferase 2 Weeks Z79.899 - Other snf (current) drug therapy Medications: New prednisone Take 4 tablets daily 14 days, 3 tablets daily 14 days, 2 tablets daily 14 days, 1 tablet daily 14 days then stop. Start after hernia surgery follow up when cleared of infection. 5 mg PO DIRECTED 140 tabs 0RF Coding Level of Care Code Est Pt Level 4 (49996) Complex EM visit Add On G2211 Diagnoses Rheumatoid arthritis, seronegative, multiple sites M06.09 Carpal tunnel syndrome, bilateral G56.03
[2025-08-26 08:25] VITALS: BP 120/80; PULSE 78; O2SAT 98; BMI 34.6
--- OUTSIDE RECORDS SUMMARY | 2025-08-26 08:43 | XMS_ITS | Patient Health Record ---
Author Organization [facility] Address [address] [place] [address] Care Team Providers Care Senior Care Provider Name Role Phone Luma(inactive) Jake GAO Primary Care Provider U Jelani Monahan [phone] Allergies Allergen (clinical drug ingredient) Drug/Non Drug [...] Status Risk Notes Problem Diverticulitis of colon (885697375) Diverticulitis of large intestine without perforation or abscess without bleeding (K57.32) Active confirmed Problem Irritable bowel syndrome with diarrhea (148083032) Irritable bowel syndrome with diarrhea (K58.0) Active confirmed Problem Blood in stool (839259276) Blood in stool (K92.1) Active confirmed Plan Of Treatment Pending Test Test Name Order Date CELIAC PANEL #10 11/18/2015 Future Test Test Name Order Date COLONOSCOPY 11/18/2015 Insurance Providers Payer Name Payer Address Payer Phone Subscriber Number Group Number Insured Name Patient Relationship to Insured Coverage Start Date Coverage End Date [facility] [address] [place] [address] [id number] GAUTAM Self - patient is the insured Medical (General) History Medical History History ICD Code Hypothyroidism Denies SD,DM,CVA,Lung disease,renal dise ase Diverticulitis-sigmoid--10/26/15--treated with 10 days of Cipro/Flagyl Restless leg syndrome Surgical History Surgery Date(Month/Year) right hand broken -
== END 2025-08-26 08:55 | disposition home or self-care (01) ==
LOC: HO.RHES 08:21
PROVIDERS: PCP Physician Assistant; Visit Provider Internal Medicine Rheumatology
DX: M06.09 Rheumatoid arthritis without rheumatoid factor, multiple sites (principal); G56.03 Carpal tunnel syndrome, bilateral upper limbs
CPT/HCPCS: 99214

== ENCOUNTER 2025-08-26 10:12 | Day surgery (SDC) | payer OTHER, SELFPAY ==
--- OUTSIDE RECORDS SUMMARY | 2025-08-20 13:43 | XMS_ITS | Patient Health Record ---
Author Organization [facility] Address [address] [place] [address] Care Team Providers Care Hazardous Waste Material Technician Name Role Phone Luma(inactive) Jake GAO Primary Care Provider U Jelani Monahan [phone] Allergies Allergen (clinical drug ingredient) Drug/Non Drug [...] Status Risk Notes Problem Diverticulitis of colon (003914667) Diverticulitis of large intestine without perforation or abscess without bleeding (K57.32) Active confirmed Problem Irritable bowel syndrome with diarrhea (010728564) Irritable bowel syndrome with diarrhea (K58.0) Active confirmed Problem Blood in stool (132685903) Blood in stool (K92.1) Active confirmed Plan Of Treatment Pending Test Test Name Order Date CELIAC PANEL #10 11/18/2015 Future Test Test Name Order Date COLONOSCOPY 11/18/2015 Insurance Providers Payer Name Payer Address Payer Phone Subscriber Number Group Number Insured Name Patient Relationship to Insured Coverage Start Date Coverage End Date [facility] [employer] [address] [place] [address] [id number] [id number] Self - patient is the insured Medical (General) History Medical History History ICD Code Hypothyroidism Denies UT,DM,CVA,Lung disease,renal dise ase Diverticulitis-sigmoid--10/26/15--treated with 10 days of Cipro/Flagyl Restless leg syndrome Surgical History Surgery Date(Month/Year) right hand broken -
[2025-08-26] VITALS (9 sets, daily range): BP systolic 109–138; BP diastolic 64–78; PULSE 64–78; RESP 12–16; TEMP 36.1–36.3; O2SAT 93–98; BMI 34.6
--- NOTE | 2025-08-26 10:42 | MHC.SHP ---
Pre-Procedural Eval Section A - 24 Hr Update-Section A only Date of Service: 08/26/25 The patient is an INPATIENT: No Changes since office visit: Yes Patient answered all questions; No Cold of Flu in the past 2 weeks, No New Medical Problems and No Changes in Medication The patient has been examined within 24 hours of the surgical procedure. The History & Physical has been completed within 30 days and I have reviewed it.: Yes Section B - Complete if H&P > 30 days Chief Complaint: Umbilical hernia without obstruction or gangrene Allergies: Allergies Allergy/AdvReac Type Severity Reaction Status Date / Time acetone (ACETONE) Allergy Severe Unconscious Verified 08/20/25 09:06 Sulfa (Sulfonamide Allergy Intermediate eyes Verified 08/20/25 09:06 Antibiotics) (SULFA swelling (SULFONAMIDE ANTIBIOTICS)) aerosols, epoxy, glue Allergy Intermediate swelling Uncoded 08/20/25 09:06 in his eyes Plan Diagnosis/Plan: Unchanged I have reviewed the history and physical and performed a pertinent physical examination on my patient. No changes have occurred unless specified. Time Spent With Patient Time: Total time managing care of this patient today ____ minutes.
[2025-08-26] MEDS: Lactated Ringers 1,000 ML 100 ML IVCONT (10:44)
--- NOTE | 2025-08-26 10:48 | HO.ANESPROP2 ---
Documented by User: Neela Guadarrama NP 08/24/25 10:21 HPI - Anesthesia Eval Consult details Narrative: 55yo M for Repair Hernia Umbilical Reducible with mesh Inflammatory arthritis followed by [facility] [place] [place] Rheum - ? methotrexate. Had steroid taper 05/2025 Anesthesia Pre-Procedure Meds Is the patient on any of the following meds?: GLP1/DPP4 PMFSH Active Problems Active Problems: All Active Problems Umbilical hernia (Acute) Swelling of left half of scrotum (Acute) Abdominal wall mass of suprapubic region (Acute) Carpal tunnel syndrome, bilateral (Acute) Inflammatory arthritis (Acute) Tear of right hamstring (Acute) Right ACL tear (Acute) Spondylosis of cervical spine with radiculopathy (Acute) Elevated blood pressure reading (Acute) Class 2 obesity (Acute) JENNA (obstructive sleep apnea) (Acute) Insomnia (Acute) Vertebrogenic low back pain (Acute) Screening for diabetes mellitus (DM) (Acute) BPPV (benign paroxysmal positional vertigo) (Acute) Polyarthralgia (Acute) Arthralgia (Acute) Swelling of right eye (Acute) Allergic reaction (Acute) Fatigue (Acute) Urinary retention (Acute) Hyperglycemia (Acute) Lumbar stenosis (Acute) Behavioral change (Acute) Adverse reaction to drug (Acute) Cellulitis and abscess of neck (Acute) COVID-19 (Acute) Lower thoracic back pain (Acute) Rectal bleeding (Acute) Irregular heart beat (Acute) Palpitation (Acute) DINERO (dyspnea on exertion) (Acute) Preop cardiovascular exam (Acute) Hypothyroid (Acute) Bipolar II disorder major depressive with atypical features (Acute) Diverticula of colon (Acute) Sciatica (Acute) Annual physical exam (Acute) Lower back pain (Acute) Knee pain, right (Acute) Vitamin D deficiency (Acute) B12 deficiency (Acute) Neuropathy (Acute) Annual physical exam (Acute) BPH (benign prostatic hyperplasia) (Acute) Anxiety (Acute) Past Medical History Medical History (Updated 08/26/25 @ 10:26 by Pao Cordova RN) Cardiac arrest Heart attack History of COVID-19 Sciatica Annual physical exam Lower back pain Knee pain, right Vitamin D deficiency B12 deficiency Neuropathy BPH (benign prostatic hyperplasia) Anxiety Depression Bipolar II disorder major depressive with atypical features Herniated disc Diverticula of colon Hypothyroidism Family History Family History Father Unknown family medical history Afib CHF (congestive heart failure) ILD (interstitial lung disease) Mother Unknown family medical history Sister No problems noted. Family history of problems with anesthesia: No Surgical History Surgical History (Updated 08/26/25 @ 10:23 by Pao Cordova RN) H/O hernia repair H/O colonoscopy H/O hand surgery H/O neck surgery History of Problems with Anesthesia: No Social History Social History Household Members: Spouse Housing: House Do you presently have visiting nurse or other home services: No Alcohol intake: current Alcohol intake frequency: a few times a week Alcohol type: beer Comment: PT is relaxing, getting ready for sleep Patient Tobacco Use Status: Current someday Tobacco user Tobacco use type: Cigar e-Cigarette/Vaping Use: Never Used Second Hand Smoke Exposure: No Use of substances other than those prescribed or required for medical reasons: No Substance Use Type: Marijuana Are you DNR?: No Advance Directives: No Advance Directives Information Provided: Yes service: No 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 Sexual orientation: Straight/Heterosexual Cognitive needs: No Hearing needs: No Vision needs: Yes (Glasses) Meds Allergies Allergy/AdvReac Type Severity Reaction Status Date / Time acetone (ACETONE) Allergy Severe Unconscious Verified 08/20/25 09:06 Sulfa (Sulfonamide Allergy Intermediate eyes Verified 08/20/25 09:06 Antibiotics) (SULFA swelling (SULFONAMIDE ANTIBIOTICS)) aerosols, epoxy, glue Allergy Intermediate swelling Uncoded 08/20/25 09:06 in his eyes Exam Pertinent Lab Results Pertinent Lab Results: Laboratory Tests 04/18/25 08/05/25 09:13 09:08 WBC 7.6 Hgb 15.3 Hct 45.2 Plt Count 252 Sodium 138 Potassium 4.3 Chloride 112 H Carbon Dioxide 19 L BUN 15 Creatinine 0.84 Assessment and Plan Assessment Anesthesia Assessment: Chart Reviewed Final Anesthetic Review Family History of Problems with Anesthesia: No History of Problems with Anesthesia: No Documented by User: Sera Means DO 08/26/25 10:55 HPI - Anesthesia Eval Consult details Narrative: 55yo M for Repair Hernia Umbilical Reducible with mesh Inflammatory arthritis followed by [facility] [place] Rheum - methotrexate. Had steroid taper 05/2025 Anesthesia Pre-Procedure Meds Is the patient on any of the following meds?: GLP1/DPP4 PMFSH Past Medical History Medical History (Updated 08/26/25 @ 10:26 by Pao Cordova RN) Cardiac arrest Heart attack History of COVID-19 Sciatica Annual physical exam Lower back pain Knee pain, right Vitamin D deficiency B12 deficiency Neuropathy BPH (benign prostatic hyperplasia) Anxiety Depression Bipolar II disorder major depressive with atypical features Herniated disc Diverticula of colon Hypothyroidism Family History Family History Father Unknown family medical history Afib CHF (congestive heart failure) ILD (interstitial lung disease) Mother Unknown family medical history Sister No problems noted. Family history of problems with anesthesia: No Surgical History Surgical History (Updated 08/26/25 @ 10:23 by Pao Cordova RN) H/O hernia repair H/O colonoscopy H/O hand surgery H/O neck surgery History of Problems with Anesthesia: No Social History Social History Household Members: Spouse Housing: House Do you presently have visiting nurse or other home services: No Alcohol intake: current Alcohol intake frequency: a few times a week Alcohol type: beer Comment: PT is relaxing, getting ready for sleep Patient Tobacco Use Status: Current someday Tobacco user Tobacco use type: Cigar e-Cigarette/Vaping Use: Never Used Second Hand Smoke Exposure: No Use of substances other than those prescribed or required for medical reasons: No Substance Use Type: Marijuana Are you DNR?: No Advance Directives: No Advance Directives Information Provided: Yes service: No 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 Sexual orientation: Straight/Heterosexual Cognitive needs: No Hearing needs: No Vision needs: Yes (Glasses) Meds Allergies Allergy/AdvReac Type Severity Reaction Status Date / Time acetone (ACETONE) Allergy Severe Unconscious Verified 08/20/25 09:06 Sulfa (Sulfonamide Allergy Intermediate eyes Verified 08/20/25 09:06 Antibiotics) (SULFA swelling (SULFONAMIDE ANTIBIOTICS)) aerosols, epoxy, glue Allergy Intermediate swelling Uncoded 08/20/25 09:06 in his eyes Exam Exam Date and Time: 08/26/25 1053 Height,Weight and Vital Signs: Height 6 ft 2 in Weight 122.3 kg Vital Signs Temperature 97.2 F 08/26/25 10:31 Pulse Rate 78 08/26/25 10:31 Respiratory Rate 16 08/26/25 10:31 Blood Pressure 138/78 08/26/25 10:31 Pulse Oximetry 98 08/26/25 10:31 Oxygen Delivery Method Room Air 08/26/25 10:31 Temperature 97.2 F 08/26/25 10:31 Pulse Rate 78 08/26/25 10:31 Respiratory Rate 16 08/26/25 10:31 Blood Pressure 138/78 08/26/25 10:31 Pulse Oximetry 98 08/26/25 10:31 Oxygen Delivery Method Room Air 08/26/25 10:31 Airway Mallampati Class: II TM Dist: >3cm Neck ROM: Full Loose/Missing/Broken Teeth: No (patient denies any loose or broken teeth) Heart: S1S2 Lungs: CTAB Assessment and Plan Assessment Anesthesia Assessment: Anesthesia Plan Discussed and Chart Reviewed Final Anesthetic Review Family History of Problems with Anesthesia: No History of Problems with Anesthesia: No NPO: Yes ASA Class: II Final Preanesthetic Review: No Changes in Pt Med Stat, Meds/Allgs Chart Reviewed, Consent Obtained/Reviewed and Anes Risks/Benef Reviewed Patient Risk: Low Procedure Risk: Low Anesthetic Plan Anesthetic Plan: GA and Agree w/ Assess. and Plan Disposition: Standard PACU
--- NOTE | 2025-08-26 11:06 | W.PM.OPN ---
Operative Note Operative Note Date of Service: 08/26/25 Narrative: Preoperative diagnosis: Umbilical hernia, reducible Postoperative diagnosis: Same Procedure: Repair of umbilical hernia with mesh Surgeon: Lul Shea MD Sprinkler Truck Driver: Keshawn Zhang PA-C Anesthesia: General LMA Indications for procedure: 55-year-old male patient presenting with a gradually enlarging umbilical hernia. He reports discomfort when his abdomen presses against a countertop. On examination he is noted to have a 2 cm umbilical hernia which is reducible. Operative findings: Reducible umbilical hernia repaired using a 4.3 cm round Phasix mesh Specimen: None Estimated blood loss: 2 mL Complications: None Procedure details: Patient was brought to the OR and placed in a supine position. After administering general anesthesia the patient's abdomen was prepped with ChloraPrep and draped in a sterile fashion. A surgical time-out was called the consent confirmed. Patient received preoperative antibiotics and Venodyne boots were in place. Local anesthesia was infiltrated around the umbilicus. A curvilinear incision was made in a transverse fashion below the umbilicus and carried out through subcutaneous tissue, up to the hernia sac. Hernia sac was then dissected off of the umbilical skin. The umbilical skin was dissected off the fascia. A 2 cm fascial defect was identified. Fascial edges were further defined using electrocautery. Herniating contents were then reduced into the abdominal cavity. A preperitoneal space was then dissected using electrocautery. A 4.3 cm round Phasix mesh was then obtained. This was deployed within the preperitoneal space and secured in 4 quadrants using a 1 Tycron suture. Fascia was then closed over the mesh using [id number] 1 Tycron sutures. Prior to complete closure of the fascia over the mesh approximately 4 mL of Zenrelef was instilled below the mesh for postoperative pain relief. Wounds were irrigated with saline solution and suctioned dry. Umbilical skin was then approximated to the fascia using a 3-0 Polysorb suture. Dermis was reapproximated using interrupted 3-0 Polysorb sutures. Skin was closed using a running subcuticular 4-0 Polysorb suture. Sterile dressings consisting of Steri-Strips, 4 x 4 gauze and Tegaderm were then applied. The patient tolerated the procedure well. Sponge, instrument, and needle counts reported as correct. The patient was transferred to PACU in stable condition.
== END 2025-08-26 13:28 | disposition home or self-care (01) ==
PROVIDERS: PCP Physician Assistant; Visit Provider Surgery
PROC: (CPT 49591; principal; 2025-08-26 12:40)
DX: K42.9 Umbilical hernia without obstruction or gangrene (principal); M25.561 Pain in right knee; M06.09 Rheumatoid arthritis without rheumatoid factor, multiple sites; M54.40 Lumbago with sciatica, unspecified side; G57.90 Unspecified mononeuropathy of unspecified lower limb; G56.03 Carpal tunnel syndrome, bilateral upper limbs; E55.9 Vitamin D deficiency, unspecified; E53.8 Deficiency of other specified B group vitamins; E03.9 Hypothyroidism, unspecified; F31.81 Bipolar II disorder; Z79.85 Long-term (current) use of injectable non-insulin antidiabetic drugs; Z79.899 Other long term (current) drug therapy; Z88.2 Allergy status to sulfonamides; L23.1 Allergic contact dermatitis due to adhesives; Z98.890 Other specified postprocedural states
CPT/HCPCS: 49591; 99212; C1781; J0131; J0668; J0690; J1100; J2003; J2371; J2405; J2704; J3010

== ENCOUNTER → 2025-08-26 10:12 | Outpatient (BNV) | payer OTHER, SELFPAY | PROVIDERS: PCP Physician Assistant; Visit Provider Surgery | DX: K42.9 Umbilical hernia without obstruction or gangrene (principal) | CPT/HCPCS: 49591 ==

== ENCOUNTER 2025-09-09 09:17 | Outpatient (REF) | payer OTHER, SELFPAY ==
[2025-09-09 10:19] LABS: MANUAL DIFF FLAG NO
[2025-09-09 10:22] LABS: Hematocrit 44.3 % (42.0-52.0); Hemoglobin 15.1 g/dl (14.0-18.0); Imm Gran Abs Auto 0.07 X10*3/uL (0.00-0.03); Imm Gran Pct Auto 0.8 % (0.0-0.4); Lymphocytes Absolute Auto 2.5 X10*3/uL (1.2-4.9); Mean Corpuscular HGB Conc 34.1 g/dl (31.0-36.0); Mean Corpuscular Hemoglobin 31.8 pg (27.0-33.0); Mean Corpuscular Volume 93.3 fL (80.0-98.0); NRBC Abs Auto 0.000 X10*3/uL (0.0-0.012); NRBC Pct Auto 0.0 /100WBC (0.0-0.2); Platelet Count 269 X10*3/uL (160-400); Red Blood Count 4.75 X10*6/uL (4.60-5.80); White Blood Count 8.4 X10*3/uL (4.8-10.8)
[2025-09-09 11:20] LABS: Alanine Aminotransferase 13 U/L (0-40); Aspartate Amino Transferase 16 U/L (5-37); Estimated Glomerular Filt Rate > 60
--- OUTSIDE RECORDS SUMMARY | 2025-09-09 12:01 | XMS_ITS | Patient Health Record ---
Author Organization [facility] Address [address] [place] [address] Care Team Providers Care Academic Advisement Director Name Role Phone Luma(inactive) Jake GAO Primary Care Provider U Jelani Monahan [phone] Allergies Allergen (clinical drug ingredient) Drug/Non Drug Allergy documented on EMR Reaction Allergy Type Onset Date Status acidtone (uncoded) Unknown Allergy A ctive Sulfa Unknown Drug Allergy Active Reason For Referral No Information Medications Medication SIG (Take, Route, Frequency, Duration) Notes Start Date End Date Status rOPINIRole HCl as needed Activ e Levothyroxine Sodium Active Colyte w Flavor Packs 240 GM Solution Reconstituted as directed Orally as directed; Duration: 1 day(s) 11/20/2015 Active Social History Social History Additional Details Category Social Info Options Details Miscellaneous: Marital status: 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 [employer] Notes: Nonsmoker; approx 6 beers on the weekend Problems Problem Type SNOMED Code ICD Code Onset Dates Problem Status W/U Status Risk Notes Problem Diverticulitis of colon (531613308) Diverticulitis of large intestine without perforation or abscess without bleeding (K57.32) Active confirmed Problem Irritable bowel syndrome with diarrhea (957931015) Irritable bowel syndrome with diarrhea (K58.0) Active confirmed Problem Blood in stool (221883982) Blood in stool (K92.1) Active confirmed Plan Of Treatment Pending Test Test Name Order Date CELIAC PANEL #10 11/18/2015 Future Test Test Name Order Date COLONOSCOPY 11/18/2015 Insurance Providers Payer Name Payer Address Payer Phone Subscriber Number Group Number Insured Name Patient Relationship to Insured Coverage Start Date Coverage End Date [facility] [employer] CLAIMS [address] [place] [address] [id number] [id number] Self - patient is the insured Medical (General) History Medical History History ICD Code Hypothyroidism Denies MD,DM,CVA,Lung disease,renal dise ase Diverticulitis-sigmoid--10/26/15--treated with 10 days of Cipro/Flagyl Restless leg syndrome Surgical History Surgery Date(Month/Year) right hand broken -
== END 2025-09-09 09:18 | disposition home or self-care (01) ==
LOC: HO.HMGCLDS 09:17
PROVIDERS: PCP Physician Assistant; Visit Provider Internal Medicine Rheumatology
DX: Z09 Encounter for follow-up examination after completed treatment for conditions other than malignant neoplasm (principal); Z98.890 Other specified postprocedural states; Z79.899 Other long term (current) drug therapy
CPT/HCPCS: 36415; 82565; 84450; 84460; 85025; 85652; 86140; 99212

== ENCOUNTER 2025-09-09 10:14 | Outpatient (AMB) | payer OTHER, SELFPAY ==
--- NOTE | 2025-09-09 10:28 | A.OFFVIS_ITS ---
Vital Signs 09/09/25 10:34 Height 6 ft 2 in Weight 286 lb 9.615 oz BMI 36.8 BP 130/77 Blood Pressure Location Lt brachial Position Sitting Pulse 70 Intake Visit Reasons: s/p umbilical hernia w/mesh Intake Note: Patient is seen in office for post op assessment post repair of umbilical hernia with mesh. Pt c/o: admits sore, bruise, tender, unable to keep meals due to diarrhea first 4 days post surgery, stool are almost form now, eating less, painful surgery:08/26/25 (FRANCHESKA) Supervisory It Specialist Required: No Accompanied by: Self / Same As Patient Allergies acetone (ACETONE) Allergy (Severe, Verified 09/09/25 10:35) Unconscious Sulfa (Sulfonamide Antibiotics) (SULFA (SULFONAMIDE ANTIBIOTICS)) Allergy (Intermediate, Verified 09/09/25 10:35) eyes swelling aerosols, epoxy, glue Allergy (Intermediate, Uncoded 09/09/25 10:35) swelling in his eyes HPI HPI s/p umbilical hernia w/mesh: Details: Lul Dunn is a 55 year old male here for a wound check following repair of umbilical hernia with mesh on 08/26/[address] Shea. He reports having difficulty with pain for the first 4 days. This was partially relieved with pain meds. He had to sleep in chair due to the pain. He stopped taking the oxycodone after and has not needed anything else. He still has a some very mild pain debbie rounding the incision but it has significantly improved. He feels 85-90% back to baseline he reports. He does report some stomach upset and lack of appetite as well as loose stools a few times a day. He was started on Methotrexate a week prior to the surgery for his arthritis. He has a follow up appointment with his doctor next week. [facility] Medical History Cardiac arrest Heart attack History of COVID-19 Sciatica Annual physical exam Lower back pain Knee pain, right Vitamin D deficiency B12 deficiency Neuropathy BPH (benign prostatic hyperplasia) Anxiety Depression Bipolar II disorder major depressive with atypical features Herniated disc Diverticula of colon Hypothyroidism Surgical History History of umbilical hernia repair (08/26/25) H/O hernia repair H/O colonoscopy H/O hand surgery H/O neck surgery Family History Father Unknown family medical history Afib CHF (congestive heart failure) ILD (interstitial lung disease) Mother Unknown family medical history Sister No problems noted. 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 Sexual orientation: Straight/Heterosexual Cognitive needs: No Hearing needs: No Vision needs: Yes (Glasses) Review of Systems Const Denies chills and Denies fever(s) ENT Denies dizziness Card Denies chest pain and Denies dyspnea Resp Denies dyspnea GI Reports as per HPI, Denies melena, Denies hematochezia and Denies vomiting Skin/Breast Denies rash and Denies jaundice Neuro Denies dizziness Physical Exam Vital Signs: Last Vital Signs Pulse 70 09/09/25 10:34 BP 130/77 09/09/25 10:34 BMI result Body Mass Index 36.8 Const General: comfortable, no acute distress, well developed and alert Orientation/consciousness: patient oriented x3 Resp Effort & Inspection: normal respiratory effort and able to speak in complete sentences GI Other: umbilical incision well approximated and well healed without surrounding erythema or edema, mild underlying induration abd soft, mild incisional tenderness but non tender otherwise Palpation (GI): no guarding and not rigid Skin General skin exam: no rashes or lesions noted and no jaundice Neuro General: patient oriented x3 and moves all extremities Assessment & Plan Assessment & Plan (1) S/P umbilical hernia repair, follow-up exam: Code(s): Z09 - Encounter for follow-up examination after completed treatment for conditions other than malignant neoplasm Category: Surgical Plan 55 year old male s/p repair of umbilical hernia with mesh on 08/26/25. He tolerated the procedure fairly well, initially had difficulty with post operative pain but now minimal. He is clinically appearing well with a benign abd exam and clean appearing incision with evidence of infection or hernia recurrence. His GI symptoms are likely due to his Methotrexate. He has a follow up appointment with his provider next week. He is doing well from a surgical standpoint and can follow up as needed if he develops concerns. He is comfortable with the plan. Coding Level of Care Code Est Pt Level 3 (15556) Diagnoses S/P umbilical hernia repair, follow-up exam Z09
[2025-09-09 10:34] VITALS: BP 130/77; PULSE 70; BMI 36.8
== END 2025-09-09 10:48 | disposition home or self-care (01) ==
LOC: HO.HGS 10:15
PROVIDERS: PCP Physician Assistant; Visit Provider Physician Assistant Surgical
DX: K42.9 Umbilical hernia without obstruction or gangrene (principal); Z09 Encounter for follow-up examination after completed treatment for conditions other than malignant neoplasm
CPT/HCPCS: 99213

== ENCOUNTER 2025-10-18 08:41 | Outpatient (REF) | payer OTHER, SELFPAY ==
--- OUTSIDE RECORDS SUMMARY | 2025-10-18 08:44 | XMS_ITS | Patient Health Record ---
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; approx 6 beers on the weekend Problems Problem Type SNOMED Code ICD Code Onset Dates Problem Status W/U Status Risk Notes Problem Diverticulitis of colon (962477437) Diverticulitis of large intestine without perforation or abscess without bleeding (K57.32) Active confirmed Problem Irritable bowel syndrome with diarrhea (996270640) Irritable bowel syndrome with diarrhea (K58.0) Active confirmed Problem Blood in stool (830514204) Blood in stool (K92.1) Active confirmed Plan Of Treatment Pending Test Test Name Order Date CELIAC PANEL #10 11/18/2015 Future Test Test Name Order Date COLONOSCOPY 11/18/2015 Insurance Providers Payer Name Payer Address Payer Phone Subscriber Number Group Number Insured Name Patient Relationship to Insured Coverage Start Date Coverage End Date [facility] [place] [employer] [place] [address] [place] [address] [id number] 200 [id number] [id number] Self - patient is the insured Medical (General) History Medical History History ICD Code Hypothyroidism Denies ME,DM,CVA,Lung disease,renal dise ase Diverticulitis-sigmoid--10/26/15--treated with 10 days of Cipro/Flagyl Restless leg syndrome Surgical History Surgery Date(Month/Year) right hand broken -
[2025-10-18 10:36] LABS: MANUAL DIFF FLAG NO
[2025-10-18 10:42] LABS: Hematocrit 44.4 % (42.0-52.0); Hemoglobin 15.4 g/dl (14.0-18.0); Imm Gran Abs Auto 0.03 X10*3/uL (0.00-0.03); Imm Gran Pct Auto 0.3 % (0.0-0.4); Lymphocytes Absolute Auto 1.9 X10*3/uL (1.2-4.9); Mean Corpuscular HGB Conc 34.7 g/dl (31.0-36.0); Mean Corpuscular Hemoglobin 32.1 pg (27.0-33.0); Mean Corpuscular Volume 92.5 fL (80.0-98.0); NRBC Abs Auto 0.000 X10*3/uL (0.0-0.012); NRBC Pct Auto 0.0 /100WBC (0.0-0.2); Platelet Count 235 X10*3/uL (160-400); Red Blood Count 4.80 X10*6/uL (4.60-5.80); White Blood Count 9.4 X10*3/uL (4.8-10.8)
[2025-10-18 11:09] LABS: Alanine Aminotransferase 24 U/L (0-40); Albumin Level 4.2 g/dL (3.5-5.0); Alkaline Phosphatase 60 U/L (39-117); Anion Gap 11 (12-20); Aspartate Amino Transferase 27 U/L (5-37); Blood Urea Nitrogen 14 mg/dL (9-16); Calcium 9.0 mg/dL (8.4-10.2); Carbon Dioxide 22 mmol/L (22-29); Chloride 111 mmol/L (96-108); Estimated Glomerular Filt Rate > 60; Potassium 4.0 mmol/L (3.3-5.1); Sodium 140 mmol/L (135-145); Total Protein 6.7 g/dL (6.5-8.0)
== END 2025-10-18 08:42 ==
LOC: HO.HMGCLDS 08:41
PROVIDERS: Absent Provider Internal Medicine Rheumatology; PCP Physician Assistant; Visit Provider Physician Assistant
DX: K42.9 Umbilical hernia without obstruction or gangrene (principal); E55.9 Vitamin D deficiency, unspecified; R73.9 Hyperglycemia, unspecified; Z13.1 Encounter for screening for diabetes mellitus; Z79.899 Other long term (current) drug therapy
CPT/HCPCS: 36415; 80053; 82306; 83036; 84443; 85025; 85652; 86140

== ENCOUNTER 2025-10-20 08:41 | Outpatient (AMB) | payer OTHER, SELFPAY ==
--- OUTSIDE RECORDS SUMMARY | 2025-10-20 08:45 | XMS_ITS | Patient Health Record ---
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; approx 6 beers on the weekend Problems Problem Type SNOMED Code ICD Code Onset Dates Problem Status W/U Status Risk Notes Problem Diverticulitis of colon (272277258) Diverticulitis of large intestine without perforation or abscess without bleeding (K57.32) Active confirmed Problem Irritable bowel syndrome with diarrhea (043464911) Irritable bowel syndrome with diarrhea (K58.0) Active confirmed Problem Blood in stool (832529928) Blood in stool (K92.1) Active confirmed Plan Of Treatment Pending Test Test Name Order Date CELIAC PANEL #10 11/18/2015 Future Test Test Name Order Date COLONOSCOPY 11/18/2015 Insurance Providers Payer Name Payer Address Payer Phone Subscriber Number Group Number Insured Name Patient Relationship to Insured Coverage Start Date Coverage End Date [facility] [place] PROF[employer]AL CLAIMS [address] [place] [address] [id number] [id number] Self - patient is the insured Medical (General) History Medical History History ICD Code Hypothyroidism Denies NE,DM,CVA,Lung disease,renal dise ase Diverticulitis-sigmoid--10/26/15--treated with 10 days of Cipro/Flagyl Restless leg syndrome Surgical History Surgery Date(Month/Year) right hand broken -
[2025-10-20 08:49] VITALS: BP 120/70; PULSE 79; TEMP 36.2; O2SAT 98; BMI 32.5
--- NOTE | 2025-10-20 08:49 | A.OFFPC_ITS ---
Vital Signs 10/20/25 08:49 Height 6 ft 2 in Weight 253 lb BMI 32.5 BP 120/70 Blood Pressure Location Lt brachial Position Sitting Pulse 79 Pulse Source Pulse Oximeter Temp 97.2 F Temp Source Temporal Artery Scan Pulse Oximetry (%) 98 Oxygen Delivery Method Room Air Intake Visit Reasons: f/u Weight check Allergies acetone (ACETONE) Allergy (Severe, Verified 10/20/25 09:19) Unconscious Sulfa (Sulfonamide Antibiotics) (SULFA (SULFONAMIDE ANTIBIOTICS)) Allergy (Intermediate, Verified 10/20/25 09:19) eyes swelling aerosols, epoxy, glue Allergy (Intermediate, Uncoded 10/20/25 09:19) swelling in his eyes Medication List - Last Reconciled 10/20/25 by Ruben Hoff PA-C arm brace (Wrist Brace) Wear wrist braces at night only Bilateral cock-up wrist braces Diagnosis: Carpal tunnel syndrome folic acid 1 mg PO DAILY gabapentin 300 mg PO BID 30 days levothyroxine 175 mcg PO DAILY methotrexate sodium 12.5 mg (5 x 2.5 mg) PO QWEEK 12 weeks trazodone 50 mg PO BEDTIME 14 days zolpidem ER 12.5 mg PO BEDTIME Tobacco use date assessed: 10/20/25 Dental Screening Dental Screen Date: 10/20/25 Did you have a dental visit in the last 12 months?: Yes Did you have a dental problem in the last 6 months where you did not have access to dental care?: No Was dental information given to patient?: Patient has dentist HPI f/u Weight check HPI Details Patient is a 55-year-old male here today for a follow-up visit Patient has a past medical history significant hypothyroidism, lumbar stenosis, rheumatoid arthritis obesity, bipolar 2 disorder. .. Obstructive sleep apnea/ Class 1 obesity: Patient now on maximal doses Zepb ound, has lost significant amount of weight and feeling great. Has lost more than 5% of his total body mass. He is feeling better and has a much better relationship with food and alcohol. He has been more physically active as well. Unfortunately insurance will not pay for GLP 1 therapy anymore. He is satisfied with his weight loss thus far and has been able to establish a better relationship with food and been more physically active. Will try to keep his weight off on his own .. Insomnia: Unfortunately has not been able to sleep throughout the night even with use of zolpidem 12.5 mg extended release. He would like to try an alternative sleeping medication .. Hypothyroidism: Most recent TSH stable, will continue his current dose of levothyroxine. ... Lumbar stenosis/ rheumatoid arthritis: Continues to have lower back pain and was evaluated by surgeon though was not a surgical candidate. He does report gabapentin has been somewhat helpful for his joint pains and l ower back pain. He has followed up with [facility] and reports he is a candidate for surgical nerve procedure. He has also followed up with Rheumatology and has been started on methotrexate for his polyarthralgia thought to be secondary to rheumatoid arthritis PLAN: Will increase his gabapentin to 600 b.i.d. for better pain control. [facility] Medical History (Reviewed 10/20/25 @ 09:03 by Sonya Garcia [facility]) Cardiac arrest Heart attack History of COVID-19 Sciatica Annual physical exam Lower back pain Knee pain, right Vitamin D deficiency B12 deficiency Neuropathy BPH (benign prostatic hyperplasia) Anxiety Depression Bipolar II disorder major depressive with atypical features Herniated disc Diverticula of colon Hypothyroidism Surgical History History of umbilical hernia repair (08/26/25) H/O hernia repair H/O colonoscopy H/O hand surgery H/O neck surgery Family History Father Unknown family medical history Afib CHF (congestive heart failure) ILD (interstitial lung disease) Mother Unknown family medical history Sister No problems noted. 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 1. Little interest or pleasure in doing things: several days 2. Feeling down, depressed, or hopeless: several days 3. Trouble falling or staying asleep, or sleeping too much: more than half the days 4. Feeling tired or having little energy: not at all 5. Poor appetite or overeating: not at all 6. Feeling bad about yourself - or that you are a failure or have let yourself or your family down: not at all 7. Trouble concentrating on things, such as reading the newspaper or watching television: not at all 8. Moving or speaking so slowly that other people could have noticed. Or the opposite - being so fidgety or restless that you have been moving around a lot more than usual: several days 9. Thoughts that you would be better off or of hurting yourself in some way: not at all Total score: 5 Depression Screening Interpretation: Positive Depression Screening Follow-up: Existing condition Depression Screening Done: Yes Source: Developed by Drs. Jelani Javier, Nayla Acharya, Rajan Woods and colleagues, with an educational diana from [employer]. Thrive Questionnaire Date Thrive assessed: 01/12/25 I am a: Patient What is your living situation today?: I have a steady place to live Within the past 12 months, did the food you bought not last and you didn't have the money to get more?: Never true Within the past 12 months, did you worry whether your food would run out before you got money to buy more?: Never true Do you have trouble paying for medicines?: No Do you have trouble getting transportation to medical appointments?: No Do you have trouble paying your heating and electricity bill?: No Do you have trouble taking care of your child, family member or friend?: No Do you have trouble with day-to-day activities such as bathing, preparing meals, shopping, managing finances, etc.?: No Are you currently unemployed and looking for a job?: No Are you interested in more education?: I choose not to answer this question Currently or been in a relationship where the following occur: No concerns reported THRIVE Score: 0 AUDIT C Alcohol Use Questionnaire (AUDIT-C) 1. How often do you have a drink containing alcohol?: Never 3. How often do you have six or more drinks on one occasion?: Never Total Score: 0 EUGENIO-7 AMB Questionnaire EUGENIO-7 Date EUGENIO - 7 assessed: 01/19/25 Feeling nervous, anxious, or on edge: 2 = More than half the days Not being able to stop or control worryin = Several days Worrying too much about different things: 1 = Several days Trouble relaxin = Several days Being so restless that it is hard to sit still: 0 = Not at all Becoming easily annoyed or irritable: 1 = Several days Feeling afraid as if something awful might happen: 0 = Not at all Total EUGENIO-7 score (0-4 normal; 5-9 mild; 10-14 moderate; 15-21 severe): 6 Source: Developed by Drs. Jelani Javier, Nayla Acharya, Rajan Woods and colleagues, with an educational diana from [employer]. Review of Systems Const Denies headache(s) Eyes Denies loss of vision ENT Denies vertigo, Denies dizziness, Denies headache(s) and Denies sore throat Card Denies chest pain, Denies leg edema and Denies lightheadedness Resp Denies cough, Denies hemoptysis and Denies wheezing GI Denies abdominal pain, Denies melena, Denies constipation, Denies diarrhea and Denies vomiting Denies dysuria, Denies urinary frequency and Denies urinary urgency Musc Reports back pain, Reports arthralgias, Denies joint swelling, Reports muscle cramps, Denies numbness and Denies tingling Neuro Denies Abnormal speech present, Denies behavioral changes, Denies vertigo, Denies dizziness, Denies headache(s), Denies loss of vision, Denies memory loss, Denies numbness and Denies tingling Psych Reports abnormal sleep pattern, Denies anxiety, Denies behavioral changes, Denies depression, Denies memory loss and Denies panic attacks Luis/Lymph Denies easy bleeding and Denies easy bruising Aller/Immun Denies wheezing Physical exam (Primary Care) Vital Signs: Last Vital Signs Temp 97.2 F 10/20/25 08:49 Pulse 79 10/20/25 08:49 BP 120/70 10/20/25 08:49 Pulse Ox 98 10/20/25 08:49 Oxygen Delivery Method Room Air 10/20/25 08:49 BMI result Body Mass Index 32.5 BMI Assessment/Plan discussion: High BMI High, discussed plan: lifestyle, weight reduction, dietary and physical activity Tobacco/Smoking Status: Tobacco use Status Tobacco use date assessed 10/20/25 10/20/25 08:51 Patient Tobacco Use Status Never used Tobacco 10/20/25 09:04 Tobacco use type 10/20/25 09:04 e-Cigarette/Vaping Use Never Used 10/20/25 08:51 PHQ-9: PHQ-9 Score PHQ-9: Total score 5 10/20/25 09:23 Depression Screening Interpretation: Positive Depression Screening Follow-up: Existing condition Thrive Assessment: Date of Thrive Assessment Date Thrive assessed 01/12/25 10/20/25 08:51 Currently or been in a relationship where the following occur: No concerns reported Const Other: obese General: healthy appearing, no acute distress, alert and awake Nutritional Appearance: well nourished Orientation/consciousness: oriented to person, oriented to place and oriented to time HENMT Ears: TM's normal bilaterally General nose exam: Normal nasal mucous membranes and turbinates present Eyes Conjunctivae: conjunctivae normal Sclerae: sclerae normal Pupils: Equal, round and reactive pupils present Neck Neck: Yes no lymphadenopathy and Yes no JVD Thyroid: Thyroid normal Carotids: no bruits Resp Effort & Inspection: normal respiratory effort and not tachypneic Auscultation: no crackles, no rales, no rhonchi and no wheezes Cardio Rate: regular rate Rhythm: regular rhythm Heart sounds: no murmurs and normal S1 and S2 GI Palpation (GI): Soft to palpation, nontender, no hepatomegaly and no splenomegaly Auscultation: normal bowel sounds Skin General skin exam: no rashes or lesions noted and dry skin Neuro General: oriented to person, oriented to place and oriented to time Cranial nerves: Yes Equal, round and reactive pupils present Speech: No Abnormal speech present Gait exam (Neuro): Normal gait present Motor exam (neuro): no tremor noted Extrem Right upper extremity: full ROM Left upper extremity: full ROM Right lower extremity: full ROM; no edema Left lower extremity: full ROM; no edema Psych Mental Status: mental status grossly normal Speech and movement: Normal speech and movement present Affect: normal affect Attitude: cooperative Thought process: Normal thought process present Coding Level of Care Code Est Pt Level 4 (82273) Diagnoses Primary insomnia F51.01 Insomnia type: primary Hypothyroidism, unspecified type E03.9 Hypothyroidism type: unspecified JENNA (obstructive sleep apnea) G47.33 Inflammatory arthritis M19.90 Class 1 obesity E66.811 Assessment & Plan Assessment & Plan (1) Insomnia: Code(s): G47.00 - Insomnia, unspecified Category: Medical Qualifiers: Insomnia type: primary Qualified Code(s): F51.01 - Primary insomnia Plan: Patient continues to have difficulty with his insomnia, he reports he can not shut his brain off at night racing thoughts . He has tried trazodone and highest dose of zolpidem though have not been effective. He is interested in trying an alternative medication before sleep. Thus will try hydroxyzine 25 mg prior to sleep. (2) Hypothyroid: Code(s): E03.9 - Hypothyroidism, unspecified Category: Medical Qualifiers: Hypothyroidism type: unspecified Qualified Code(s): E03.9 - Hypothyroidism, unspecified Plan: Most recent TSH stable, will continue his current dose of levothyroxine and continue following TSH to ensure normal (3) JENNA (obstructive sleep apnea): Code(s): G47.33 - Obstructive sleep apnea (adult) (pediatric) Category: Medical Plan: Patient has a history of obstructive sleep apnea though has not been able tolerate the CPAP machine. Has been on Zepbound and has been able to lose significant amount of weight and feels much better. Fortunately insurance will not cover Zepbound anymore.. (4) Inflammatory arthritis: Code(s): M19.90 - Unspecified osteoarthritis, unspecified site Category: Medical Plan: Patient continues to follow rheumatology. He has been started on methotrexate and folic acid. He has not had an adequate pain reduction with gabapentin 300 twice a day, he is interested in increasing his gabapentin to 600 twice a day for better pain relief. (5) Class 1 obesity: Code(s): E66.811 - Obesity, class 1 Category: Medical Plan: Has been on Zepbound and has been able to lose more than 5% of his total body mass, he does have comorbid obesity related conditions such as obstructive sleep apnea and osteo arthritis. Unfortunately insurance will no longer cover Zepbound. He feels satisfied with the amount of of weight loss he is manage. He will try to manage his weight on his own with lifestyle and dietary modifications. He has a much better relationship with food and has been much more physically active.. His goal weight is to be around 250 l Orders: Orders TSH reflex Free T4 10/20/25 E03.9 - Hypothyroidism, unspecified Vitamin D 25-OH Total 10/20/25 E55.9 - Vitamin D deficiency, unspecified Vitamin B12 and Folate 10/20/25 E53.8 - Deficiency of other specified B group vitamins Prostate Specific Antigen Scr 10/20/25 E53.8 - Deficiency of other specified B group vitamins, Z12.5 - Encounter for screening for malignant neoplasm of prostate Comprehensive [place]. Panel Fast 10/20/25 Z13.1 - Encounter for screening for diabetes mellitus Medications: New hydroxyzine HCl 25 mg PO BEDTIME 30 tabs 1RF 30 days F51.01 - Primary insomnia gabapentin 600 mg PO BID 60 tabs 3RF 30 days M54.51 - Vertebrogenic low back pain Discontinued gabapentin Discontinued Reason: Doctor's Order 300 mg PO BID 30 days 60 caps 3RF pain (scale score 7-10) M48.062 - Spinal stenosis, lumbar region with neurogenic claudication
== END 2025-10-20 09:38 | disposition home or self-care (01) ==
LOC: HO.HMCH 08:42
PROVIDERS: PCP Physician Assistant; Visit Provider Physician Assistant
DX: F51.01 Primary insomnia (principal); E03.9 Hypothyroidism, unspecified; G47.33 Obstructive sleep apnea (adult) (pediatric); M19.90 Unspecified osteoarthritis, unspecified site; E66.811 Obesity, class 1; Z68.32 Body mass index [BMI] 32.0-32.9, adult

== ENCOUNTER → 2025-10-20 08:41 | Outpatient (BNVA) | payer OTHER, SELFPAY | PROVIDERS: PCP Physician Assistant; Visit Provider Physician Assistant | DX: F51.01 Primary insomnia (principal); E03.9 Hypothyroidism, unspecified; G47.33 Obstructive sleep apnea (adult) (pediatric); M19.90 Unspecified osteoarthritis, unspecified site; E66.811 Obesity, class 1; Z13.31 Encounter for screening for depression | CPT/HCPCS: 96127; 99212 ==